=== PATIENT | male | born 1955 | race Caucasian/White ===

== ENCOUNTER 2017-12-26 06:30 | Inpatient (IN) ==
--- NOTE | 2017-12-26 07:01 | Emergency Department Note ---
START Narrative - START START: For this encounter, I have reviewed the AGILE PRO[employer] MANAGER or PA documentation, treatment plan, and medical decision making; and I have had face to face time with this patient. Findings consistent with somnolence and bradypnea. Patient had recent dental procedure. Accu-Chek obtained emergently and patient placed on supplemental oxygen. Patient was given Narcan as there was questionable demonstration of [place]. Patient had no response to Narcan. He does have significant amount of secretions which are dried in the posterior oropharynx. These were suctioned. There is minimal gag reflex. I would proceed with intubation for airway protection and to prevent ongoing episodes of intermittent apnea. Patient will be intubated and signed out to Dr. Denise
[2017-12-26] MEDS ORDERED: Propofol 500 MG/50 ML INFUS..BTL ONE (07:05)
--- NOTE | 2017-12-26 07:09 | Emergency Department Note ---
Disposition Clinical Impression: Respiratory distress, Acute kidney injury Respiratory failure Qualifiers: Chronicity: acute Respiratory failure complication: unspecified whether with hypoxia or hypercapnia Qualified Code(s): J96.00 - Acute respiratory failure, unspecified whether with hypoxia or hypercapnia Disposition: Admitted As Inpatient Condition: Critical Referrals: Yanet Armstrong MD [Primary Care Provider] - Forms: ED Satisfaction Letter Time of Disposition: 08:16 General Adult HPI - General Chief complaint: ED Weakness Stated complaint: just not acting like himself Time Seen by Provider: 12/26/17 06:51 Limitations: physical limitation - History of Present Illness Pain Scale: 0 - Related Data Home Medications Medication Instructions Recorded Confirmed Acetaminophen [Non-Aspirin] 650 mg PO Q4H PRN 12/26/17 12/26/17 Albuterol Neb [Proventil Neb] 2.5 mg IH QID PRN 12/26/17 12/26/17 Alendronate Sodium [Fosamax] 70 mg PO TH 12/26/17 12/26/17 Benztropine Mesylate 2 mg PO HS 12/26/17 12/26/17 Benztropine [Cogentin] 1 mg PO QAM 12/26/17 12/26/17 Buspirone HCl [Buspar] 20 mg PO BID 12/26/17 12/26/17 Calcium Carbonate/Vitamin D3 1 tab PO BID 12/26/17 12/26/17 [Oyster Shell Calcium-Vit D Tab] Cholecalciferol (Vitamin D3) 1,000 unit PO DAILY 12/26/17 12/26/17 [Vitamin D] Docusate Sodium [Dok] 100 mg PO BID 12/26/17 12/26/17 Fluticasone Propionate Nasal 1 spr NS DAILY 12/26/17 12/26/17 [Flonase] Fluvoxamine Maleate 50 mg PO BID 12/26/17 12/26/17 Ibuprofen [Motrin Ib] 400 mg PO Q6H PRN 12/26/17 12/26/17 LORazepam [Ativan] 1 mg PO BID 12/26/17 12/26/17 Levothyroxine [Synthroid] 100 mcg PO DAILY 12/26/17 12/26/17 [place] Carbonate 300 mg PO BID 12/26/17 12/26/17 Loperamide [Imodium] 4 mg PO DAILY PRN 12/26/17 12/26/17 Magnesium Hydroxide [Milk of 2,400 mg PO DAILY PRN 12/26/17 12/26/17 Magnesia] OLANZapine [Zyprexa] 10 mg PO QAM 12/26/17 12/26/17 OLANZapine [Zyprexa] 20 mg PO HS 12/26/17 12/26/17 Polyethylene Glycol 3350 [Gavilax] 17 gm PO DAILY 12/26/17 12/26/17 Sennosides/Docusate Sodium 2 tab PO HS 12/26/17 12/26/17 [Senna-S Tablet] Tamsulosin [Flomax] 0.4 mg PO DAILY 12/26/17 12/26/17 Xyzal 5 mg PO DAILY 12/26/17 12/26/17 carBAMazepine [CarBAMazepine] 100 mg PO QAM 12/26/17 12/26/17 carBAMazepine [CarBAMazepine] 200 mg PO HS 12/26/17 12/26/17 fluvoxaMINE [Luvox] 100 mg PO BID 12/26/17 12/26/17 Allergies Allergy/AdvReac Type Severity Reaction Status Date / Time No Known Allergies Allergy Verified 10/15/17 19:33 Past Medical History - Past Medical History Medical history: Reports: arthritis, COPD, osteoporosis, thyroid disease, other Psychiatric history: Reports: anxiety, depression, other - Social History Smoking Status: Never smoker Smokeless Tobacco Status: No Alcohol use: Reports: none Drug use: Reports: none Physical Exam - General Limitations: physical limitation General appearance: in no apparent distress Course Vital Signs Temperature 97.9 F 12/26/17 06:31 Pulse Rate 105 12/26/17 06:31 Respiratory Rate 16 12/26/17 06:31 Blood Pressure 113/78 12/26/17 06:31 O2 Sat by Pulse Oximetry 94 12/26/17 06:31 Temperature 97.9 F 12/26/17 06:31 Pulse Rate 97 12/26/17 08:45 Respiratory Rate 14 12/26/17 08:45 Blood Pressure 118/81 12/26/17 08:45 O2 Sat by Pulse Oximetry 97 12/26/17 08:45 Oxygen Delivery Oxygen Delivery Ventilator Medical Decision Making - Medical Records Medical records reviewed: Yes I reviewed the patient's medical records. - Lab Data Lab results reviewed: Yes I reviewed the patient's lab results. Result diagrams: 12/26/17 07:58 12/26/17 07:58 Lab Results 12/26/17 12/26/17 12/26/17 Range/Units 06:49 07:39 07:39 WBC (4.3-11.1) K/mcL RBC (4.19-5.50) M/mcL Hgb (12.9-16.9) g/dL Hct (37.5-50.1) % MCV (83.0-100.0) fL MCH (28.0-33.3) pg MCHC (31.6-35.5) g/dL RDW (11.5-14.5) % Plt Count (140-400) K/mcL MPV (9.4-12.4) fL Immature Gran % (0-4) % Seg Neutrophils % % Lymphocytes % % Monocytes % % Eosinophils % % Basophils % % Neutrophils # (1.6-8.9) K/mcL Lymphocytes # (0.6-4.6) K/mcL Monocytes # (0.0-1.3) K/mcL Eosinophils # (0.0-0.6) K/mcL Basophils # (0.0-0.2) K/mcL ABG pH (7.32-7.45) pH Units ABG pCO2 (35-45) mmHg ABG pO2 (85-104) mmHg ABG HCO3 (21-27) mEq/L ABG Total CO2 (20-26) mEq/L ABG O2 Saturation (95-98) % ABG Base Excess (-2 to 3) mEq/L Respiration Rate O2 Delivery Device Blood Gas Modality Inspired O2 (1-15=lpm [id number]=%) Tidal Volume cc PEEP cm H2O Sodium (136-145) mEq/L Potassium (3.5-5.1) mEq/L Chloride (98-107) mEq/L Carbon Dioxide (23-29) mEq/L BUN (8-23) mg/dL Creatinine (0.70-1.30) mg/dL Est GFR ( Amer) (> 60) Est GFR (Non-Af Amer) (> 60) BUN/Creatinine Ratio (6-26) Glucose (70-105) mg/dL POC Glucose 98 (70-99) mg/dL Calculated Osmolality (280-300) Lactic Acid (0.5-2.2) mmol/L Calcium (8.6-10.3) mg/dL Total Bilirubin (0.3-1.0) mg/dL AST (13-39) Units/L ALT (7-52) Units/L Alkaline Phosphatase (34-104) Units/L Troponin I (< 0.04) ng/mL Serum Total Protein (6.4-8.9) g/dL Albumin (3.5-5.7) g/dL Globulin (2.4-3.5) g/dL Albumin/Globulin Ratio (1.1-2.2) Urine Color Yellow (Yellow) Urine Clarity Cloudy A (Clear) Urine pH 7.0 (5.0-8.0) pH Units Ur Specific [place] 1.012 (1.010-1.025) Urine Protein 30 H (Neg-Trace) mg/dL Urine Glucose (UA) Normal (Normal) mg/dL Urine Ketones Negative (Negative) mg/dL Urine Blood Moderate H (Negative) Urine Nitrite Positive A (Negative) Urine Bilirubin Negative (Negative) Urine Urobilinogen Normal (Normal) mg/dL Ur Leukocyte Esterase Large H (Negative) Urine Microscopic RBC 30-50 H (0-3) per hpf Urine Microscopic WBC TNTC H (0-3) per hpf Urine Bacteria Many H (None-Few) per hpf Salicylates (15.0-30.0) mg/dL Urine Opiates Screen Negative (Eqhlls=271) ng/mL Acetaminophen (10-20) mcg/mL Ur Barbiturates Screen Negative (Nzxkgk=611) ng/mL Carbamazepine (4-12) mcg/mL Ur Phencyclidine Scrn Negative (Cutoff=25) ng/mL Ur Amphetamines Screen Negative (Pzjoga=4747) ng/mL U Benzodiazepines Scrn Negative (Qwtdyx=624) ng/mL Urine Cocaine Screen Negative (Cutoff= 300) ng/mL U Marijuana (THC) Screen Negative (Cutoff = 50) ng/mL Ethyl Alcohol (Less than 10) mg/dL 12/26/17 12/26/17 12/26/17 Range/Units 07:44 07:58 07:58 WBC 13.8 H (4.3-11.1) K/mcL RBC 4.12 L (4.19-5.50) M/mcL Hgb 13.2 (12.9-16.9) g/dL Hct 41.4 (37.5-50.1) % MCV 100.5 H (83.0-100.0) fL MCH 32.0 (28.0-33.3) pg MCHC 31.9 (31.6-35.5) g/dL RDW 14.3 (11.5-14.5) % Plt Count 251 (140-400) K/mcL MPV 10.9 (9.4-12.4) fL Immature Gran % 0.5 (0-4) % Seg Neutrophils % 80.8 % Lymphocytes % 11.9 % Monocytes % 5.3 % Eosinophils % 1.3 % Basophils % 0.2 % Neutrophils # 11.2 H (1.6-8.9) K/mcL Lymphocytes # 1.7 (0.6-4.6) K/mcL Monocytes # 0.7 (0.0-1.3) K/mcL Eosinophils # 0.2 (0.0-0.6) K/mcL Basophils # 0.0 (0.0-0.2) K/mcL ABG pH 7.44 (7.32-7.45) pH Units ABG pCO2 39 (35-45) mmHg ABG pO2 427 H (85-104) mmHg ABG HCO3 27 (21-27) mEq/L ABG Total CO2 28 H (20-26) mEq/L ABG O2 Saturation 100 H (95-98) % ABG Base Excess 2 (-2 to 3) mEq/L Respiration Rate 14 O2 Delivery Device Adult Vent Blood Gas Modality ASSIST CONTROL Inspired O2 100.0 (1-15=lpm ke06-917=%) Tidal Volume 500 cc PEEP 5 cm H2O Sodium 145 (136-145) mEq/L Potassium 5.3 H (3.5-5.1) mEq/L Chloride 121 H (98-107) mEq/L Carbon Dioxide 26 (23-29) mEq/L BUN 60 H (8-23) mg/dL Creatinine 2.33 H (0.70-1.30) mg/dL Est GFR ( Amer) 35 L (> 60) Est GFR (Non-Af Amer) 29 L (> 60) BUN/Creatinine Ratio 26 (6-26) Glucose 111 H (70-105) mg/dL POC Glucose (70-99) mg/dL Calculated Osmolality 318 H (280-300) Lactic Acid (0.5-2.2) mmol/L Calcium 10.4 H (8.6-10.3) mg/dL Total Bilirubin 0.6 (0.3-1.0) mg/dL AST 57 H (13-39) Units/L ALT 67 H (7-52) Units/L Alkaline Phosphatase 97 (34-104) Units/L Troponin I < 0.03 (< 0.04) ng/mL Serum Total Protein 7.6 (6.4-8.9) g/dL Albumin 3.7 (3.5-5.7) g/dL Globulin 3.9 H (2.4-3.5) g/dL Albumin/Globulin Ratio 0.9 L (1.1-2.2) Urine Color (Yellow) Urine Clarity (Clear) Urine pH (5.0-8.0) pH Units Ur Specific [place] (1.010-1.025) Urine Protein (Neg-Trace) mg/dL Urine Glucose (UA) (Normal) mg/dL Urine Ketones (Negative) mg/dL Urine Blood (Negative) Urine Nitrite (Negative) Urine Bilirubin (Negative) Urine Urobilinogen (Normal) mg/dL Ur Leukocyte Esterase (Negative) Urine Microscopic RBC (0-3) per hpf Urine Microscopic WBC (0-3) per hpf Urine Bacteria (None-Few) per hpf Salicylates < 2.5 L (15.0-30.0) mg/dL Urine Opiates Screen (Jseynx=947) ng/mL Acetaminophen < 10 L (10-20) mcg/mL Ur Barbiturates Screen (Milgei=165) ng/mL Carbamazepine 9 (4-12) mcg/mL Ur Phencyclidine Scrn (Cutoff=25) ng/mL Ur Amphetamines Screen (Hvxddj=6793) ng/mL U Benzodiazepines Scrn (Fatexa=223) ng/mL Urine Cocaine Screen (Cutoff= 300) ng/mL U Marijuana (THC) Screen (Cutoff = 50) ng/mL Ethyl Alcohol < 10 (Less than 10) mg/dL 12/26/17 Range/Units 07:58 WBC (4.3-11.1) K/mcL RBC (4.19-5.50) M/mcL Hgb (12.9-16.9) g/dL Hct (37.5-50.1) % MCV (83.0-100.0) fL MCH (28.0-33.3) pg MCHC (31.6-35.5) g/dL RDW (11.5-14.5) % Plt Count (140-400) K/mcL MPV (9.4-12.4) fL Immature Gran % (0-4) % Seg Neutrophils % % Lymphocytes % % Monocytes % % Eosinophils % % Basophils % % Neutrophils # (1.6-8.9) K/mcL Lymphocytes # (0.6-4.6) K/mcL Monocytes # (0.0-1.3) K/mcL Eosinophils # (0.0-0.6) K/mcL Basophils # (0.0-0.2) K/mcL ABG pH (7.32-7.45) pH Units ABG pCO2 (35-45) mmHg ABG pO2 (85-104) mmHg ABG HCO3 (21-27) mEq/L ABG Total CO2 (20-26) mEq/L ABG O2 Saturation (95-98) % ABG Base Excess (-2 to 3) mEq/L Respiration Rate O2 Delivery Device Blood Gas Modality Inspired O2 (1-15=lpm em27-659=%) Tidal Volume cc PEEP cm H2O Sodium (136-145) mEq/L Potassium (3.5-5.1) mEq/L Chloride (98-107) mEq/L Carbon Dioxide (23-29) mEq/L BUN (8-23) mg/dL Creatinine (0.70-1.30) mg/dL Est GFR ( Amer) (> 60) Est GFR (Non-Af Amer) (> 60) BUN/Creatinine Ratio (6-26) Glucose (70-105) mg/dL POC Glucose (70-99) mg/dL Calculated Osmolality (280-300) Lactic Acid 1.0 (0.5-2.2) mmol/L Calcium (8.6-10.3) mg/dL Total Bilirubin (0.3-1.0) mg/dL AST (13-39) Units/L ALT (7-52) Units/L Alkaline Phosphatase (34-104) Units/L Troponin I (< 0.04) ng/mL Serum Total Protein (6.4-8.9) g/dL Albumin (3.5-5.7) g/dL Globulin (2.4-3.5) g/dL Albumin/Globulin Ratio (1.1-2.2) Urine Color (Yellow) Urine Clarity (Clear) Urine pH (5.0-8.0) pH Units Ur Specific [place] (1.010-1.025) Urine Protein (Neg-Trace) mg/dL Urine Glucose (UA) (Normal) mg/dL Urine Ketones (Negative) mg/dL Urine Blood (Negative) Urine Nitrite (Negative) Urine Bilirubin (Negative) Urine Urobilinogen (Normal) mg/dL Ur Leukocyte Esterase (Negative) Urine Microscopic RBC (0-3) per hpf Urine Microscopic WBC (0-3) per hpf Urine Bacteria (None-Few) per hpf Salicylates (15.0-30.0) mg/dL Urine Opiates Screen (Bealys=436) ng/mL Acetaminophen (10-20) mcg/mL Ur Barbiturates Screen (Yfvbmd=409) ng/mL Carbamazepine (4-12) mcg/mL Ur Phencyclidine Scrn (Cutoff=25) ng/mL Ur Amphetamines Screen (Qgxjoj=1425) ng/mL U Benzodiazepines Scrn (Jpgmlv=584) ng/mL Urine Cocaine Screen (Cutoff= 300) ng/mL U Marijuana (THC) Screen (Cutoff = 50) ng/mL Ethyl Alcohol (Less than 10) mg/dL - Radiology Data Radiology results reviewed: Yes I reviewed the patient's radiology results. - EKG Data EKG #1 EKG attestation: Yes I reviewed and interpreted this EKG. EKG results narrative: NSR 97 BPM AL 132 QRS 93ms QT/QTc 351/405. No acute SAUD Critical Care Time Critical Care Time: Yes Total Critical Care Time: 30 Attestation: The high probability of a clinically significant, sudden or life threatening deterioration of the [] system(s) required my full and direct attention, intervention and personal management. The aggregate critical care time was [] minutes. This time is in addition to time spent performing reported procedures but includes the following: [] Data Review and interpretation [] Patient assessment and monitoring of vital signs [] Documentation [] Medication orders and management Attestation Statement - Attestation Attestation: I have personally performed a face to face evaluation on this patient. I have reviewed and agree with the care plan. History and Exam by me shows: Upon arrival to the emergency department I was asked by Dr. Landa to evaluate the patient for apnea and inability to protect his airway. The patient was endotracheally intubated without difficulty by the resident physician Dr. Cardona. The patient will require intensive care unit admission. Further workup pending
--- NOTE | 2017-12-26 07:10 | Emergency Department Note ---
Disposition Clinical Impression: Respiratory distress Disposition: Still a Patient Condition: Fair Referrals: Yanet Armstrong MD [Primary Care Provider] - Forms: ED Satisfaction Letter General Adult HPI - General Chief complaint: ED Weakness Stated complaint: just not acting like himself Time Seen by Provider: 12/26/17 06:51 Limitations: physical limitation - History of Present Illness HPI Narrative: This documentation is for the intubation. Please see the other providers for complete documentation. Patient is a 62-year-old male who had a recent dental procedure. Patient presented for concerns of altered mental status. Patient had [place] about every 6 hours per caregiver. This morning the patient appeared to not be acting appropriately. Patient is a full code. Patient appeared with intermittent apnea and a decreased GCS and did not appear to be controlling his airway upon ED arrival. Pain Scale: 0 - Related Data Home Medications Medication Instructions Recorded Confirmed Acetaminophen [Tylenol] 325 mg PO Q6HR 06/13/17 06/13/17 Albuterol Neb [Proventil Neb] 06/13/17 Alendronate Sodium [Fosamax] 70 mg PO QWEEK 06/13/17 06/13/17 Benztropine Mesylate 1 mg PO 06/13/17 Buspirone HCl [Buspar] 10 mg PO 06/13/17 Calcium Carbonate/Vitamin D3 06/13/17 [[place]yster Shell 250 mg + Vit D Tb] CarBAMazepine [Carbamazepine ER] 06/13/17 Cholecalciferol (Vitamin D3) 1,000 unit PO 06/13/17 [Vitamin D] Fluticasone Propionate [Flovent 06/13/17 Diskus] Fluvoxamine Maleate [Fluvoxamine 100 mg PO 06/13/17 Maleate ER] LORazepam [Ativan] 1 mg PO 06/13/17 Levocetirizine Dihydrochloride 5 gm MC 06/13/17 Levothyroxine [Synthroid] 100 mcg PO 06/13/17 [place] Oral Soln [[place]] 300 mg PO 06/13/17 Loperamide [Imodium] 2 mg PO 06/13/17 OLANZapine [Zyprexa] 20 mg PO 06/13/17 Polyethylene Glycol 3350 [Gavilax] 8.5 gm PO 06/13/17 Senexum-S 06/13/17 Tamsulosin HCl [Flomax] 0.4 mg PO 06/13/17 Previous Rx's Medication Instructions Recorded Guaifenesin [Mucinex] 1,200 mg PO BID PRN #30 tab.er.12h 08/14/17 Nitrofurantoin Monohyd/M-Cryst 100 mg PO BID #10 capsule 10/15/17 [Macrobid 100 mg Capsule] Allergies Allergy/AdvReac Type Severity Reaction Status Date / Time No Known Allergies Allergy Verified 10/15/17 19:33 Limitations: ROS unobtainable due to patients medical condition Past Medical History - Past Medical History Source: unable to obtain Medical history: Reports: arthritis, COPD, osteoporosis, thyroid disease, other Psychiatric history: Reports: anxiety, depression, other - Social History Smoking Status: Never smoker Smokeless Tobacco Status: No Alcohol use: Reports: none Drug use: Reports: none Physical Exam - General Limitations: physical limitation General appearance: in no apparent distress - Head Head exam: atraumatic, normocephalic, normal inspection - Eye Eye exam: Present: normal appearance, PERRL, EOMI. Absent: miosis, mydriasis - ENT ENT exam: normal exam, mucous membranes dry - Neck Neck exam: Present: normal inspection - Chest Chest inspection: Present: normal inspection, symmetric chest wall rise - Respiratory Respiratory exam: Present: other (Decreased inspiratory effort). Absent: respiratory distress, prolonged expiratory phase - Cardiovascular Cardiovascular exam: Present: regular rate, normal rhythm. Absent: systolic murmur - Abdominal Exam Abdominal exam: Present: soft - Extremities Exam Extremities exam: Absent: pedal edema - Neurological Exam Neurological exam: Present: other (Patient appears to move all ext. Patient does not follow commands. Patient is not protecting his airway.) - Expanded Neurological Exam Speech: Absent: fluid speech Coma Scale Eye Opening: To Pain Coma Scale Motor Response: Localizes to Pain Coma Scale Verbal Response: None Coma Scale Total: 8 Course Course Narrative: Patient failed the 2 mg of Narcan. Concerns of airway protection. Acute mental status change. Patient was intubated emergently. Vital Signs Temperature 97.9 F 12/26/17 06:31 Pulse Rate 105 12/26/17 06:31 Respiratory Rate 16 12/26/17 06:31 Blood Pressure 113/78 12/26/17 06:31 O2 Sat by Pulse Oximetry 94 12/26/17 06:31 Temperature 97.9 F 04/05/18 06:31 Pulse Rate 105 12/26/17 06:31 Respiratory Rate 16 12/26/17 06:31 Blood Pressure 113/78 12/26/17 06:31 O2 Sat by Pulse Oximetry 94 12/26/17 06:31 Oxygen Delivery Oxygen Delivery Room Air Procedures - Intubation Time out performed: Yes sedative: Etomidate Mg Given: 20 paralytic: Rocuronium Mg Given: 100 Laryngoscope: Ciera ET Tube Size: 7.5 ET Tube Uncuffed: Yes Tube Secured Depth (cm): 23 Tube Secured Location: lips Tube Placement Confirmation: visualized tube passing through cords, equal breath sounds bilaterally, no breath sounds over epigastrium, confirmation by capnometry Patient Tolerated Procedure: well, no complications Intubation Complications: none Medical Decision Making - Lab Data Lab Results 12/26/17 Range/Units 06:49 POC Glucose 98 (70-99) mg/dL S.B.A.R. - S.B.A.R. Situation: Demographics Background: Presenting Complaint Assessment: Vital Signs, Course and respsone to treatment, Patient/Family Expectation Recommendation: Barrier(s) to disposition, Recommendation based on pending studies, treatments, or consults S.B.A.R. Report Given to: Dr. Denise S.B.A.RBassam Repor Time: 07:18
[2017-12-26] MEDS ORDERED: *HR* Etomidate 40 MG/20 ML VIAL IVP ONE (07:35)
[2017-12-26] MEDS ORDERED: *HR* Rocuronium Bromide 50 MG/5 ML VIAL IVP ONE (07:37)
[2017-12-26 07:49] LABS: ABG Base Excess 2 mEq/L (-2 to 3); ABG HCO3 27 mEq/L (21-27); ABG Oxygen Saturation 100 % (95-98); ABG PCO2 39 mmHg (35-45); ABG PH 7.44 pH Units (7.32-7.45); ABG PO2 427 mmHg (85-104); ABG TCO2 28 mEq/L (20-26); Blood Gas Modality ASSIST CONTROL; Blood Gas PEEP 5 cm H2O; Blood Gas Respiration Rate 14; Blood Gas VT 500 cc
[2017-12-26 07:59] LABS: Bilirubin,Urine Negative (Negative); Blood,Urine Moderate (Negative); Color,Urine Yellow (Yellow); Glucose,Urine (UA) Normal (Normal); Ketones,Urine Negative (Negative); Leukocyte Esterase,Urine Large (Negative); Nitrite,Urine Positive (Negative); Protein,Urine 30 mg/dL (Neg-Trace); Specific Gravity,Urine 1.012 (1.010-1.025); Urobilinogen,Urine Normal (Normal)
[2017-12-26 08:06] LABS: Clarity,Urine Cloudy (Clear)
[2017-12-26 08:12] LABS: Basophils % 0.2 %; Eosinophils # 0.2 K/mcL (0.0-0.6); Eosinophils % 1.3 %; Hematocrit 41.4 % (37.5-50.1); Hemoglobin 13.2 g/dL (12.9-16.9); Immature Granulocytes % 0.5 % (0-4); Lymphocytes # 1.7 K/mcL (0.6-4.6); Lymphocytes % 11.9 %; Mean Corpuscular HGB Conc 31.9 g/dL (31.6-35.5); Mean Corpuscular Volume 100.5 fL (83.0-100.0); Mean Platelet Volume 10.9 fL (9.4-12.4); Monocytes # 0.7 K/mcL (0.0-1.3); Monocytes % 5.3 %; Neutrophils # 11.2 K/mcL (1.6-8.9); Platelet Count 251 K/mcL (140-400); Red Blood Count 4.12 M/mcL (4.19-5.50); Red Cell Distribution Width 14.3 % (11.5-14.5); Segmented Neutrophils % 80.8 %
[2017-12-26] MEDS ORDERED: *HR* Rocuronium Bromide 100 MG/10 ML VIAL IVC ONE (08:15)
[2017-12-26] MEDS ORDERED: *HR* Etomidate 20 MG/10 ML AMPUL IVP ONE (08:15)
[2017-12-26 08:18] LABS: WBC,Urine TNTC per hpf (0-3)
[2017-12-26 08:19] LABS: RBC,Urine 30-50 per hpf (0-3)
[2017-12-26 08:20] LABS: Amphetamine Screen,Urine Negative ng/mL (Cutoff=1000); Bacteria,Urine Many per hpf (None-Few); Barbiturate Screen,Urine Negative ng/mL (Cutoff=200); Benzodiazepines Screen,Urine Negative ng/mL (Cutoff=200); Cannabinoid Screen,Urine Negative ng/mL (Cutoff = 50); Cocaine Screen,Urine Negative ng/mL (Cutoff= 300); Opiate Screen,Urine Negative ng/mL (Cutoff=300); Phencyclidine Screen,Urine Negative ng/mL (Cutoff=25)
[2017-12-26] MEDS ORDERED: cefTRIAXone 1,000 MG in Water for inj. (sterile) 20 ML 10 ML IVPB ONE (08:21)
[2017-12-26] MEDS ORDERED: *HR* Midazolam HCl 2 MG/2 ML VIAL IVP ONE (08:24)
[2017-12-26 08:32] LABS: Acetaminophen < 10 mcg/mL (10-20); Alanine Aminotransferase 67 Units/L (7-52); Albumin 3.7 g/dL (3.5-5.7); Albumin/Globulin Ratio 0.9 (1.1-2.2); Alkaline Phosphatase 97 Units/L (34-104); Aspartate Amino Transferase 57 Units/L (13-39); BUN/Creatinine Ratio 26 (6-26); Bilirubin,Total 0.6 mg/dL (0.3-1.0); Blood Urea Nitrogen 60 mg/dL (8-23); Calcium 10.4 mg/dL (8.6-10.3); Carbon Dioxide 26 mEq/L (23-29); Chloride 121 mEq/L (98-107); Ethanol < 10 mg/dL (Less than 10); Globulin 3.9 g/dL (2.4-3.5); Glucose 111 mg/dL (70-105); Osmolality,Calculated 318 (280-300); Potassium 5.3 mEq/L (3.5-5.1); Salicylate < 2.5 mg/dL (15.0-30.0); Sodium 145 mEq/L (136-145); Total Protein 7.6 g/dL (6.4-8.9); Troponin I < 0.03 ng/mL (< 0.04); eGFR For African Americans 35 (> 60); eGFR For Non-African Americans 29 (> 60)
[2017-12-26] MEDS: Propofol 500 MG/50 ML INFUS..BTL IVC SCH ×3 (08:44→17:01)
[2017-12-26 08:49] LABS: Carbamazepine (Tegretol) 9 mcg/mL (4-12)
[2017-12-26] MEDS ORDERED: Lacri-Lube 3.5 GM TUBE BOTH EYES PRN (11:53)
[2017-12-26] MEDS ORDERED: Dextrose Gel 15 GM/37.5 ML TUBE PO PRN ×2 (11:57)
[2017-12-26] MEDS ORDERED: *HR* Dextrose 50 % in Water (Syg) 50 ML SYRINGE IVP PRN (11:57)
[2017-12-26] MEDS ORDERED: D5% in Water 1,000 ML IVC PRN (11:57)
--- NOTE | 2017-12-26 11:58 | Pulmonology History & Physical ---
<Campbell Crockett - Last Filed: 12/26/17 15:41> Date of Encounter: 12/26/17 Time of Encounter: 11:58 Assessment and Plan (1) Encephalopathy acute Current visit: Yes Status: Acute consideration for narcotic overdose, opiate screening was negative - no other drugs noted urine consistent with UTI with OSCAR, suspect may have prolonged narcotic drug effects due to reduce clearance - patient will be treated with Zosyn for broader coverage patient has history of seizures based on home medications Carbamazepine - Carbamazepine level 9 [address] chest with concern for aspiration CT head without acute intracranial abnormality - no focal neuro deficits seen on exam afebrile no nuchal rigidity on exam will continue with vent support and wean sedation to evaluate baseline mental state (2) Urinary tract infection Current visit: Yes Status: Acute treated with Rocephin in ED broaden coverage with Zosyn Qualifiers: Urinary tract infection type: site unspecified Hematuria presence: with hematuria Qualified Code(s): N39.0 - Urinary tract infection, site not specified; R31.9 - Hematuria, unspecified; R31.9 - Hematuria, unspecified (3) Respiratory failure Current visit: Yes Status: Acute emergently intubated secondary to low GCS and inability to protect airway no reported lung diseases will continue with sedation and plan for possible extubation in the near future , 24-48 hours ABG tomorrow no recent hospitalization resident at [facility] continue empiric coverage for UTI with Zosyn IV Protonix Qualifiers: Chronicity: acute Respiratory failure complication: unspecified whether with hypoxia or hypercapnia Qualified Code(s): J96.00 - Acute respiratory failure, unspecified whether with hypoxia or hypercapnia (4) Acute kidney injury Current visit: Yes Status: Acute suspect pre-renal component BUN elevated 60 patient appears dehydrated on exam given report of poor PO intake grove in place, strict I/Os IVF will check FENa hold nephrotoxic medications (5) DVT prophylaxis Current visit: Yes Status: Acute Heparin History of Present Illness Chief complaint: altered mental status HPI: Mr. Varghese is a 62 year old male with reported history of developmental disability who presents to the emergency department for concern of altered mental status. Patient is currently sedated and mechanically ventilated. Channeler is at bedside however was not present initially prior to intubation. Per jailer/training officer, patient had a recent teeth extraction 6 days ago (12/20) and was given Vicodin medication for pain. The past several days he has been reported lethargic not quite acting himself. She states he is normally awake and interactive. He typically is able to voice any pain and discomfort. Patient is a resident at [facility] and reports lethargy and weakness since surgery. She states patient has not had any recent illness, fever, cough, or any nose. She has noticed that he has some urinary incontinence which is unusual. Denies any recent injury or fall. He is not on any blood thinners. There was initial concern for overdose. Per the ED physician documentation 2 milligrams Narcan was given without response. Patient continued to be somnolent and unable to arouse. Concern for airway compromise patient was intubated to help facilitate further investigation. Review of workup. Leukocytosis of 13.8. Afebrile. Acute kidney injury SCr 2.33. Urine appears consistent with infection with positive Nitrites and large Leuk Esterase with many bacteria. The urine is cloudy and purulent appearing. Urine drug screen performed, negative for drugs. Salicylates <2.5 and APAP <10. Ethanol <10. CT head without acute intracranial abnormality. CTA chest limited due to motion but there were bibasilar consolidations, partially attributable to atelectasis however superimposed airway spread of disease such as aspiration can be considered. Patient had blood cultures drawn and empirically was treated with Ceftriaxone. Past Med Surg Social Fam HX - Past Medical History Medical history: arthritis, COPD, osteoporosis, thyroid disease, other Psychiatric history: anxiety, depression, other - Social History Smoking Status: Never smoker Smokeless Tobacco Status: No Alcohol use: none Drug use: none Medications and Allergies Acetaminophen [Non-Aspirin] 650 mg PO Q4H PRN 12/26/17 [History] Albuterol Neb [Proventil Neb] 2.5 mg IH QID PRN 12/26/17 [History] Alendronate Sodium [Fosamax] 70 mg PO TH 12/26/17 [History] Benztropine Mesylate 2 mg PO HS 12/26/17 [History] Benztropine [Cogentin] 1 mg PO QAM 12/26/17 [History] Buspirone HCl [Buspar] 20 mg PO BID 12/26/17 [History] Calcium Carbonate/Vitamin D3 [Oyster Shell Calcium-Vit D Tab] 1 tab PO BID 12/26 [History] Cholecalciferol (Vitamin D3) [Vitamin D] 1,000 unit PO DAILY 12/26/17 [History] Docusate Sodium [Dok] 100 mg PO BID 12/26/17 [History] Fluticasone Propionate Nasal [Flonase] 1 spr NS DAILY 12/26/17 [History] Fluvoxamine Maleate 50 mg PO BID 12/26/17 [History] Ibuprofen [Motrin Ib] 400 mg PO Q6H PRN 12/26/17 [History] LORazepam [Ativan] 1 mg PO BID 12/26/17 [History] Levothyroxine [Synthroid] 100 mcg PO DAILY 12/26/17 [History] [place] Carbonate 300 mg PO BID 12/26/17 [History] Loperamide [Imodium] 4 mg PO DAILY PRN 12/26/17 [History] Magnesium Hydroxide [Milk of Magnesia] 2,400 mg PO DAILY PRN 12/26/17 [History] OLANZapine [Zyprexa] 10 mg PO QAM 12/26/17 [History] OLANZapine [Zyprexa] 20 mg PO HS 12/26/17 [History] Polyethylene Glycol 3350 [Gavilax] 17 gm PO DAILY 12/26/17 [History] Sennosides/Docusate Sodium [Senna-S Tablet] 2 tab PO HS 12/26/17 [History] Tamsulosin [Flomax] 0.4 mg PO DAILY 12/26/17 [History] Xyzal 5 mg PO DAILY 12/26/17 [History] carBAMazepine [CarBAMazepine] 100 mg PO QAM 12/26/17 [History] carBAMazepine [CarBAMazepine] 200 mg PO HS 12/26/17 [History] fluvoxaMINE [Luvox] 100 mg PO BID 12/26/17 [History] 3 Allergy/AdvReac Type Severity Reaction Status Date / Time No Known Allergies Allergy Verified 10/15/17 19:33 ROS unobtainable: due to endotracheal tube, due to mental status All Systems: The remainder of the systems were reviewed and are negative Physical Examination Vital Signs: Vital Signs, Last 4 Hours Pulse Resp BP Pulse Ox 12/26/17 10:56 96 15 123/85 98 12/26/17 09:27 95 14 106/77 98 12/26/17 08:45 97 14 118/81 97 12/26/17 08:24 16 100 General appearance: appears uncomfortable, other (initial evaluation in the ED patient appeared undersedated and uncomfortable, he does move all 4 extremities spontaneously without focal deficit, no nuchal rigidity or meningismus, on ICU arrival he is in no acute distress and adequately sedated) Eyes: nonicteric ENT: oropharynx dry, other (endotracheal intubation, no epistaxis or hemoptysis or hematemesis) Neck: supple Effort: other (mechanically ventilated) Inspection: other Auscultation: bilateral: clear, rales Cardiovascular: regular rate and rhythm Gastrointestinal: normoactive bowel sounds, soft, non-tender, non-distended Integumentary: other (temporal wasting) Extremities: no cyanosis, no edema, no clubbing, no ischemia or petechiae Musculoskeletal: no deformities, ROM normal non-focal exam, unable to assess due to mental status other (unable to assess) Results - Laboratory Findings CBC and BMP: 12/26/17 07:58 12/26/17 07:58 ABG ABG pH 7.44 pH Units (7.32-7.45) 12/26/17 07:44 ABG pCO2 39 mmHg (35-45) 04 07:44 ABG pO2 427 mmHg (85-104) H 12/26/17 07:44 ABG O2 Saturation 100 % (95-98) H 12/26/17 07:44 Abnormal lab findings: Abnormal lab results WBC 13.8 K/mcL (4.3-11.1) H 12/26/17 07:58 RBC 4.12 M/mcL (4.19-5.50) L 12/26/17 07:58 MCV 100.5 fL (83.0-100.0) H 12/26/17 07:58 Neutrophils # 11.2 K/mcL (1.6-8.9) H 12/26/17 07:58 ABG pO2 427 mmHg (85-104) H 12/26/17 07:44 ABG Total CO2 28 mEq/L (20-26) H 12/26/17 07:44 ABG O2 Saturation 100 % (95-98) H 12/26/17 07:44 Potassium 5.3 mEq/L (3.5-5.1) H 12/26/17 07:58 Chloride 121 mEq/L (98-107) H 12/26/17 07:58 BUN 60 mg/dL (8-23) H 12/26/17 07:58 Creatinine 2.33 mg/dL (0.70-1.30) H 12/26/17 07:58 Est GFR ( Amer) 35 (> 60) L 12/26/17 07:58 Est GFR (Non-Af Amer) 29 (> 60) L 12/26/17 07:58 Glucose 111 mg/dL (70-105) H 12/26/17 07:58 Calculated Osmolality 318 (280-300) H 12/26/17 07:58 Calcium 10.4 mg/dL (8.6-10.3) H 12/26/17 07:58 AST 57 Units/L (13-39) H 12/26/17 07:58 ALT 67 Units/L (7-52) H 12/26/17 07:58 Globulin 3.9 g/dL (2.4-3.5) H 12/26/17 07:58 Albumin/Globulin Ratio 0.9 (1.1-2.2) L 12/26/17 07:58 Urine Clarity Cloudy (Clear) A 12/26/17 07:39 Urine Protein 30 mg/dL (Neg-Trace) H 12/26/17 07:39 Urine Blood Moderate (Negative) H 12/26/17 07:39 Urine Nitrite Positive (Negative) A 12/26/17 07:39 Ur Leukocyte Esterase Large (Negative) H 12/26/17 07:39 Urine Microscopic RBC 30-50 per hpf (0-3) H 12/26/17 07:39 Urine Microscopic WBC TNTC per hpf (0-3) H 12/26/17 07:39 Urine Bacteria Many per hpf (None-Few) H 12/26/17 07:39 Salicylates < 2.5 mg/dL (15.0-30.0) L 12/26/17 07:58 Acetaminophen < 10 mcg/mL (10-20) L 12/26/17 07:58 <Surinder Cuadra W - Last Filed: 12/26/17 16:14> Date of Encounter: 12/26/17 History of Present Illness HPI: Mr. Varghese is a 62 year old male All Systems: The remainder of the systems were reviewed and are negative Physical Examination Vital Signs: Vital Signs, Last 4 Hours Pulse Resp BP Pulse Ox 12/26/17 15:38 105 12/26/17 14:55 14 115/82 12/26/17 14:11 108 15 102/69 95 12/26/17 13:34 109 14 103/70 94 12/26/17 12:21 14 108/75 96 Results - Laboratory Findings CBC and BMP: 12/26/17 07:58 12/26/17 07:58 ABG ABG pH 7.44 pH Units (7.32-7.45) 12/26/17 07:44 ABG pCO2 39 mmHg (35-45) 12/26/17 07:44 ABG pO2 427 mmHg (85-104) H 12/26/17 07:44 ABG O2 Saturation 100 % (95-98) H 12/26/17 07:44 Abnormal lab findings: Abnormal lab results WBC 13.8 K/mcL (4.3-11.1) H 12/26/17 07:58 RBC 4.12 M/mcL (4.19-5.50) L 12/26/17 07:58 MCV 100.5 fL (83.0-100.0) H 12/26/17 07:58 Neutrophils # 11.2 K/mcL (1.6-8.9) H 12/26/17 07:58 ABG pO2 427 mmHg (85-104) H 12/26/17 07:44 ABG Total CO2 28 mEq/L (20-26) H 12/26/17 07:44 ABG O2 Saturation 100 % (95-98) H 12/26/17 07:44 Potassium 5.3 mEq/L (3.5-5.1) H 12/26/17 07:58 Chloride 121 mEq/L (98-107) H 12/26/17 07:58 BUN 60 mg/dL (8-23) H 12/26/17 07:58 Creatinine 2.33 mg/dL (0.70-1.30) H 12/26/17 07:58 Est GFR ( Amer) 35 (> 60) L 12/26/17 07:58 Est GFR (Non-Af Amer) 29 (> 60) L 12/26/17 07:58 Glucose 111 mg/dL (70-105) H 12/26/17 07:58 Calculated Osmolality 318 (280-300) H 12/26/17 07:58 Calcium 10.4 mg/dL (8.6-10.3) H 12/26/17 07:58 AST 57 Units/L (13-39) H 12/26/17 07:58 ALT 67 Units/L (7-52) H 12/26/17 07:58 Globulin 3.9 g/dL (2.4-3.5) H 12/26/17 07:58 Albumin/Globulin Ratio 0.9 (1.1-2.2) L 12/26/17 07:58 Urine Clarity Cloudy (Clear) A 12/26/17 07:39 Urine Protein 30 mg/dL (Neg-Trace) H 12/26/17 07:39 Urine Blood Moderate (Negative) H 12/26/17 07:39 Urine Nitrite Positive (Negative) A 12/26/17 07:39 Ur Leukocyte Esterase Large (Negative) H 12/26/17 07:39 Urine Microscopic RBC 30-50 per hpf (0-3) H 12/26/17 07:39 Urine Microscopic WBC TNTC per hpf (0-3) H 12/26/17 07:39 Urine Bacteria Many per hpf (None-Few) H 12/26/17 07:39 Salicylates < 2.5 mg/dL (15.0-30.0) L 12/26/17 07:58 Acetaminophen < 10 mcg/mL (10-20) L 12/26/17 07:58 - Attending Attestation I examined this patient and my medical decision-making was reviewed with the Resident Physician. I agree with the documented findings, disposition and treatment plan as described except to the extent set forth below. We independently had [id number] contact with the patient Patient seen and examined at bedside Labs, radiology, chart personally reviewed. 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 Was noted to move alternatives of sedation goal sedation while vent [place] 2-3. Patient has developmental delay and lives in a care home Pulm: Acute respiratory failure requiring intubation which was related more to airway management/protection as opposed to true hypoxemia or hypercarbia acceptable gas exchange on last ABG plan for spontaneous breathing trial tomorrow morning Cards: Blood pressure monitored and stable troponin within normal limits FEN-GI: Nothing by mouth for now GI prophylaxis given Renal: OSCAR likely secondary to volume depletion fluids have been administered repeat serum creatinine and electrolytes and urine output ID: Suspected UTI with sepsis. Cannot exclude possibility of recent dental extraction complicating picture will broadened to cover for both UTI and possible anaerobic infection de-escalate based upon cultures and clinical course Heme/Onc: DVT prophylaxis given Endo: Glucose Monitored Integ/MSK: Skin Care per routine ICU Nursing Protocol to prevent ulcers. Lines: All lines examined without evidence of infection : Dispo: Remain in ICU CODE: Full
[2017-12-26 13:01] LABS: Thyroid Stimulating Hormone 0.471 mcIU/mL (0.340-5.600)
[2017-12-26] MEDS ORDERED: 0.9 % Sodium Chloride 1,000 ML ONE (13:07)
[2017-12-26] MEDS: FentaNYL (PF) 1,000 MCG in 0.9 % Sodium Chloride 80 ML IVC SCH (13:21)
[2017-12-26] MEDS: Lacri-Lube 3.5 GM TUBE BOTH EYES SCH ×3 (13:24→21:17)
[2017-12-26] MEDS ORDERED: 0.9 % Sodium Chloride 1,000 ML IVC SCH (14:30)
[2017-12-26] MEDS ORDERED: Naloxone 0.4 MG/ML INJ IVP PRN (15:45)
[2017-12-26] MEDS ORDERED: Ringers Solution, Lactated 1,000 ML IVC ONE (16:09)
[2017-12-26] MEDS: Ringers Solution, Lactated 1,000 ML IVC SCH (16:17)
[2017-12-26] MEDS: Piperacillin/Tazobactam 3.375 GM in 0.9 % Sodium Chloride Mini Bag 100 ML IVPB SCH (16:18)
[2017-12-26 16:34] LABS: Potassium 4.3 mEq/L (3.5-5.1)
[2017-12-26 17:07] LABS: ABG Base Excess 1 mEq/L (-2 to 3); ABG HCO3 27 mEq/L (21-27); ABG Oxygen Saturation 97 % (95-98); ABG PCO2 49 mmHg (35-45); ABG PH 7.35 pH Units (7.32-7.45); ABG PO2 98 mmHg (85-104); ABG TCO2 29 mEq/L (20-26); Blood Gas Modality ASSIST CONTROL; Blood Gas PEEP 5 cm H2O; Blood Gas Respiration Rate 12; Blood Gas VT 500 cc
[2017-12-26 17:15] LABS: Adenovirus Not Detected (Not Detect); Bordetella Pertussis Not Detected (Not Detect); Chlamydophila pneumoniae Not Detected (Not Detect); Coronavirus 229E Not Detected (Not Detect); Coronavirus HKU1 Not Detected (Not Detect); Coronavirus NL63 Not Detected (Not Detect); Coronavirus OC43 Not Detected (Not Detect); Human Metapneumovirus Not Detected (Not Detect); Human Rhinovirus/Enterovirus Not Detected (Not Detect); Influenza A Subtype 2009 H1 Not Detected (Not Detect); Influenza A Untypeable Not Detected (Not Detect); Influenza B Not Detected (Not Detect); Mycoplasma pneumoniae Not Detected (Not Detect); Parainfluenza Virus 1 Not Detected (Not Detect); Parainfluenza Virus 2 Not Detected (Not Detect); Parainfluenza Virus 3 Not Detected (Not Detect); Parainfluenza Virus 4 Not Detected (Not Detect); Respiratory Syncytial Virus Not Detected (Not Detect)
[2017-12-26] MEDS: *HR* Heparin 5,000 UNIT/ML VIAL SQ SCH (17:36)
[2017-12-26] MEDS: Dexmedetomidine HCl 400 MCG/100 ML MLS IVC SCH (17:36)
[2017-12-26] MEDS: Chlorhexidine Rinse 15 ML MOUTHWASH MM SCH (21:17)
[2017-12-27] MEDS: Lacri-Lube 3.5 GM TUBE BOTH EYES SCH ×7 (00:11→23:58)
[2017-12-27] MEDS: Piperacillin/Tazobactam 3.375 GM in 0.9 % Sodium Chloride Mini Bag 100 ML IVPB SCH ×4 (00:11→23:57)
[2017-12-27] MEDS: Ringers Solution, Lactated 1,000 ML IVC SCH ×2 (03:04→11:39)
[2017-12-27 04:37] LABS: Basophils % 0.3 %; Eosinophils # 0.3 K/mcL (0.0-0.6); Eosinophils % 3.3 %; Hematocrit 38.3 % (37.5-50.1); Immature Granulocytes % 0.5 % (0-4); Mean Corpuscular HGB Conc 29.8 g/dL (31.6-35.5); Mean Corpuscular Hemoglobin 30.9 pg (28.0-33.3); Mean Corpuscular Volume 103.8 fL (83.0-100.0); Mean Platelet Volume 11.1 fL (9.4-12.4); Monocytes # 0.5 K/mcL (0.0-1.3); Monocytes % 5.3 %; Neutrophils # 7.7 K/mcL (1.6-8.9); Platelet Count 228 K/mcL (140-400); Red Blood Count 3.69 M/mcL (4.19-5.50); Red Cell Distribution Width 14.7 % (11.5-14.5); Segmented Neutrophils % 80.6 %
[2017-12-27] MEDS: FentaNYL (PF) 1,000 MCG in 0.9 % Sodium Chloride 80 ML IVC SCH (04:38)
[2017-12-27 04:40] LABS: Hemoglobin 11.4 g/dL (12.9-16.9)
[2017-12-27 04:45] LABS: ABG Base Excess 2 mEq/L (-2 to 3); ABG HCO3 28 mEq/L (21-27); ABG Oxygen Saturation 93 % (95-98); ABG PCO2 50 mmHg (35-45); ABG PH 7.35 pH Units (7.32-7.45); ABG PO2 70 mmHg (85-104); ABG TCO2 29 mEq/L (20-26); Blood Gas Modality PRVC; Blood Gas PEEP 5 cm H2O; Blood Gas Respiration Rate 12; Blood Gas VT 500 cc
[2017-12-27 04:54] LABS: Sodium, Urine 22.1 mEq/L
[2017-12-27 04:56] LABS: Calcium 9.8 mg/dL (8.6-10.3)
[2017-12-27] MEDS: *HR* Heparin 5,000 UNIT/ML VIAL SQ SCH ×2 (06:21→16:33)
[2017-12-27] MEDS: Dexmedetomidine HCl 400 MCG/100 ML MLS IVC SCH (06:23)
[2017-12-27] MEDS ORDERED: D5% in Water 1,000 ML IVC SCH (07:00)
[2017-12-27] MEDS: Chlorhexidine Rinse 15 ML MOUTHWASH MM SCH ×2 (07:43→19:57)
[2017-12-27] MEDS: Pantoprazole 40 MG VIAL IVP SCH (07:44)
--- NOTE | 2017-12-27 09:16 | Pulmonology Progress Note ---
<VeneciaSurinder W - Last Filed: 12/27/17 10:18> Date of Encounter: 12/27/17 Objective PUL Vital signs: Last Vital Signs Temp 98.3 F 12/27/17 04:00 Pulse 64 12/27/17 09:00 Resp 24 12/27/17 09:00 BP 91/58 12/27/17 09:00 Pulse Ox 92 12/27/17 09:00 Ventilator Settings Ventilator Settings: Ventilator Settings, Last 8 Hours Ventilator Mode VC+ Ventilator Mode VC+ Ventilator Mode VC+ Ventilator Mode A/C Ventilator Mode VC+ Ventilator Mode A/C Ventilator Mode VC+ Ventilator Tidal Volume 500 Setting Ventilator Tidal Volume 500 Setting Ventilator Tidal Volume 500 Setting Ventilator Tidal Volume 500 Setting Ventilator Tidal Volume 500 Setting Ventilator Tidal Volume 500 Setting Ventilator Tidal Volume 500 Setting Ventilator Respiratory Rate 12 Setting Ventilator Respiratory Rate 12 Setting Ventilator Respiratory Rate 12 Setting Ventilator Respiratory Rate 12 Setting Ventilator Respiratory Rate 12 Setting Ventilator Respiratory Rate 12 Setting Ventilator Respiratory Rate 12 Setting Actual Respiratory Rate 24 Actual Respiratory Rate 20 Actual Respiratory Rate 12 Actual Respiratory Rate 12 Actual Respiratory Rate 12 Actual Respiratory Rate 12 Positive End Expiratory 5 Pressure Positive End Expiratory 5 Pressure Positive End Expiratory 5 Pressure Positive End Expiratory 5 Pressure Positive End Expiratory 5 Pressure Positive End Expiratory 5 Pressure Positive End Expiratory 5 Pressure Peak Inspiratory Airway 28 Pressure Peak Inspiratory Airway 28 Pressure Peak Inspiratory Airway 17 Pressure Peak Inspiratory Airway 18 Pressure Peak Inspiratory Airway 18 Pressure Peak Inspiratory Airway 17 Pressure Results - Laboratory Findings CBC and BMP: 12/27/17 03:45 12/27/17 03:45 ABG ABG pH 7.35 pH Units (7.32-7.45) 12/27/17 04:42 ABG pCO2 50 mmHg (35-45) H 12/27/17 04:42 ABG pO2 70 mmHg (85-104) L 12/27/17 04:42 ABG O2 Saturation 93 % (95-98) L 12/27/17 04:42 Abnormal lab findings: Abnormal lab results RBC 3.69 M/mcL (4.19-5.50) L 12/27/17 03:45 Hgb 11.4 g/dL (12.9-16.9) L D 12/27/17 03:45 MCV 103.8 fL (83.0-100.0) H 12/27/17 03:45 MCHC 29.8 g/dL (31.6-35.5) L 12/27/17 03:45 RDW 14.7 % (11.5-14.5) H 12/27/17 03:45 ABG pCO2 50 mmHg (35-45) H 12/27/17 04:42 ABG pO2 70 mmHg (85-104) L 12/27/17 04:42 ABG HCO3 28 mEq/L (21-27) H 12/27/17 04:42 ABG Total CO2 29 mEq/L (20-26) H 12/27/17 04:42 ABG O2 Saturation 93 % (95-98) L 12/27/17 04:42 Sodium 156 mEq/L (136-145) H 12/27/17 03:45 Chloride 125 mEq/L (98-107) H 12/27/17 03:45 BUN 53 mg/dL (8-23) H 12/27/17 03:45 Creatinine 2.15 mg/dL (0.70-1.30) H 12/27/17 03:45 Est GFR ( Amer) 38 (> 60) L 12/27/17 03:45 Est GFR (Non-Af Amer) 31 (> 60) L 12/27/17 03:45 Glucose 119 mg/dL (70-105) H 12/27/17 03:45 POC Glucose 110 mg/dL (70-99) H 12/26/17 23:57 Calculated Osmolality 338 (280-300) H 12/27/17 03:45 AST 57 Units/L (13-39) H 12/26/17 07:58 ALT 67 Units/L (7-52) H 12/26/17 07:58 Globulin 3.9 g/dL (2.4-3.5) H 12/26/17 07:58 Albumin/Globulin Ratio 0.9 (1.1-2.2) L 12/26/17 07:58 Urine Clarity Cloudy (Clear) A 12/26/17 07:39 Urine Protein 30 mg/dL (Neg-Trace) H 12/26/17 07:39 Urine Blood Moderate (Negative) H 12/26/17 07:39 Urine Nitrite Positive (Negative) A 12/26/17 07:39 Ur Leukocyte Esterase Large (Negative) H 12/26/17 07:39 Urine Microscopic RBC 30-50 per hpf (0-3) H 12/26/17 07:39 Urine Microscopic WBC TNTC per hpf (0-3) H 12/26/17 07:39 Urine Bacteria Many per hpf (None-Few) H 12/26/17 07:39 Salicylates < 2.5 mg/dL (15.0-30.0) L 12/26/17 07:58 Acetaminophen < 10 mcg/mL (10-20) L 12/26/17 07:58 - Clinical Findings Intake & Output: Intake & Output 12/26/17 12/27/17 12/27/17 23:59 07:59 15:59 Intake Total 1369 / 1369 1835 / 1835 Output Total 700 / 700 900 / 900 Balance 669 / 669 935 / 935 Weight 63.4 kg Consult Discharge Plan - Plan Referrals: Yanet Armstrong MD [Primary Care Provider] - - Attending Attestation I examined this patient and my medical decision-making was reviewed with the Resident Physician. I agree with the documented findings, disposition and treatment plan as described except to the extent set forth below. We independently had [id number] contact with the patient Patient seen and examined at bedside Labs, radiology, chart personally reviewed. Management was reviewed during multidisciplinary critical care rounds. WARD HELPER: REmains sedated failed SAT related to agitation. Will cont to decrease as tolerated. Restart home mood stabilizers Pulm: ON vent with acceptable gas exchange. NO SBT today because of Agitation. ? Aspiration on Tx Cards: BP monitored and stable FEN-GI: No obstruction but severely constipated. Starting bowel regimen cont GI prophylaxis Renal: OSCAR improving. NO obstruction. Hypernatremia checking lithium level start free H2O ID: UTI cultures pending on Zosyn Heme/Onc: DVT Endo: Glucose Monitored Integ/MSK: Skin Care per routine ICU Nursing Protocol to prevent ulcers. Lines: All lines examined without evidence of infection : Dispo: Remains ICU. CODE: Full. <Angi Contreras - Last Filed: 12/27/17 18:08> Date of Encounter: 12/27/17 Time of Encounter: 08:25 Assessment and Plan (1) Encephalopathy acute Current Visit: Yes Status: Acute Altered mental status most likely 2/2 UTI, lithium toxicity causing hypernatremia, and possibly secondary to narcotics last known taken on Saturday, status post teeth extraction on Saturday. Narcan was given and no change to mental status in the ED. Patient self catheters 4 times a day and for the last couple days has been unable to control his bladder per Floor Person. In the ED patient was unable to maintain airway due to worsening altered mental status and was intubated. Sodium = 156, 160. Med[place] level = 1.3. CT of head showed no acute process and chest CT with concerns for aspiration. Abdominal CT showed large amount of stool in the colon without obstruction. Hypernatremia with a max of 160, concerns for diabetes insipidus secondary to lithium. Unsure if nephrogenic or central diabetes insipidus. 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 Unsure if nephrogenic versus central diabetes insipidus. Patient is hypernatremic, urine osmolality low, urine sodium low. Plan: - Desmopressin 1 dose given, currently on hold - Monitoring sodium Q2H - monitor Chloride Q4H -Currently normal saline is running in the 100 mL per hour secondary to sodium level decreasing . (3) Respiratory failure Current Visit: Yes Status: Acute Patient is currently intubated secondary to encephalopathy and patient was unable to maintain airway safely. Sedation was decreased today in order to try spontaneous breathing trial but before patient was switched to CPAP, respiratory rate increased to 45 and sedation had to be increased. Plan: -Continue ventilatory support, will try to decrease sedation tomorrow --Continue Zosyn (day 2) - DuoNeb's every 4 hours when necessary - Qualifiers: Chronicity: acute Respiratory failure complication: unspecified whether with hypoxia or hypercapnia Qualified Code(s): J96.00 - Acute respiratory failure, unspecified whether with hypoxia or hypercapnia (4) Acute kidney injury Current Visit: Yes Status: Acute Female was calculated FeNa= 0.4% showing prerenal involvement. Patient has been given fluids. (5) Urinary tract infection Current Visit: Yes Status: Acute Concern for possible UTI based off urine analysis. Gross view of urine showed white precipitates. Culture was obtained but was obtained after Zosyn was started for 24 hours. Continue to treat with Zosyn. Qualifiers: Urinary tract infection type: site unspecified Hematuria presence: with hematuria Qualified Code(s): N39.0 - Urinary tract infection, site not specified; R31.9 - Hematuria, unspecified; R31.9 - Hematuria, unspecified (6) Constipation Current Visit: Yes Status: Acute CT scan showed a large amount of stool. No bowel distention. NG output is dark green, 200 mL out this morning. Added senna plus, and lactulose today. We will monitor for bowel movement tomorrow. Qualifiers: Constipation type: chronic idiopathic constipation Qualified Code(s): K59.04 - Chronic idiopathic constipation (7) Hypernatremia Current Visit: Yes Status: Acute Likely secondary to diabetes insipidus continuing to monitor every 2 hours. See plan above under diabetes insipidus. Continue to monitor closely and correct with a goal to not decrease below 150. (8) Urinary retention Current Visit: Yes Status: Acute Chronic condition. Patient self catheterizes at home. Patient currently has a [place]. Monitoring strict I's and O's. (9) DVT prophylaxis Current Visit: Yes Status: Acute Heparin subcutaneous Subjective Principal diagnosis: acute respiratory failure Interval history: Mr. Varghese is a 62 y/o male MRDD from , hypothyroidism and urinary retention requiring self catheterization Presented to the ED with altered mental status. Today patient is intubated and resting calmly. When sedation was weaned patient 's respiratory rate increased to 45. Unable to obtain a full review of systems as patient is intubated. Objective PUL Vital signs: Last Vital Signs Temp 98.3 F 12/27/17 04:00 Pulse 64 12/27/17 09:00 Resp 24 12/27/17 09:00 BP 91/58 12/27/17 09:00 Pulse Ox 92 12/27/17 09:00 Constitutional: diffuse muscle atrophy, intubated resting calmly Head: Normocephalic, atraumatic Heart: Normal, regular rate and rhythm, no murmurs Lungs: Clear to auscultation, no wheezes, rales, or rhonchi on mechanical ventilation Abdomen: Soft, nondistended, nontender, bowel sounds hypoactive, NG tube with dark green output, no guarding or rigidity. Extremities: No edema, No clubbing capillary refill <2sec. : grove output with urine cloudy Skin: Skin warm and dry, no lesions, no rashes, no jaundice Neurologic: not responding to commands, not withdrawling from pain lines: PIV Ventilator Settings Ventilator Settings: Ventilator Settings, Last 8 Hours Ventilator Mode VC+ Ventilator Mode VC+ Ventilator Mode VC+ Ventilator Mode A/C Ventilator Mode VC+ Ventilator Mode A/C Ventilator Mode VC+ Ventilator Tidal Volume 500 Setting Ventilator Tidal Volume 500 Setting Ventilator Tidal Volume 500 Setting Ventilator Tidal Volume 500 Setting Ventilator Tidal Volume 500 Setting Ventilator Tidal Volume 500 Setting Ventilator Tidal Volume 500 Setting Ventilator Respiratory Rate 12 Setting Ventilator Respiratory Rate 12 Setting Ventilator Respiratory Rate 12 Setting Ventilator Respiratory Rate 12 Setting Ventilator Respiratory Rate 12 Setting Ventilator Respiratory Rate 12 Setting Ventilator Respiratory Rate 12 Setting Actual Respiratory Rate 24 Actual Respiratory Rate 20 Actual Respiratory Rate 12 Actual Respiratory Rate 12 Actual Respiratory Rate 12 Actual Respiratory Rate 12 Positive End Expiratory 5 Pressure Positive End Expiratory 5 Pressure Positive End Expiratory 5 Pressure Positive End Expiratory 5 Pressure Positive End Expiratory 5 Pressure Positive End Expiratory 5 Pressure Positive End Expiratory 5 Pressure Peak Inspiratory Airway 28 Pressure Peak Inspiratory Airway 28 Pressure Peak Inspiratory Airway 17 Pressure Peak Inspiratory Airway 18 Pressure Peak Inspiratory Airway 18 Pressure Peak Inspiratory Airway 17 Pressure Results - Laboratory Findings CBC and BMP: 12/27/17 03:45 12/27/17 16:30 ABG ABG pH 7.35 pH Units (7.32-7.45) 12/27/17 04:42 ABG pCO2 50 mmHg (35-45) H 12/27/17 04:42 ABG pO2 70 mmHg (85-104) L 12/27/17 04:42 ABG O2 Saturation 93 % (95-98) L 12/27/17 04:42 Abnormal lab findings: Abnormal lab results RBC 3.69 M/mcL (4.19-5.50) L 12/27/17 03:45 Hgb 11.4 g/dL (12.9-16.9) L D 12/27/17 03:45 MCV 103.8 fL (83.0-100.0) H 12/27/17 03:45 MCHC 29.8 g/dL (31.6-35.5) L 12/27/17 03:45 RDW 14.7 % (11.5-14.5) H 12/27/17 03:45 ABG pCO2 50 mmHg (35-45) H 12/27/17 04:42 ABG pO2 70 mmHg (85-104) L 12/27/17 04:42 ABG HCO3 28 mEq/L (21-27) H 12/27/17 04:42 ABG Total CO2 29 mEq/L (20-26) H 12/27/17 04:42 ABG O2 Saturation 93 % (95-98) L 12/27/17 04:42 Sodium 156 mEq/L (136-145) H 12/27/17 03:45 Chloride 125 mEq/L (98-107) H 12/27/17 03:45 BUN 53 mg/dL (8-23) H 12/27/17 03:45 Creatinine 2.15 mg/dL (0.70-1.30) H 12/27/17 03:45 Est GFR ( Amer) 38 (> 60) L 12/27/17 03:45 Est GFR (Non-Af Amer) 31 (> 60) L 12/27/17 03:45 Glucose 119 mg/dL (70-105) H 12/27/17 03:45 POC Glucose 110 mg/dL (70-99) H 12/26/17 23:57 Calculated Osmolality 338 (280-300) H 12/27/17 03:45 AST 57 Units/L (13-39) H 12/26/17 07:58 ALT 67 Units/L (7-52) H 12/26/17 07:58 Globulin 3.9 g/dL (2.4-3.5) H 12/26/17 07:58 Albumin/Globulin Ratio 0.9 (1.1-2.2) L 12/26/17 07:58 Urine Clarity Cloudy (Clear) A 12/26/17 07:39 Urine Protein 30 mg/dL (Neg-Trace) H 12/26/17 07:39 Urine Blood Moderate (Negative) H 12/26/17 07:39 Urine Nitrite Positive (Negative) A 12/26/17 07:39 Ur Leukocyte Esterase Large (Negative) H 12/26/17 07:39 Urine Microscopic RBC 30-50 per hpf (0-3) H 12/26/17 07:39 Urine Microscopic WBC TNTC per hpf (0-3) H 12/26/17 07:39 Urine Bacteria Many per hpf (None-Few) H 12/26/17 07:39 Salicylates < 2.5 mg/dL (15.0-30.0) L 12/26/17 07:58 Acetaminophen < 10 mcg/mL (10-20) L 12/26/17 07:58 - Clinical Findings Intake & Output: Intake & Output 12/26/17 12/27/17 12/27/17 23:59 07:59 15:59 Intake Total 1369 / 1369 1835 / 1835 Output Total 700 / 700 900 / 900 Balance 669 / 669 935 / 935 Weight 63.4 kg
[2017-12-27] MEDS: Sennosides/Docusate Sodium TABLET PO SCH ×2 (11:37→19:57)
[2017-12-27] MEDS ORDERED: OLANZapine 10 MG TAB.RAPDIS PO SCH (11:45)
[2017-12-27] MEDS: CarBAMazepine 100 MG TABLET PO SCH ×2 (12:48→19:57)
[2017-12-27] MEDS: OLANZapine 10 MG TAB.RAPDIS PO SCH ×2 (12:48→19:56)
[2017-12-27] MEDS: Lactulose Oral Soln 20 GM/30 ML UDC PO SCH (12:48)
[2017-12-27 15:01] LABS: Calcium 9.6 mg/dL (8.6-10.3); Potassium 4.2 mEq/L (3.5-5.1)
--- NOTE | 2017-12-27 16:04 | Event Note ---
Date of Encounter: 12/27/17 Time of Encounter: 16:02 Low urine osmolarity hyponatremia which has worsened. There is concern for diabetes insipidus (athought volume UOP not necessarily c/w) possibly central versus nephrogenic as patient is on lithium with a slightly elevated level.. I discussed the case with the mechanical handyman and plan to trial desmopressin at 1mcg twice a day subcutaneously. Close monitoring sodium on every 2 hourly basis. Continue D5 W infusion with plan to titrate down based upon affective desmopressin along with free water via the OG tube.
[2017-12-27 16:20] LABS: Sodium, Urine 24.3 mEq/L
[2017-12-27] MEDS ORDERED: 0.9 % Sodium Chloride 1,000 ML ONE (17:35)
[2017-12-27] MEDS: D5% in Water 1,000 ML IVC SCH ×3 (17:37→19:22)
[2017-12-27] MEDS: 0.9 % Sodium Chloride 1,000 ML IVC SCH (17:40)
[2017-12-27] MEDS ORDERED: 0.9 % Sodium Chloride 1,000 ML IVC SCH (17:45)
[2017-12-27] MEDS ORDERED: Ipratropium/Albuterol Neb 3 ML IH PRN (17:52)
[2017-12-27 19:14] LABS: Chloride 117 mEq/L (98-107); Sodium 163 mEq/L (136-145)
[2017-12-27 23:04] LABS: Chloride 123 mEq/L (98-107); Sodium 149 mEq/L (136-145)
[2017-12-28 03:03] LABS: Chloride 121 mEq/L (98-107); Sodium 150 mEq/L (136-145)
[2017-12-28] MEDS: Lacri-Lube 3.5 GM TUBE BOTH EYES SCH ×6 (04:17→23:05)
[2017-12-28 04:51] LABS: Basophils % 0.4 %; Eosinophils # 0.4 K/mcL (0.0-0.6); Eosinophils % 5.5 %; Hematocrit 35.3 % (37.5-50.1); Hemoglobin 10.6 g/dL (12.9-16.9); Immature Granulocytes % 0.5 % (0-4); Lymphocytes # 1.5 K/mcL (0.6-4.6); Lymphocytes % 18.9 %; Mean Corpuscular Hemoglobin 31.4 pg (28.0-33.3); Mean Corpuscular Volume 104.4 fL (83.0-100.0); Mean Platelet Volume 10.8 fL (9.4-12.4); Monocytes # 0.6 K/mcL (0.0-1.3); Monocytes % 7.2 %; Neutrophils # 5.2 K/mcL (1.6-8.9); Platelet Count 185 K/mcL (140-400); Red Blood Count 3.38 M/mcL (4.19-5.50); Red Cell Distribution Width 14.8 % (11.5-14.5); Segmented Neutrophils % 67.5 %
[2017-12-28 05:15] LABS: Calcium 8.8 mg/dL (8.6-10.3); Magnesium 2.9 mg/dL (1.6-2.6); Phosphorous 3.1 mg/dL (2.7-4.5); Potassium 4.1 mEq/L (3.5-5.1)
[2017-12-28] MEDS: D5% in Water 1,000 ML IVC SCH ×4 (05:50→19:38)
[2017-12-28] MEDS: 0.9 % Sodium Chloride 1,000 ML IVC SCH ×3 (05:50→19:55)
[2017-12-28] MEDS: FentaNYL (PF) 1,000 MCG in 0.9 % Sodium Chloride 80 ML IVC SCH (05:55)
[2017-12-28] MEDS: Levothyroxine Sodium 100 MCG VIAL IVP PRN (05:57)
[2017-12-28] MEDS: *HR* Heparin 5,000 UNIT/ML VIAL SQ SCH ×2 (05:57→18:19)
[2017-12-28 06:44] LABS: Sodium 150 mEq/L (136-145)
[2017-12-28 07:02] LABS: Chloride 121 mEq/L (98-107)
[2017-12-28] MEDS: OLANZapine 10 MG TAB.RAPDIS PO SCH ×2 (08:20→20:07)
[2017-12-28] MEDS: CarBAMazepine 100 MG TABLET PO SCH ×2 (08:20→20:07)
[2017-12-28] MEDS: Chlorhexidine Rinse 15 ML MOUTHWASH MM SCH ×2 (08:20→20:06)
--- NOTE | 2017-12-28 08:20 | Pulmonology Progress Note ---
<Anig Contreras - Last Filed: 12/28/17 08:47> Date of Encounter: 12/28/17 Time of Encounter: 08:20 Assessment and Plan (1) Encephalopathy acute Current Visit: Yes Status: Acute Altered mental status most likely 2/2 UTI, lithium toxicity causing hypernatremia, and possibly secondary to narcotics last known taken on Saturday, status post teeth extraction on Saturday. Narcan was given and no change to mental status in the ED. Patient self catheters 4 times a day and for the last couple days has been unable to control his bladder per Casing Puller. In the ED patient was unable to maintain airway due to worsening altered mental status and was intubated. Sodium = 156, 160. Stovall level = 1.3. CT of head showed no acute process and chest CT with concerns for aspiration. Abdominal CT showed large amount of stool in the colon without obstruction. Hypernatremia with a max of 160, concerns for diabetes insipidus secondary to lithium. Unsure if nephrogenic or central diabetes insipidus. 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 Unsure if nephrogenic versus central diabetes insipidus. Patient is hypernatremic, urine osmolality low, urine sodium low. Overnight, D5 with free water running at 100ml/hr. Sodium remained around 150. Plan: - Desmopressin 1mcg dose given last night, will increase dose to Desmopressin 2mcg Q12H - Monitoring sodium Q2H - monitor Chloride Q4H - Currently D5 with free water at 100 mL per hour - Dr. Herrera from nephrology consulted, discussed the case with him, his current recommendations being followed (3) Respiratory failure Current Visit: Yes Status: Acute Patient is currently intubated secondary to encephalopathy and patient was unable to maintain airway safely. Sedation was decreased today in order to try spontaneous breathing trial but before patient was switched to CPAP, respiratory rate increased to 45 and sedation had to be increased. Plan: -Continue ventilatory support 0- sedation: propofol, Precedex --Continue Zosyn (day 3) - DuoNeb's every 4 hours when necessary - Qualifiers: Chronicity: acute Respiratory failure complication: unspecified whether with hypoxia or hypercapnia Qualified Code(s): J96.00 - Acute respiratory failure, unspecified whether with hypoxia or hypercapnia (4) Acute kidney injury Current Visit: Yes Status: Acute Yesterday, FeNa= 0.4% showing prerenal involvement. Patient has been given fluids. Creatinine improving mildly. (5) Urinary tract infection Current Visit: Yes Status: Acute Concern for possible UTI based off urine analysis. Gross view of urine showed white precipitates. Culture was obtained but was obtained after Zosyn was started for 24 hours. Continue to treat with Zosyn. Culture pending results. Qualifiers: Urinary tract infection type: site unspecified Hematuria presence: with hematuria Qualified Code(s): N39.0 - Urinary tract infection, site not specified; R31.9 - Hematuria, unspecified; R31.9 - Hematuria, unspecified (6) Constipation Current Visit: Yes Status: Acute CT scan showed a large amount of stool. No bowel distention. NG output is dark green, 200 mL yesterday. Senna plus, and lactulose yesterday. No bowel movement since admission. Will add Plan: - Ducolax sup daily until BM -continue Senna Pluse - continue Lactulose - initiating tube feeds to stimulate bowel function Qualifiers: Constipation type: chronic idiopathic constipation Qualified Code(s): K59.04 - Chronic idiopathic constipation (7) Hypernatremia Current Visit: Yes Status: Acute Likely secondary to diabetes insipidus continuing to monitor every 2 hours. See plan above under diabetes insipidus. Continue to monitor closely and adjust fluids accordingly. Nephrology consulted. (8) Urinary retention Current Visit: Yes Status: Acute Chronic condition. Patient self catheterizes at home. Patient currently has a [place]. Monitoring strict I's and O's. (9) DVT prophylaxis Current Visit: Yes Status: Acute Heparin subcutaneous Subjective Principal diagnosis: acute respiratory failure Interval history: Mr. Varghese is a 62 y/o male MRDD from , hypothyroidism and urinary retention requiring self catheterization Presented to the ED with altered mental status. Today patient is intubated and resting calmly. Patient currently sedated on Precedex. Patient did withdraw to sternal rub but is not following commands.. Objective PUL Vital signs: Last Vital Signs Temp 98.0 F 12/28/17 07:37 Pulse 69 12/28/17 07:46 Resp 16 12/28/17 07:00 BP 113/80 12/28/17 07:00 Pulse Ox 94 12/28/17 07:00 Constitutional: diffuse muscle atrophy, intubated resting calmly Head: Normocephalic, atraumatic Heart: Normal, regular rate and rhythm, no murmurs Lungs: rhonchi on mechanical ventilation Abdomen: Soft, nondistended, nontender, bowel sounds unable to be auscultated no guarding or rigidity. Extremities: No edema, No clubbing capillary refill <2sec. : grove Skin: Skin warm and dry, no lesions, no rashes, no jaundice Neurologic: not responding to commands, withdrawals to sternal rub lines: PIV Ventilator Settings Ventilator Settings: Ventilator Settings, Last 8 Hours Ventilator Mode VC+ Ventilator Mode VC+ Ventilator Mode VC+ Ventilator Mode VC+ Ventilator Mode VC+ Ventilator Mode VC+ Ventilator Mode VC+ Ventilator Mode VC+ Ventilator Tidal Volume 500 Setting Ventilator Tidal Volume 500 Setting Ventilator Tidal Volume 500 Setting Ventilator Tidal Volume 500 Setting Ventilator Tidal Volume 500 Setting Ventilator Tidal Volume 500 Setting Ventilator Tidal Volume 500 Setting Ventilator Tidal Volume 500 Setting Ventilator Respiratory Rate 12 Setting Ventilator Respiratory Rate 12 Setting Ventilator Respiratory Rate 12 Setting Ventilator Respiratory Rate 12 Setting Ventilator Respiratory Rate 12 Setting Ventilator Respiratory Rate 12 Setting Ventilator Respiratory Rate 12 Setting Ventilator Respiratory Rate 12 Setting Actual Respiratory Rate 16 Actual Respiratory Rate 18 Actual Respiratory Rate 19 Actual Respiratory Rate 12 Actual Respiratory Rate 14 Actual Respiratory Rate 12 Actual Respiratory Rate 14 Actual Respiratory Rate 15 Positive End Expiratory 5 Pressure Positive End Expiratory 5 Pressure Positive End Expiratory 5 Pressure Positive End Expiratory 5 Pressure Positive End Expiratory 5 Pressure Positive End Expiratory 5 Pressure Positive End Expiratory 5 Pressure Positive End Expiratory 5 Pressure Peak Inspiratory Airway 15 Pressure Peak Inspiratory Airway 12 Pressure Peak Inspiratory Airway 7.1 Pressure Peak Inspiratory Airway 16 Pressure Peak Inspiratory Airway 16 Pressure Peak Inspiratory Airway 17 Pressure Peak Inspiratory Airway 16 Pressure Peak Inspiratory Airway 16 Pressure Results - Laboratory Findings CBC and BMP: 12/28/17 04:00 12/28/17 06:00 ABG ABG pH 7.35 pH Units (7.32-7.45) 12/27/17 04:42 ABG pCO2 50 mmHg (35-45) H 12/27/17 04:42 ABG pO2 70 mmHg (85-104) L 12/27/17 04:42 ABG O2 Saturation 93 % (95-98) L 12/27/17 04:42 Abnormal lab findings: Abnormal lab results RBC 3.38 M/mcL (4.19-5.50) L 12/28/17 04:00 Hgb 10.6 g/dL (12.9-16.9) L 12/28/17 04:00 Hct 35.3 % (37.5-50.1) L 12/28/17 04:00 MCV 104.4 fL (83.0-100.0) H 12/28/17 04:00 MCHC 30.0 g/dL (31.6-35.5) L 12/28/17 04:00 RDW 14.8 % (11.5-14.5) H 12/28/17 04:00 ABG pCO2 50 mmHg (35-45) H 12/27/17 04:42 ABG pO2 70 mmHg (85-104) L 12/27/17 04:42 ABG HCO3 28 mEq/L (21-27) H 12/27/17 04:42 ABG Total CO2 29 mEq/L (20-26) H 12/27/17 04:42 ABG O2 Saturation 93 % (95-98) L 12/27/17 04:42 Sodium 150 mEq/L (136-145) H 12/28/17 06:00 Chloride 121 mEq/L (98-107) H 12/28/17 06:00 BUN 40 mg/dL (8-23) H 12/28/17 04:00 Creatinine 2.03 mg/dL (0.70-1.30) H 12/28/17 04:00 Est GFR ( Amer) 41 (> 60) L 12/28/17 04:00 Est GFR (Non-Af Amer) 34 (> 60) L 12/28/17 04:00 Glucose 132 mg/dL (70-105) H 12/28/17 04:00 POC Glucose 150 mg/dL (70-99) H 12/28/17 00:54 Calculated Osmolality 322 (280-300) H 12/28/17 04:00 Magnesium 2.9 mg/dL (1.6-2.6) H 12/28/17 04:00 AST 57 Units/L (13-39) H 12/26/17 07:58 ALT 67 Units/L (7-52) H 12/26/17 07:58 Globulin 3.9 g/dL (2.4-3.5) H 12/26/17 07:58 Albumin/Globulin Ratio 0.9 (1.1-2.2) L 12/26/17 07:58 Urine Clarity Cloudy (Clear) A 12/26/17 07:39 Urine Protein 30 mg/dL (Neg-Trace) H 12/26/17 07:39 Urine Blood Moderate (Negative) H 12/26/17 07:39 Urine Nitrite Positive (Negative) A 12/26/17 07:39 Ur Leukocyte Esterase Large (Negative) H 12/26/17 07:39 Urine Microscopic RBC 30-50 per hpf (0-3) H 12/26/17 07:39 Urine Microscopic WBC TNTC per hpf (0-3) H 12/26/17 07:39 Urine Bacteria Many per hpf (None-Few) H 12/26/17 07:39 Urine Osmolality 194 mOsm/kg (300-1090) L 12/28/17 00:33 Salicylates < 2.5 mg/dL (15.0-30.0) L 12/26/17 07:58 Acetaminophen < 10 mcg/mL (10-20) L 12/26/17 07:58 Stovall 1.3 mEq/L (0.6-1.2) H 12/27/17 12:20 - Clinical Findings Intake & Output: Intake & Output 12/27/17 12/28/17 12/28/17 23:59 07:59 15:59 Intake Total 1930 / 1930 1249 / 1249 Output Total 1010 / 1010 1375 / 1375 Balance 920 / 920 -126 / -126 Consult Discharge Plan - Plan Referrals: Yanet Armstrong MD [Primary Care Provider] - <Surinder Cuadra W - Last Filed: 12/28/17 10:22> Date of Encounter: 12/28/17 Objective PUL Vital signs: Last Vital Signs Temp 98.0 F 12/28/17 07:37 Pulse 52 12/28/17 10:00 Resp 13 12/28/17 10:00 BP 85/58 12/28/17 10:00 Pulse Ox 96 12/28/17 10:00 Ventilator Settings Ventilator Settings: Ventilator Settings, Last 8 Hours Ventilator Mode VC+ Ventilator Mode VC+ Ventilator Mode VC+ Ventilator Mode VC+ Ventilator Mode VC+ Ventilator Mode VC+ Ventilator Mode VC+ Ventilator Mode VC+ Ventilator Mode VC+ Ventilator Tidal Volume 450 Setting Ventilator Tidal Volume 450 Setting Ventilator Tidal Volume 450 Setting Ventilator Tidal Volume 500 Setting Ventilator Tidal Volume 500 Setting Ventilator Tidal Volume 500 Setting Ventilator Tidal Volume 500 Setting Ventilator Tidal Volume 500 Setting Ventilator Tidal Volume 500 Setting Ventilator Respiratory Rate 12 Setting Ventilator Respiratory Rate 12 Setting Ventilator Respiratory Rate 12 Setting Ventilator Respiratory Rate 12 Setting Ventilator Respiratory Rate 12 Setting Ventilator Respiratory Rate 12 Setting Ventilator Respiratory Rate 12 Setting Ventilator Respiratory Rate 12 Setting Ventilator Respiratory Rate 12 Setting Actual Respiratory Rate 13 Actual Respiratory Rate 14 Actual Respiratory Rate 16 Actual Respiratory Rate 16 Actual Respiratory Rate 18 Actual Respiratory Rate 19 Actual Respiratory Rate 12 Actual Respiratory Rate 14 Actual Respiratory Rate 12 Positive End Expiratory 5 Pressure Positive End Expiratory 5 Pressure Positive End Expiratory 5 Pressure Positive End Expiratory 5 Pressure Positive End Expiratory 5 Pressure Positive End Expiratory 5 Pressure Positive End Expiratory 5 Pressure Positive End Expiratory 5 Pressure Positive End Expiratory 5 Pressure Peak Inspiratory Airway 15 Pressure Peak Inspiratory Airway 16 Pressure Peak Inspiratory Airway 16 Pressure Peak Inspiratory Airway 15 Pressure Peak Inspiratory Airway 12 Pressure Peak Inspiratory Airway 7.1 Pressure Peak Inspiratory Airway 16 Pressure Peak Inspiratory Airway 16 Pressure Peak Inspiratory Airway 17 Pressure Results - Laboratory Findings CBC and BMP: 12/28/17 04:00 12/28/17 08:32 ABG ABG pH 7.35 pH Units (7.32-7.45) 12/27/17 04:42 ABG pCO2 50 mmHg (35-45) H 12/27/17 04:42 ABG pO2 70 mmHg (85-104) L 12/27/17 04:42 ABG O2 Saturation 93 % (95-98) L 12/27/17 04:42 Abnormal lab findings: Abnormal lab results RBC 3.38 M/mcL (4.19-5.50) L 12/28/17 04:00 Hgb 10.6 g/dL (12.9-16.9) L 12/28/17 04:00 Hct 35.3 % (37.5-50.1) L 12/28/17 04:00 MCV 104.4 fL (83.0-100.0) H 12/28/17 04:00 MCHC 30.0 g/dL (31.6-35.5) L 12/28/17 04:00 RDW 14.8 % (11.5-14.5) H 12/28/17 04:00 ABG pCO2 50 mmHg (35-45) H 12/27/17 04:42 ABG pO2 70 mmHg (85-104) L 12/27/17 04:42 ABG HCO3 28 mEq/L (21-27) H 12/27/17 04:42 ABG Total CO2 29 mEq/L (20-26) H 12/27/17 04:42 ABG O2 Saturation 93 % (95-98) L 12/27/17 04:42 Sodium 151 mEq/L (136-145) H 12/28/17 08:32 Chloride 121 mEq/L (98-107) H 12/28/17 06:00 BUN 40 mg/dL (8-23) H 12/28/17 04:00 Creatinine 2.03 mg/dL (0.70-1.30) H 12/28/17 04:00 Est GFR ( Amer) 41 (> 60) L 12/28/17 04:00 Est GFR (Non-Af Amer) 34 (> 60) L 12/28/17 04:00 Glucose 132 mg/dL (70-105) H 12/28/17 04:00 POC Glucose 150 mg/dL (70-99) H 12/28/17 00:54 Calculated Osmolality 322 (280-300) H 12/28/17 04:00 Magnesium 2.9 mg/dL (1.6-2.6) H 12/28/17 04:00 AST 57 Units/L (13-39) H 12/26/17 07:58 ALT 67 Units/L (7-52) H 12/26/17 07:58 Globulin 3.9 g/dL (2.4-3.5) H 12/26/17 07:58 Albumin/Globulin Ratio 0.9 (1.1-2.2) L 12/26/17 07:58 Urine Clarity Cloudy (Clear) A 12/26/17 07:39 Urine Protein 30 mg/dL (Neg-Trace) H 12/26/17 07:39 Urine Blood Moderate (Negative) H 12/26/17 07:39 Urine Nitrite Positive (Negative) A 12/26/17 07:39 Ur Leukocyte Esterase Large (Negative) H 12/26/17 07:39 Urine Microscopic RBC 30-50 per hpf (0-3) H 12/26/17 07:39 Urine Microscopic WBC TNTC per hpf (0-3) H 12/26/17 07:39 Urine Bacteria Many per hpf (None-Few) H 12/26/17 07:39 Urine Osmolality 194 mOsm/kg (300-1090) L 12/28/17 00:33 Salicylates < 2.5 mg/dL (15.0-30.0) L 12/26/17 07:58 Acetaminophen < 10 mcg/mL (10-20) L 12/26/17 07:58 [place]ovall 1.3 mEq/L (0.6-1.2) H 12/27/17 12:20 - Clinical Findings Intake & Output: Intake & Output 12/27/17 12/28/17 12/28/17 23:59 07:59 15:59 Intake Total 1930 / 1930 1952 / 1952 710.5 / 710.5 Output Total 1010 / 1010 1375 / 1375 Balance 920 / 920 577 / 577 710.5 / 710.5 - Attending Attestation I examined this patient and my medical decision-making was reviewed with the Resident Physician. I agree with the documented findings, disposition and treatment plan as described except to the extent set forth below. We independently had [id number] contact with the patient I spent 35min of Critical Care time with this patient. It involved decision making of high complexity to assess, manipulate, and support vital organ system failure and/or to prevent further life threatening deterioration of the patient' s condition. The time involved in the performance of separately reportable procedures was not counted toward critical care time. Patient seen and examined at bedside Labs, radiology, chart personally reviewed. Management was reviewed during multidisciplinary critical care rounds. SPORTS CLERK: Patient remains encephalopathic and agitated off the sedation this may be combination of underlying behavioral issues and acute metabolic encephalopathy. His noted to move all extremities without focal deficit on exam Pulm: Hypoxic respiratory failure requiring intubation acceptable gas exchange today he is not a candidate for spontaneous breathing trial because of mental status Cards: Blood pressure monitored stable FEN-GI: Start trophic enteral nutrition per dietary recommendations continue GI prophylaxis advance bowel regimen because of severe fecal impaction Renal: AK I generally improving however patient has developed severe hypernatremia with low urine osmolality consistent with diabetes insipidus is unclear if this is a central or nephrogenic etiology as the patient is on lithium. Sodium was as high as 160 yesterday which aggressive free water replacement was started in the form of D5 W and free water through the OG tube. I had desmopressin to see if to be any benefit to seemed to be some improvement with a 1 g dose yesterday we will dose 2 g today formal consultation nephrology has been placed patient at high risk of neurological deterioration if this is not treated aggressively and monitored closely ID: Patient presented with UTI he is on Zosyn for this cultures as far negative there is also concern for aspiration Heme/Onc: DVT prophylaxis given Endo: Glucose Monitored Integ/MSK: Skin Care per routine ICU Nursing Protocol to prevent ulcers. Lines: All lines examined without evidence of infection : Dispo: Remain in ICU for vent management and critical illness CODE: Full code
[2017-12-28] MEDS: Pantoprazole 40 MG VIAL IVP SCH (08:21)
[2017-12-28] MEDS: Piperacillin/Tazobactam 3.375 GM in 0.9 % Sodium Chloride Mini Bag 100 ML IVPB SCH ×3 (08:21→23:05)
[2017-12-28] MEDS: Lactulose Oral Soln 20 GM/30 ML UDC PO SCH (08:21)
[2017-12-28] MEDS: Sennosides/Docusate Sodium TABLET PO SCH ×2 (08:21→20:07)
[2017-12-28] MEDS: Dexmedetomidine HCl 400 MCG/100 ML MLS IVC SCH (08:26)
[2017-12-28] MEDS: Bisacodyl 10 MG RECTAL SUPPOSITORY RC SCH (09:59)
--- NOTE | 2017-12-28 10:18 | Nephrology Consult Note ---
Date of Encounter: 12/28/17 Time of Encounter: 10:12 Assessment and Plan (1) Hypernatremia Current Visit: Yes Status: Acute Patient with hypernatremia responsive to desmopressin. I spoke with Dr. Pino yesterday and discussed treatment plan with the primary team this morning. Continue DDAVP and D5 with close monitoring of his sodium. Patient with central DI. Sodium level improving. (2) Acute kidney injury superimposed on chronic kidney disease Current Visit: Yes Status: Acute Patient with OSCAR on CKD. His renal function is improving. Continue D5. (3) Diabetes insipidus Current Visit: Yes Status: Suspected Consider CT of head when stable as patient has central DI of unclear etiology. History of Present Illness - Reason for Consult Consult date: 12/28/17 hypernatremia - Chief Complaint hypernatremia - History of Present Illness Mr. Varghese is a Past Med Surg Social Fam - Past Medical History Medical history: arthritis, COPD, osteoporosis, thyroid disease, other Psychiatric history: anxiety, depression, other - Past Surgical History Surgical History: herniorrhaphy - Social History Smoking Status: Never smoker Smokeless Tobacco Status: No Alcohol use: none Drug use: none Medications and Allergies Acetaminophen [Non-Aspirin] 650 mg PO Q4H PRN 12/26/17 [History] Albuterol Neb [Proventil Neb] 2.5 mg IH QID PRN 12/26/17 [History] Alendronate Sodium [Fosamax] 70 mg PO TH 12/26/17 [History] Benztropine Mesylate 2 mg PO HS 12/26/17 [History] Benztropine [Cogentin] 1 mg PO QAM 12/26/17 [History] Buspirone HCl [Buspar] 20 mg PO BID 12/26/17 [History] Calcium Carbonate/Vitamin D3 [Oyster Shell Calcium-Vit D Tab] 1 tab PO BID 12/26 [History] Cholecalciferol (Vitamin D3) [Vitamin D] 1,000 unit PO DAILY 12/26/17 [History] Docusate Sodium [Dok] 100 mg PO BID 12/26/17 [History] Fluticasone Propionate Nasal [Flonase] 1 spr NS DAILY 12/26/17 [History] Fluvoxamine Maleate 50 mg PO BID 12/26/17 [History] Ibuprofen [Motrin Ib] 400 mg PO Q6H PRN 12/26/17 [History] LORazepam [Ativan] 1 mg PO BID 12/26/17 [History] Levothyroxine [Synthroid] 100 mcg PO DAILY 12/26/17 [History] [place] Carbonate 300 mg PO BID 12/26/17 [History] Loperamide [Imodium] 4 mg PO DAILY PRN 12/26/17 [History] Magnesium Hydroxide [Milk of Magnesia] 2,400 mg PO DAILY PRN 12/26/17 [History] OLANZapine [Zyprexa] 10 mg PO QAM 12/26/17 [History] OLANZapine [Zyprexa] 20 mg PO HS 12/26/17 [History] Polyethylene Glycol 3350 [Gavilax] 17 gm PO DAILY 12/26/17 [History] Sennosides/Docusate Sodium [Senna-S Tablet] 2 tab PO HS 12/26/17 [History] Tamsulosin [Flomax] 0.4 mg PO DAILY 12/26/17 [History] Xyzal 5 mg PO DAILY 12/26/17 [History] carBAMazepine [CarBAMazepine] 100 mg PO QAM 12/26/17 [History] carBAMazepine [CarBAMazepine] 200 mg PO HS 12/26/17 [History] fluvoxaMINE [Luvox] 100 mg PO BID 12/26/17 [History] 3 Allergy/AdvReac Type Severity Reaction Status Date / Time No Known Allergies Allergy Verified 10/15/17 19:33 Review of Systems ROS unobtainable: due to endotracheal tube, due to mental status Exam - Vital Signs Vital signs: Initial Vital Signs Temp Pulse Resp BP Pulse Ox 97.9 F 105 16 113/78 94 12/26/17 06:31 12/26/17 06:31 12/26/17 06:31 12/26/17 06:31 12/26/17 06:31 Vital Signs - Last 8 Hours Temp Pulse Resp BP Pulse Ox 12/28/17 10:00 52 13 85/58 96 12/28/17 09:00 58 14 83/57 97 12/28/17 08:00 64 15 95/64 97 12/28/17 07:46 69 12/28/17 07:37 98.0 F 12/28/17 07:00 73 16 113/80 94 12/28/17 06:29 18 109/79 96 12/28/17 06:00 79 19 109/79 94 12/28/17 05:00 56 12 104/73 100 12/28/17 04:00 98.5 F 50 14 99/64 99 12/28/17 03:00 55 12 96/61 96 Intake and Output 12/27/17 12/28/17 12/28/17 23:59 07:59 15:59 Intake Total 1930 / 1930 195 / 2 710.5 / 710.5 Output Total 1010 / 1010 1375 / 1375 Balance 920 / 920 577 / 577 710.5 / 710.5 Intake: IV Fluids 1330 / 1330 1152 / 1152 310.5 / 310.5 0.9 % Sodium Chloride 1,000 ML 150 / 150 @ 100 mls/hr IVC .Q10H [facility] Rx#: [id number] Dextrose 5% 1,000 ML @ 200 mls/ 900 / 900 900 / 900 300 / 300 hr IVC .Q5H [facility] Rx#:[id number] PRECEDEX Premix 400 mcg In 100 80 / 80 6 / 6 10.5 / 10.5 ml @ 0.2 MCG/KG/HR 2.948 mls/hr IVC .Q24H [facility] Rx#:[id number] FentaNYL (PF) 1,000 MCG In 0.9 46 / 46 % Sodium Chloride 80 ML @ 50 MCG/HR 5 mls/hr IVC CONT [facility] Rx #:[id number] Diprivan 1,000 mg In 100 ml @ 5 100 / 100 100 / 100 MCG/KG/MIN 1.902 mls/hr IVC . Q24H [facility] Rx#:[id number] Zosyn 3.375 GM In 0.9 % Sodium 100 / 100 100 / 100 Chloride (Mini-Bag +) 100 ML @ 25 mls/hr IVPB Q8HR [facility] Rx#: [id number] Free Water 600 / 600 800 / 800 400 / 400 Output: Catheter 1010 / 1010 1375 / 1375 Other: Blood Glucose* 127 - General Appearance General appearance: well-developed, well-nourished, sedated on ventilator, intubated EENT: ATNC Respiratory: course breath sounds Cardiology: no edema, regular rate Results - Lab Results 12/28/17 04:00 04/07/18 20:18 Most recent lab results ABG pH 7.35 pH Units (7.32-7.45) 12/27/17 04:42 ABG pCO2 50 mmHg (35-45) H 12/27/17 04:42 ABG pO2 70 mmHg (85-104) L 12/27/17 04:42 ABG HCO3 28 mEq/L (21-27) H 12/27/17 04:42 ABG O2 Saturation 93 % (95-98) L 12/27/17 04:42 Calcium 8.8 mg/dL (8.6-10.3) 12/28/17 04:00 Phosphorus 3.1 mg/dL (2.7-4.5) 12/28/17 04:00 Magnesium 2.9 mg/dL (1.6-2.6) H 12/28/17 04:00 Urine Creatinine 70 mg/dL 12/27/17 04:00 Urine Sodium 24.3 mEq/L 12/27/17 15:23 Consult Discharge Plan - Plan Referrals: Yanet Armstrong MD [Primary Care Provider] -
[2017-12-28] MEDS: Insulin LISPRO 300 UNITS/3 ML VIAL SQ SCH ×4 (11:20→23:06)
--- NOTE | 2017-12-28 13:28 | Electrocardiograph Report ---
[address] [place], [place] [address] Test Date: 2017-12-26 Pat Name: Elijah Varghese Department: 103 Room: [facility] Gender: M Inspector Process: : 1955 Requested By: Surinder Cuadra Order Number: [id number] Reading MD: Hetal Zapien Measurements Intervals [place] Rate: 97 P: 76 MN: 132 QRS: 46 QRSD: 93 T: 39 QT: 351 QTc: 405 Interpretive Statements SINUS RHYTHM Electronically Signed On 12-28-2017 13:27:11 EDT by Hetal Zapien
[2017-12-29] MEDS: Dexmedetomidine HCl 400 MCG/100 ML MLS IVC SCH ×2 (00:16→17:57)
[2017-12-29] MEDS: Lacri-Lube 3.5 GM TUBE BOTH EYES SCH ×6 (03:22→23:01)
[2017-12-29] MEDS: D5% in Water 1,000 ML IVC SCH ×3 (03:30→23:00)
[2017-12-29 03:32] LABS: Hematocrit 35.4 % (37.5-50.1); Hemoglobin 10.8 g/dL (12.9-16.9); Mean Corpuscular HGB Conc 30.5 g/dL (31.6-35.5); Mean Corpuscular Hemoglobin 31.9 pg (28.0-33.3); Mean Corpuscular Volume 104.4 fL (83.0-100.0); Mean Platelet Volume 11.1 fL (9.4-12.4); Platelet Count 195 K/mcL (140-400); Red Blood Count 3.39 M/mcL (4.19-5.50); Red Cell Distribution Width 14.7 % (11.5-14.5)
[2017-12-29 03:46] LABS: Calcium 8.6 mg/dL (8.6-10.3); Magnesium 2.6 mg/dL (1.6-2.6); Phosphorous 3.3 mg/dL (2.7-4.5)
[2017-12-29] MEDS: Insulin LISPRO 300 UNITS/3 ML VIAL SQ SCH ×6 (04:05→23:02)
[2017-12-29] MEDS: *HR* Heparin 5,000 UNIT/ML VIAL SQ SCH ×2 (05:08→17:57)
[2017-12-29 06:32] LABS: ABG Base Excess 1 mEq/L (-2 to 3); ABG HCO3 25 mEq/L (21-27); ABG Oxygen Saturation 94 % (95-98); ABG PCO2 38 mmHg (35-45); ABG PH 7.44 pH Units (7.32-7.45); ABG PO2 69 mmHg (85-104); ABG TCO2 26 mEq/L (20-26); Blood Gas Modality ASSIST CONTROL; Blood Gas PEEP 5 cm H2O; Blood Gas Respiration Rate 12; Blood Gas VT 450 cc
[2017-12-29] MEDS: Sennosides/Docusate Sodium TABLET PO SCH ×2 (07:58→20:04)
[2017-12-29] MEDS: Piperacillin/Tazobactam 3.375 GM in 0.9 % Sodium Chloride Mini Bag 100 ML IVPB SCH ×3 (07:58→23:01)
[2017-12-29] MEDS: Pantoprazole 40 MG VIAL IVP SCH (07:59)
[2017-12-29] MEDS: Chlorhexidine Rinse 15 ML MOUTHWASH MM SCH ×2 (07:59→20:05)
[2017-12-29] MEDS: CarBAMazepine 100 MG TABLET PO SCH ×2 (07:59→20:03)
[2017-12-29] MEDS: OLANZapine 10 MG TAB.RAPDIS PO SCH ×2 (07:59→20:04)
[2017-12-29] MEDS: Lactulose Oral Soln 20 GM/30 ML UDC PO SCH (07:59)
[2017-12-29] MEDS: Bisacodyl 10 MG RECTAL SUPPOSITORY RC SCH (08:00)
--- NOTE | 2017-12-29 09:03 | Nephrology Progress Note ---
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 Despite increased Ddavp and ongoing D5 administration he remains hypernatremic with a serum sodium in the low 150s. His increasing urine output could be from DI vs post ATN diuresis as his renal function is recovering. For central DI I would expect the urine output to decrease and the urine osmolality to increase. Will recheck urine osmolality response to the next dose of Ddavp. Etiology of proposed Diabetes Insipidus is either idiopathic, but more likely related to hypoxic encephalopathy given his clinical presentation upon admission and the temporal relationship of his hypoxic episode with the development of hypernatremia. With lithium administration there could be a component of nephrogenic DI as well. If urine output does not decrease with next dose of Ddavp he may require increased D5 administration. (2) Hypernatremia Current Visit: Yes Status: Acute (3) Acute kidney injury superimposed on chronic kidney disease Current Visit: Yes Status: Acute Improving renal function. Subjective Principal diagnosis: acute respiratory failure Interval history: Patient intubated and sedated. Complete review of systems is unobtainable. Objective - Vital Signs Vital signs: Vital Signs Temp Pulse Resp BP Pulse Ox 12/29/17 08:07 98.6 F 12/29/17 08:00 57 21 96/64 94 12/29/17 07:00 55 22 88/59 96 12/29/17 06:01 63 25 113/80 100 12/29/17 05:00 65 18 121/74 96 12/29/17 04:06 19 79/58 96 12/29/17 04:00 51 17 95/62 100 12/29/17 03:00 97.7 F 60 21 119/78 100 12/29/17 02:00 60 22 126/79 100 12/29/17 01:55 19 126/79 100 12/29/17 01:00 60 18 111/70 100 12/29/17 00:11 18 111/70 100 12/29/17 00:00 55 19 87/61 94 12/28/17 23:04 99.4 F 64 18 92/55 94 12/28/17 22:00 64 20 93/59 95 12/28/17 21:31 21 84/52 92 12/28/17 21:01 67 21 104/61 95 12/28/17 20:02 83 25 118/67 95 12/28/17 19:00 94 27 112/63 95 12/28/17 18:27 14 112/63 94 12/28/17 18:00 77 26 112/63 94 12/28/17 17:00 64 16 107/73 96 12/28/17 16:00 59 14 108/75 98 12/28/17 15:36 17 106/72 96 12/28/17 15:35 54 12/28/17 15:00 98.8 F 56 15 84/57 100 12/28/17 14:00 53 17 87/56 96 12/28/17 13:00 64 16 101/64 94 12/28/17 12:00 64 16 98/63 96 12/28/17 11:38 66 12/28/17 11:00 98.1 F 77 25 107/72 95 12/28/17 10:00 52 13 85/58 96 Intake and Output 12/28/17 12/29/17 12/29/17 23:59 07:59 15:59 Intake Total 1842 / 1842 2100 / 2100 Output Total 1700 / 1700 400 / 400 1000 / 1000 Balance 142 / 142 1700 / 1700 -1000 / -1000 Intake: IV Fluids 1300 / 1300 1300 / 1300 Dextrose 5% 1,000 ML @ 100 mls/ 1000 / 1000 1000 / 1000 hr IVC .Q10H [facility] Rx#:[id number] PRECEDEX Premix 400 mcg In 100 100 / 100 ml @ 0.2 MCG/KG/HR 2.948 mls/hr IVC .Q24H [facility] Rx#:[id number] Diprivan 1,000 mg In 100 ml @ 5 200 / 200 100 / 100 MCG/KG/MIN 1.902 mls/hr IVC . Q24H [facility] Rx#:[id number] Zosyn 3.375 GM In 0.9 % Sodium 100 / 100 100 / 100 Chloride (Mini-Bag +) 100 ML @ 25 mls/hr IVPB Q8HR [facility] Rx#: [id number] Tube Feeding 142 / 142 Free Water 400 / 400 400 / 400 Free Water Intake Amount 400 / 400 Output: Catheter 1700 / 1700 400 / 400 1000 / 1000 Other: Weight 66 kg Blood Glucose* 113 106 Patient Weight 12/29/17 23:59 Weight 66 kg - General Appearance General appearance: Present: well-developed, well-nourished, sedated on ventilator, intubated EENT: Present: ATNC Respiratory: Present: course breath sounds Cardiology: Present: edema, regular rate Gastrointestinal: Present: no tenderness Integumentary: Present: warm and dry Musculoskeletal: Present: no cyanosis - Lab 12/29/17 03:00 12/29/17 08:55 Most recent lab results ABG pH 7.44 pH Units (7.32-7.45) 12/29/17 06:29 ABG pCO2 38 mmHg (35-45) 12/29/17 06:29 ABG pO2 69 mmHg (85-104) L 12/29/17 06:29 ABG HCO3 25 mEq/L (21-27) 12/29/17 06:29 ABG O2 Saturation 94 % (95-98) L 12/29/17 06:29 Calcium 8.6 mg/dL (8.6-10.3) 12/29/17 03:00 Phosphorus 3.3 mg/dL (2.7-4.5) 12/29/17 03:00 Magnesium 2.6 mg/dL (1.6-2.6) 12/29/17 03:00 Urine Creatinine 70 mg/dL 12/27/17 04:00 Urine Sodium 24.3 mEq/L 12/27/17 15:23 Consult Discharge Plan - Plan Referrals: Yanet Armstrong MD [Primary Care Provider] -
[2017-12-29] MEDS ORDERED: Desmopressin Acetate SPRAY 5 ML BOTTLE NS ONE ×2 (09:28→21:08)
--- NOTE | 2017-12-29 12:00 | Pulmonology Progress Note ---
Date of Encounter: 12/29/17 Time of Encounter: 11:57 Assessment and Plan (1) Respiratory distress Current Visit: Yes Status: Acute This required intubation because of inability to protect airway. He is stable on present today continue to implement protocol to prevent ventilator initiated pneumonia (2) Urinary tract infection Current Visit: Yes Status: Acute Ultra negative this fiber the sample was drawn after turning antimicrobials. He had dominique purulent urine on admission and so will treat for at least 10 days Qualifiers: Urinary tract infection type: site unspecified Hematuria presence: with hematuria Qualified Code(s): N39.0 - Urinary tract infection, site not specified; R31.9 - Hematuria, unspecified; R31.9 - Hematuria, unspecified (3) Encephalopathy acute Current Visit: Yes Status: Acute This is likely an effect of opioid and possibly infection. Will head CT was without acute process I believe patient should obtain MRI when safe to do so unfortunately is requiring continuous infusion of sedatives right now which would preclude this but as were able to lighten sedation perhaps to a administration of benzodiazepine for the procedure this would be warranted I think this is a nonurgent but will need to be done prior to extubation if possible (4) Diabetes insipidus Current Visit: Yes Status: Suspected Low serum osmolality which is unclear if this is related to a central or nephrogenic cause as patient had elevated lithium on admission. Although he did have some response to desmopressin it appears it is unclear if this is truly related to desmopressin effect or if this was related to increase in free water that was administered simultaneously. Nephrology will perform intranasal administration of DDAVP today and check serial os him to confirm diagnosis appreciate their input into this challenging case (5) Hypernatremia Current Visit: Yes Status: Acute Currently stable continue free water replacement and DDAVP nephrology following (6) Acute kidney injury superimposed on chronic kidney disease Current Visit: Yes Status: Acute This is improving continue monitor urine output serum creatinine and electrolytes daily renal dose all medications avoid nephrotoxins as possible Subjective Principal diagnosis: acute respiratory failure Interval history: No no acute episodes overnight with sedation holiday he becomes severely agitated. Sodium has remained stable Objective PUL Vital signs: Last Vital Signs Temp 100.1 F H 12/29/17 11:00 Pulse 65 12/29/17 11:00 Resp 21 12/29/17 11:28 BP 117/64 12/29/17 11:28 Pulse Ox 95 12/29/17 11:28 General appearance: other (He is sedated on vent) Eyes: nonicteric ENT: other (The tracheal tube noted in satisfactory position) Effort: normal Auscultation: bilateral: clear Cardiovascular: regular rate and rhythm Gastrointestinal: normoactive bowel sounds, soft, non-tender Extremities: no edema pupils equal and round, other (And spontaneously move all extremities he does not follow commands for me however) Ventilator Settings Ventilator Settings: Ventilator Settings, Last 8 Hours Ventilator Mode VC+ Ventilator Mode VC+ Ventilator Mode VC+ Ventilator Mode VC+ Ventilator Mode VC+ Ventilator Mode VC+ Ventilator Mode VC+ Ventilator Mode VC+ Ventilator Tidal Volume 450 Setting Ventilator Tidal Volume 450 Setting Ventilator Tidal Volume 450 Setting Ventilator Tidal Volume 450 Setting Ventilator Tidal Volume 450 Setting Ventilator Tidal Volume 450 Setting Ventilator Tidal Volume 450 Setting Ventilator Tidal Volume 450 Setting Ventilator Respiratory Rate 12 Setting Ventilator Respiratory Rate 12 Setting Ventilator Respiratory Rate 12 Setting Ventilator Respiratory Rate 12 Setting Ventilator Respiratory Rate 12 Setting Ventilator Respiratory Rate 12 Setting Ventilator Respiratory Rate 12 Setting Ventilator Respiratory Rate 12 Setting Actual Respiratory Rate 20 Actual Respiratory Rate 21 Actual Respiratory Rate 25 Actual Respiratory Rate 16 Actual Respiratory Rate 19 Actual Respiratory Rate 22 Actual Respiratory Rate 23 Actual Respiratory Rate 16 Actual Respiratory Rate 16 Actual Respiratory Rate 21 Positive End Expiratory 5 Pressure Positive End Expiratory 5 Pressure Positive End Expiratory 5 Pressure Positive End Expiratory 5 Pressure Positive End Expiratory 5 Pressure Positive End Expiratory 5 Pressure Positive End Expiratory 5 Pressure Positive End Expiratory 5 Pressure Positive End Expiratory 5 Pressure Positive End Expiratory 5 Pressure Positive End Expiratory 5 Pressure Peak Inspiratory Airway 22 Pressure Peak Inspiratory Airway 22 Pressure Peak Inspiratory Airway 21 Pressure Peak Inspiratory Airway 18 Pressure Peak Inspiratory Airway 18 Pressure Peak Inspiratory Airway 17 Pressure Peak Inspiratory Airway 18 Pressure Peak Inspiratory Airway 23 Pressure Peak Inspiratory Airway 23 Pressure Peak Inspiratory Airway 21 Pressure Results - Laboratory Findings CBC and BMP: 12/29/17 03:00 12/29/17 08:55 ABG ABG pH 7.44 pH Units (7.32-7.45) 12/29/17 06:29 ABG pCO2 38 mmHg (35-45) 12/29/17 06:29 ABG pO2 69 mmHg (85-104) L 12/29/17 06:29 ABG O2 Saturation 94 % (95-98) L 12/29/17 06:29 Abnormal lab findings: Abnormal lab results RBC 3.39 M/mcL (4.19-5.50) L 12/29/17 03:00 Hgb 10.8 g/dL (12.9-16.9) L 12/29/17 03:00 Hct 35.4 % (37.5-50.1) L 12/29/17 03:00 MCV 104.4 fL (83.0-100.0) H 12/29/17 03:00 MCHC 30.5 g/dL (31.6-35.5) L 12/29/17 03:00 RDW 14.7 % (11.5-14.5) H 12/29/17 03:00 ABG pO2 69 mmHg (85-104) L 12/29/17 06:29 ABG O2 Saturation 94 % (95-98) L 12/29/17 06:29 Sodium 152 mEq/L (136-145) H 12/29/17 08:55 Chloride 120 mEq/L (98-107) H 12/29/17 03:00 BUN 28 mg/dL (8-23) H 12/29/17 03:00 Creatinine 1.81 mg/dL (0.70-1.30) H 12/29/17 03:00 Est GFR ( Amer) 46 (> 60) L 12/29/17 03:00 Est GFR (Non-Af Amer) 38 (> 60) L 12/29/17 03:00 Glucose 151 mg/dL (70-105) H 12/29/17 03:00 POC Glucose 151 mg/dL (70-99) H 12/28/17 22:45 Serum Osmolality 330 mOsm/kg (280-300) H 12/28/17 10:26 Calculated Osmolality 322 (280-300) H 12/29/17 03:00 AST 57 Units/L (13-39) H 12/26/17 07:58 ALT 67 Units/L (7-52) H 12/26/17 07:58 Globulin 3.9 g/dL (2.4-3.5) H 12/26/17 07:58 Albumin/Globulin Ratio 0.9 (1.1-2.2) L 12/26/17 07:58 Urine Clarity Cloudy (Clear) A 12/26/17 07:39 Urine Protein 30 mg/dL (Neg-Trace) H 12/26/17 07:39 Urine Blood Moderate (Negative) H 12/26/17 07:39 Urine Nitrite Positive (Negative) A 12/26/17 07:39 Ur Leukocyte Esterase Large (Negative) H 12/26/17 07:39 Urine Microscopic RBC 30-50 per hpf (0-3) H 12/26/17 07:39 Urine Microscopic WBC TNTC per hpf (0-3) H 12/26/17 07:39 Urine Bacteria Many per hpf (None-Few) H 12/26/17 07:39 Urine Osmolality 148 mOsm/kg (300-1090) L 12/29/17 08:24 Salicylates < 2.5 mg/dL (15.0-30.0) L 12/26/17 07:58 Acetaminophen < 10 mcg/mL (10-20) L 12/26/17 07:58 [place] 1.3 mEq/L (0.6-1.2) H 12/27/17 12:20 - Microbiology Findings Microbiology Findings: Microbiology, Last 48 Hours 12/27/17 11:56 Urine Culture - Preliminary Urine,[place] No growth. - Clinical Findings Intake & Output: Intake & Output 12/28/17 12/29/17 12/29/17 23:59 07:59 15:59 Intake Total 1842 / 1842 2100 / 2100 603 / 603 Output Total 1700 / 1700 400 / 400 1800 / 1800 Balance 142 / 142 1700 / 1700 -1197 / -1197 Weight 66 kg Consult Discharge Plan - Plan Referrals: Yanet Armstrong MD [Primary Care Provider] -
[2017-12-29] MEDS: FentaNYL (PF) 1,000 MCG in 0.9 % Sodium Chloride 80 ML IVC SCH (16:07)
[2017-12-30] MEDS: Insulin LISPRO 300 UNITS/3 ML VIAL SQ SCH ×5 (03:47→20:32)
[2017-12-30] MEDS: Lacri-Lube 3.5 GM TUBE BOTH EYES SCH ×4 (03:48→15:16)
[2017-12-30 04:19] LABS: Hematocrit 36.5 % (37.5-50.1); Hemoglobin 11.3 g/dL (12.9-16.9); Mean Corpuscular Hemoglobin 31.8 pg (28.0-33.3); Mean Corpuscular Volume 102.8 fL (83.0-100.0); Mean Platelet Volume 11.5 fL (9.4-12.4); Platelet Count 207 K/mcL (140-400); Red Blood Count 3.55 M/mcL (4.19-5.50); Red Cell Distribution Width 14.6 % (11.5-14.5)
[2017-12-30 04:24] LABS: Magnesium 2.6 mg/dL (1.6-2.6); Phosphorous 2.5 mg/dL (2.7-4.5); Potassium 4.3 mEq/L (3.5-5.1)
[2017-12-30 04:53] LABS: ABG Base Excess 0 mEq/L (-2 to 3); ABG HCO3 24 mEq/L (21-27); ABG Oxygen Saturation 95 % (95-98); ABG PCO2 35 mmHg (35-45); ABG PH 7.44 pH Units (7.32-7.45); ABG PO2 73 mmHg (85-104); ABG TCO2 25 mEq/L (20-26); Blood Gas Modality PRVC; Blood Gas PEEP 5 cm H2O; Blood Gas Respiration Rate 12; Blood Gas VT 450 cc
[2017-12-30] MEDS: *HR* Heparin 5,000 UNIT/ML VIAL SQ SCH ×2 (05:04→19:03)
--- NOTE | 2017-12-30 08:32 | Pulmonology Progress Note ---
<Mark Fay - Last Filed: 12/30/17 11:17> Date of Encounter: 12/30/17 Time of Encounter: 08:30 Assessment and Plan (1) Acute encephalopathy Current Visit: Yes Status: Acute AMS most likely 2/2 UTI, lithium toxicity causing hypernatremia, and possibly secondary to infection -Appears to have improved -Patient was given Vicodin status post tooth extraction on 12/20 -Unresponsive to Narcan in the ED -Patient self catheters 4 times a day; per medical center manager, patient has developed incontinence -In the ED, patient unable to maintain airway 2/2 AMS, was subsequently intubated -CT of head: No acute process -CT chest: Concerns for aspiration -CT abdomen: Large amount of stool in colon without obstruction -Possible MRI when safe to obtain PLAN: - Continue sedation with Precedex, propofol, fentanyl - D5 running at 100 mL per hour - Zosyn 3.375 IV every 8 (2) Acute respiratory failure Current Visit: Yes Status: Acute Patient was unable to maintain airway in emergency department on presentation did alternate status -Patient was subsequently intubated due to inability to protect airway -Currently stable; Patient has been extubated Qualifiers: Qualified Code(s): J96.00 - Acute respiratory failure, unspecified whether with hypoxia or hypercapnia (3) UTI (urinary tract infection) Current Visit: Yes Status: Acute -Urinalysis was concerning for the presence of the UTI -He had dominique purulent urine on admission; treat for at least 10 days -Blood cultures negative 2 -Urine culture negative -Continue Zosyn 3.375 IV every 8 -Currently in contact precautions due to history of MRSA in urine in 2016 Qualifiers: Qualified Code(s): N39.0 - Urinary tract infection, site not specified; R31.9 - Hematuria, unspecified; R31.9 - Hematuria, unspecified (4) Diabetes insipidus Current Visit: Yes Status: Acute Patient has diabetes insipidus; low serum osmolality -Elevated lithium level on admission -Per nephrology: Seems to be central; had significant initial response to DDAVP administration -Patients last sodium level was 149 -Will recheck urine osmolality response to next dose of DDAVP -Cause of DI: Possibly idiopathic versus related to hypoxic encephalopathy -Patient was also on lithium Plan: -D5 at 100 mL per hour -Monitor Is and Os (5) Acute kidney injury superimposed on chronic kidney disease Current Visit: Yes Status: Acute -Improving; Nephrology on board -Continue to monitor urine output, serum creatinine, electrolytes -Renally dose medications -Avoid nephrotoxins (6) Hypernatremia Current Visit: Yes Status: Acute Currently stable -Free water replacement -Nephrology following (7) DVT prophylaxis Current Visit: Yes Status: Acute Heparin 5000 subcutaneous every 12 Subjective Principal diagnosis: acute respiratory failure Interval history: Patient seen and examined at bedside this morning. Does not appear to be in any distress this time. Currently on O2 via nasal cannula. He has been extubated. Denies being in any acute distress. Unclear what patient's baseline mental status is. Known history of MR. Alfonso PUL Vital signs: Last Vital Signs Temp 100.3 F H 12/30/17 07:00 Pulse 95 12/30/17 07:00 Resp 20 12/30/17 07:57 BP 124/72 12/30/17 07:54 Pulse Ox 94 12/30/17 07:57 General appearance: no acute distress Eyes: nonicteric ENT: oropharynx moist Neck: supple Effort: normal Auscultation: bilateral: diminished breath sounds Percussion: bilateral: not dull Tactile fremitus: bilateral: normal Cardiovascular: regular rate and rhythm Gastrointestinal: normoactive bowel sounds, non-distended Integumentary: normal Extremities: no cyanosis, no edema, no clubbing unable to assess due to mental status affect normal Ventilator Settings Ventilator Settings: Ventilator Settings, Last 8 Hours Ventilator Mode CPAP Ventilator Mode CPAP Ventilator Mode CPAP Ventilator Mode VC+ Ventilator Mode VC+ Ventilator Mode VC+ Ventilator Mode VC+ Ventilator Mode VC+ Ventilator Mode VC+ Ventilator Mode VC+ Ventilator Mode VC+ Ventilator Mode VC+ Ventilator Tidal Volume 450 Setting Ventilator Tidal Volume 450 Setting Ventilator Tidal Volume 450 Setting Ventilator Tidal Volume 450 Setting Ventilator Tidal Volume 450 Setting Ventilator Tidal Volume 450 Setting Ventilator Tidal Volume 450 Setting Ventilator Tidal Volume 450 Setting Ventilator Tidal Volume 450 Setting Ventilator Respiratory Rate 12 Setting Ventilator Respiratory Rate 12 Setting Ventilator Respiratory Rate 12 Setting Ventilator Respiratory Rate 12 Setting Ventilator Respiratory Rate 12 Setting Ventilator Respiratory Rate 12 Setting Ventilator Respiratory Rate 12 Setting Ventilator Respiratory Rate 12 Setting Ventilator Respiratory Rate 12 Setting Actual Respiratory Rate 19 Actual Respiratory Rate 24 Actual Respiratory Rate 17 Actual Respiratory Rate 18 Actual Respiratory Rate 18 Actual Respiratory Rate 24 Actual Respiratory Rate 24 Actual Respiratory Rate 15 Actual Respiratory Rate 15 Actual Respiratory Rate 23 Actual Respiratory Rate 15 Positive End Expiratory 5 Pressure Positive End Expiratory 5 Pressure Positive End Expiratory 5 Pressure Positive End Expiratory 5 Pressure Positive End Expiratory 5 Pressure Positive End Expiratory 5 Pressure Positive End Expiratory 5 Pressure Positive End Expiratory 5 Pressure Positive End Expiratory 5 Pressure Positive End Expiratory 5 Pressure Positive End Expiratory 5 Pressure Peak Inspiratory Airway 11 Pressure Peak Inspiratory Airway 10 Pressure Peak Inspiratory Airway 15 Pressure Peak Inspiratory Airway 15 Pressure Peak Inspiratory Airway 15 Pressure Peak Inspiratory Airway 15 Pressure Peak Inspiratory Airway 15 Pressure Peak Inspiratory Airway 15 Pressure Peak Inspiratory Airway 15 Pressure Peak Inspiratory Airway 15 Pressure Results - Laboratory Findings CBC and BMP: 12/30/17 04:00 12/30/17 07:34 ABG ABG pH 7.44 pH Units (7.32-7.45) 12/30/17 04:49 ABG pCO2 35 mmHg (35-45) 12/30/17 04:49 ABG pO2 73 mmHg (85-104) L 12/30/17 04:49 ABG O2 Saturation 95 % (95-98) 12/30/17 04:49 Abnormal lab findings: Abnormal lab results RBC 3.55 M/mcL (4.19-5.50) L 12/30/17 04:00 Hgb 11.3 g/dL (12.9-16.9) L 12/30/17 04:00 Hct 36.5 % (37.5-50.1) L 12/30/17 04:00 MCV 102.8 fL (83.0-100.0) H 12/30/17 04:00 MCHC 31.0 g/dL (31.6-35.5) L 12/30/17 04:00 RDW 14.6 % (11.5-14.5) H 12/30/17 04:00 ABG pO2 73 mmHg (85-104) L 12/30/17 04:49 Sodium 149 mEq/L (136-145) H 12/30/17 07:34 Chloride 119 mEq/L (98-107) H 12/30/17 04:00 Creatinine 1.69 mg/dL (0.70-1.30) H 12/30/17 04:00 Est GFR ( Amer) 50 (> 60) L 12/30/17 04:00 Est GFR (Non-Af Amer) 41 (> 60) L 12/30/17 04:00 Glucose 125 mg/dL (70-105) H 12/30/17 04:00 POC Glucose 132 mg/dL (70-99) H 12/29/17 22:31 Serum Osmolality 330 mOsm/kg (280-300) H 12/28/17 10:26 Calculated Osmolality 310 (280-300) H 12/30/17 04:00 Phosphorus 2.5 mg/dL (2.7-4.5) L 12/30/17 04:00 AST 57 Units/L (13-39) H 12/26/17 07:58 ALT 67 Units/L (7-52) H 12/26/17 07:58 Globulin 3.9 g/dL (2.4-3.5) H 12/26/17 07:58 Albumin/Globulin Ratio 0.9 (1.1-2.2) L 12/26/17 07:58 Urine Clarity Cloudy (Clear) A 12/26/17 07:39 Urine Protein 30 mg/dL (Neg-Trace) H 12/26/17 07:39 Urine Blood Moderate (Negative) H 12/26/17 07:39 Urine Nitrite Positive (Negative) A 12/26/17 07:39 Ur Leukocyte Esterase Large (Negative) H 12/26/17 07:39 Urine Microscopic RBC 30-50 per hpf (0-3) H 12/26/17 07:39 Urine Microscopic WBC TNTC per hpf (0-3) H 12/26/17 07:39 Urine Bacteria Many per hpf (None-Few) H 12/26/17 07:39 Urine Osmolality 156 mOsm/kg (300-1090) L 12/29/17 11:56 Salicylates < 2.5 mg/dL (15.0-30.0) L 12/26/17 07:58 Acetaminophen < 10 mcg/mL (10-20) L 12/26/17 07:58 - Microbiology Findings Microbiology Findings: Microbiology, Last 48 Hours 12/27/17 11:56 Urine Culture - Final Urine,[place] No growth. - Clinical Findings Intake & Output: Intake & Output 12/29/17 12/30/17 12/30/17 23:59 07:59 15:59 Intake Total 2315 / 2315 500 / 500 Output Total 2300 / 2300 1800 / 1800 Balance -1300 / -1300 Consult Discharge Plan - Plan Referrals: Yanet Armstrong MD [Primary Care Provider] - <MariamAgnes ortiz M - Last Filed: 12/30/17 13:20> Date of Encounter: 12/30/17 Objective PUL Vital signs: Last Vital Signs Temp 100.3 F H 12/30/17 07:00 Pulse 86 12/30/17 08:00 Resp 25 12/30/17 08:00 BP 124/80 12/30/17 08:00 Pulse Ox 93 12/30/17 08:00 Ventilator Settings Ventilator Settings: Ventilator Settings, Last 8 Hours Ventilator Mode CPAP Ventilator Mode CPAP Ventilator Mode CPAP Ventilator Mode VC+ Ventilator Mode VC+ Ventilator Mode VC+ Ventilator Mode VC+ Ventilator Mode VC+ Ventilator Mode VC+ Ventilator Tidal Volume 450 Setting Ventilator Tidal Volume 450 Setting Ventilator Tidal Volume 450 Setting Ventilator Tidal Volume 450 Setting Ventilator Tidal Volume 450 Setting Ventilator Tidal Volume 450 Setting Ventilator Respiratory Rate 12 Setting Ventilator Respiratory Rate 12 Setting Ventilator Respiratory Rate 12 Setting Ventilator Respiratory Rate 12 Setting Ventilator Respiratory Rate 12 Setting Ventilator Respiratory Rate 12 Setting Actual Respiratory Rate 19 Actual Respiratory Rate 24 Actual Respiratory Rate 17 Actual Respiratory Rate 18 Actual Respiratory Rate 18 Actual Respiratory Rate 24 Actual Respiratory Rate 24 Actual Respiratory Rate 15 Positive End Expiratory 5 Pressure Positive End Expiratory 5 Pressure Positive End Expiratory 5 Pressure Positive End Expiratory 5 Pressure Positive End Expiratory 5 Pressure Positive End Expiratory 5 Pressure Positive End Expiratory 5 Pressure Positive End Expiratory 5 Pressure Peak Inspiratory Airway 11 Pressure Peak Inspiratory Airway 10 Pressure Peak Inspiratory Airway 15 Pressure Peak Inspiratory Airway 15 Pressure Peak Inspiratory Airway 15 Pressure Peak Inspiratory Airway 15 Pressure Peak Inspiratory Airway 15 Pressure Results - Laboratory Findings CBC and BMP: 12/30/17 04:00 12/30/17 07:34 ABG ABG pH 7.44 pH Units (7.32-7.45) 12/30/17 04:49 ABG pCO2 35 mmHg (35-45) 12/30/17 04:49 ABG pO2 73 mmHg (85-104) L 12/30/17 04:49 ABG O2 Saturation 95 % (95-98) 12/30/17 04:49 Abnormal lab findings: Abnormal lab results RBC 3.55 M/mcL (4.19-5.50) L 12/30/17 04:00 Hgb 11.3 g/dL (12.9-16.9) L 12/30/17 04:00 Hct 36.5 % (37.5-50.1) L 12/30/17 04:00 MCV 102.8 fL (83.0-100.0) H 12/30/17 04:00 MCHC 31.0 g/dL (31.6-35.5) L 12/30/17 04:00 RDW 14.6 % (11.5-14.5) H 12/30/17 04:00 ABG pO2 73 mmHg (85-104) L 12/30/17 04:49 Sodium 149 mEq/L (136-145) H 12/30/17 07:34 Chloride 119 mEq/L (98-107) H 12/30/17 04:00 Creatinine 1.69 mg/dL (0.70-1.30) H 12/30/17 04:00 Est GFR ( Amer) 50 (> 60) L 12/30/17 04:00 Est GFR (Non-Af Amer) 41 (> 60) L 12/30/17 04:00 Glucose 125 mg/dL (70-105) H 12/30/17 04:00 POC Glucose 132 mg/dL (70-99) H 12/29/17 22:31 Serum Osmolality 330 mOsm/kg (280-300) H 12/28/17 10:26 Calculated Osmolality 310 (280-300) H 12/30/17 04:00 Phosphorus 2.5 mg/dL (2.7-4.5) L 12/30/17 04:00 AST 57 Units/L (13-39) H 12/26/17 07:58 ALT 67 Units/L (7-52) H 12/26/17 07:58 Globulin 3.9 g/dL (2.4-3.5) H 12/26/17 07:58 Albumin/Globulin Ratio 0.9 (1.1-2.2) L 12/26/17 07:58 Urine Clarity Cloudy (Clear) A 12/26/17 07:39 Urine Protein 30 mg/dL (Neg-Trace) H 12/26/17 07:39 Urine Blood Moderate (Negative) H 12/26/17 07:39 Urine Nitrite Positive (Negative) A 12/26/17 07:39 Ur Leukocyte Esterase Large (Negative) H 12/26/17 07:39 Urine Microscopic RBC 30-50 per hpf (0-3) H 12/26/17 07:39 Urine Microscopic WBC TNTC per hpf (0-3) H 12/26/17 07:39 Urine Bacteria Many per hpf (None-Few) H 12/26/17 07:39 Urine Osmolality 156 mOsm/kg (300-1090) L 12/29/17 11:56 Salicylates < 2.5 mg/dL (15.0-30.0) L 12/26/17 07:58 Acetaminophen < 10 mcg/mL (10-20) L 12/26/17 07:58 - Microbiology Findings Microbiology Findings: Microbiology, Last 48 Hours 12/27/17 11:56 Urine Culture - Final Urine,[place] No growth. - Clinical Findings Intake & Output: Intake & Output 12/29/17 12/30/17 12/30/17 23:59 07:59 15:59 Intake Total 2315 / 2315 500 / 500 1000 / 1000 Output Total 2300 / 2300 1800 / 1800 Balance -1300 / -1300 1000 / 1000 - Attending Attestation I examined this patient and my medical decision-making was reviewed with the Resident Physician. I agree with the documented findings, disposition and treatment plan as described except to the extent set forth below. Patient seen and examined. Labs, radiology, chart personally reviewed. Agree with resident's history and physical, assessment, plan with following comments: RESPONDER: Patient does not follows commands, patient is agitated and after extubation requiring a sitter Pulmonary: Acceptable oxygenation and ventilation and was successfully extubated Cardiovascular: stable GI: Nutrition per dietary and GI prophylaxis per routine Heme: DVT prophylaxis per routine ID: Continue antibiotics and plan to de-escalation Renal; urine out put and renal funtion reviewed. Nephrology's follow-up and will coordinate management for the hypernatremia Endorcine: blood glucose is monitored Lines: all lines checked and no evidence of infections Skin: skin care to prevent pressure ulcers per nursing routine care
[2017-12-30] MEDS: Pantoprazole 40 MG VIAL IVP SCH (09:03)
[2017-12-30] MEDS: D5% in Water 1,000 ML IVC SCH ×3 (09:04→20:35)
[2017-12-30] MEDS: Chlorhexidine Rinse 15 ML MOUTHWASH MM SCH (09:04)
[2017-12-30] MEDS: Piperacillin/Tazobactam 3.375 GM in 0.9 % Sodium Chloride Mini Bag 100 ML IVPB SCH ×2 (09:04→15:17)
[2017-12-30] MEDS: Bisacodyl 10 MG RECTAL SUPPOSITORY RC SCH (09:04)
[2017-12-30] MEDS: Lactulose Oral Soln 20 GM/30 ML UDC PO SCH (09:17)
[2017-12-30] MEDS: CarBAMazepine 100 MG TABLET PO SCH ×2 (09:17→19:43)
[2017-12-30] MEDS: Sennosides/Docusate Sodium TABLET PO SCH ×2 (09:17→19:43)
[2017-12-30] MEDS: OLANZapine 10 MG TAB.RAPDIS PO SCH ×2 (09:18→19:43)
[2017-12-30] MEDS: Dexmedetomidine HCl 400 MCG/100 ML MLS IVC SCH (10:55)
[2017-12-30] MEDS ORDERED: *HR* LORazepam 1 MG TABLET PO SCH (11:00)
[2017-12-30] MEDS: FentaNYL (PF) 1,000 MCG in 0.9 % Sodium Chloride 80 ML IVC SCH (12:20)
[2017-12-30] MEDS: Desmopressin Acetate SPRAY 5 ML BOTTLE NS SCH ×2 (12:36→20:36)
[2017-12-30] MEDS: *HR* LORazepam 2 MG/ML VIAL IVP PRN (17:45)
[2017-12-30] MEDS ORDERED: Desmopressin Acetate SPRAY 5 ML BOTTLE NS ONE (23:36)
--- NOTE | 2017-12-30 23:44 | Nephrology Progress Note ---
Date of Encounter: 12/30/17 Time of Encounter: 10:00 - Assessment and Plan (1) Diabetes insipidus Current Visit: Yes Status: Suspected Patient with diabetes insipidus that seems to be central as he had a significant initial response to Ddavp administration. Despite increased Ddavp and ongoing D5 administration he remains hypernatremic with a serum sodium in the low 150s. His increasing urine output could be from DI vs post ATN diuresis as his renal function is recovering. For central DI I would expect the urine output to decrease and the urine osmolality to increase. Recheck urine osmolality in response to dose of Ddavp was more consistent of nephrogenic DI.. Etiology of proposed Diabetes Insipidus is either idiopathic, but more likely related to hypoxic encephalopathy given his clinical presentation upon admission and the temporal relationship of his hypoxic episode with the development of hypernatremia. With lithium administration there could be a component of nephrogenic DI as well. Will titrate D5 and Ddavp for normal sodium level. (2) Hypernatremia Current Visit: Yes Status: Acute (3) Acute kidney injury superimposed on chronic kidney disease Current Visit: Yes Status: Acute Improving renal function. Subjective Principal diagnosis: acute respiratory failure Interval history: Patient awake and sitting on edge of the bed. He is not verbal, but nods his head to commands. Objective - Vital Signs Vital signs: Vital Signs Temp Pulse Resp BP Pulse Ox 12/30/17 22:00 84 20 120/67 93 12/30/17 21:00 81 15 136/90 92 12/30/17 20:00 98.4 F 71 14 127/86 94 12/30/17 19:00 67 24 138/87 95 12/30/17 18:00 70 22 121/82 12/30/17 17:00 56 20 134/84 100 12/30/17 16:00 50 20 127/81 100 12/30/17 15:00 97.7 F 51 22 109/77 100 12/30/17 14:00 55 24 95/64 100 12/30/17 13:00 55 19 100 12/30/17 12:00 98.4 F 66 22 99 12/30/17 11:00 66 23 131/98 100 12/30/17 10:00 79 20 126/81 94 12/30/17 09:00 89 17 142/71 95 12/30/17 08:00 86 25 124/80 93 12/30/17 07:57 20 94 12/30/17 07:54 18 124/72 94 12/30/17 07:00 100.3 F H 96 18 129/70 95 12/30/17 06:18 17 103/68 99 12/30/17 06:05 57 19 104/69 97 12/30/17 05:02 60 19 107/69 97 12/30/17 04:00 63 24 108/76 97 12/30/17 03:25 24 115/69 97 12/30/17 03:00 98.6 F 62 21 117/67 97 12/30/17 02:00 60 22 112/74 100 12/30/17 01:17 23 106/85 96 12/30/17 01:01 58 21 101/70 100 12/30/17 00:00 46 15 91/60 96 Intake and Output 12/30/17 12/30/17 12/30/17 07:59 15:59 23:59 Intake Total 500 / 500 1200 / 1200 1000 / 1000 Output Total 1800 / 1800 3450 / 3450 800 / 800 Balance -1300 / -1300 -2250 / -2250 200 / 200 Intake: IV Fluids 100 / 100 1200 / 1200 1000 / 1000 Dextrose 5% 1,000 ML @ 200 mls/ 1000 / 1000 1000 / 1000 hr IVC .Q5H [facility] Rx#:[id number] PRECEDEX Premix 400 mcg In 100 100 / 100 ml @ 0.2 MCG/KG/HR 2.948 mls/hr IVC .Q24H [facility] Rx#:[id number] Zosyn 3.375 GM In 0.9 % Sodium 100 / 100 100 / 100 Chloride (Mini-Bag +) 100 ML @ 25 mls/hr IVPB Q8HR [facility] Rx#: [id number] Tube Feeding 0 / 0 Free Water 0 / 0 Free Water Intake Amount 400 / 400 Output: Catheter 1800 / 1800 3450 / 3450 800 / 800 Other: Blood Glucose* 133 136 98 - General Appearance General appearance: Present: well-developed, well-nourished EENT: Present: ATNC Neck: Present: supple - Lab 12/30/17 04:00 12/30/17 07:34 Most recent lab results ABG pH 7.44 pH Units (7.32-7.45) 12/30/17 04:49 ABG pCO2 35 mmHg (35-45) 12/30/17 04:49 ABG pO2 73 mmHg (85-104) L 12/30/17 04:49 ABG HCO3 24 mEq/L (21-27) 12/30/17 04:49 ABG O2 Saturation 95 % (95-98) 12/30/17 04:49 Calcium 9.0 mg/dL (8.6-10.3) 12/30/17 04:00 Phosphorus 2.5 mg/dL (2.7-4.5) L 12/30/17 04:00 Magnesium 2.6 mg/dL (1.6-2.6) 12/30/17 04:00 Urine Creatinine 70 mg/dL 12/27/17 04:00 Urine Sodium 24.3 mEq/L 12/27/17 15:23 Consult Discharge Plan - Plan Referrals: Yanet Armstrong MD [Primary Care Provider] -
[2017-12-31] MEDS: Insulin LISPRO 300 UNITS/3 ML VIAL SQ SCH ×6 (00:52→19:50)
[2017-12-31] MEDS: D5% in Water 1,000 ML IVC SCH ×6 (00:52→22:55)
[2017-12-31] MEDS: Piperacillin/Tazobactam 3.375 GM in 0.9 % Sodium Chloride Mini Bag 100 ML IVPB SCH ×4 (01:05→23:28)
[2017-12-31] MEDS: *HR* LORazepam 2 MG/ML VIAL IVP PRN (01:59)
[2017-12-31 04:50] LABS: Basophils % 0.3 %; Eosinophils # 0.5 K/mcL (0.0-0.6); Eosinophils % 5.4 %; Hematocrit 36.9 % (37.5-50.1); Hemoglobin 11.6 g/dL (12.9-16.9); Immature Granulocytes % 0.6 % (0-4); Lymphocytes # 1.5 K/mcL (0.6-4.6); Lymphocytes % 15.3 %; Mean Corpuscular HGB Conc 31.4 g/dL (31.6-35.5); Mean Corpuscular Volume 101.7 fL (83.0-100.0); Mean Platelet Volume 11.1 fL (9.4-12.4); Monocytes # 0.5 K/mcL (0.0-1.3); Monocytes % 4.9 %; Neutrophils # 7.1 K/mcL (1.6-8.9); Platelet Count 219 K/mcL (140-400); Red Blood Count 3.63 M/mcL (4.19-5.50); Red Cell Distribution Width 14.6 % (11.5-14.5); Segmented Neutrophils % 73.5 %
[2017-12-31 05:10] LABS: BUN/Creatinine Ratio 10 (6-26); Blood Urea Nitrogen 14 mg/dL (8-23); Calcium 8.7 mg/dL (8.6-10.3); Carbon Dioxide 23 mEq/L (23-29); Chloride 127 mEq/L (98-107); Glucose 126 mg/dL (70-105); Magnesium 2.3 mg/dL (1.6-2.6); Osmolality,Calculated 320 (280-300); Phosphorous 2.4 mg/dL (2.7-4.5); Potassium 3.2 mEq/L (3.5-5.1); Sodium 154 mEq/L (136-145); eGFR For African Americans > 60 (> 60); eGFR For Non-African Americans 54 (> 60)
[2017-12-31] MEDS: *HR* Heparin 5,000 UNIT/ML VIAL SQ SCH ×2 (06:03→18:41)
[2017-12-31] MEDS: Levothyroxine Sodium 100 MCG VIAL IVP PRN (06:12)
--- NOTE | 2017-12-31 08:34 | Pulmonology Progress Note ---
<MariamAgnes ortiz M - Last Filed: 12/31/17 08:40> Date of Encounter: 12/31/17 Objective PUL Vital signs: Last Vital Signs Temp 98.0 F 12/31/17 08:00 Pulse 85 12/31/17 07:00 Resp 24 12/31/17 08:00 BP 132/81 12/31/17 08:00 Pulse Ox 92 12/31/17 06:00 Results - Laboratory Findings CBC and BMP: 12/31/17 04:00 12/31/17 04:00 ABG ABG pH 7.44 pH Units (7.32-7.45) 12/30/17 04:49 ABG pCO2 35 mmHg (35-45) 12/30/17 04:49 ABG pO2 73 mmHg (85-104) L 12/30/17 04:49 ABG O2 Saturation 95 % (95-98) 12/30/17 04:49 Abnormal lab findings: Abnormal lab results RBC 3.63 M/mcL (4.19-5.50) L 12/31/17 04:00 Hgb 11.6 g/dL (12.9-16.9) L 12/31/17 04:00 Hct 36.9 % (37.5-50.1) L 12/31/17 04:00 MCV 101.7 fL (83.0-100.0) H 12/31/17 04:00 MCHC 31.4 g/dL (31.6-35.5) L 12/31/17 04:00 RDW 14.6 % (11.5-14.5) H 12/31/17 04:00 ABG pO2 73 mmHg (85-104) L 12/30/17 04:49 Sodium 154 mEq/L (136-145) H 12/31/17 04:00 Potassium 3.2 mEq/L (3.5-5.1) L D 12/31/17 04:00 Chloride 127 mEq/L (98-107) H 12/31/17 04:00 Creatinine 1.34 mg/dL (0.70-1.30) H 12/31/17 04:00 Est GFR (Non-Af Amer) 54 (> 60) L 12/31/17 04:00 Glucose 126 mg/dL (70-105) H 12/31/17 04:00 POC Glucose 118 mg/dL (70-99) H 12/30/17 23:21 Serum Osmolality 330 mOsm/kg (280-300) H 12/28/17 10:26 Calculated Osmolality 320 (280-300) H 12/31/17 04:00 Phosphorus 2.4 mg/dL (2.7-4.5) L 12/31/17 04:00 AST 57 Units/L (13-39) H 12/26/17 07:58 ALT 67 Units/L (7-52) H 12/26/17 07:58 Globulin 3.9 g/dL (2.4-3.5) H 12/26/17 07:58 Albumin/Globulin Ratio 0.9 (1.1-2.2) L 12/26/17 07:58 Urine Clarity Cloudy (Clear) A 12/26/17 07:39 Urine Protein 30 mg/dL (Neg-Trace) H 12/26/17 07:39 Urine Blood Moderate (Negative) H 12/26/17 07:39 Urine Nitrite Positive (Negative) A 12/26/17 07:39 Ur Leukocyte Esterase Large (Negative) H 12/26/17 07:39 Urine Microscopic RBC 30-50 per hpf (0-3) H 12/26/17 07:39 Urine Microscopic WBC TNTC per hpf (0-3) H 12/26/17 07:39 Urine Bacteria Many per hpf (None-Few) H 12/26/17 07:39 Urine Osmolality 159 mOsm/kg (300-1090) L 12/31/17 01:25 Nasal Screen MRSA (PCR) Positive (Negative) A 12/30/17 19:41 Salicylates < 2.5 mg/dL (15.0-30.0) L 12/26/17 07:58 Acetaminophen < 10 mcg/mL (10-20) L 12/26/17 07:58 - Microbiology Findings Microbiology Findings: Microbiology, Last 48 Hours 12/27/17 11:56 Urine Culture - Final Urine,[place] No growth. - Clinical Findings Intake & Output: Intake & Output 12/30/17 12/31/17 12/31/17 23:59 07:59 15:59 Intake Total 1100 / 1100 1000 / 1000 Output Total 800 / 800 1300 / 1300 500 / 500 Balance 300 / 300 -300 / -300 -500 / -500 Weight 62.5 kg Consult Discharge Plan - Plan Referrals: Yanet Armstrong MD [Primary Care Provider] - - Attending Attestation I examined this patient and my medical decision-making was reviewed with the Resident Physician. I agree with the documented findings, disposition and treatment plan as described except to the extent set forth below. Patient seen and examined. Labs, radiology, chart personally reviewed. 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 Pulmonary: Acceptable oxygenation and ventilation Cardiovascular: stable GI: Nutrition per dietary and GI prophylaxis per routine Heme: DVT prophylaxis per routine ID: Continue antibiotics and plan to de-escalation Renal; urine out put and renal funtion reviewed. Hypernatremia is worsen and increase IVF rate. Nephrology follow up. Repeat BMP to monitor level. Endorcine: blood glucose is monitored Lines: all lines checked and no evidence of infections Skin: skin care to prevent pressure ulcers per nursing routine care Remain in ICU because of the agitation. 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 -In the ED, patient unable to maintain airway 2/2 AMS, was subsequently intubated -CT of head: No acute process -CT chest: Concerns for aspiration -CT abdomen: Large amount of stool in colon without obstruction -Possible MRI when safe to obtain PLAN: - D5 running at 250 mL per hour - Zosyn 3.375 IV every 8 (2) Acute respiratory failure Current Visit: Yes Status: Acute Patient was unable to maintain airway in emergency department on presentation did alternate status -Patient was subsequently intubated due to inability to protect airway -Currently stable; Patient has been extubated Qualifiers: Qualified Code(s): J96.00 - Acute respiratory failure, unspecified whether with hypoxia or hypercapnia (3) UTI (urinary tract infection) Current Visit: Yes Status: Acute -Urinalysis was concerning for the presence of the UTI -He had dominique purulent urine on admission; treat for at least 10 days -Blood cultures negative 2 -Urine culture negative -Continue Zosyn 3.375 IV every 8 -Currently in contact precautions due to history of MRSA in urine in 2016 Qualifiers: Qualified Code(s): N39.0 - Urinary tract infection, site not specified; R31.9 - Hematuria, unspecified; R31.9 - Hematuria, unspecified (4) Diabetes insipidus Current Visit: Yes Status: Acute Patient has diabetes insipidus; low serum osmolality -Elevated lithium level on admission -Per nephrology: Seems to be central; had significant initial response to DDAVP administration -Patients last sodium level was 149 -Will recheck urine osmolality response to next dose of DDAVP -Cause of DI: Possibly idiopathic versus related to hypoxic encephalopathy -Patient was also on lithium Plan: -D5 at 250 mL per hour -Monitor Is and Os -Will titrate D5 and Ddavp for normal sodium level -Electrolyte protocol (5) Acute kidney injury superimposed on chronic kidney disease Current Visit: Yes Status: Acute -Improving; Nephrology on board -Continue to monitor urine output, serum creatinine, electrolytes -Renally dose medications -Avoid nephrotoxins (6) Hypernatremia Current Visit: Yes Status: Acute Currently stable -Free water replacement -Nephrology following -Electrolyte protocol (7) DVT prophylaxis Current Visit: Yes Status: Acute Heparin 5000 subcutaneous every 12 Subjective Principal diagnosis: acute respiratory failure Interval history: Patient seen and examined at bedside this morning. Does not appear to be in any distress this time. Patient awake and sitting on edge of the bed. Patient nonverbal; nods his head to commands. Currently on O2 via nasal cannula. He has been extubated. Denies being in any acute distress. Unclear what patient' s baseline mental status is. Known history of MR. Alofnso PUL Vital signs: Last Vital Signs Temp 98.3 F 12/31/17 04:00 Pulse 85 12/31/17 07:00 Resp 22 12/31/17 07:00 BP 142/66 12/31/17 07:00 Pulse Ox 92 12/31/17 06:00 General appearance: no acute distress Eyes: nonicteric ENT: oropharynx moist Neck: supple Effort: normal Auscultation: bilateral: clear Percussion: bilateral: not dull Tactile fremitus: bilateral: normal Cardiovascular: regular rate and rhythm Gastrointestinal: normoactive bowel sounds, non-distended Integumentary: normal Extremities: no cyanosis, no edema, no clubbing Musculoskeletal: no deformities, ROM normal normal mental status, non-focal exam mood appropriate, affect normal Results - Laboratory Findings CBC and BMP: 12/31/17 04:00 12/31/17 13:11 ABG ABG pH 7.44 pH Units (7.32-7.45) 12/30/17 04:49 ABG pCO2 35 mmHg (35-45) 12/30/17 04:49 ABG pO2 73 mmHg (85-104) L 12/30/17 04:49 ABG O2 Saturation 95 % (95-98) 12/30/17 04:49 Abnormal lab findings: Abnormal lab results RBC 3.63 M/mcL (4.19-5.50) L 12/31/17 04:00 Hgb 11.6 g/dL (12.9-16.9) L 12/31/17 04:00 Hct 36.9 % (37.5-50.1) L 12/31/17 04:00 MCV 101.7 fL (83.0-100.0) H 12/31/17 04:00 MCHC 31.4 g/dL (31.6-35.5) L 12/31/17 04:00 RDW 14.6 % (11.5-14.5) H 12/31/17 04:00 ABG pO2 73 mmHg (85-104) L 12/30/17 04:49 Sodium 154 mEq/L (136-145) H 12/31/17 04:00 Potassium 3.2 mEq/L (3.5-5.1) L D 12/31/17 04:00 Chloride 127 mEq/L (98-107) H 12/31/17 04:00 Creatinine 1.34 mg/dL (0.70-1.30) H 12/31/17 04:00 Est GFR (Non-Af Amer) 54 (> 60) L 12/31/17 04:00 Glucose 126 mg/dL (70-105) H 12/31/17 04:00 POC Glucose 118 mg/dL (70-99) H 12/30/17 23:21 Serum Osmolality 330 mOsm/kg (280-300) H 12/28/17 10:26 Calculated Osmolality 320 (280-300) H 12/31/17 04:00 Phosphorus 2.4 mg/dL (2.7-4.5) L 12/31/17 04:00 AST 57 Units/L (13-39) H 12/26/17 07:58 ALT 67 Units/L (7-52) H 12/26/17 07:58 Globulin 3.9 g/dL (2.4-3.5) H 12/26/17 07:58 Albumin/Globulin Ratio 0.9 (1.1-2.2) L 12/26/17 07:58 Urine Clarity Cloudy (Clear) A 12/26/17 07:39 Urine Protein 30 mg/dL (Neg-Trace) H 12/26/17 07:39 Urine Blood Moderate (Negative) H 12/26/17 07:39 Urine Nitrite Positive (Negative) A 12/26/17 07:39 Ur Leukocyte Esterase Large (Negative) H 12/26/17 07:39 Urine Microscopic RBC 30-50 per hpf (0-3) H 12/26/17 07:39 Urine Microscopic WBC TNTC per hpf (0-3) H 12/26/17 07:39 Urine Bacteria Many per hpf (None-Few) H 12/26/17 07:39 Urine Osmolality 159 mOsm/kg (300-1090) L 12/31/17 01:25 Nasal Screen MRSA (PCR) Positive (Negative) A 12/30/17 19:41 Salicylates < 2.5 mg/dL (15.0-30.0) L 12/26/17 07:58 Acetaminophen < 10 mcg/mL (10-20) L 12/26/17 07:58 - Microbiology Findings Microbiology Findings: Microbiology, Last 48 Hours 12/27/17 11:56 Urine Culture - Final Urine,[place] No growth. - Clinical Findings Intake & Output: Intake & Output 12/30/17 12/31/17 12/31/17 23:59 07:59 15:59 Intake Total 1100 / 1100 1000 / 1000 Output Total 800 / 800 1300 / 1300 Balance 300 / 300 -300 / -300 Weight 62.5 kg
[2017-12-31] MEDS ORDERED: Lithium Carbonate 300 MG CAPSULE PO SCH (09:00)
[2017-12-31] MEDS: Sennosides/Docusate Sodium TABLET PO SCH ×2 (09:16→19:34)
[2017-12-31] MEDS: OLANZapine 10 MG TAB.RAPDIS PO SCH ×2 (09:16→19:36)
[2017-12-31] MEDS: *HR* LORazepam 1 MG TABLET PO SCH ×2 (09:16→19:35)
[2017-12-31] MEDS: CarBAMazepine 100 MG TABLET PO SCH ×2 (09:17→19:35)
[2017-12-31] MEDS: Lactulose Oral Soln 20 GM/30 ML UDC PO SCH (09:18)
[2017-12-31] MEDS: Pantoprazole 40 MG VIAL IVP SCH (09:19)
[2017-12-31] MEDS: Bisacodyl 10 MG RECTAL SUPPOSITORY RC SCH (09:19)
[2017-12-31] MEDS: Desmopressin Acetate SPRAY 5 ML BOTTLE NS SCH ×2 (09:20→19:51)
[2017-12-31] MEDS ORDERED: aMILoride 5 MG TABLET PO SCH (11:00)
[2017-12-31] MEDS: FentaNYL (PF) 1,000 MCG in 0.9 % Sodium Chloride 80 ML IVC SCH (13:51)
[2017-12-31 16:16] LABS: Hematocrit 36.8 % (37.5-50.1); Hemoglobin 11.3 g/dL (12.9-16.9)
[2017-12-31 22:32] LABS: Hematocrit 39.7 % (37.5-50.1); Hemoglobin 12.3 g/dL (12.9-16.9)
--- NOTE | 2018-01-01 00:09 | Nephrology Progress Note ---
Date of Encounter: 12/31/17 Time of Encounter: 11:30 - Assessment and Plan (1) Diabetes insipidus Current Visit: Yes Status: Suspected Patient with diabetes insipidus that initially was diagnosed as central as he had a significant initial response to Ddavp administration. Despite increased Ddavp and ongoing D5 administration he remained hypernatremic with a serum sodium in the low 150s. 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 Despite uptitration of Ddavp and D5 his serum sodium is not normalizing. 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 I'll recheck urine osmolality in AM. Continue to titrate D5 as needed. His rising urine output is concerning. Will trial giving NSAID prior to his next dose of Ddavp. (2) Hypernatremia Current Visit: Yes Status: Acute (3) Acute kidney injury superimposed on chronic kidney disease Current Visit: Yes Status: Acute Improving renal function. Subjective Principal diagnosis: acute respiratory failure Interval history: Patient awake and lying in bed. He is not verbal, but nods his head to commands. Objective - Vital Signs Vital signs: Vital Signs Temp Pulse Resp BP Pulse Ox 12/31/17 23:00 76 22 113/78 97 12/31/17 22:00 74 20 129/83 97 12/31/17 21:00 83 22 122/79 97 12/31/17 20:00 99 F 80 18 130/87 96 12/31/17 19:00 79 20 142/101 95 12/31/17 18:00 72 20 128/96 94 12/31/17 17:00 76 22 97 12/31/17 16:00 75 22 120/99 94 12/31/17 15:00 97.3 F L 77 22 125/88 93 12/31/17 14:00 72 20 135/90 93 12/31/17 13:00 80 20 92 12/31/17 12:00 73 22 133/88 93 12/31/17 11:00 98.0 F 76 20 93 12/31/17 10:00 82 22 120/98 93 12/31/17 09:00 86 22 136/103 92 12/31/17 08:00 98.0 F 24 132/81 12/31/17 07:00 85 22 142/66 12/31/17 06:00 84 22 127/98 92 12/31/17 05:00 83 22 130/92 92 12/31/17 04:00 98.3 F 86 16 122/86 92 12/31/17 03:00 88 22 109/87 92 12/31/17 02:00 85 18 152/99 92 12/31/17 01:00 86 20 91/46 92 Intake and Output 12/31/17 12/31/17 01/01/18 15:59 23:59 07:59 Intake Total 2099 Output Total 1200 / 1200 2300 / 2300 Balance 900 / 900 -200 / -200 Intake: IV Fluids 2099 Dextrose 5% 1,000 ML @ 250 mls/ 1999 / 1999 1999 / 1999 hr IVC .Q4H [facility] Rx#:[id number] Zosyn 3.375 GM In 0.9 % Sodium 100 / 100 100 / 100 Chloride (Mini-Bag +) 100 ML @ 25 mls/hr IVPB Q8HR [facility] Rx#: [id number] Output: Catheter 1200 / 1200 2300 / 2300 Other: Meal Lunch Percent of Meal Consumed 5% Stool Size Large Stool Consistency soft formed Stool Color Brown Yellow # Bowel Movements 1 Blood Glucose* 112 - General Appearance General appearance: Present: well-nourished EENT: Present: ATNC Neck: Present: supple Cardiology: Present: no edema, regular rate Integumentary: Present: warm and dry Psychiatric: Present: mood/affect appropriate - Lab 12/31/17 22:18 12/31/17 13:11 Most recent lab results ABG pH 7.44 pH Units (7.32-7.45) 12/30/17 04:49 ABG pCO2 35 mmHg (35-45) 12/30/17 04:49 ABG pO2 73 mmHg (85-104) L 12/30/17 04:49 ABG HCO3 24 mEq/L (21-27) 12/30/17 04:49 ABG O2 Saturation 95 % (95-98) 12/30/17 04:49 Calcium 8.7 mg/dL (8.6-10.3) 12/31/17 04:00 Phosphorus 2.4 mg/dL (2.7-4.5) L 12/31/17 04:00 Magnesium 2.3 mg/dL (1.6-2.6) 12/31/17 04:00 Urine Creatinine 70 mg/dL 12/27/17 04:00 Urine Sodium 36.4 mEq/L 12/31/17 01:25 Consult Discharge Plan - Plan Referrals: Yanet Armstrong MD [Primary Care Provider] -
[2018-01-01] MEDS: Insulin LISPRO 300 UNITS/3 ML VIAL SQ SCH ×7 (00:26→23:55)
[2018-01-01] MEDS ORDERED: Desmopressin Acetate SPRAY 5 ML BOTTLE NS SCH (00:28)
[2018-01-01] MEDS: D5% in Water 1,000 ML IVC SCH ×6 (02:40→21:47)
[2018-01-01 03:07] LABS: Basophils % 0.1 %; Eosinophils # 0.4 K/mcL (0.0-0.6); Eosinophils % 4.9 %; Hematocrit 35.1 % (37.5-50.1); Hemoglobin 11.1 g/dL (12.9-16.9); Immature Granulocytes % 0.6 % (0-4); Lymphocytes # 1.4 K/mcL (0.6-4.6); Lymphocytes % 15.6 %; Mean Corpuscular HGB Conc 31.6 g/dL (31.6-35.5); Mean Corpuscular Hemoglobin 31.7 pg (28.0-33.3); Mean Corpuscular Volume 100.3 fL (83.0-100.0); Mean Platelet Volume 10.6 fL (9.4-12.4); Monocytes # 0.5 K/mcL (0.0-1.3); Monocytes % 5.2 %; Neutrophils # 6.6 K/mcL (1.6-8.9); Platelet Count 221 K/mcL (140-400); Red Cell Distribution Width 14.5 % (11.5-14.5); Segmented Neutrophils % 73.6 %
[2018-01-01 03:29] LABS: BUN/Creatinine Ratio 8 (6-26); Blood Urea Nitrogen 11 mg/dL (8-23); Calcium 8.9 mg/dL (8.6-10.3); Carbon Dioxide 20 mEq/L (23-29); Chloride 124 mEq/L (98-107); Glucose 148 mg/dL (70-105); Magnesium 2.2 mg/dL (1.6-2.6); Osmolality,Calculated 310 (280-300); Phosphorous 2.2 mg/dL (2.7-4.5); Potassium 3.6 mEq/L (3.5-5.1); Sodium 149 mEq/L (136-145); eGFR For African Americans > 60 (> 60); eGFR For Non-African Americans 50 (> 60)
[2018-01-01] MEDS: *HR* Heparin 5,000 UNIT/ML VIAL SQ SCH ×2 (05:48→17:13)
[2018-01-01] MEDS: Potassium Phosphate 44 MEQ in 0.9 % Sodium Chloride 250 ML IVPB PRN (05:49)
[2018-01-01] MEDS ORDERED: Ketorolac 15 MG/ML VIAL IVP ONE (08:24)
--- NOTE | 2018-01-01 08:30 | Pulmonology Progress Note ---
<MariamAgnes ortiz M - Last Filed: 01/01/18 13:05> Date of Encounter: 01/01/18 Objective PUL Vital signs: Last Vital Signs Temp 97.6 F 01/01/18 12:00 Pulse 62 01/01/18 12:00 Resp 18 01/01/18 12:00 BP 110/88 01/01/18 12:00 Pulse Ox 96 01/01/18 12:00 Results - Laboratory Findings CBC and BMP: 01/01/18 02:59 01/01/18 08:30 ABG ABG pH 7.44 pH Units (7.32-7.45) 12/30/17 04:49 ABG pCO2 35 mmHg (35-45) 12/30/17 04:49 ABG pO2 73 mmHg (85-104) L 12/30/17 04:49 ABG O2 Saturation 95 % (95-98) 12/30/17 04:49 Abnormal lab findings: Abnormal lab results RBC 3.50 M/mcL (4.19-5.50) L 01/01/18 02:59 Hgb 11.1 g/dL (12.9-16.9) L 01/01/18 02:59 Hct 35.1 % (37.5-50.1) L 01/01/18 02:59 MCV 100.3 fL (83.0-100.0) H 01/01/18 02:59 ABG pO2 73 mmHg (85-104) L 12/30/17 04:49 Sodium 149 mEq/L (136-145) H 01/01/18 02:59 Chloride 124 mEq/L (98-107) H 01/01/18 02:59 Carbon Dioxide 20 mEq/L (23-29) L 01/01/18 02:59 Creatinine 1.44 mg/dL (0.70-1.30) H 01/01/18 02:59 Est GFR (Non-Af Amer) 50 (> 60) L 01/01/18 02:59 Glucose 148 mg/dL (70-105) H 01/01/18 02:59 POC Glucose 126 mg/dL (70-99) H 01/01/18 00:05 Serum Osmolality 330 mOsm/kg (280-300) H 12/28/17 10:26 Calculated Osmolality 310 (280-300) H 01/01/18 02:59 Phosphorus 2.2 mg/dL (2.7-4.5) L 01/01/18 02:59 AST 57 Units/L (13-39) H 12/26/17 07:58 ALT 67 Units/L (7-52) H 12/26/17 07:58 Globulin 3.9 g/dL (2.4-3.5) H 12/26/17 07:58 Albumin/Globulin Ratio 0.9 (1.1-2.2) L 12/26/17 07:58 Urine Clarity Cloudy (Clear) A 12/26/17 07:39 Urine Protein 30 mg/dL (Neg-Trace) H 12/26/17 07:39 Urine Blood Moderate (Negative) H 12/26/17 07:39 Urine Nitrite Positive (Negative) A 12/26/17 07:39 Ur Leukocyte Esterase Large (Negative) H 12/26/17 07:39 Urine Microscopic RBC 30-50 per hpf (0-3) H 12/26/17 07:39 Urine Microscopic WBC TNTC per hpf (0-3) H 12/26/17 07:39 Urine Bacteria Many per hpf (None-Few) H 12/26/17 07:39 Urine Osmolality 164 mOsm/kg (300-1090) L 01/01/18 09:55 Nasal Screen MRSA (PCR) Positive (Negative) A 12/30/17 19:41 Salicylates < 2.5 mg/dL (15.0-30.0) L 12/26/17 07:58 Acetaminophen < 10 mcg/mL (10-20) L 12/26/17 07:58 - Clinical Findings Intake & Output: Intake & Output 12/31/17 01/01/18 01/01/18 23:59 07:59 15:59 Intake Total 2100 / 2100 2100 / 2100 1000 / 1000 Output Total 2300 / 2300 2250 / 2250 1400 / 1400 Balance -200 / -200 -150 / -150 -400 / -400 Consult Discharge Plan - Plan Referrals: Yanet Armstrong MD [Primary Care Provider] - - Attending Attestation I examined this patient and my medical decision-making was reviewed with the Resident Physician. I agree with the documented findings, disposition and treatment plan as described except to the extent set forth below. Patient seen and examined. Labs, radiology, chart personally reviewed. 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 Need to discuss with power of banking attorney regarding nutrition Heme: DVT prophylaxis per routine ID: Continue antibiotics and plan to de-escalation Renal; urine out put and renal funtion reviewed. Hypernatremia some improvement , however remained in issue and nephrology follow-up Endorcine: blood glucose is monitored Lines: all lines checked and no evidence of infections Skin: skin care to prevent pressure ulcers per nursing routine care Once sodium level improves and plan regarding nutrition and then we will transfer out of the ICU. <Mark Fay - Last Filed: 01/01/18 14:21> Date of Encounter: 01/01/18 Time of Encounter: 08:29 Assessment and Plan (1) Acute encephalopathy Current Visit: Yes Status: Acute AMS most likely 2/2 UTI, lithium toxicity causing hypernatremia, and possibly secondary to infection -Appears to have improved -Patient was given Vicodin status post tooth extraction on 12/20 -Unresponsive to Narcan in the ED -Patient self catheters 4 times a day; per public relations assistant, patient has developed incontinence -In the ED, patient unable to maintain airway 2/2 AMS, was subsequently intubated -CT of head: No acute process -CT chest: Concerns for aspiration -CT abdomen: Large amount of stool in colon without obstruction -Possible MRI when safe to obtain PLAN: - D5 running at 250 mL per hour - Zosyn 3.375 IV every 8 (2) Acute respiratory failure Current Visit: Yes Status: Acute Patient was unable to maintain airway in emergency department on presentation did alternate status -Patient was subsequently intubated due to inability to protect airway -Currently stable; Patient has been extubated Qualifiers: Qualified Code(s): J96.00 - Acute respiratory failure, unspecified whether with hypoxia or hypercapnia (3) UTI (urinary tract infection) Current Visit: Yes Status: Acute -Urinalysis was concerning for the presence of the UTI -He had dominique purulent urine on admission; treat for at least 10 days -Blood cultures negative 2 -Urine culture negative -Currently in contact precautions due to history of MRSA in urine in 2016 Qualifiers: Qualified Code(s): N39.0 - Urinary tract infection, site not specified; R31.9 - Hematuria, unspecified; R31.9 - Hematuria, unspecified (4) Diabetes insipidus Current Visit: Yes Status: Acute Patient has diabetes insipidus; low serum osmolality -Elevated lithium level on admission -Per nephrology: Seems to be central; had significant initial response to DDAVP administration -Patients last sodium level was 149 -Will recheck urine osmolality response to next dose of DDAVP -Cause of DI: Possibly idiopathic versus related to hypoxic encephalopathy -Patient was also on lithium Plan: -D5 at 300 mL per hour -Monitor Is and Os -Will titrate D5 and Ddavp for normal sodium level -Electrolyte protocol -Amiloride 10 mg po daily -chlorthalidone 25 mg po daily (5) Acute kidney injury superimposed on chronic kidney disease Current Visit: Yes Status: Acute -Improving; Nephrology on board -Continue to monitor urine output, serum creatinine, electrolytes -Renally dose medications -Avoid nephrotoxins (6) Hypernatremia Current Visit: Yes Status: Acute Currently stable -Free water replacement -Nephrology following -Electrolyte protocol (7) DVT prophylaxis Current Visit: Yes Status: Acute Heparin 5000 subcutaneous every 12 Subjective Principal diagnosis: acute respiratory failure Interval history: Patient seen and examined at bedside this morning. Does not appear to be in any distress this time. Patient awake and sitting on edge of the bed. Patient nonverbal; nods his head to commands. Currently on O2 via nasal cannula. He has been extubated. Denies being in any acute distress. Unclear what patient' s baseline mental status is. Known history of MR. Alfonso PUL Vital signs: Last Vital Signs Temp 98.2 F 01/01/18 04:00 Pulse 77 01/01/18 06:00 Resp 18 01/01/18 06:00 BP 132/84 01/01/18 06:00 Pulse Ox 96 01/01/18 06:00 General appearance: no acute distress Eyes: nonicteric ENT: oropharynx moist Neck: supple Effort: normal Auscultation: bilateral: clear Percussion: bilateral: not dull Tactile fremitus: bilateral: normal Cardiovascular: regular rate and rhythm Gastrointestinal: normoactive bowel sounds, non-distended Integumentary: normal Extremities: no cyanosis, no edema, no clubbing Musculoskeletal: no deformities, ROM normal normal mental status, non-focal exam mood appropriate, affect normal Results - Laboratory Findings CBC and BMP: 01/01/18 02:59 01/01/18 08:30 ABG ABG pH 7.44 pH Units (7.32-7.45) 12/30/17 04:49 ABG pCO2 35 mmHg (35-45) 12/30/17 04:49 ABG pO2 73 mmHg (85-104) L 12/30/17 04:49 ABG O2 Saturation 95 % (95-98) 12/30/17 04:49 Abnormal lab findings: Abnormal lab results RBC 3.50 M/mcL (4.19-5.50) L 01/01/18 02:59 Hgb 11.1 g/dL (12.9-16.9) L 01/01/18 02:59 Hct 35.1 % (37.5-50.1) L 01/01/18 02:59 MCV 100.3 fL (83.0-100.0) H 01/01/18 02:59 ABG pO2 73 mmHg (85-104) L 12/30/17 04:49 Sodium 149 mEq/L (136-145) H 01/01/18 02:59 Chloride 124 mEq/L (98-107) H 01/01/18 02:59 Carbon Dioxide 20 mEq/L (23-29) L 01/01/18 02:59 Creatinine 1.44 mg/dL (0.70-1.30) H 01/01/18 02:59 Est GFR (Non-Af Amer) 50 (> 60) L 01/01/18 02:59 Glucose 148 mg/dL (70-105) H 01/01/18 02:59 POC Glucose 126 mg/dL (70-99) H 01/01/18 00:05 Serum Osmolality 330 mOsm/kg (280-300) H 12/28/17 10:26 Calculated Osmolality 310 (280-300) H 01/01/18 02:59 Phosphorus 2.2 mg/dL (2.7-4.5) L 01/01/18 02:59 AST 57 Units/L (13-39) H 12/26/17 07:58 ALT 67 Units/L (7-52) H 12/26/17 07:58 Globulin 3.9 g/dL (2.4-3.5) H 12/26/17 07:58 Albumin/Globulin Ratio 0.9 (1.1-2.2) L 12/26/17 07:58 Urine Clarity Cloudy (Clear) A 12/26/17 07:39 Urine Protein 30 mg/dL (Neg-Trace) H 12/26/17 07:39 Urine Blood Moderate (Negative) H 12/26/17 07:39 Urine Nitrite Positive (Negative) A 12/26/17 07:39 Ur Leukocyte Esterase Large (Negative) H 12/26/17 07:39 Urine Microscopic RBC 30-50 per hpf (0-3) H 12/26/17 07:39 Urine Microscopic WBC TNTC per hpf (0-3) H 12/26/17 07:39 Urine Bacteria Many per hpf (None-Few) H 12/26/17 07:39 Urine Osmolality 116 mOsm/kg (300-1090) L 01/01/18 06:07 Nasal Screen MRSA (PCR) Positive (Negative) A 12/30/17 19:41 Salicylates < 2.5 mg/dL (15.0-30.0) L 12/26/17 07:58 Acetaminophen < 10 mcg/mL (10-20) L 12/26/17 07:58 - Clinical Findings Intake & Output: Intake & Output 12/31/17 01/01/18 01/01/18 23:59 07:59 15:59 Intake Total 2099 / 2099 1999 / 1999 Output Total 2300 / 2300 2250 / 2250 Balance -200 / -200 -250 / -250
[2018-01-01] MEDS ORDERED: Indomethacin 25 MG CAPSULE PO ONE (09:00)
[2018-01-01] MEDS: *HR* LORazepam 1 MG TABLET PO SCH ×2 (09:31→19:22)
[2018-01-01] MEDS: CarBAMazepine 100 MG TABLET PO SCH ×2 (09:31→19:22)
[2018-01-01] MEDS: aMILoride 5 MG TABLET PO SCH (09:32)
[2018-01-01] MEDS: Bisacodyl 10 MG RECTAL SUPPOSITORY RC SCH (09:32)
[2018-01-01] MEDS: Lactulose Oral Soln 20 GM/30 ML UDC PO SCH (09:32)
[2018-01-01] MEDS: Sennosides/Docusate Sodium TABLET PO SCH ×2 (09:33→19:22)
[2018-01-01] MEDS: OLANZapine 10 MG TAB.RAPDIS PO SCH ×2 (09:33→19:22)
[2018-01-01] MEDS: Piperacillin/Tazobactam 3.375 GM in 0.9 % Sodium Chloride Mini Bag 100 ML IVPB SCH (09:37)
[2018-01-01] MEDS: Pantoprazole 40 MG VIAL IVP SCH (09:38)
--- NOTE | 2018-01-01 11:00 | Nephrology Progress Note ---
Date of Encounter: 01/01/18 Time of Encounter: 11:00 - Assessment and Plan (1) Diabetes insipidus Current Visit: Yes Status: Suspected Patient with diabetes insipidus that initially was diagnosed as central as he had a significant initial response to Ddavp administration. Despite increased Ddavp and ongoing D5 administration he remained hypernatremic with a serum sodium in the low 150s. 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 Despite up-titration of Ddavp and D5 his serum sodium is not normalizing. 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 I'll recheck urine osmolality in AM. Continue to titrate D5 as needed. His rising urine output is concerning. Will trial giving NSAID prior to his next dose of Ddavp. (2) Hypernatremia Current Visit: Yes Status: Acute (3) Acute kidney injury superimposed on chronic kidney disease Current Visit: Yes Status: Acute Improving renal function. Subjective Principal diagnosis: acute respiratory failure Interval history: Patient awake and lying in bed. He is not verbal, but nods his head to commands. Objective - Vital Signs Vital signs: Vital Signs Temp Pulse Resp BP Pulse Ox 01/01/18 10:00 64 18 128/88 96 01/01/18 09:00 65 18 124/84 96 01/01/18 08:00 97.9 F 66 20 121/88 93 01/01/18 07:00 67 18 117/81 93 01/01/18 06:00 77 18 132/84 96 01/01/18 05:00 107 18 124/80 97 01/01/18 04:00 98.2 F 77 24 124/87 96 01/01/18 03:00 74 20 133/89 98 01/01/18 02:00 87 26 141/93 95 01/01/18 01:00 80 26 129/79 94 01/01/18 00:00 98.1 F 84 24 116/84 95 12/31/17 23:00 76 22 113/78 97 12/31/17 22:00 74 20 129/83 97 12/31/17 21:00 83 22 122/79 97 12/31/17 20:00 99 F 80 18 130/87 96 12/31/17 19:00 79 20 142/101 95 12/31/17 18:00 72 20 128/96 94 12/31/17 17:00 76 22 97 12/31/17 16:00 75 22 120/99 94 12/31/17 15:00 97.3 F L 77 22 125/88 93 12/31/17 14:00 72 20 135/90 93 12/31/17 13:00 80 20 92 12/31/17 12:00 73 22 133/88 93 Intake and Output 12/31/17 01/01/18 01/01/18 23:59 07:59 15:59 Intake Total 2099 / 2099 2100 / 2100 1000 / 1000 Output Total 2300 / 2300 2250 / 2250 600 / 600 Balance -200 / -200 -150 / -150 400 / 400 Intake: IV Fluids 2099 / 2099 1000 / 1000 Dextrose 5% 1,000 ML @ 300 mls/ 2000 / 2000 1000 / 1000 1000 / 1000 hr IVC .Q3H20M [facility] Rx#: [id number] Zosyn 3.375 GM In 0.9 % Sodium 100 / 100 100 / 100 Chloride (Mini-Bag +) 100 ML @ 25 mls/hr IVPB Q8HR [facility] Rx#: [id number] Output: Catheter 2300 / 2300 2250 / 2250 600 / 600 Other: Stool Size Large Stool Consistency soft Stool Color Brown Blood Glucose* 112 123 120 - General Appearance General appearance: Present: well-nourished, frail EENT: Present: ATNC Neck: Present: supple Cardiology: Present: no edema, regular rate Integumentary: Present: warm and dry Psychiatric: Present: mood/affect appropriate - Lab 01/01/18 02:59 01/01/18 08:30 Most recent lab results ABG pH 7.44 pH Units (7.32-7.45) 12/30/17 04:49 ABG pCO2 35 mmHg (35-45) 12/30/17 04:49 ABG pO2 73 mmHg (85-104) L 12/30/17 04:49 ABG HCO3 24 mEq/L (21-27) 12/30/17 04:49 ABG O2 Saturation 95 % (95-98) 12/30/17 04:49 Calcium 8.9 mg/dL (8.6-10.3) 01/01/18 02:59 Phosphorus 2.2 mg/dL (2.7-4.5) L 01/01/18 02:59 Magnesium 2.2 mg/dL (1.6-2.6) 01/01/18 02:59 Urine Creatinine 70 mg/dL 12/27/17 04:00 Urine Sodium 36.4 mEq/L 12/31/17 01:25 Consult Discharge Plan - Plan Referrals: Yanet Armstrong MD [Primary Care Provider] -
[2018-01-01] MEDS: *HR* LORazepam 2 MG/ML VIAL IVP PRN ×2 (13:56→21:41)
[2018-01-01 14:41] LABS: BUN/Creatinine Ratio 7 (6-26); Blood Urea Nitrogen 9 mg/dL (8-23); Calcium 8.5 mg/dL (8.6-10.3); Carbon Dioxide 20 mEq/L (23-29); Chloride 121 mEq/L (98-107); Glucose 75 mg/dL (70-105); Osmolality,Calculated 301 (280-300); Potassium 3.8 mEq/L (3.5-5.1); Sodium 147 mEq/L (136-145); eGFR For African Americans > 60 (> 60); eGFR For Non-African Americans 54 (> 60)
[2018-01-01] MEDS: Desmopressin Acetate SPRAY 5 ML BOTTLE NS SCH (20:48)
[2018-01-02] MEDS: D5% in Water 1,000 ML IVC SCH ×7 (02:04→23:51)
[2018-01-02 03:52] LABS: Basophils % 0.3 %; Eosinophils # 0.5 K/mcL (0.0-0.6); Eosinophils % 7.8 %; Hematocrit 34.5 % (37.5-50.1); Hemoglobin 10.8 g/dL (12.9-16.9); Immature Granulocytes % 0.3 % (0-4); Lymphocytes # 1.7 K/mcL (0.6-4.6); Lymphocytes % 27.4 %; Mean Corpuscular HGB Conc 31.3 g/dL (31.6-35.5); Mean Corpuscular Hemoglobin 31.3 pg (28.0-33.3); Mean Platelet Volume 10.5 fL (9.4-12.4); Monocytes # 0.4 K/mcL (0.0-1.3); Neutrophils # 3.7 K/mcL (1.6-8.9); Platelet Count 227 K/mcL (140-400); Red Blood Count 3.45 M/mcL (4.19-5.50); Red Cell Distribution Width 14.6 % (11.5-14.5); Segmented Neutrophils % 58.2 %
[2018-01-02 04:14] LABS: BUN/Creatinine Ratio 7 (6-26); Blood Urea Nitrogen 9 mg/dL (8-23); Calcium 8.9 mg/dL (8.6-10.3); Carbon Dioxide 20 mEq/L (23-29); Chloride 119 mEq/L (98-107); Glucose 116 mg/dL (70-105); Magnesium 2.1 mg/dL (1.6-2.6); Osmolality,Calculated 294 (280-300); Phosphorous 2.6 mg/dL (2.7-4.5); Potassium 4.3 mEq/L (3.5-5.1); Sodium 142 mEq/L (136-145); eGFR For African Americans > 60 (> 60); eGFR For Non-African Americans 58 (> 60)
[2018-01-02] MEDS: Insulin LISPRO 300 UNITS/3 ML VIAL SQ SCH ×6 (04:27→23:50)
[2018-01-02] MEDS ORDERED: *HR* LORazepam 2 MG/ML VIAL IVP ONE (04:45)
[2018-01-02] MEDS: Potassium Phosphate 44 MEQ in 0.9 % Sodium Chloride 250 ML IVPB PRN (05:46)
[2018-01-02] MEDS: Levothyroxine Sodium 100 MCG VIAL IVP PRN (05:47)
[2018-01-02] MEDS: *HR* Heparin 5,000 UNIT/ML VIAL SQ SCH ×2 (05:47→17:56)
--- NOTE | 2018-01-02 07:32 | Pulmonology Progress Note ---
<Mark Fay - Last Filed: 01/02/18 07:30> Date of Encounter: 01/02/18 Time of Encounter: 07:30 Assessment and Plan (1) Acute encephalopathy Current Visit: Yes Status: Acute AMS most likely 2/2 UTI, lithium toxicity causing hypernatremia, and possibly secondary to infection -Appears to have improved -Patient was given Vicodin status post tooth extraction on 12/20 -Unresponsive to Narcan in the ED -Patient self catheters 4 times a day; per paper steamer, patient has developed incontinence -In the ED, patient unable to maintain airway 2/2 AMS, was subsequently intubated -CT of head: No acute process -CT chest: Concerns for aspiration -CT abdomen: Large amount of stool in colon without obstruction -Possible MRI when safe to obtain 01/02: Patient became agressive in the morning on 2 separate occassions; was kicking/hitting staff. Responded well to nurse. Currently receiving Ativan 1mg IV Q8; will be changed to Q6. (2) Acute respiratory failure Current Visit: Yes Status: Acute Patient was unable to maintain airway in emergency department on presentation did alternate status -Patient was subsequently intubated due to inability to protect airway -Currently stable; Patient has been extubated Qualifiers: Qualified Code(s): J96.00 - Acute respiratory failure, unspecified whether with hypoxia or hypercapnia (3) UTI (urinary tract infection) Current Visit: Yes Status: Acute -Urinalysis was concerning for the presence of the UTI -He had dominique purulent urine on admission; treat for at least 10 days -Blood cultures negative 2 -Urine culture negative -Currently in contact precautions due to history of MRSA in urine in 2016 Qualifiers: Qualified Code(s): N39.0 - Urinary tract infection, site not specified; N39.0 - Urinary tract infection, site not specified; N39.0 - Urinary tract infection, site not specified (4) Diabetes insipidus Current Visit: Yes Status: Acute Patient has diabetes insipidus; low serum osmolality -Elevated lithium level on admission -Per nephrology: Seems to be central; had significant initial response to DDAVP administration -Patients last sodium level was 142 -Will recheck urine osmolality response to next dose of DDAVP -Cause of DI: Possibly lithium toxicity Plan: -D5 at 300 mL per hour -Monitor Is and Os -Will titrate D5 and Ddavp for normal sodium level -Electrolyte protocol -Amiloride 10 mg po daily -chlorthalidone 25 mg po daily (5) Acute kidney injury superimposed on chronic kidney disease Current Visit: Yes Status: Acute -Improving; Nephrology on board -Continue to monitor urine output, serum creatinine, electrolytes -Renally dose medications -Avoid nephrotoxins (6) Hypernatremia Current Visit: Yes Status: Acute Currently stable -Free water replacement -Nephrology following -Electrolyte protocol (7) DVT prophylaxis Current Visit: Yes Status: Acute Heparin 5000 subcutaneous every 12 Subjective Principal diagnosis: acute respiratory failure Interval history: Patient seen and examined at bedside this morning. Became aggressive last night and earlier this morning; was kicking/hitting staff. Responded well to nurse. Was given Ativan; responded well to it. Ativan 1mg IV q8 will be changed to q6. Sodium improved from yesterday; went from 147 to 142. Kauffman bleeding; was complaining of pain this morning. Need to discuss with power of regulatory attorney regarding nutrition. Appears in mild distress this morning. Objective PUL Vital signs: Last Vital Signs Temp 98.4 F 01/02/18 04:00 Pulse 71 01/02/18 06:00 Resp 22 01/02/18 06:00 BP 132/92 01/02/18 06:00 Pulse Ox 93 01/02/18 06:00 General appearance: no acute distress Eyes: nonicteric ENT: oropharynx moist Neck: supple Effort: normal Auscultation: bilateral: clear Percussion: bilateral: not dull Tactile fremitus: bilateral: normal Cardiovascular: regular rate and rhythm Gastrointestinal: normoactive bowel sounds, non-distended Integumentary: normal Extremities: no cyanosis, no edema, no clubbing Musculoskeletal: no deformities, ROM normal normal mental status, non-focal exam mood appropriate, affect normal Results - Laboratory Findings CBC and BMP: 01/02/18 03:32 01/02/18 03:32 ABG ABG pH 7.44 pH Units (7.32-7.45) 12/30/17 04:49 ABG pCO2 35 mmHg (35-45) 12/30/17 04:49 ABG pO2 73 mmHg (85-104) L 12/30/17 04:49 ABG O2 Saturation 95 % (95-98) 12/30/17 04:49 Abnormal lab findings: Abnormal lab results RBC 3.45 M/mcL (4.19-5.50) L 01/02/18 03:32 Hgb 10.8 g/dL (12.9-16.9) L 01/02/18 03:32 Hct 34.5 % (37.5-50.1) L 01/02/18 03:32 MCHC 31.3 g/dL (31.6-35.5) L 01/02/18 03:32 RDW 14.6 % (11.5-14.5) H 01/02/18 03:32 ABG pO2 73 mmHg (85-104) L 12/30/17 04:49 Chloride 119 mEq/L (98-107) H 01/02/18 03:32 Carbon Dioxide 20 mEq/L (23-29) L 01/02/18 03:32 Est GFR (Non-Af Amer) 58 (> 60) L 01/02/18 03:32 Glucose 116 mg/dL (70-105) H 01/02/18 03:32 Serum Osmolality 330 mOsm/kg (280-300) H 12/28/17 10:26 Phosphorus 2.6 mg/dL (2.7-4.5) L 01/02/18 03:32 AST 57 Units/L (13-39) H 12/26/17 07:58 ALT 67 Units/L (7-52) H 12/26/17 07:58 Globulin 3.9 g/dL (2.4-3.5) H 12/26/17 07:58 Albumin/Globulin Ratio 0.9 (1.1-2.2) L 12/26/17 07:58 Urine Clarity Cloudy (Clear) A 12/26/17 07:39 Urine Protein 30 mg/dL (Neg-Trace) H 12/26/17 07:39 Urine Blood Moderate (Negative) H 12/26/17 07:39 Urine Nitrite Positive (Negative) A 12/26/17 07:39 Ur Leukocyte Esterase Large (Negative) H 12/26/17 07:39 Urine Microscopic RBC 30-50 per hpf (0-3) H 12/26/17 07:39 Urine Microscopic WBC TNTC per hpf (0-3) H 12/26/17 07:39 Urine Bacteria Many per hpf (None-Few) H 12/26/17 07:39 Urine Osmolality 164 mOsm/kg (300-1090) L 01/01/18 09:55 Nasal Screen MRSA (PCR) Positive (Negative) A 12/30/17 19:41 Salicylates < 2.5 mg/dL (15.0-30.0) L 12/26/17 07:58 Acetaminophen < 10 mcg/mL (10-20) L 12/26/17 07:58 - Clinical Findings Intake & Output: Intake & Output 01/01/18 01/01/18 01/02/18 15:59 23:59 07:59 Intake Total 2260 / 2260 2000 / 2000 1000 / 1000 Output Total 1400 / 1400 1400 / 1400 2300 / 2300 Balance 860 / 860 600 / 600 -1300 / -1300 Weight 68.6 kg Consult Discharge Plan - Plan Referrals: Yanet Armstrong MD [Primary Care Provider] - <Agnes Serna - Last Filed: 01/04/18 09:42> Date of Encounter: 01/04/18 Objective PUL Vital signs: Last Vital Signs Temp 97.7 F 01/04/18 07:05 Pulse 62 01/04/18 08:00 Resp 18 01/04/18 07:59 BP 120/77 01/04/18 07:59 Pulse Ox 97 01/04/18 07:59 Results - Laboratory Findings CBC and BMP: 01/04/18 03:13 01/04/18 03:13 ABG ABG pH 7.44 pH Units (7.32-7.45) 12/30/17 04:49 ABG pCO2 35 mmHg (35-45) 12/30/17 04:49 ABG pO2 73 mmHg (85-104) L 12/30/17 04:49 ABG O2 Saturation 95 % (95-98) 12/30/17 04:49 Abnormal lab findings: Abnormal lab results MCHC 31.2 g/dL (31.6-35.5) L 01/04/18 03:13 Nucleated RBCs/100 WBC 0.4 /100 WBC (0) H 01/04/18 03:13 ABG pO2 73 mmHg (85-104) L 12/30/17 04:49 Chloride 117 mEq/L (98-107) H 01/04/18 03:13 Carbon Dioxide 17 mEq/L (23-29) L 01/04/18 03:13 Creatinine 1.43 mg/dL (0.70-1.30) H 01/04/18 03:13 Est GFR (Non-Af Amer) 50 (> 60) L 01/04/18 03:13 Glucose 108 mg/dL (70-105) H 01/04/18 03:13 Serum Osmolality 330 mOsm/kg (280-300) H 12/28/17 10:26 AST 57 Units/L (13-39) H 12/26/17 07:58 ALT 67 Units/L (7-52) H 12/26/17 07:58 Globulin 3.9 g/dL (2.4-3.5) H 12/26/17 07:58 Albumin/Globulin Ratio 0.9 (1.1-2.2) L 12/26/17 07:58 Urine Clarity Cloudy (Clear) A 12/26/17 07:39 Urine Protein 30 mg/dL (Neg-Trace) H 12/26/17 07:39 Urine Blood Moderate (Negative) H 12/26/17 07:39 Urine Nitrite Positive (Negative) A 12/26/17 07:39 Ur Leukocyte Esterase Large (Negative) H 12/26/17 07:39 Urine Microscopic RBC 30-50 per hpf (0-3) H 12/26/17 07:39 Urine Microscopic WBC TNTC per hpf (0-3) H 12/26/17 07:39 Urine Bacteria Many per hpf (None-Few) H 12/26/17 07:39 Urine Osmolality 164 mOsm/kg (300-1090) L 01/01/18 09:55 Nasal Screen MRSA (PCR) Positive (Negative) A 12/30/17 19:41 Salicylates < 2.5 mg/dL (15.0-30.0) L 12/26/17 07:58 Acetaminophen < 10 mcg/mL (10-20) L 12/26/17 07:58 - Clinical Findings Intake & Output: Intake & Output 01/03/18 01/04/18 01/04/18 23:59 07:59 15:59 Intake Total 1198 / 1198 1078 / 1078 Output Total 2125 / 2125 1350 / 1350 Balance -927 / -927 -272 / -272 Weight 61.8 kg - Attending Attestation This was signed on 01/04/2018, however patient was seen, examined and plan of care was discussed in multidisciplinary around as well as with the resident. I examined this patient and my medical decision-making was reviewed with the Resident Physician. I agree with the documented findings, disposition and treatment plan as described except to the extent set forth below. Patient seen and examined. Labs, radiology, chart personally reviewed. Agree with resident's history and physical, assessment, plan with following comments: SEC[employer] EN[employer]ER: Patient follows commands, patient is less agitated and pharmacist to check if his medication can be given intravenously Pulmonary: Acceptable oxygenation and ventilation Cardiovascular: stable GI: Nutrition per dietary and GI prophylaxis per routine. Follow up with the power of regulatory attorney regarding feeding tube placement. Heme: DVT prophylaxis per routine Renal; urine out put and renal funtion reviewed. Patient still having hypernatremia and discussing with nephrology with fluid management. Endorcine: blood glucose is monitored Lines: all lines checked and no evidence of infections Skin: skin care to prevent pressure ulcers per nursing routine care Due to his agitation and risk of taking catheter out and fall as well as hypernatremia, continue monitoring ICU.
[2018-01-02] MEDS: Pantoprazole 40 MG VIAL IVP SCH (07:47)
[2018-01-02] MEDS: *HR* LORazepam 1 MG TABLET PO SCH ×2 (07:54→20:09)
[2018-01-02] MEDS: CarBAMazepine 100 MG TABLET PO SCH ×2 (07:54→20:09)
[2018-01-02] MEDS: Lactulose Oral Soln 20 GM/30 ML UDC PO SCH (07:55)
[2018-01-02] MEDS: Bisacodyl 10 MG RECTAL SUPPOSITORY RC SCH (07:55)
[2018-01-02] MEDS: aMILoride 5 MG TABLET PO SCH (07:55)
[2018-01-02] MEDS: OLANZapine 10 MG TAB.RAPDIS PO SCH ×2 (07:56→20:10)
[2018-01-02] MEDS: Sennosides/Docusate Sodium TABLET PO SCH (07:56)
[2018-01-02] MEDS: Desmopressin Acetate SPRAY 5 ML BOTTLE NS SCH ×2 (07:57→20:26)
[2018-01-02] MEDS: Dexmedetomidine HCl 400 MCG/100 ML MLS IVC SCH ×2 (09:15→23:51)
--- NOTE | 2018-01-02 11:26 | Nephrology Progress Note ---
Date of Encounter: 01/02/18 Time of Encounter: 11:29 - Assessment and Plan (1) Diabetes insipidus Current Visit: Yes Status: Suspected Patient with diabetes insipidus that initially was diagnosed as central as he had a significant initial response to Ddavp administration. Despite increased Ddavp and ongoing D5 administration he remained hypernatremic with a serum sodium in the low 150s. 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 With up-titration of Ddavp and addition of diuretics his serum sodium is finally normalizing. Start to decrease D5. Will continue NSAID prior to Ddavp. (2) Hypernatremia Current Visit: Yes Status: Acute (3) Acute kidney injury superimposed on chronic kidney disease Current Visit: Yes Status: Acute Improving renal function. Subjective Principal diagnosis: acute respiratory failure Interval history: Patient is asleep. 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 Objective - Vital Signs Vital signs: Vital Signs Temp Pulse Resp BP Pulse Ox 01/02/18 08:00 97.8 F 75 22 124/102 95 01/02/18 06:00 71 22 132/92 93 01/02/18 05:00 84 26 129/101 95 01/02/18 04:00 98.4 F 71 24 109/82 95 01/02/18 03:00 69 18 111/90 94 01/02/18 02:00 64 18 98/63 93 01/02/18 01:00 56 20 115/65 92 01/02/18 00:00 97.5 F L 60 20 104/63 92 01/01/18 23:00 67 16 100/72 93 01/01/18 22:00 65 14 125/85 96 01/01/18 21:24 98.1 F 01/01/18 21:00 63 23 120/74 95 01/01/18 20:00 62 18 128/90 95 01/01/18 19:00 69 22 129/76 94 01/01/18 18:00 66 18 126/85 96 01/01/18 17:00 75 18 136/86 96 01/01/18 16:00 97.8 F 85 18 122/93 96 01/01/18 15:00 85 18 99/68 96 01/01/18 14:00 72 18 109/99 96 01/01/18 13:00 67 18 104/71 96 01/01/18 12:00 97.6 F 62 18 110/88 96 Intake and Output 01/01/18 01/02/18 01/02/18 23:59 07:59 15:59 Intake Total 1999 / 1999 1000 / 1000 1000 / 1000 Output Total 1400 / 1400 2300 / 2300 600 / 600 Balance 600 / 600 -1300 / -1300 400 / 400 Intake: IV Fluids 1999 1000 / 1000 1000 / 1000 Dextrose 5% 1,000 ML @ 250 mls/ 1999 / 1999 1000 / 1000 1000 / 1000 hr IVC .Q4H [facility] Rx#:[id number] Output: Catheter 1400 / 1400 2300 / 2300 600 / 600 Other: Weight 68.6 kg Blood Glucose* 102 100 101 Patient Weight 01/02/18 23:59 Weight 68.6 kg - General Appearance General appearance: Present: well-nourished EENT: Present: ATNC Respiratory: Present: course breath sounds Cardiology: Present: no edema Integumentary: Present: warm and dry - Lab 01/02/18 03:32 01/02/18 03:32 Most recent lab results ABG pH 7.44 pH Units (7.32-7.45) 12/30/17 04:49 ABG pCO2 35 mmHg (35-45) 12/30/17 04:49 ABG pO2 73 mmHg (85-104) L 12/30/17 04:49 ABG HCO3 24 mEq/L (21-27) 12/30/17 04:49 ABG O2 Saturation 95 % (95-98) 12/30/17 04:49 Calcium 8.9 mg/dL (8.6-10.3) 01/02/18 03:32 Phosphorus 2.6 mg/dL (2.7-4.5) L 01/02/18 03:32 Magnesium 2.1 mg/dL (1.6-2.6) 01/02/18 03:32 Urine Creatinine 70 mg/dL 12/27/17 04:00 Urine Sodium 36.4 mEq/L 12/31/17 01:25 Consult Discharge Plan - Plan Referrals: Yanet Armstrong MD [Primary Care Provider] -
[2018-01-02] MEDS ORDERED: *HR* Heparin 5,000 UNIT/ML VIAL ONE (11:52)
[2018-01-02] MEDS: Saliva Stimulant 100ml BOTTLE PO PRN ×2 (15:24→20:27)
[2018-01-02] MEDS: *HR* LORazepam 2 MG/ML VIAL IVP PRN (23:51)
[2018-01-03] MEDS: Insulin LISPRO 300 UNITS/3 ML VIAL SQ SCH ×2 (04:20→08:01)
[2018-01-03] MEDS: *HR* Heparin 5,000 UNIT/ML VIAL SQ SCH ×2 (05:35→17:10)
[2018-01-03] MEDS: D5% in Water 1,000 ML IVC SCH ×3 (05:37→20:12)
[2018-01-03 06:14] LABS: Basophils % 0.4 %; Eosinophils # 0.3 K/mcL (0.0-0.6); Eosinophils % 4.5 %; Hematocrit 41.5 % (37.5-50.1); Immature Granulocytes % 0.5 % (0-4); Lymphocytes # 1.8 K/mcL (0.6-4.6); Lymphocytes % 31.5 %; Mean Corpuscular HGB Conc 31.3 g/dL (31.6-35.5); Mean Corpuscular Hemoglobin 31.8 pg (28.0-33.3); Mean Corpuscular Volume 101.5 fL (83.0-100.0); Mean Platelet Volume 10.4 fL (9.4-12.4); Monocytes # 0.4 K/mcL (0.0-1.3); Monocytes % 6.7 %; Neutrophils # 3.1 K/mcL (1.6-8.9); Platelet Count 242 K/mcL (140-400); Red Blood Count 4.09 M/mcL (4.19-5.50); Red Cell Distribution Width 14.3 % (11.5-14.5); Segmented Neutrophils % 56.4 %
[2018-01-03 06:40] LABS: BUN/Creatinine Ratio 10 (6-26); Blood Urea Nitrogen 13 mg/dL (8-23); Calcium 9.7 mg/dL (8.6-10.3); Carbon Dioxide 18 mEq/L (23-29); Chloride 119 mEq/L (98-107); Glucose 100 mg/dL (70-105); Magnesium 2.4 mg/dL (1.6-2.6); Osmolality,Calculated 294 (280-300); Phosphorous 4.1 mg/dL (2.7-4.5); Sodium 142 mEq/L (136-145); eGFR For African Americans > 60 (> 60); eGFR For Non-African Americans 58 (> 60)
--- NOTE | 2018-01-03 07:41 | Pulmonology Progress Note ---
<Miguel Davis - Last Filed: 01/03/18 09:47> Date of Encounter: 01/03/18 Time of Encounter: 08:20 Assessment and Plan (1) Diabetes insipidus Current Visit: Yes Status: Acute Patient with initial hypernatremia and close her mouth loudly consistent with diabetes insipidus. Nephrology consulted. [place] to be more nephrogenic in nature patient is on lithium and had a supratherapeutic dose at presentation. There was a partial response to desmopressin initially. Continued D5 with recommendations from nephrology as well as thiazide diuretics and amiloride. Currently sodium is within normal limits. (2) Hypernatremia Current Visit: Yes Status: Resolved Sodiums as high as 163 during this admission. 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 As of now resolved with a sodium of 142. (3) Encephalopathy Current Visit: Yes Status: Acute Likely multifactorial in the setting of UTI as well as metabolic derangement. Initial CT head without acute abnormality. Urinalysis was purulent upon admission and empiric antibiotics initiated. He was also hyponatremic of 163 which has been corrected. He is also on numerous antipsychotics and behavioral medications that he has been unable to tolerate by oral route We will continue to make him comfortable Precedex and wean as tolerated with as needed IV Ativan for breakthrough agitation. Psychiatry consulted for medication adjustments. (4) Acute kidney injury superimposed on chronic kidney disease Current Visit: Yes Status: Resolved Initial creatinine of 2.33. Injury resolved with creatinine today of 1.26. Continue daily BMP (5) Acute respiratory failure Current Visit: Yes Status: Resolved Respiratory failure multifactorial to initial UTI, metabolic derangement. Required intubation for mental status change. Resolved. Currently extubated. Qualifiers: Respiratory failure complication: unspecified whether with hypoxia or hypercapnia Qualified Code(s): J96.00 - Acute respiratory failure, unspecified whether with hypoxia or hypercapnia (6) UTI (urinary tract infection) Current Visit: Yes Status: Acute Arnaud purulent urine upon presentation. Treated with course of Zosyn. Urine cultures negative. Qualifiers: Urinary tract infection type: catheter-associated UTI Indwelling urinary catheter type: unspecified Encounter type: initial encounter Qualified Code( s): T83.511A - Infection and inflammatory reaction due to indwelling urethral catheter, initial encounter; N39.0 - Urinary tract infection, site not specified ; N39.0 - Urinary tract infection, site not specified (7) DVT prophylaxis Current Visit: Yes Status: Acute Heparin 5000 units every 12 hours Subjective Principal diagnosis: acute respiratory failure Interval history: Labs and hemodynamics reviewed. No acute events overnight. Patient was placed on Precedex for agitation. Appears more calm today. Sodium is within normal limits. Patient is alert and appears to be at his reported baseline at the time of examination. Objective PUL Vital signs: Last Vital Signs Temp 97.3 F L 01/03/18 04:00 Pulse 57 01/03/18 06:00 Resp 20 01/03/18 06:00 BP 110/74 01/03/18 06:00 Pulse Ox 94 01/03/18 06:00 General appearance: no acute distress Eyes: nonicteric Effort: normal Auscultation: bilateral: clear Cardiovascular: regular rate and rhythm Gastrointestinal: soft, non-tender, non-distended Integumentary: normal Extremities: no cyanosis, no edema Musculoskeletal: no deformities other (Alert, opens eyes spontaneously. Moves all extremities spontaneously.) Results - Laboratory Findings CBC and BMP: 01/03/18 05:34 01/03/18 05:34 ABG ABG pH 7.44 pH Units (7.32-7.45) 12/30/17 04:49 ABG pCO2 35 mmHg (35-45) 12/30/17 04:49 ABG pO2 73 mmHg (85-104) L 12/30/17 04:49 ABG O2 Saturation 95 % (95-98) 12/30/17 04:49 Abnormal lab findings: Abnormal lab results RBC 4.09 M/mcL (4.19-5.50) L 01/03/18 05:34 MCV 101.5 fL (83.0-100.0) H 01/03/18 05:34 MCHC 31.3 g/dL (31.6-35.5) L 01/03/18 05:34 ABG pO2 73 mmHg (85-104) L 12/30/17 04:49 Chloride 119 mEq/L (98-107) H 01/03/18 05:34 Carbon Dioxide 18 mEq/L (23-29) L 01/03/18 05:34 Est GFR (Non-Af Amer) 58 (> 60) L 01/03/18 05:34 POC Glucose 103 mg/dL (70-99) H 01/02/18 23:24 Serum Osmolality 330 mOsm/kg (280-300) H 12/28/17 10:26 AST 57 Units/L (13-39) H 12/26/17 07:58 ALT 67 Units/L (7-52) H 12/26/17 07:58 Globulin 3.9 g/dL (2.4-3.5) H 12/26/17 07:58 Albumin/Globulin Ratio 0.9 (1.1-2.2) L 12/26/17 07:58 Urine Clarity Cloudy (Clear) A 12/26/17 07:39 Urine Protein 30 mg/dL (Neg-Trace) H 12/26/17 07:39 Urine Blood Moderate (Negative) H 12/26/17 07:39 Urine Nitrite Positive (Negative) A 12/26/17 07:39 Ur Leukocyte Esterase Large (Negative) H 12/26/17 07:39 Urine Microscopic RBC 30-50 per hpf (0-3) H 12/26/17 07:39 Urine Microscopic WBC TNTC per hpf (0-3) H 12/26/17 07:39 Urine Bacteria Many per hpf (None-Few) H 12/26/17 07:39 Urine Osmolality 164 mOsm/kg (300-1090) L 01/01/18 09:55 Nasal Screen MRSA (PCR) Positive (Negative) A 12/30/17 19:41 Salicylates < 2.5 mg/dL (15.0-30.0) L 12/26/17 07:58 Acetaminophen < 10 mcg/mL (10-20) L 12/26/17 07:58 - Clinical Findings Intake & Output: Intake & Output 01/02/18 01/02/18 01/03/18 15:59 23:59 07:59 Intake Total 1400 / 1400 1700 / 1700 1018 / 1018 Output Total 675 / 675 4800 / 4800 600 / 600 Balance 725 / 725 -3100 / -3100 418 / 418 Weight 61.3 kg Consult Discharge Plan - Plan Referrals: Yanet Armstrong MD [Primary Care Provider] - <Agnes Serna - Last Filed: 01/03/18 10:45> Date of Encounter: 01/03/18 Objective PUL Vital signs: Last Vital Signs Temp 97.2 F L 01/03/18 08:00 Pulse 58 01/03/18 10:00 Resp 16 01/03/18 10:00 BP 113/81 01/03/18 10:00 Pulse Ox 98 01/03/18 10:00 Results - Laboratory Findings CBC and BMP: 01/03/18 05:34 01/03/18 05:34 ABG ABG pH 7.44 pH Units (7.32-7.45) 12/30/17 04:49 ABG pCO2 35 mmHg (35-45) 12/30/17 04:49 ABG pO2 73 mmHg (85-104) L 12/30/17 04:49 ABG O2 Saturation 95 % (95-98) 12/30/17 04:49 Abnormal lab findings: Abnormal lab results RBC 4.09 M/mcL (4.19-5.50) L 01/03/18 05:34 MCV 101.5 fL (83.0-100.0) H 01/03/18 05:34 MCHC 31.3 g/dL (31.6-35.5) L 01/03/18 05:34 ABG pO2 73 mmHg (85-104) L 12/30/17 04:49 Chloride 119 mEq/L (98-107) H 01/03/18 05:34 Carbon Dioxide 18 mEq/L (23-29) L 01/03/18 05:34 Est GFR (Non-Af Amer) 58 (> 60) L 01/03/18 05:34 POC Glucose 103 mg/dL (70-99) H 01/02/18 23:24 Serum Osmolality 330 mOsm/kg (280-300) H 12/28/17 10:26 AST 57 Units/L (13-39) H 12/26/17 07:58 ALT 67 Units/L (7-52) H 12/26/17 07:58 Globulin 3.9 g/dL (2.4-3.5) H 12/26/17 07:58 Albumin/Globulin Ratio 0.9 (1.1-2.2) L 12/26/17 07:58 Urine Clarity Cloudy (Clear) A 12/26/17 07:39 Urine Protein 30 mg/dL (Neg-Trace) H 12/26/17 07:39 Urine Blood Moderate (Negative) H 12/26/17 07:39 Urine Nitrite Positive (Negative) A 12/26/17 07:39 Ur Leukocyte Esterase Large (Negative) H 12/26/17 07:39 Urine Microscopic RBC 30-50 per hpf (0-3) H 12/26/17 07:39 Urine Microscopic WBC TNTC per hpf (0-3) H 12/26/17 07:39 Urine Bacteria Many per hpf (None-Few) H 12/26/17 07:39 Urine Osmolality 164 mOsm/kg (300-1090) L 01/01/18 09:55 Nasal Screen MRSA (PCR) Positive (Negative) A 12/30/17 19:41 Salicylates < 2.5 mg/dL (15.0-30.0) L 12/26/17 07:58 Acetaminophen < 10 mcg/mL (10-20) L 12/26/17 07:58 - Clinical Findings Intake & Output: Intake & Output 01/02/18 01/03/18 01/03/18 23:59 07:59 15:59 Intake Total 1700 / 1700 1018 / 1018 8.6 / 8.6 Output Total 4800 / 4800 600 / 600 1000 / 1000 Balance -3100 / -3100 418 / 418 -991.4 / -991.4 Weight 61.3 kg - Attending Attestation I examined this patient and my medical decision-making was reviewed with the Resident Physician. I agree with the documented findings, disposition and treatment plan as described except to the extent set forth below. Patient seen and examined. Labs, radiology, chart personally reviewed. 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 Patient will need supplemental nutrition even if she is able to swallow and power of real estate attorney is aware and GI consulted for possible PEG tube placement Heme: DVT prophylaxis per routine Renal; urine out put and renal funtion reviewed. Nephrology follow-up Endorcine: blood glucose is monitored Lines: all lines checked and no evidence of infections Skin: skin care to prevent pressure ulcers per nursing routine care Psychiatry to evaluate patient regarding his medications.
[2018-01-03] MEDS: Ketorolac 15 MG/ML VIAL IVP SCH (08:00)
[2018-01-03] MEDS: Pantoprazole 40 MG VIAL IVP SCH (08:01)
[2018-01-03] MEDS: *HR* LORazepam 1 MG TABLET PO SCH ×2 (08:02→20:14)
[2018-01-03] MEDS: CarBAMazepine 100 MG TABLET PO SCH ×2 (08:02→20:13)
[2018-01-03] MEDS: Desmopressin Acetate SPRAY 5 ML BOTTLE NS SCH ×2 (08:02→20:14)
[2018-01-03] MEDS: OLANZapine 10 MG TAB.RAPDIS PO SCH ×2 (08:03→20:13)
[2018-01-03] MEDS: aMILoride 5 MG TABLET PO SCH (08:03)
[2018-01-03] MEDS ORDERED: *HR* Succinylcholine 200 MG/10 ML VIAL IVP ONE (12:53)
[2018-01-03] MEDS ORDERED: Propofol 500 MG/50 ML INFUS..BTL ONE (12:53)
--- NOTE | 2018-01-03 13:02 | Anesthesia Evaluation PreOp ---
Date of Encounter: 01/03/18 Time of Encounter: 13:00 - Past History Planned Operation: PEG tube Cardiac History: Other (no known cardiac dz) Pulmonary History: Other (recent respiratory failure requiring intubation) CARE TRANSPORT NURSE History: Other (encephalopathy, MRDD) Other Medical History: Renal (Acute on chronic kidney disease) Anesthesia History: Past Anesthesia (no complications per guardian) Alcohol Use: none Drug use: none Medications and Allergies Acetaminophen [Non-Aspirin] 650 mg PO Q4H PRN 12/26/17 [History] Albuterol Neb [Proventil Neb] 2.5 mg IH QID PRN 12/26/17 [History] Alendronate Sodium [Fosamax] 70 mg PO TH 12/26/17 [History] Benztropine Mesylate 2 mg PO HS 12/26/17 [History] Benztropine [Cogentin] 1 mg PO QAM 12/26/17 [History] Buspirone HCl [Buspar] 20 mg PO BID 12/26/17 [History] Calcium Carbonate/Vitamin D3 [Oyster Shell Calcium-Vit D Tab] 1 tab PO BID 12/26 [History] Cholecalciferol (Vitamin D3) [Vitamin D] 1,000 unit PO DAILY 12/26/17 [History] Docusate Sodium [Dok] 100 mg PO BID 12/26/17 [History] Fluticasone Propionate Nasal [Flonase] 1 spr NS DAILY 12/26/17 [History] Fluvoxamine Maleate 50 mg PO BID 12/26/17 [History] Ibuprofen [Motrin Ib] 400 mg PO Q6H PRN 12/26/17 [History] LORazepam [Ativan] 1 mg PO BID 12/26/17 [History] Levothyroxine [Synthroid] 100 mcg PO DAILY 12/26/17 [History] Prompton Carbonate 300 mg PO BID 12/26/17 [History] Loperamide [Imodium] 4 mg PO DAILY PRN 12/26/17 [History] Magnesium Hydroxide [Milk of Magnesia] 2,400 mg PO DAILY PRN 12/26/17 [History] OLANZapine [Zyprexa] 10 mg PO QAM 12/26/17 [History] OLANZapine [Zyprexa] 20 mg PO HS 12/26/17 [History] Polyethylene Glycol 3350 [Gavilax] 17 gm PO DAILY 12/26/17 [History] Sennosides/Docusate Sodium [Senna-S Tablet] 2 tab PO HS 12/26/17 [History] Tamsulosin [Flomax] 0.4 mg PO DAILY 12/26/17 [History] Xyzal 5 mg PO DAILY 12/26/17 [History] carBAMazepine [CarBAMazepine] 100 mg PO QAM 12/26/17 [History] carBAMazepine [CarBAMazepine] 200 mg PO HS 12/26/17 [History] fluvoxaMINE [Luvox] 100 mg PO BID 12/26/17 [History] 3 Allergy/AdvReac Type Severity Reaction Status Date / Time No Known Allergies Allergy Verified 10/15/17 19:33 - Meds/Allergy Pre-op Review Medications Reviewed: Yes Allergies Reviewed: Yes Beta Blockers on Current Med List: No Anesthesia Results - Labs 01/03/18 05:34 01/03/18 05:34 - Imaging EKG: report reviewed (SR) Anesthesia Exam Vital Signs/O2 Sat, Most Current Temp Pulse Resp BP Pulse Ox 97.2 F L 58 16 128/81 98 01/03/18 12:00 01/03/18 12:00 01/03/18 12:00 01/03/18 12:00 01/03/18 12:00 Weight: 61kg NPO (# of Hours): >8 per nurse - HEENT Pupil (Motor): Pupils equal - CARE TRANSPORT NURSE LOC: Confused CARE TRANSPORT NURSE Motor: Normal RUE, Normal LUE, Normal RLE, Normal LLE, Normal Face CARE TRANSPORT NURSE Sensory: Normal: RUE, LUE, RLE, LLE, Face - Cardiac Rhythm: Regular - Pulmonary Breath Sounds: bilateral Clear Respiratory Effort: Symmetrical Anesthesia Assess/Plan ASA Score: 4 Anesthetic Plan: MAC (r/b/a discussed with Guardian Symone Yeager and verbal consent obtained, including risk of reintubation and prolonged intubation) Monitoring Plan: Standard Monitors Recovery Plan: PACU
[2018-01-03] MEDS ORDERED: ceFAZolin 1,000 MG in Water for inj. (sterile) 20 ML 10 ML IVP ONE (13:39)
--- NOTE | 2018-01-03 15:17 | Psychiatry Progress Note ---
Date of Encounter: 01/03/18 Time of Encounter: 14:30 Subjective Interval history: 62 years old male admitted for evaluation of mental status change found to have acute respiratory failure toxic encephalopathy and and renal failure. Patient was nothing by mouth for unexplained reasons, initially he was intubated and extubated. The medical supply technician indicated that patient was vomiting any medication or food or liquid given to him. Psychiatric consultation requested to recommend medication adjustments since patient is on multiple psychotropic medication including BuSpar, carbamazepine, Luvox, olanzapine. Patient was taken off lithium on admission. I went to see the patient in ICU he presented as a thin elderly white female laying in bed with his mouth open he was slightly lethargic he could not carry a conversation answer questions and he was calm and not agitated. Nursing staff informed me that PEG tube was placed and after 6 hours they would be able to administer medications through PEG tube. Patient has been without medication for for several days. This can explain some of his agitation and delirious state. Results - Vital Signs Vital Signs: Temp Pulse Resp BP Pulse Ox 97.2 F L 64 16 117/76 98 01/03/18 12:00 01/03/18 14:00 01/03/18 14:00 01/03/18 14:00 01/03/18 14:00 - Labs Labs: Laboratory Results - last 24 hr 01/02/18 01/02/18 01/02/18 04:16 07:45 12:04 WBC RBC Hgb Hct MCV MCH MCHC RDW Plt Count MPV Immature Gran % Seg Neutrophils % Lymphocytes % Monocytes % Eosinophils % Basophils % Neutrophils # Lymphocytes # Monocytes # Eosinophils # Basophils # Sodium Potassium Chloride Carbon Dioxide BUN Creatinine Est GFR ( Amer) Est GFR (Non-Af Amer) BUN/Creatinine Ratio Glucose POC Glucose 100 H 101 H 114 H Calculated Osmolality Calcium Phosphorus Magnesium 01/02/18 01/02/18 01/02/18 16:07 18:28 19:35 WBC RBC Hgb Hct MCV MCH MCHC RDW Plt Count MPV Immature Gran % Seg Neutrophils % Lymphocytes % Monocytes % Eosinophils % Basophils % Neutrophils # Lymphocytes # Monocytes # Eosinophils # Basophils # Sodium 143 Potassium Chloride Carbon Dioxide BUN Creatinine Est GFR ( Amer) Est GFR (Non-Af Amer) BUN/Creatinine Ratio Glucose POC Glucose 84 107 H Calculated Osmolality Calcium Phosphorus Magnesium 01/02/18 01/02/18 01/03/18 23:24 23:38 05:34 WBC 5.6 RBC 4.09 L Hgb 13.0 D Hct 41.5 MCV 101.5 H MCH 31.8 MCHC 31.3 L RDW 14.3 Plt Count 242 MPV 10.4 Immature Gran % 0.5 Seg Neutrophils % 56.4 Lymphocytes % 31.5 Monocytes % 6.7 Eosinophils % 4.5 Basophils % 0.4 Neutrophils # 3.1 Lymphocytes # 1.8 Monocytes # 0.4 Eosinophils # 0.3 Basophils # 0.0 Sodium 144 Potassium Chloride Carbon Dioxide BUN Creatinine Est GFR ( Amer) Est GFR (Non-Af Amer) BUN/Creatinine Ratio Glucose POC Glucose 103 H Calculated Osmolality Calcium Phosphorus Magnesium 01/03/18 05:34 WBC RBC Hgb Hct MCV MCH MCHC RDW Plt Count MPV Immature Gran % Seg Neutrophils % Lymphocytes % Monocytes % Eosinophils % Basophils % Neutrophils # Lymphocytes # Monocytes # Eosinophils # Basophils # Sodium 142 Potassium 5.0 Chloride 119 H Carbon Dioxide 18 L BUN 13 Creatinine 1.26 Est GFR ( Amer) > 60 Est GFR (Non-Af Amer) 58 L BUN/Creatinine Ratio 10 Glucose 100 POC Glucose Calculated Osmolality 294 Calcium 9.7 Phosphorus 4.1 Magnesium 2.4 - Impressions ITS Impressions Retroperitoneum Ultrasound 12/26/17 18:30 IMPRESSION: Right renal pelviectasis. Correlation for obstructive uropathy is recommended. 3.3 cm hypoechoic left renal cortical lesion, possibly representing a cyst. A dedicated renal protocol CT or MRI would be helpful further evaluate. D/ / Opal Edwards Cha, MD / Opal Edwards Cha, MD Interpreting Provider: Opal Edwards Cha, MD Abdomen/Pelvis CT 12/27/17 08:00 IMPRESSION: No hydronephrosis noted. There is however diffuse abnormal bladder wall thickening seen. Bladder wall thickening is most commonly due to underlying infectious - inflammatory change or incomplete distension. Neoplastic cause is considered less likely. Bladder wall thickening was seen previously. Tiny calcifications in the right and left kidney, likely nonobstructing renal calculi. Bilateral lower lobe consolidation, similar to recent chest CT Large stool load throughout the colon. No bowel obstruction. D/ / Cristobal Morales MD / Cristobal Morales MD Interpreting Provider: Cristobal Morales MD Assessment and Plan (1) Delirium due to multiple etiologies Current visit: Yes Status: Acute Plan: Continue hospitalization, Close observation, Suicide Precautions per unit protocol, Encourage participation in unit milieu, Group Therapy, Monitor sleep, Monitor appetite Additional Plan: Restart patient medication per PEG tube as per orders. Please refer any questions Thank you for consultation. Consult Discharge Plan - Plan Referrals: Yanet Armstrong MD [Primary Care Provider] - Psychiatry Exam - Constitutional Vitals: Temp Pulse Resp BP Pulse Ox 97.2 F L 64 16 117/76 98 01/03/18 12:00 01/03/18 14:00 01/03/18 14:00 01/03/18 14:00 01/03/18 14:00 Additional observations: Patient was seen in ICU, presented as a thin elderly white female lying in bed awake but lethargic could not participate in interview for evaluation due to his condition of delirium.
[2018-01-03] MEDS: Saliva Stimulant 100ml BOTTLE PO PRN (20:14)
--- NOTE | 2018-01-03 23:47 | Nephrology Progress Note ---
Date of Encounter: 01/03/18 Time of Encounter: 11:00 - Assessment and Plan (1) Hypernatremia Status: Resolved Sodium now down at 142 on D5W, ok to use LR transiently for EGD per anesthesia Continue diuretics at current doses Continue DDAVP for now (2) Acute encephalopathy Status: Acute (3) Acute kidney injury Status: Acute SCr stabilized at 1.26, GFR 58, will monitor Continue fluids whether D5W or LR today UOP good Subjective Principal diagnosis: acute respiratory failure Interval history: Interim events noted, pt seen and examined right before EGD this am. On D5W gtt Objective - Vital Signs Vital signs: Vital Signs Temp Pulse Resp BP Pulse Ox 01/03/18 23:42 72 01/03/18 23:00 61 19 98/61 97 01/03/18 22:57 97.2 F L 01/03/18 22:00 64 21 113/68 92 01/03/18 20:57 64 21 132/86 92 01/03/18 20:00 59 19 126/82 94 01/03/18 19:24 61 01/03/18 19:00 64 15 119/83 93 01/03/18 18:45 97.6 F 01/03/18 18:00 57 16 118/85 98 01/03/18 17:00 57 16 122/87 98 01/03/18 16:00 97.9 F 57 16 125/79 98 01/03/18 15:00 57 16 127/81 98 01/03/18 14:00 64 16 117/76 98 01/03/18 13:00 63 16 136/83 98 01/03/18 12:00 97.2 F L 58 16 128/81 98 01/03/18 11:00 60 16 117/88 98 01/03/18 10:00 58 16 113/81 98 01/03/18 09:00 55 16 116/80 98 01/03/18 08:00 97.2 F L 56 20 122/82 97 01/03/18 07:00 57 20 111/75 94 01/03/18 06:00 57 20 110/74 94 01/03/18 05:00 56 23 90/73 95 01/03/18 04:00 97.3 F L 53 23 96/53 96 01/03/18 03:50 53 04/13/18 03:00 53 20 84/54 94 01/03/18 02:00 59 14 75/50 94 01/03/18 01:00 54 17 98/64 96 01/03/18 00:00 97.3 F L 54 21 101/65 97 01/02/18 23:58 52 Intake and Output 01/03/18 01/03/18 01/03/18 07:59 15:59 23:59 Intake Total 1018 / 1018 1278.6 / 1278.6 1183 / 1183 Output Total 600 / 600 1100 / 1100 2124 / 2124 Balance 418 / 418 178.6 / 178.6 -942 / -942 Intake: IV Fluids 1018 / 1018 1278.6 / 1278.6 1000 / 1000 Dextrose 5% 1,000 ML @ 150 mls/ 1000 / 1000 1000 / 1000 1000 / 1000 hr IVC .Q6H40M [facility] Rx#: [id number] PRECEDEX Premix 400 mcg In 100 8.6 / 8.6 ml @ 0.2 MCG/KG/HR 3.43 mls/hr IVC .Q24H [facility] Rx#:[id number] Ancef 1,000 MG In Water for inj 10 / 10 . (sterile) 10 ML @ 200 mls/hr IVP ONCE ONE Rx#:[id number] Potassium Phosphate 44 MEQ In 0 260 / 260 .9 % Sodium Chloride 250 ML @ 40 mls/hr IVPB Q10H PRN Rx#: [id number] Tube Feeding 63 / 63 Free Water Intake Amount 120 / 120 Output: Catheter 600 / 600 1100 / 1100 2124 / 2124 Other: Weight 61.3 kg Blood Glucose* 103 84 Patient Weight 01/03/18 23:59 Weight 61.3 kg - General Appearance General appearance: Present: chronically ill, frail EENT: Present: ATNC, mucous membranes dry Neck: Present: no JVD, supple Respiratory: Present: course breath sounds Cardiology: Present: no edema, normal S1, normal S2 Gastrointestinal: Present: no tenderness, no guarding Integumentary: Present: warm and dry Neurologic: Present: disoriented Musculoskeletal: Present: no deformities Psychiatric: Present: cooperative - Lab 01/16/18 04:00 01/16/18 04:00 Most recent lab results ABG pH 7.44 pH Units (7.32-7.45) 12/30/17 04:49 ABG pCO2 35 mmHg (35-45) 12/30/17 04:49 ABG pO2 73 mmHg (85-104) L 12/30/17 04:49 ABG HCO3 24 mEq/L (21-27) 12/30/17 04:49 ABG O2 Saturation 95 % (95-98) 12/30/17 04:49 Calcium 9.7 mg/dL (8.6-10.3) 01/03/18 05:34 Phosphorus 4.1 mg/dL (2.7-4.5) 01/03/18 05:34 Magnesium 2.4 mg/dL (1.6-2.6) 01/03/18 05:34 Urine Creatinine 70 mg/dL 12/27/17 04:00 Urine Sodium 36.4 mEq/L 12/31/17 01:25 Consult Discharge Plan - Plan Referrals: Yanet Armstrong MD [Primary Care Provider] - Prescriptions: LORazepam Oral Conc [Ativan Oral Conc] 1 mg PO Q6HR PRN 7 Days #30 mls PRN Reason: anxiety/restlessness Haloperidol Oral Conc [Haldol] 2 mg PO Q6H #30 mls MORPHINE SUL Oral CONC [Roxanol Oral Conc] 5 mg SL Q4H 7 Days #30 oral.syg
[2018-01-04] MEDS: D5% in Water 1,000 ML IVC SCH (02:30)
[2018-01-04 04:20] LABS: Basophils % 0.4 %; Eosinophils # 0.2 K/mcL (0.0-0.6); Eosinophils % 3.6 %; Hemoglobin 13.1 g/dL (12.9-16.9); Immature Granulocytes % 0.4 % (0-4); Lymphocytes # 1.3 K/mcL (0.6-4.6); Lymphocytes % 23.4 %; Mean Corpuscular HGB Conc 31.2 g/dL (31.6-35.5); Mean Corpuscular Hemoglobin 31.2 pg (28.0-33.3); Mean Platelet Volume 10.8 fL (9.4-12.4); Monocytes # 0.4 K/mcL (0.0-1.3); Monocytes % 6.8 %; Neutrophils # 3.7 K/mcL (1.6-8.9); Nucleated Red Blood Cells 0.4 /100 WBC (0); Platelet Count 255 K/mcL (140-400); Red Cell Distribution Width 14.3 % (11.5-14.5); Segmented Neutrophils % 65.4 %
[2018-01-04 04:37] LABS: BUN/Creatinine Ratio 11 (6-26); Blood Urea Nitrogen 16 mg/dL (8-23); Calcium 9.3 mg/dL (8.6-10.3); Carbon Dioxide 17 mEq/L (23-29); Chloride 117 mEq/L (98-107); Glucose 108 mg/dL (70-105); Magnesium 2.4 mg/dL (1.6-2.6); Osmolality,Calculated 292 (280-300); Potassium 4.7 mEq/L (3.5-5.1); Sodium 140 mEq/L (136-145); eGFR For African Americans > 60 (> 60); eGFR For Non-African Americans 50 (> 60)
[2018-01-04] MEDS: *HR* Heparin 5,000 UNIT/ML VIAL SQ SCH ×2 (06:10→17:50)
--- NOTE | 2018-01-04 07:13 | Pulmonology Progress Note ---
<Miguel Davis - Last Filed: 01/04/18 08:32> Date of Encounter: 01/04/18 Time of Encounter: 08:27 Assessment and Plan (1) Diabetes insipidus Current Visit: Yes Status: Acute Patient with initial hypernatremia and serum osmolality consistent with diabetes insipidus. Nephrology consulted. [place] to be more nephrogenic in nature patient was on lithium and had a supratherapeutic dose at presentation. There was a partial response to desmopressin initially. Nephrology managing with thiazide diuretic and amiloride. Discontinued D5 infusion today and will supplement with free water through his PEG tube. Currently sodium is within normal limits. (2) Hypernatremia Current Visit: Yes Status: Resolved Sodiums as high as 163 during this admission. 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 Sodium within normal limits. (3) Encephalopathy Current Visit: Yes Status: Acute Likely multifactorial in the setting of UTI as well as metabolic derangement. Initial CT head without acute abnormality. Urinalysis was purulent upon admission and empiric antibiotics initiated. He was also hypernatremic 163 which has been corrected. He is also on numerous antipsychotics and behavioral medications that he has been unable to tolerate by oral route Patient restarted on home antipsychotics on 01/03/18 via PEG tube Psychiatry consulted for medication adjustments. (4) Cachexia Current Visit: Yes Status: Acute Patient was unable to tolerate oral intake for several days. BMI of 21 POD #1 for PEG tube placement for medication administration, hydration and tube feed management. (5) Acute kidney injury superimposed on chronic kidney disease Current Visit: Yes Status: Resolved Initial creatinine of 2.33. Injury improving with creatinine today of 1.43 Continue daily BMP (6) Acute respiratory failure Current Visit: Yes Status: Resolved Respiratory failure multifactorial to initial UTI, metabolic derangement. Required intubation for mental status change. Resolved. Currently extubated. Qualifiers: Respiratory failure complication: unspecified whether with hypoxia or hypercapnia Qualified Code(s): J96.00 - Acute respiratory failure, unspecified whether with hypoxia or hypercapnia (7) UTI (urinary tract infection) Current Visit: Yes Status: Acute Arnaud purulent urine upon presentation. Treated with course of Zosyn. Urine cultures negative. Qualifiers: Urinary tract infection type: catheter-associated UTI Indwelling urinary catheter type: unspecified Encounter type: initial encounter Qualified Code( s): T83.511A - Infection and inflammatory reaction due to indwelling urethral catheter, initial encounter; N39.0 - Urinary tract infection, site not specified ; N39.0 - Urinary tract infection, site not specified (8) DVT prophylaxis Current Visit: Yes Status: Acute Heparin 5000 units every 12 hours Subjective Principal diagnosis: acute respiratory failure Interval history: Labs and hemodynamics reviewed. No acute events overnight. Postoperative day 1 from PEG tube placement. Patient tolerating tube feeds. Able to be on his home medication regimen as of yesterday evening. Precedex off since yesterday. Reported that he is more calm and interactive today. Objective PUL Vital signs: Last Vital Signs Temp 97.7 F 01/04/18 07:05 Pulse 63 01/04/18 06:00 Resp 18 01/04/18 06:00 BP 122/81 01/04/18 06:00 Pulse Ox 95 01/04/18 06:00 General appearance: no acute distress Eyes: nonicteric ENT: oropharynx dry Effort: normal Auscultation: bilateral: rhonchi Cardiovascular: regular rate and rhythm Gastrointestinal: soft, non-distended, other (Abdominal binder in place) Integumentary: normal Extremities: no cyanosis, no edema Musculoskeletal: no deformities other (Opens eyes spontaneously. Moves all extremities.) Results - Laboratory Findings CBC and BMP: 01/04/18 03:13 01/04/18 03:13 ABG ABG pH 7.44 pH Units (7.32-7.45) 12/30/17 04:49 ABG pCO2 35 mmHg (35-45) 12/30/17 04:49 ABG pO2 73 mmHg (85-104) L 12/30/17 04:49 ABG O2 Saturation 95 % (95-98) 12/30/17 04:49 Abnormal lab findings: Abnormal lab results MCHC 31.2 g/dL (31.6-35.5) L 01/04/18 03:13 Nucleated RBCs/100 WBC 0.4 /100 WBC (0) H 01/04/18 03:13 ABG pO2 73 mmHg (85-104) L 12/30/17 04:49 Chloride 117 mEq/L (98-107) H 01/04/18 03:13 Carbon Dioxide 17 mEq/L (23-29) L 01/04/18 03:13 Creatinine 1.43 mg/dL (0.70-1.30) H 01/04/18 03:13 Est GFR (Non-Af Amer) 50 (> 60) L 01/04/18 03:13 Glucose 108 mg/dL (70-105) H 01/04/18 03:13 Serum Osmolality 330 mOsm/kg (280-300) H 12/28/17 10:26 AST 57 Units/L (13-39) H 12/26/17 07:58 ALT 67 Units/L (7-52) H 12/26/17 07:58 Globulin 3.9 g/dL (2.4-3.5) H 12/26/17 07:58 Albumin/Globulin Ratio 0.9 (1.1-2.2) L 12/26/17 07:58 Urine Clarity Cloudy (Clear) A 12/26/17 07:39 Urine Protein 30 mg/dL (Neg-Trace) H 12/26/17 07:39 Urine Blood Moderate (Negative) H 12/26/17 07:39 Urine Nitrite Positive (Negative) A 12/26/17 07:39 Ur Leukocyte Esterase Large (Negative) H 12/26/17 07:39 Urine Microscopic RBC 30-50 per hpf (0-3) H 12/26/17 07:39 Urine Microscopic WBC TNTC per hpf (0-3) H 12/26/17 07:39 Urine Bacteria Many per hpf (None-Few) H 12/26/17 07:39 Urine Osmolality 164 mOsm/kg (300-1090) L 01/01/18 09:55 Nasal Screen MRSA (PCR) Positive (Negative) A 12/30/17 19:41 Salicylates < 2.5 mg/dL (15.0-30.0) L 12/26/17 07:58 Acetaminophen < 10 mcg/mL (10-20) L 12/26/17 07:58 - Clinical Findings Intake & Output: Intake & Output 01/03/18 01/03/18 01/04/18 15:59 23:59 07:59 Intake Total 1278.6 / 1278.6 1198 / 1198 1078 / 1078 Output Total 1100 / 1100 2125 / 2125 1350 / 1350 Balance 178.6 / 178.6 -927 / -927 -272 / -272 Weight 61.8 kg Consult Discharge Plan - Plan Referrals: Yanet Armstrong MD [Primary Care Provider] - <Agnes Serna - Last Filed: 01/04/18 09:43> Date of Encounter: 01/04/18 Objective PUL Vital signs: Last Vital Signs Temp 97.7 F 01/04/18 07:05 Pulse 62 01/04/18 08:00 Resp 18 01/04/18 07:59 BP 120/77 01/04/18 07:59 Pulse Ox 97 01/04/18 07:59 Results - Laboratory Findings CBC and BMP: 01/04/18 03:13 01/04/18 03:13 ABG ABG pH 7.44 pH Units (7.32-7.45) 12/30/17 04:49 ABG pCO2 35 mmHg (35-45) 12/30/17 04:49 ABG pO2 73 mmHg (85-104) L 12/30/17 04:49 ABG O2 Saturation 95 % (95-98) 12/30/17 04:49 Abnormal lab findings: Abnormal lab results MCHC 31.2 g/dL (31.6-35.5) L 01/04/18 03:13 Nucleated RBCs/100 WBC 0.4 /100 WBC (0) H 01/04/18 03:13 ABG pO2 73 mmHg (85-104) L 12/30/17 04:49 Chloride 117 mEq/L (98-107) H 01/04/18 03:13 Carbon Dioxide 17 mEq/L (23-29) L 01/04/18 03:13 Creatinine 1.43 mg/dL (0.70-1.30) H 01/04/18 03:13 Est GFR (Non-Af Amer) 50 (> 60) L 01/04/18 03:13 Glucose 108 mg/dL (70-105) H 01/04/18 03:13 Serum Osmolality 330 mOsm/kg (280-300) H 12/28/17 10:26 AST 57 Units/L (13-39) H 12/26/17 07:58 ALT 67 Units/L (7-52) H 12/26/17 07:58 Globulin 3.9 g/dL (2.4-3.5) H 12/26/17 07:58 Albumin/Globulin Ratio 0.9 (1.1-2.2) L 12/26/17 07:58 Urine Clarity Cloudy (Clear) A 12/26/17 07:39 Urine Protein 30 mg/dL (Neg-Trace) H 12/26/17 07:39 Urine Blood Moderate (Negative) H 12/26/17 07:39 Urine Nitrite Positive (Negative) A 12/26/17 07:39 Ur Leukocyte Esterase Large (Negative) H 12/26/17 07:39 Urine Microscopic RBC 30-50 per hpf (0-3) H 12/26/17 07:39 Urine Microscopic WBC TNTC per hpf (0-3) H 12/26/17 07:39 Urine Bacteria Many per hpf (None-Few) H 12/26/17 07:39 Urine Osmolality 164 mOsm/kg (300-1090) L 01/01/18 09:55 Nasal Screen MRSA (PCR) Positive (Negative) A 12/30/17 19:41 Salicylates < 2.5 mg/dL (15.0-30.0) L 12/26/17 07:58 Acetaminophen < 10 mcg/mL (10-20) L 12/26/17 07:58 - Clinical Findings Intake & Output: Intake & Output 01/03/18 01/04/18 01/04/18 23:59 07:59 15:59 Intake Total 1198 / 1198 1078 / 1078 Output Total 2125 / 2125 1350 / 1350 Balance -927 / -927 -272 / -272 Weight 61.8 kg - Attending Attestation I examined this patient and my medical decision-making was reviewed with the Resident Physician. I agree with the documented findings, disposition and treatment plan as described except to the extent set forth below. Patient seen and examined. Labs, radiology, chart personally reviewed. 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 Pulmonary: Acceptable oxygenation and ventilation Cardiovascular: stable GI: Nutrition per dietary and GI prophylaxis per routine. Patient has a PEG tube and to change IV fluid to freewater with his 2 feet. Heme: DVT prophylaxis per routine Renal; urine out put and renal funtion reviewed. Hypernatremia has resolved. Nephrology follow-up. Endorcine: blood glucose is monitored Lines: all lines checked and no evidence of infections Skin: skin care to prevent pressure ulcers per nursing routine care
[2018-01-04] MEDS: Pantoprazole 40 MG VIAL IVP SCH (07:36)
[2018-01-04] MEDS: Ketorolac 15 MG/ML VIAL IVP SCH (07:36)
[2018-01-04] MEDS: OLANZapine 10 MG TAB.RAPDIS PO SCH ×2 (07:37→22:10)
[2018-01-04] MEDS: aMILoride 5 MG TABLET PO SCH (07:38)
[2018-01-04] MEDS: *HR* LORazepam 1 MG TABLET PO SCH ×2 (07:38→22:10)
[2018-01-04] MEDS: CarBAMazepine 100 MG TABLET PO SCH ×2 (07:38→22:10)
[2018-01-04] MEDS: Desmopressin Acetate SPRAY 5 ML BOTTLE NS SCH ×2 (07:39→22:32)
[2018-01-04] MEDS ORDERED: *HR* Dextrose 50 % in Water (Syg) 50 ML SYRINGE IVP PRN (10:45)
[2018-01-04] MEDS ORDERED: Ipratropium/Albuterol Neb 3 ML IH PRN (10:45)
[2018-01-04] MEDS ORDERED: Dextrose Gel 15 GM/37.5 ML TUBE PO PRN ×2 (10:45)
[2018-01-04] MEDS ORDERED: D5% in Water 1,000 ML IVC PRN (10:45)
[2018-01-04] MEDS ORDERED: Levothyroxine Sodium 100 MCG VIAL IVP PRN (10:45)
[2018-01-04] MEDS ORDERED: Naloxone 0.4 MG/ML INJ IVP PRN (10:45)
--- NOTE | 2018-01-04 11:04 | Nephrology Progress Note ---
Date of Encounter: 02/03/18 Time of Encounter: 12:00 - Assessment and Plan (1) Hypernatremia Status: Resolved Sodium great at 140 on D5W, agree with switching to free water via PEG at thi point Continue diuretics at current doses Continue DDAVP for now (2) Acute encephalopathy Status: Acute still disoriented, per primary team (3) Acute kidney injury Status: Acute SCr slightly worse at 1.43, GFR 50, will monitor UOP good Avoid nephrotoxins where possible Subjective Principal diagnosis: acute respiratory failure Interval history: Interim events noted, pt seen and examined with no new issues overnight. s/p PEG and tolerating feeds, D5W to be changed to free water ia PEG per primary team today which is reasonable. Objective - Vital Signs Vital signs: Vital Signs Temp Pulse Resp BP Pulse Ox 01/04/18 08:00 62 01/04/18 07:59 61 18 120/77 97 01/04/18 07:05 97.7 F 01/04/18 06:00 63 18 122/81 95 01/04/18 05:00 71 16 118/73 100 01/04/18 03:46 63 18 114/76 99 01/04/18 03:41 63 01/04/18 03:20 98.1 F 01/04/18 03:00 56 19 112/67 99 01/04/18 02:00 60 19 113/69 94 01/04/18 01:00 58 21 111/71 96 01/04/18 00:00 61 22 104/68 97 01/03/18 23:42 72 01/03/18 23:00 61 19 98/61 97 01/03/18 22:57 97.2 F L 01/03/18 22:00 64 21 113/68 92 01/03/18 20:57 64 21 132/86 92 01/03/18 20:00 59 19 126/82 94 01/03/18 19:24 61 01/03/18 19:00 64 15 119/83 93 01/03/18 18:45 97.6 F 01/03/18 18:00 57 16 118/85 98 01/03/18 17:00 57 16 122/87 98 01/03/18 16:00 97.9 F 57 16 125/79 98 01/03/18 15:00 57 16 127/81 98 01/03/18 14:00 64 16 117/76 98 01/03/18 13:00 63 16 136/83 98 01/03/18 12:00 97.2 F L 58 16 128/81 98 Intake and Output 01/03/18 01/04/18 01/04/18 23:59 07:59 15:59 Intake Total 1198 / 1198 1078 / 1078 Output Total 2125 / 2125 1350 / 1350 500 / 500 Balance -927 / -927 -272 / -272 -500 / -500 Intake: IV Fluids 1015 / 1015 1000 / 1000 Dextrose 5% 1,000 ML @ 150 mls/ 1000 / 1000 1000 / 1000 hr IVC .Q6H40M [facility] Rx#: [id number] PRECEDEX Premix 400 mcg In 100 15 / 15 ml @ 0.2 MCG/KG/HR 3.43 mls/hr IVC .Q24H [facility] Rx#:[id number] Tube Feeding 63 / 63 78 / 78 Free Water Intake Amount 120 / 120 Output: Catheter 2124 1350 / 1350 500 / 500 Other: Weight 61.8 kg Blood Glucose* 100 Patient Weight 01/04/18 23:59 Weight 61.8 kg - General Appearance General appearance: Present: chronically ill, frail EENT: Present: ATNC, mucous membranes dry Neck: Present: no JVD, supple Respiratory: Present: clear Cardiology: Present: no edema, normal S1, normal S2 Gastrointestinal: Present: no tenderness, no guarding (+PEG) Integumentary: Present: warm and dry Neurologic: Present: disoriented Musculoskeletal: Present: no deformities Psychiatric: Present: cooperative - Lab 01/16/18 04:00 01/16/18 04:00 Most recent lab results ABG pH 7.44 pH Units (7.32-7.45) 12/30/17 04:49 ABG pCO2 35 mmHg (35-45) 12/30/17 04:49 ABG pO2 73 mmHg (85-104) L 12/30/17 04:49 ABG HCO3 24 mEq/L (21-27) 12/30/17 04:49 ABG O2 Saturation 95 % (95-98) 12/30/17 04:49 Calcium 9.3 mg/dL (8.6-10.3) 01/04/18 03:13 Phosphorus 4.0 mg/dL (2.7-4.5) 01/04/18 03:13 Magnesium 2.4 mg/dL (1.6-2.6) 01/04/18 03:13 Urine Creatinine 70 mg/dL 12/27/17 04:00 Urine Sodium 36.4 mEq/L 12/31/17 01:25 Consult Discharge Plan - Plan Referrals: Yanet Armstrong MD [Primary Care Provider] - Prescriptions: LORazepam Oral Conc [Ativan Oral Conc] 1 mg PO Q6HR PRN 7 Days #30 mls PRN Reason: anxiety/restlessness Haloperidol Oral Conc [Haldol] 2 mg PO Q6H #30 mls MORPHINE SUL Oral CONC [Roxanol Oral Conc] 5 mg SL Q4H 7 Days #30 oral.syg
--- NOTE | 2018-01-04 20:35 | Anesthesia Evaluation Post Op ---
Date of Encounter: 01/03/18 Time of Encounter: 15:00 - Vital Signs Vital Signs: Vital Signs/O2 Sat, Most Current Temp Pulse Resp BP Pulse Ox 97.9 F 100 18 124/86 96 01/04/18 19:35 01/04/18 19:35 01/04/18 19:35 01/04/18 19:35 01/04/18 19:35 - Lungs Lungs: Clear Ascult./Percussion - Airway Airway: Non-obstructed - Cardiovascular Regular Rate - Mental Status Mental Status: Confused, Baseline Status - Nausea Vomiting Nausea Vomiting: Not Present - Hydration Hydration: NPO - Discharge PostOp Status: Transfer Patient to floor
[2018-01-05] MEDS: *HR* Heparin 5,000 UNIT/ML VIAL SQ SCH ×2 (05:17→18:45)
[2018-01-05 05:29] LABS: Basophils % 0.2 %; Eosinophils # 0.2 K/mcL (0.0-0.6); Eosinophils % 1.9 %; Hematocrit 42.8 % (37.5-50.1); Hemoglobin 13.7 g/dL (12.9-16.9); Immature Granulocytes % 0.5 % (0-4); Lymphocytes # 1.1 K/mcL (0.6-4.6); Lymphocytes % 13.1 %; Mean Corpuscular Hemoglobin 31.7 pg (28.0-33.3); Mean Corpuscular Volume 99.1 fL (83.0-100.0); Mean Platelet Volume 10.1 fL (9.4-12.4); Monocytes # 0.5 K/mcL (0.0-1.3); Neutrophils # 6.7 K/mcL (1.6-8.9); Platelet Count 361 K/mcL (140-400); Red Blood Count 4.32 M/mcL (4.19-5.50); Red Cell Distribution Width 14.2 % (11.5-14.5); Segmented Neutrophils % 78.3 %
[2018-01-05 05:45] LABS: Calcium 9.7 mg/dL (8.6-10.3); Potassium 4.9 mEq/L (3.5-5.1)
[2018-01-05] MEDS: *HR* LORazepam 1 MG TABLET PO SCH ×2 (09:19→22:26)
[2018-01-05] MEDS: OLANZapine 10 MG TAB.RAPDIS PO SCH ×2 (09:20→22:26)
[2018-01-05] MEDS: CarBAMazepine 100 MG TABLET PO SCH ×2 (09:20→22:26)
[2018-01-05] MEDS: Pantoprazole 40 MG VIAL IVP SCH (09:21)
[2018-01-05] MEDS: aMILoride 5 MG TABLET PO SCH (09:21)
[2018-01-05] MEDS: Ketorolac 15 MG/ML VIAL IVP SCH (09:21)
[2018-01-05] MEDS: Desmopressin Acetate SPRAY 5 ML BOTTLE NS SCH ×2 (09:24→22:25)
--- NOTE | 2018-01-05 12:45 | Internal Med History&Physical ---
Date of Encounter: 01/05/18 Time of Encounter: 12:30 Internal Medicine - H&P: HPI Chief complaint: Respiratory failure Admitted From: Intrahospital Transfer History of present illness: Mr. Varghese is a 62 year old male with prior medical history of arthritis, COPD, osteoporosis, thyroid disease, anxiety, depression, never smoker with developmental delay who presented to the emergency room on 12/26/2017 with concern for demented status. Patient apparently had teeth extraction 6 days prior that is 12/20/2017 and was given Vicodin for pain. He had been acting lethargic since. He is normally awake and interactive and able to voice any pain or discomfort. He is a resident of [facility]. There was initial concern for overdose in the emergency room and Narcan 2 mg was given without any response. He he continued to be somnolent and unable to arouse and with due to concern of area, point compromise was intubated. He was subsequently admitted to the medical ICU with suspicion for urinary tract infection and history of present illness and prolonged narcotic drug effects due to reduce clearance in the context of history of present illness. ADMISSION, HE WAS STARTED ON ZOSYN. He did a prolonged ICU course requiring PEG tube in addition to ongoing medications. 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 He was subsequently extubated 12/30/2017. Ongoing issues per ICU physician notes diabetes insipidus, hypernatremia, encephalopathy and acute kidney injury on chronic kidney disease. During my interview, patient is nonverbal which limits my interview Past Med Surg Social Fam HX - Past Medical History Medical history: arthritis, COPD, osteoporosis, thyroid disease, other Psychiatric history: anxiety, depression, other - Past Surgical History Surgical History: herniorrhaphy - Social History Smoking Status: Never smoker Smokeless Tobacco Status: No Alcohol use: none Drug use: none Internal Medicine - H&P: Meds Acetaminophen [Non-Aspirin] 650 mg PO Q4H PRN 12/26/17 [History] Albuterol Neb [Proventil Neb] 2.5 mg IH QID PRN 12/26/17 [History] Alendronate Sodium [Fosamax] 70 mg PO TH 12/26/17 [History] Benztropine Mesylate 2 mg PO HS 12/26/17 [History] Benztropine [Cogentin] 1 mg PO QAM 12/26/17 [History] Buspirone HCl [Buspar] 20 mg PO BID 12/26/17 [History] Calcium Carbonate/Vitamin D3 [Oyster Shell Calcium-Vit D Tab] 1 tab PO BID 12/26 [History] Cholecalciferol (Vitamin D3) [Vitamin D] 1,000 unit PO DAILY 12/26/17 [History] Docusate Sodium [Dok] 100 mg PO BID 12/26/17 [History] Fluticasone Propionate Nasal [Flonase] 1 spr NS DAILY 12/26/17 [History] Fluvoxamine Maleate 50 mg PO BID 12/26/17 [History] Ibuprofen [Motrin Ib] 400 mg PO Q6H PRN 12/26/17 [History] LORazepam [Ativan] 1 mg PO BID 12/26/17 [History] Levothyroxine [Synthroid] 100 mcg PO DAILY 12/26/17 [History] Narciso Pena Carbonate 300 mg PO BID 12/26/17 [History] Loperamide [Imodium] 4 mg PO DAILY PRN 12/26/17 [History] Magnesium Hydroxide [Milk of Magnesia] 2,400 mg PO DAILY PRN 12/26/17 [History] OLANZapine [Zyprexa] 10 mg PO QAM 12/26/17 [History] OLANZapine [Zyprexa] 20 mg PO HS 12/26/17 [History] Polyethylene Glycol 3350 [Gavilax] 17 gm PO DAILY 12/26/17 [History] Sennosides/Docusate Sodium [Senna-S Tablet] 2 tab PO HS 12/26/17 [History] Tamsulosin [Flomax] 0.4 mg PO DAILY 12/26/17 [History] Xyzal 5 mg PO DAILY 12/26/17 [History] carBAMazepine [CarBAMazepine] 100 mg PO QAM 12/26/17 [History] carBAMazepine [CarBAMazepine] 200 mg PO HS 12/26/17 [History] fluvoxaMINE [Luvox] 100 mg PO BID 12/26/17 [History] 3 Allergy/AdvReac Type Severity Reaction Status Date / Time No Known Allergies Allergy Verified 10/15/17 19:33 All Systems PM: A 10-system review of systems was performed and is negative for pertinent findings except as documented above in the HPI. - Constitutional Vitals: Temp Pulse Resp BP Pulse Ox 97.7 F 100 16 114/79 93 01/05/18 12:00 01/05/18 12:00 01/05/18 12:00 01/05/18 12:00 01/05/18 12:00 Exam: Physical exam Gen: Comfortable, laying in bed, in no visible distress, noncommunicative, cachectic HEENT: Normocephalic, atraumatic. No conjunctival icterus. Moist oral mucosa. Neck: Supple Lungs: Clear to auscultation, no foreign sounds Heart: Normal S1-S2, no murmurs rubs or gallops Abdomen: Normoactive bowel sounds, no guarding rigidity or tenderness, but noted : Kauffman catheter in place Extremities: No edema clubbing or cyanosis Neuro: Awake, responsive Skin: No skin lesions Internal Med - H&P Results - Labs CBC & Chem 7: 01/05/18 05:15 01/05/18 05:15 Labs: Short CBC 01/05/18 Range/Units 05:15 WBC 8.5 D (4.3-11.1) K/mcL Hgb 13.7 (12.9-16.9) g/dL Hct 42.8 (37.5-50.1) % Plt Count 361 (140-400) K/mcL Neutrophils # 6.7 (1.6-8.9) K/mcL BMP 01/05/18 05:15 Sodium 145 Potassium 4.9 Chloride 120 H Carbon Dioxide 19 L BUN 23 Creatinine 1.57 H Glucose 127 H Calcium 9.7 - ABG Interpretation ABG results: 12/26/17 12/27/17 12/29/17 17:02 04:42 06:29 ABG pH 7.35 7.35 7.44 ABG pCO2 49 H 50 H 38 ABG pO2 98 70 L 69 L ABG HCO3 27 28 H 25 ABG Total CO2 29 H 29 H 26 ABG O2 Saturation 97 93 L 94 L ABG Base Excess 1 2 1 12/30/17 04:49 ABG pH 7.44 ABG pCO2 35 ABG pO2 73 L ABG HCO3 24 ABG Total CO2 25 ABG O2 Saturation 95 ABG Base Excess 0 - Impressions ITS Impressions Retroperitoneum Ultrasound 12/26/17 18:30 IMPRESSION: Right renal pelviectasis. Correlation for obstructive uropathy is recommended. 3.3 cm hypoechoic left renal cortical lesion, possibly representing a cyst. A dedicated renal protocol CT or MRI would be helpful further evaluate. D/ / Oapl Edwards Cha, MD / Opal Edwards Cha, MD Interpreting Provider: Opal Edwards Cha, MD Abdomen/Pelvis CT 12/27/17 08:00 IMPRESSION: No hydronephrosis noted. There is however diffuse abnormal bladder wall thickening seen. Bladder wall thickening is most commonly due to underlying infectious - inflammatory change or incomplete distension. Neoplastic cause is considered less likely. Bladder wall thickening was seen previously. Tiny calcifications in the right and left kidney, likely nonobstructing renal calculi. Bilateral lower lobe consolidation, similar to recent chest CT Large stool load throughout the colon. No bowel obstruction. D/ / Cristobal Morales MD / Cristobal Morales MD Interpreting Provider: Cristobal Morales MD - Assessment and plan (1) Acute kidney injury Current Visit: Yes Status: Acute Assessment and plan: Trend intake and output daily Maintain urinary catheter due to note of obstruction in the chart at least until acute kidney injury resolves (2) Respiratory failure Current Visit: Yes Status: Resolved Assessment and plan: Finish antibiotics for aspiration pneumonia. (3) Urinary tract infection Current Visit: Yes Status: Resolved Assessment and plan: Finished a course of Zosyn Qualifiers: Urinary tract infection type: site unspecified Hematuria presence: with hematuria Qualified Code(s): N39.0 - Urinary tract infection, site not specified; R31.9 - Hematuria, unspecified; R31.9 - Hematuria, unspecified (4) Encephalopathy acute Current Visit: Yes Status: Acute (5) Diabetes insipidus Current Visit: Yes Status: Resolved Assessment and plan: Secondary to lithium (6) Developmental delay, moderate Current Visit: Yes Status: Acute Assessment and plan: Resume prior psychiatric medications (7) Malnutrition of moderate degree Current Visit: Yes Status: Acute Assessment and plan: Will continue continuous tube feeds but consider switching to bolus feeds tomorrow. - Time Spent With Patient Total time spent is greater than 50% in coordination of care (as documented) at patient's floor/unit and/or counseling patient: 25 - 35 minutes
--- NOTE | 2018-01-05 15:29 | Nephrology Progress Note ---
Date of Encounter: 01/05/18 Time of Encounter: 12:00 - Assessment and Plan (1) Hypernatremia Current Visit: Yes Status: Resolved Sodium worse at 145 from 140 off D5W with no adequate water via pEG except for 60cc q6, will change to 250cc q6 Continue diuretics at current doses for DI UOp still >3liters a day Continue desmopressin for now, may taper to dailly from bid once sodium issue fully stabilized (2) Acute encephalopathy Current Visit: Yes Status: Acute Per primary team (3) Acute kidney injury Current Visit: Yes Status: Acute Scr sorening likely due to decreased fluids vs daily NSAIDs use Should improve with fuids as volume depletion very likely with >3liters uop in DI Suggest discontinuation of NSAIDs, will defer to primatry team Subjective Principal diagnosis: acute respiratory failure Interval history: Pt seen and examined with sitter at bedside who reports minimal water flushes via PEG, pt complaining of thirst wanting water Objective - Vital Signs Vital signs: Vital Signs Temp Pulse Resp BP Pulse Ox 01/05/18 12:00 97.7 F 100 16 114/79 93 01/05/18 08:10 98.1 F 104 18 120/81 93 01/05/18 07:57 112 101/70 01/05/18 03:33 97.7 F 93 18 118/78 91 01/04/18 23:06 97.9 F 83 18 116/79 95 01/04/18 19:35 97.9 F 100 18 124/86 96 01/04/18 16:35 97.6 F 16 127/86 93 01/04/18 16:00 73 18 132/85 96 Intake and Output 01/04/18 01/05/18 01/05/18 23:59 07:59 15:59 Intake Total 320 / 320 60 / 60 Output Total 1900 / 1900 475 / 475 600 / 600 Balance -1580 / -1580 -475 / -475 -540 / -540 Intake: Tube Feeding 200 / 200 Free Water 60 / 60 Free Water Intake Amount 60 / 60 60 / 60 Output: Catheter 1900 / 1900 475 / 475 600 / 600 Other: Weight 57.9 kg Blood Glucose* 93 - General Appearance General appearance: Present: chronically ill EENT: Present: ATNC, mucous membranes dry Neck: Present: no JVD, supple Respiratory: Present: clear Cardiology: Present: no edema, normal S1, normal S2 Gastrointestinal: Present: no tenderness, no guarding (+PEG) Integumentary: Present: warm and dry Additional Comments: mostly nonverbal Musculoskeletal: Present: deformities Psychiatric: Present: cooperative - Lab 01/06/18 04:00 01/06/18 04:00 Most recent lab results ABG pH 7.44 pH Units (7.32-7.45) 12/30/17 04:49 ABG pCO2 35 mmHg (35-45) 12/30/17 04:49 ABG pO2 73 mmHg (85-104) L 12/30/17 04:49 ABG HCO3 24 mEq/L (21-27) 12/30/17 04:49 ABG O2 Saturation 95 % (95-98) 12/30/17 04:49 Calcium 9.7 mg/dL (8.6-10.3) 01/05/18 05:15 Phosphorus 4.0 mg/dL (2.7-4.5) 01/04/18 03:13 Magnesium 2.4 mg/dL (1.6-2.6) 01/04/18 03:13 Urine Creatinine 70 mg/dL 12/27/17 04:00 Urine Sodium 36.4 mEq/L 12/31/17 01:25 Consult Discharge Plan - Plan Referrals: Yanet Armstrong MD [Primary Care Provider] -
[2018-01-05] MEDS ORDERED: D5% in 0.9% NACL 1,000 ML IVC SCH (22:00)
[2018-01-05] MEDS ORDERED: Ondansetron 4 MG/2 ML VIAL IVP PRN (22:06)
[2018-01-05] MEDS: Saliva Stimulant 100ml BOTTLE PO PRN (22:26)
--- NOTE | 2018-01-05 23:02 | Event Note ---
Date of Encounter: 01/05/18 Time of Encounter: 21:47 Alerted by patient's nurse the patient was not tolerating his tube feeding and is constantly vomiting and spitting up. Nurse reports suctioning with head of bed all the way up this time. Went to assess patient who has stopped vomiting for the time being. IVP Zofran 4 mg every 6 when necessary ordered. Upright KUB ordered. 1 view portable CXR to rule out aspiration. Begin D5 and 0.9 and hold tube feedings for now. A.m. team to assess patient and changes for further recommendations of care. Pt. to be monitored closely.
[2018-01-06] MEDS ORDERED: 0.9 % Sodium Chloride 1,000 ML IVC ONE (01:17)
--- NOTE | 2018-01-06 01:21 | Event Note ---
Date of Encounter: 01/06/18 Time of Encounter: 01:00 CXR shows possble LLB pneumonia, pt has vomiting and fever. Pt has sinus tachycardia with HR 120. Suspect aspiration pneumonia. Cont hold tube feeding, give NS bolus 1000ml and start unasyn 3 g q6h iv.
[2018-01-06] MEDS ORDERED: 0.9 % Sodium Chloride 1,000 ML ONE (01:25)
[2018-01-06 04:44] LABS: Basophils % 0.2 %; Eosinophils % 0.1 %; Hematocrit 41.7 % (37.5-50.1); Hemoglobin 13.1 g/dL (12.9-16.9); Immature Granulocytes % 0.5 % (0-4); Lymphocytes % 6.8 %; Mean Corpuscular HGB Conc 31.4 g/dL (31.6-35.5); Mean Corpuscular Hemoglobin 31.6 pg (28.0-33.3); Mean Corpuscular Volume 100.5 fL (83.0-100.0); Mean Platelet Volume 10.4 fL (9.4-12.4); Monocytes # 0.7 K/mcL (0.0-1.3); Monocytes % 4.6 %; Neutrophils # 13.1 K/mcL (1.6-8.9); Platelet Count 391 K/mcL (140-400); Red Blood Count 4.15 M/mcL (4.19-5.50); Red Cell Distribution Width 14.8 % (11.5-14.5); Segmented Neutrophils % 87.8 %
[2018-01-06 05:05] LABS: Calcium 9.5 mg/dL (8.6-10.3); Potassium 5.2 mEq/L (3.5-5.1)
[2018-01-06] MEDS: Ketorolac 15 MG/ML VIAL IVP SCH (05:50)
[2018-01-06] MEDS: *HR* Heparin 5,000 UNIT/ML VIAL SQ SCH ×2 (05:50→18:04)
[2018-01-06] MEDS: Ampicillin/Sulbactam 3,000 MG in 0.9 % Sodium Chloride Mini Bag 100 ML IVPB SCH ×3 (05:50→18:05)
--- NOTE | 2018-01-06 09:46 | Internal Med Progress Note ---
Date of Encounter: 01/06/18 Time of Encounter: 09:00 - Assessment and plan (1) Aspiration pneumonia Current Visit: Yes Status: Acute Assessment and plan: Patient developed aspiration pneumonia overnight. He will feeds have been held. Patient appears to be having constipation we will. We will provide edema. Hold off tube feeds for now and resume at a lower rate later. Keep head end elevated. Aspiration precautions. Keep nothing by mouth. High risk for complications. Continue Unasyn. Qualifiers: Aspiration pneumonia type: due to gastric secretions Laterality: left Lung location: lower lobe of lung Qualified Code(s): J69.0 - Pneumonitis due to inhalation of food and vomit (2) Respiratory failure Current Visit: Yes Status: Resolved Assessment and plan: O2 supplementation as needed. Qualifiers: Chronicity: acute Respiratory failure complication: unspecified whether with hypoxia or hypercapnia Qualified Code(s): J96.00 - Acute respiratory failure, unspecified whether with hypoxia or hypercapnia (3) Acute kidney injury Current Visit: Yes Status: Acute Assessment and plan: Renal function worsening. Likely due to insufficient freewater replacement given the acute feeds have been held. Start patient back on IV fluids with D5 water. Monitor renal function closely. Monitor input and output. (4) Urinary tract infection Current Visit: Yes Status: Resolved Assessment and plan: Completed treatment Qualifiers: Urinary tract infection type: site unspecified Hematuria presence: with hematuria Qualified Code(s): N39.0 - Urinary tract infection, site not specified; R31.9 - Hematuria, unspecified; R31.9 - Hematuria, unspecified (5) Encephalopathy acute Current Visit: Yes Status: Acute Assessment and plan: Unclear baseline. Patient not responding to questions but does wake up. Continue to treat underlying issues. (6) Diabetes insipidus Current Visit: Yes Status: Acute Assessment and plan: Continue DDAVP. Sodium 149 today. Likely due to inadequate free water replacement. Will place patient on D5 water. (7) Developmental delay, moderate Current Visit: Yes Status: Chronic Assessment and plan: broom worker consult to help with discharge planning. (8) Malnutrition of moderate degree Current Visit: Yes Status: Chronic Assessment and plan: Did not tolerate tube feeds. Will hold for now and resume later. Nutrition following. - Time Spent With Patient Total time spent is greater than 50% in coordination of care (as documented) at patient's floor/unit and/or counseling patient: - Subjective Interval history: Patient is currently lying in bed. Comfortable. Awakes to verbal response but not following commands at this time. Patient appears to have aspirated yesterday and also tube feeds have been held. Chest x-ray done yesterday showed left basal airspace disease concerning for atelectasis or pneumonia. Patient has had fever overnight with temperature of 100.4. This has now improved. - Constitutional Vitals: Temp Pulse Resp BP Pulse Ox 99.2 F 116 22 112/72 94 01/06/18 03:30 01/06/18 03:30 01/06/18 03:30 01/06/18 03:30 01/06/18 03:30 General appearance: Present: cooperative, A&O X 1, underweight. Absent: answers questions appropriately - Neck Neck exam general surgery: Present: supple, trachea midline. Absent: lymphadenopathy - Respiratory Respiratory exam: Present: decreased breath sounds (At both bases). Absent: accessory muscle use, rales, rhonchi, wheezes - Cardiovascular Cardiovascular exam: Present: RRR, +S1, +S2. Absent: diastolic murmur, gallop, rubs, systolic murmur - GI/Abdominal GI/Abdominal exam: Present: normal bowel sounds, soft, no peritoneal signs. Absent: distended, tenderness - Extremities Exam Extremities exam: Present: warm, radial pulses palpable and symmetrical. Absent : calf tenderness, cyanotic, pedal edema - Neurological Exam Neurological exam: Present: no focal deficits. Absent: facial droop Additional comments: Somnolent but easily awakes. Does not follow commands - Skin Skin exam: Present: dry, intact Internal Medicine: Result - Labs CBC & Chem 7: 01/06/18 04:00 01/06/18 04:00 Labs: Short CBC 01/06/18 Range/Units 04:00 WBC 14.9 H D (4.3-11.1) K/mcL Hgb 13.1 (12.9-16.9) g/dL Hct 41.7 (37.5-50.1) % Plt Count 391 (140-400) K/mcL Neutrophils # 13.1 H (1.6-8.9) K/mcL BMP 01/06/18 04:00 Sodium 149 H Potassium 5.2 H Chloride 124 H Carbon Dioxide 19 L BUN 34 H Creatinine 1.75 H Glucose 137 H Calcium 9.5 - ABG Interpretation ABG results: ABG ABG pH 7.44 pH Units (7.32-7.45) 12/30/17 04:49 ABG pCO2 35 mmHg (35-45) 12/30/17 04:49 ABG pO2 73 mmHg (85-104) L 12/30/17 04:49 ABG O2 Saturation 95 % (95-98) 12/30/17 04:49 - Impressions Impressions KUB X-Ray 01/05/18 21:52 IMPRESSION: Redemonstration of large stool burden throughout air-filled dilated colon. Feeding tube projects over the mid abdomen. D/ / 01/06/2018 07:14:13 Jimenez Tim MD / jerry Interpreting Provider: Jimenez Tim MD Chest X-Ray 01/05/18 22:08 IMPRESSION: Left basilar airspace disease, atelectasis or pneumonia. D/ / Opal Edwards Cha, MD / Opal Edwards Cha, MD Interpreting Provider: Opal Edwards Cha, MD Consult Discharge Plan - Plan Referrals: Yanet Armstrong MD [Primary Care Provider] -
[2018-01-06] MEDS: *HR* LORazepam 1 MG TABLET PO SCH ×2 (09:50→20:16)
[2018-01-06] MEDS: CarBAMazepine 100 MG TABLET PO SCH ×2 (09:50→20:16)
[2018-01-06] MEDS: OLANZapine 10 MG TAB.RAPDIS PO SCH ×2 (09:52→20:16)
[2018-01-06] MEDS: aMILoride 5 MG TABLET PO SCH (09:52)
[2018-01-06] MEDS: Pantoprazole 40 MG VIAL IVP SCH (10:02)
[2018-01-06] MEDS: Desmopressin Acetate SPRAY 5 ML BOTTLE NS SCH ×2 (10:03→20:18)
[2018-01-06] MEDS: D5% in Water 1,000 ML IVC SCH (10:04)
[2018-01-06] MEDS: Fluticasone Propionate Nasal 50 MCG/SPRAY BOTTLE NS SCH (10:04)
[2018-01-06 11:09] LABS: INR 1.6; Prothrombin Time 17.4 Seconds (9.4-12.1)
--- NOTE | 2018-01-06 13:42 | Gastroenterology Consult Note ---
Addendum entered and electronically signed by Maty Hughes 01/07/18 10:04: Pt had PEG tube placed by Dr Dowd on 01/03/18. Reports were not available for review yesterday when this note was placed. Original Note: <Maty Hughes - Last Filed: 01/06/18 16:38> Date of Encounter: 01/06/18 Time of Encounter: 11:00 - Assessment and plan (1) Vomiting Current Visit: Yes Status: Acute Assessment and plan: Pt not tolerating tube feedings. He has had vomiting and had developed aspiration pneumonia. Continue PPI. Will discuss with Dr Muller, will likely need J-tube when labs are improved. Qualifiers: Vomiting type: unspecified Vomiting Intractability: intractable Nausea presence: without nausea Qualified Code(s): R11.11 - Vomiting without nausea (2) Malnutrition of moderate degree Current Visit: Yes Status: Chronic (3) Aspiration pneumonia Current Visit: Yes Status: Acute Assessment and plan: Followed by pulmonology, may need peg converted to PEJ Qualifiers: Aspiration pneumonia type: due to gastric secretions Laterality: left Lung location: lower lobe of lung Qualified Code(s): J69.0 - Pneumonitis due to inhalation of food and vomit - Time Spent With Patient Total time spent is greater than 50% in coordination of care (as documented) at patient's floor/unit and/or counseling patient: GI History of Present Illness - Data of Consult Patient: new to practice Consult date: 01/06/18 Requesting Physician: Shani Sevilla MD - Consult Narrative Reason for consult: vomiting History of present illness: Mr. Varghese is a 62 year old male with prior medical history of arthritis, COPD, osteoporosis, thyroid disease, anxiety, depression, never smoker with developmental delay who presented to the emergency room on 12/26/2017 with concern for altered mental status following teeth extraction on 12/20/2017 and was given Vicodin for pain. He is a resident of [address] There was initial concern for overdose in the emergency room and Narcan 2 mg was given without any response. He he continued to be somnolent and unable to arouse and with due to concern of area, point compromise was intubated. He was subsequently admitted to the medical ICU with suspicion for urinary tract infection and history of present illness and prolonged narcotic drug effects due to reduce clearance in the context of history of present illness. He had a prolonged ICU course requiring PEG tube. 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 He was subsequently extubated 12/30/2017. Ongoing issues per ICU physician notes diabetes insipidus, hypernatremia, encephalopathy and acute kidney injury on chronic kidney disease.He has had nausea and vomiting with aspiration pneumonia therefore GI was consulted for J- tube placement. WBC 14.9, Hgb 13.1, K 5.2, Na 149, Colonoscopy: EGD: NSAIDS/ASA: Anticoagulants: Heparin 0550 Past Med Surg Social Fam HX - Past Medical History Medical history: arthritis, COPD, osteoporosis, thyroid disease, other Psychiatric history: anxiety, depression, other - Past Surgical History Surgical History: herniorrhaphy - Social History Smoking Status: Never smoker Smokeless Tobacco Status: No Alcohol use: none Drug use: none ROS unobtainable: due to mental status - Constitutional Vitals: Temp Pulse Resp BP Pulse Ox 97.8 F 118 18 134/64 96 01/06/18 13:15 01/06/18 13:15 01/06/18 13:15 01/06/18 13:15 01/06/18 13:15 Exam: CONSTITUTIONAL:~alert, no acute distress.~HEAD:~normocephalic.~EYES:~no jaundice.~NECK:~no obvious swelling.~HEART:~regular rate and rhythm, no murmurs. ~LUNGS:~coarse rhonchi bilaterally.~ABDOMEN:~flat, soft, nontender, peg tube and abdominal binder in place, soft, no masses palpable, no organomegaly.~ RECTAL EXAM:~Deferred.~EXTREMITIES:~no clubbing, cyanosis or edema.~SKIN:~no stigmata of chronic liver disease.~NEUROLOGIC:~no obvious focal defect.~~~~ Results - Labs CBC & Chem 7: 01/06/18 04:00 01/06/18 04:00 Labs: Last Result Calcium 9.5 mg/dL (8.6-10.3) 01/06/18 04:00 Troponin I < 0.03 ng/mL (< 0.04) 12/26/17 07:58 Salicylates < 2.5 mg/dL (15.0-30.0) L 12/26/17 07:58 Urine Opiates Screen Negative ng/mL (Mjuyux=945) 12/26/17 07:39 Entire Visit Hgb 13.1 g/dL (12.9-16.9) 01/06/18 04:00 Hct 41.7 % (37.5-50.1) 01/06/18 04:00 PT 17.4 Seconds (9.4-12.1) H 01/06/18 10:46 Total Bilirubin 0.6 mg/dL (0.3-1.0) 12/26/17 07:58 AST 57 Units/L (13-39) H 12/26/17 07:58 ALT 67 Units/L (7-52) H 12/26/17 07:58 Acetaminophen < 10 mcg/mL (10-20) L 12/26/17 07:58 - ABG ABG results: ABG ABG pH 7.44 pH Units (7.32-7.45) 12/30/17 04:49 ABG pCO2 35 mmHg (35-45) 12/30/17 04:49 ABG pO2 73 mmHg (85-104) L 12/30/17 04:49 ABG O2 Saturation 95 % (95-98) 12/30/17 04:49 PT/INR, D-dimer PT 17.4 Seconds (9.4-12.1) H 01/06/18 10:46 - Impressions Impressions KUB X-Ray 01/05/18 21:52 IMPRESSION: Redemonstration of large stool burden throughout air-filled dilated colon. Feeding tube projects over the mid abdomen. D/ / 01/06/2018 07:14:13 Jimenez Tim MD / bcaer Interpreting Provider: Jimenez Tim MD Chest X-Ray 01/05/18 22:08 IMPRESSION: Left basilar airspace disease, atelectasis or pneumonia. D/ / Opal Edwards Cha, MD / Opal Edwards Cha, MD Interpreting Provider: Opal Edwards Cha, MD Consult Discharge Plan - Plan Referrals: Yanet Armstrong MD [Primary Care Provider] - <Amish Muller - Last Filed: 01/15/18 05:30> Date of Encounter: 01/06/18 - Time Spent With Patient Total time spent is greater than 50% in coordination of care (as documented) at patient's floor/unit and/or counseling patient: GI History of Present Illness - Data of Consult Requesting Physician: Shani Sevilla MD - Consult Narrative History of present illness: Mr. Varghese is a 62 year old male - Constitutional Vitals: Temp Pulse Resp BP Pulse Ox 97.9 F 108 22 103/66 97 01/15/18 03:36 01/15/18 03:36 01/15/18 03:36 01/15/18 03:36 01/15/18 03:36 Results - Labs CBC & Chem 7: 01/14/18 09:21 01/14/18 05:32 Labs: Last Result Calcium 9.9 mg/dL (8.6-10.3) 01/14/18 05:32 Troponin I < 0.03 ng/mL (< 0.04) 12/26/17 07:58 Salicylates < 2.5 mg/dL (15.0-30.0) L 12/26/17 07:58 Urine Opiates Screen Negative ng/mL (Yrabdl=497) 12/26/17 07:39 Entire Visit Hgb 13.4 g/dL (12.9-16.9) 01/14/18 09:21 Hct 42.2 % (37.5-50.1) 01/14/18 09:21 PT 17.4 Seconds (9.4-12.1) H 01/06/18 10:46 Total Bilirubin 0.6 mg/dL (0.3-1.0) 12/26/17 07:58 AST 57 Units/L (13-39) H 12/26/17 07:58 ALT 67 Units/L (7-52) H 12/26/17 07:58 Acetaminophen < 10 mcg/mL (10-20) L 12/26/17 07:58 - ABG ABG results: ABG ABG pH 7.44 pH Units (7.32-7.45) 12/30/17 04:49 ABG pCO2 35 mmHg (35-45) 12/30/17 04:49 ABG pO2 73 mmHg (85-104) L 12/30/17 04:49 ABG O2 Saturation 95 % (95-98) 12/30/17 04:49 PT/INR, D-dimer PT 17.4 Seconds (9.4-12.1) H 01/06/18 10:46 - Impressions Impressions Chest X-Ray 01/14/18 08:55 IMPRESSION: New, patchy right lower lung airspace opacity may reflect pneumonia in the correct clinical setting. D/ / 01/14/2018 10:53:37 Pramod Cronin MD / earnold Interpreting Provider: Pramod Cronin MD - Attending Attestation Awaiting report. I have personally performed a face to face evaluation on this patient. I have reviewed and agree with the care plan. History and Exam by me shows:
[2018-01-06] MEDS: *HR* LORazepam 2 MG/ML VIAL IVP PRN (21:32)
--- NOTE | 2018-01-07 00:14 | Nephrology Progress Note ---
Date of Encounter: 01/07/18 Time of Encounter: 12:00 - Assessment and Plan (1) Hypernatremia Current Visit: Yes Status: Resolved Sodium worse at 149 from 145 yesterday despite increasing free water flushes to 250cc q6 and now on D5W, will monitor. Water deficit approx. 3 liters Continue diuretics at current doses for DI UOP noted less at 1575cc in the past 24hrs Continue desmopressin for now, may taper to dailly from bid once sodium issue fully stabilized (2) Acute encephalopathy Current Visit: Yes Status: Acute per primary team (3) Acute kidney injury Current Visit: Yes Status: Acute Scr worsening likely due to decreased fluids vs daily NSAIDs use Should improve with fuids as volume depletion very likely with >3liters uop in DI Suggest discontinuation of NSAIDs, will defer to primatry team Subjective Principal diagnosis: acute respiratory failure Interval history: Pt seen and examined with sitter at bedside resting comfortbaly. per sitter, feed stopped due to high residuals with D5W started along with continued free water flushes Objective - Vital Signs Vital signs: Vital Signs Temp Pulse Resp BP Pulse Ox 01/06/18 18:47 98.2 F 97 16 106/70 89 01/06/18 16:06 97.9 F 109 16 133/87 90 01/06/18 13:15 97.8 F 118 18 134/64 96 01/06/18 07:40 98.0 F 93 16 121/79 91 01/06/18 03:30 99.2 F 116 22 112/72 94 01/06/18 00:59 99.7 F H 127 24 120/83 94 Intake and Output 01/06/18 01/06/18 01/07/18 15:59 23:59 07:59 Intake Total 100 / 100 Output Total 400 / 400 800 / 800 Balance -300 / -300 -800 / -800 Intake: IV Fluids 100 / 100 Unasyn 3,000 MG In 0.9 % Sodium 100 / 100 Chloride (Mini-Bag +) 100 ML @ 200 mls/hr IVPB Q6HR [facility] Rx#: [id number] Output: Catheter 400 / 400 800 / 800 Other: Stool Size Small Stool Consistency liquid # Bowel Movements 1 Blood Glucose* 119 124 - General Appearance General appearance: Present: chronically ill, frail EENT: Present: ATNC, mucous membranes dry Neck: Present: no JVD, supple Respiratory: Present: course breath sounds Cardiology: Present: no edema, normal S1, normal S2 Gastrointestinal: Present: no tenderness, no guarding (+PEG) Integumentary: Present: warm and dry Additional Comments: mostly nonverbal but answers yes/no to simple questions Musculoskeletal: Present: deformities Psychiatric: Present: cooperative - Lab 01/06/18 04:00 01/06/18 04:00 Most recent lab results ABG pH 7.44 pH Units (7.32-7.45) 12/30/17 04:49 ABG pCO2 35 mmHg (35-45) 12/30/17 04:49 ABG pO2 73 mmHg (85-104) L 12/30/17 04:49 ABG HCO3 24 mEq/L (21-27) 12/30/17 04:49 ABG O2 Saturation 95 % (95-98) 12/30/17 04:49 Calcium 9.5 mg/dL (8.6-10.3) 01/06/18 04:00 Phosphorus 4.0 mg/dL (2.7-4.5) 01/04/18 03:13 Magnesium 2.4 mg/dL (1.6-2.6) 01/04/18 03:13 Urine Creatinine 70 mg/dL 12/27/17 04:00 Urine Sodium 36.4 mEq/L 12/31/17 01:25 Consult Discharge Plan - Plan Referrals: Yanet Armstrong MD [Primary Care Provider] -
[2018-01-07] MEDS: Ampicillin/Sulbactam 3,000 MG in 0.9 % Sodium Chloride Mini Bag 100 ML IVPB SCH ×5 (01:01→23:28)
[2018-01-07] MEDS: D5% in Water 1,000 ML IVC SCH ×2 (01:04→18:00)
[2018-01-07] MEDS: *HR* Heparin 5,000 UNIT/ML VIAL SQ SCH ×2 (05:59→18:40)
[2018-01-07] MEDS: *HR* LORazepam 1 MG TABLET PO SCH ×2 (09:07→21:45)
[2018-01-07] MEDS: CarBAMazepine 100 MG TABLET PO SCH ×2 (09:08→21:46)
[2018-01-07] MEDS: Desmopressin Acetate SPRAY 5 ML BOTTLE NS SCH ×2 (09:08→21:49)
[2018-01-07] MEDS: aMILoride 5 MG TABLET PO SCH (09:09)
[2018-01-07] MEDS: OLANZapine 10 MG TAB.RAPDIS PO SCH ×2 (09:10→21:45)
[2018-01-07] MEDS: Fluticasone Propionate Nasal 50 MCG/SPRAY BOTTLE NS SCH (09:15)
[2018-01-07 10:52] LABS: Basophils # 0.1 K/mcL (0.0-0.2); Basophils % 0.3 %; Eosinophils # 0.1 K/mcL (0.0-0.6); Eosinophils % 0.4 %; Hematocrit 44.9 % (37.5-50.1); Hemoglobin 13.8 g/dL (12.9-16.9); Immature Granulocytes % 0.3 % (0-4); Lymphocytes # 0.8 K/mcL (0.6-4.6); Lymphocytes % 5.4 %; Mean Corpuscular HGB Conc 30.7 g/dL (31.6-35.5); Mean Corpuscular Hemoglobin 31.3 pg (28.0-33.3); Mean Corpuscular Volume 101.8 fL (83.0-100.0); Mean Platelet Volume 10.8 fL (9.4-12.4); Monocytes # 0.6 K/mcL (0.0-1.3); Monocytes % 4.1 %; Neutrophils # 13.4 K/mcL (1.6-8.9); Platelet Count 455 K/mcL (140-400); Red Blood Count 4.41 M/mcL (4.19-5.50); Red Cell Distribution Width 14.9 % (11.5-14.5); Segmented Neutrophils % 89.5 %
[2018-01-07 11:41] LABS: Calcium 10.2 mg/dL (8.6-10.3); Potassium 4.5 mEq/L (3.5-5.1)
--- NOTE | 2018-01-07 14:16 | Palliative - Consult Note ---
Date of Encounter: 01/07/18 Time of Encounter: 14:15 - Assessment and Plan (1) Cachexia Current Visit: Yes Status: Acute Assessment and plan: TF continue at this time. Only at 20ml/hr. MOnitor and discussed with dieticians. Patient with stool burden on KUB, enema ordered for today. Sodium continues to rise despite water flushes. (2) Constipation Current Visit: Yes Status: Acute Assessment and plan: Enema ordered for today per hospitalist. MOnitor results. Small BM documented 01/06. Qualifiers: Constipation type: chronic idiopathic constipation Qualified Code(s): K59.04 - Chronic idiopathic constipation (3) Counseling regarding advanced care planning and goals of care Current Visit: Yes Status: Acute Assessment and plan: Attempted to contact pt guardian, Symoneaaron Yeager, left voice mail with my information to return my call. I have worked with Symone before on a number of patient's here at [place]. Her office is in [facility]. Will continue to try and reach to update on clinical status and further goals of care discussion. (4) Acute kidney injury Current Visit: Yes Status: Acute (5) Aspiration pneumonia Current Visit: Yes Status: Acute Assessment and plan: Remains on IV antibiotics Qualifiers: Aspiration pneumonia type: due to gastric secretions Laterality: left Lung location: lower lobe of lung Qualified Code(s): J69.0 - Pneumonitis due to inhalation of food and vomit (6) Diabetes insipidus Current Visit: Yes Status: Acute Assessment and plan: Followed by nephrology Palliative-CN HPI - Data of Consult Consult date: 01/07/18 Requesting Physician: Shani Sevilla MD Primary Care Provider: Yanet Armstrong - Consult Narrative History of present illness: Mr. Varghese is a 62 year old male who is resident of [facility], who was admitted with altered mental status. He has history of developmental delay, COPD, arthritis, thyroid disorder, anxiety, depression. He had tooth extraction the week prior to admission, and according to record, had Vicodin for pain. He had been lethargic since that thim. He was given Naltraxone in the ED with no improvement. UTI was also suspected, and he was found to have diabetes insipidus most likely r/t lithium, and has been closely followed by nephrology. He did require intubation for a time in the ICU. Aspiration was also suspected. Conversations were held with pt APS[employer] guardian, Symone Yeager, and consent was obtained for PEG tube. Since that time, pt was transferred out of ICU and has been on medical floor. He remained restless, and requires sitter at bedside. Abd binder in place protecting PEG tube. Over the last 48 hours, it is likely pt has aspirated with increasing WBC, fever, and rhonchi noted to lungs. He is becoming hypernatremic again despite water flushes in PEG. KUB also demonstrated possible ileus and significant stool burden. Enema has been ordered for today. Upon my visit, sitter is at bedside. He is restless, in position with knees to chest. Squirming in bed. Eyes open, but no verbal response and does not follow any commands. PEG intact. Kauffman patent with light yellow urine. No visitors at bedside. CC: Shani Sevilla MD Past Med Surg Social Fam HX - Past Medical History Medical history: arthritis, COPD, osteoporosis, thyroid disease, other Psychiatric history: anxiety, depression, other - Past Surgical History Surgical History: herniorrhaphy - Social History Smoking Status: Never smoker Smokeless Tobacco Status: No Alcohol use: none Drug use: none Medications and Allergies Acetaminophen [Non-Aspirin] 650 mg PO Q4H PRN 12/26/17 [History] Albuterol Neb [Proventil Neb] 2.5 mg IH QID PRN 12/26/17 [History] Alendronate Sodium [Fosamax] 70 mg PO TH 12/26/17 [History] Benztropine Mesylate 2 mg PO HS 12/26/17 [History] Benztropine [Cogentin] 1 mg PO QAM 12/26/17 [History] Buspirone HCl [Buspar] 20 mg PO BID 12/26/17 [History] Calcium Carbonate/Vitamin D3 [Oyster Shell Calcium-Vit D Tab] 1 tab PO BID 12/26 [History] Cholecalciferol (Vitamin D3) [Vitamin D] 1,000 unit PO DAILY 12/26/17 [History] Docusate Sodium [Dok] 100 mg PO BID 12/26/17 [History] Fluticasone Propionate Nasal [Flonase] 1 spr NS DAILY 12/26/17 [History] Fluvoxamine Maleate 50 mg PO BID 12/26/17 [History] Ibuprofen [Motrin Ib] 400 mg PO Q6H PRN 12/26/17 [History] LORazepam [Ativan] 1 mg PO BID 12/26/17 [History] Levothyroxine [Synthroid] 100 mcg PO DAILY 12/26/17 [History] Brunson Carbonate 300 mg PO BID 12/26/17 [History] Loperamide [Imodium] 4 mg PO DAILY PRN 12/26/17 [History] Magnesium Hydroxide [Milk of Magnesia] 2,400 mg PO DAILY PRN 12/26/17 [History] OLANZapine [Zyprexa] 10 mg PO QAM 12/26/17 [History] OLANZapine [Zyprexa] 20 mg PO HS 12/26/17 [History] Polyethylene Glycol 3350 [Gavilax] 17 gm PO DAILY 12/26/17 [History] Sennosides/Docusate Sodium [Senna-S Tablet] 2 tab PO HS 12/26/17 [History] Tamsulosin [Flomax] 0.4 mg PO DAILY 12/26/17 [History] Xyzal 5 mg PO DAILY 12/26/17 [History] carBAMazepine [CarBAMazepine] 100 mg PO QAM 12/26/17 [History] carBAMazepine [CarBAMazepine] 200 mg PO HS 12/26/17 [History] fluvoxaMINE [Luvox] 100 mg PO BID 12/26/17 [History] 3 Allergy/AdvReac Type Severity Reaction Status Date / Time No Known Allergies Allergy Verified 10/15/17 19:33 ROS unobtainable: due to mental status Palliative Care-Exam - Constitutional Vitals: Temp Pulse Resp BP Pulse Ox 100.1 F H 137 18 102/71 89 01/07/18 10:53 01/07/18 10:53 01/07/18 10:53 01/07/18 10:53 01/07/18 10:53 General appearance: Present: disheveled, mild distress, thin - Head Head Exam: Present: normal inspection, normocephalic - Respiratory Respiratory exam: Present: decreased breath sounds Additional comments: Scattered rhonchi anteriorally. Shallow inspiratory effort - Cardiovascular Cardiovascular exam: Present: +S1, +S2 - GI/Abdominal Exam GI/Abdominal exam: Present: diminished bowel sounds, soft additional comments: Abd binder in place, PEG intact with feeding - Catheter Type: Urethral (Kauffman) Additional comments: Urine clear yellow - Extremities Exam Extremities exam: Present: normal capillary refill, normal inspection - Neurological Exam Additional comments: Awake and alert - [facility], does not follow commands. Restless - Skin Skin exam: Present: dry, warm Internal Medicine - CN: Reslt - Labs CBC & Chem 7: 01/07/18 10:02 01/07/18 10:02 Labs: Short CBC 01/07/18 Range/Units 10:02 WBC 15.0 H (4.3-11.1) K/mcL Hgb 13.8 (12.9-16.9) g/dL Hct 44.9 (37.5-50.1) % Plt Count 455 H (140-400) K/mcL Neutrophils # 13.4 H (1.6-8.9) K/mcL BMP 01/07/18 10:02 Sodium 152 H Potassium 4.5 Chloride 125 H Carbon Dioxide 19 L BUN 40 H Creatinine 1.98 H Glucose 252 H Calcium 10.2 - ABG Interpretation ABG results: ABG ABG pH 7.44 pH Units (7.32-7.45) 12/30/17 04:49 ABG pCO2 35 mmHg (35-45) 12/30/17 04:49 ABG pO2 73 mmHg (85-104) L 12/30/17 04:49 ABG O2 Saturation 95 % (95-98) 12/30/17 04:49 PT/INR, D-dimer PT 17.4 Seconds (9.4-12.1) H 01/06/18 10:46 - Impressions Impressions KUB X-Ray 01/05/18 21:52 IMPRESSION: Redemonstration of large stool burden throughout air-filled dilated colon. Feeding tube projects over the mid abdomen. D/ / 01/06/2018 07:14:13 Jimenez Tim MD / [email or web address] Interpreting Provider: Jimenez Tim MD X-Ray 01/06/18 15:45 IMPRESSION: Mild to moderate gaseous dilation of both large and small bowel, suggesting ileus. Overall, the degree of bowel dilation is stable mildly decreased when compared to the previous exam. Moderate to large stool burden, which appears decreased when compared to the previous exam. D/ / Naeem Puente MD / Naeem Puente MD Interpreting Provider: Naeem Puente MD Consult Discharge Plan - Plan Referrals: Yanet Armstrong MD [Primary Care Provider] - Palliative Quality Palliative Quality: Screen for Code Status: NA (Awaiting return call or guardian visit), Screen for Goals of Care: NA, Screen for Pain: NA, If Pain Regimen Started, Initiate Bowel Regimen: NA, Screen for Nausea/Vomitting: NA Code Status: 12/26/17 15:45 Resuscitation Status: Active [RES] Routine Comment: Resuscitation Status: Full Code
--- NOTE | 2018-01-07 15:26 | Internal Med Progress Note ---
Date of Encounter: 01/07/18 Time of Encounter: 09:35 - Assessment and plan (1) Aspiration pneumonia Current Visit: Yes Status: Acute Assessment and plan: Continue Unasyn. Leukocytosis persists. Patient remains at risk for aspiration. We will resume tube feeds at a lower rate we will keeping the patient on aspiration precautions. Qualifiers: Aspiration pneumonia type: due to gastric secretions Laterality: left Lung location: lower lobe of lung Qualified Code(s): J69.0 - Pneumonitis due to inhalation of food and vomit (2) Respiratory failure Current Visit: Yes Status: Resolved Assessment and plan: Patient maintaining oxygen sats at 90% on room air (3) Acute kidney injury Current Visit: Yes Status: Acute Assessment and plan: Patient's renal function continues to worsen. We will continue IV hydration with D5 water. Nephrology following. (4) Urinary tract infection Current Visit: Yes Status: Resolved Assessment and plan: Completed antibiotic treatment for UTI Qualifiers: Urinary tract infection type: site unspecified Hematuria presence: with hematuria Qualified Code(s): N39.0 - Urinary tract infection, site not specified; R31.9 - Hematuria, unspecified; R31.9 - Hematuria, unspecified (5) Encephalopathy acute Current Visit: Yes Status: Acute Assessment and plan: Patient appears to be at his baseline. Has not shown much improvement in his mental status here. (6) Diabetes insipidus Current Visit: Yes Status: Acute Assessment and plan: Hyponatremia worsening. Due to inadequate fluid intake. We will continue IV hydration. Resume tube feeds today. We will resume free water flushes. (7) Developmental delay, moderate Current Visit: Yes Status: Chronic Assessment and plan: Unable to give usual medications due to nothing by mouth status and aspiration precautions. We will consult palliative care to discuss goals of care with caregiver (8) Dysphagia Current Visit: Yes Status: Chronic Assessment and plan: Keep nothing by mouth. We will resume tube feeds at a slower rate. Patient's has xerostomia. Consulted ENT to evaluate oropharynx. We will follow recommendations based on their evaluation. Qualifiers: Dysphagia type: oropharyngeal phase Qualified Code(s): R13.12 - Dysphagia, oropharyngeal phase (9) Protein-calorie malnutrition, severe Current Visit: Yes Status: Acute Assessment and plan: Patient continues to have malnutrition as he has not tolerated tube feeds well so far. Will resume tube feeds at a slower rate. Also consulted palliative care to discuss goals of care (10) Constipation Current Visit: Yes Status: Acute Assessment and plan: Ordered another enema today. KUB x-ray showed continued constipation. Qualifiers: Constipation type: chronic idiopathic constipation Qualified Code(s): K59.04 - Chronic idiopathic constipation - Time Spent With Patient Total time spent is greater than 50% in coordination of care (as documented) at patient's floor/unit and/or counseling patient: - Subjective Interval history: Patient has been tachycardic. He appears restless but unable to communicate what is bothering him. Seems to be holding his Kauffman catheter intermittently but has not tried to pull it out. He has also not been crying or complaining of pain. Remains off tube feeds due to aspiration. Temperature normal this morning - Constitutional Vitals: Temp Pulse Resp BP Pulse Ox 100.1 F H 137 18 102/71 89 01/07/18 10:53 01/07/18 10:53 01/07/18 10:53 01/07/18 10:53 01/07/18 10:53 General appearance: Present: cooperative, underweight. Absent: answers questions appropriately Exam: Patient is alert but does not follow commands - ENT ENT exam: Present: mucous membranes dry - Respiratory Respiratory exam: Absent: accessory muscle use, rales, rhonchi, wheezes Additional comments: Coarse crackles bilaterally - Cardiovascular Cardiovascular exam: Present: RRR, +S1, +S2, tachycardia. Absent: diastolic murmur, gallop, rubs, systolic murmur - GI/Abdominal GI/Abdominal exam: Present: normal bowel sounds, soft, no peritoneal signs. Absent: distended, tenderness - Neurological Exam Neurological exam: Present: alert, strengths equal and symetr throughout. Absent: facial droop - Skin Skin exam: Present: dry, intact Internal Medicine: Result - Labs CBC & Chem 7: 01/07/18 10:02 01/07/18 10:02 Labs: Short CBC 01/07/18 Range/Units 10:02 WBC 15.0 H (4.3-11.1) K/mcL Hgb 13.8 (12.9-16.9) g/dL Hct 44.9 (37.5-50.1) % Plt Count 455 H (140-400) K/mcL Neutrophils # 13.4 H (1.6-8.9) K/mcL BMP 01/07/18 10:02 Sodium 152 H Potassium 4.5 Chloride 125 H Carbon Dioxide 19 L BUN 40 H Creatinine 1.98 H Glucose 252 H Calcium 10.2 - ABG Interpretation ABG results: ABG ABG pH 7.44 pH Units (7.32-7.45) 12/30/17 04:49 ABG pCO2 35 mmHg (35-45) 12/30/17 04:49 ABG pO2 73 mmHg (85-104) L 12/30/17 04:49 ABG O2 Saturation 95 % (95-98) 12/30/17 04:49 PT/INR, D-dimer PT 17.4 Seconds (9.4-12.1) H 01/06/18 10:46 - Impressions Impressions KUB X-Ray 01/05/18 21:52 IMPRESSION: Redemonstration of large stool burden throughout air-filled dilated colon. Feeding tube projects over the mid abdomen. D/ / 01/06/2018 07:14:13 Jimenez Tim MD / jerry Interpreting Provider: Jimenez Tim MD X-Ray 01/06/18 15:45 IMPRESSION: Mild to moderate gaseous dilation of both large and small bowel, suggesting ileus. Overall, the degree of bowel dilation is stable mildly decreased when compared to the previous exam. Moderate to large stool burden, which appears decreased when compared to the previous exam. D/ / Naeem Puente MD / Naeem Puente MD Interpreting Provider: Naeem Puente MD Consult Discharge Plan - Plan Referrals: Yanet Armstrong MD [Primary Care Provider] -
--- NOTE | 2018-01-07 16:28 | ENT - Consult Note ---
Date of Encounter: 01/07/18 Time of Encounter: 12:05 Assessment and Plan (1) Aspiration pneumonia Current Visit: Yes Status: Acute Qualifiers: Aspiration pneumonia type: due to gastric secretions Laterality: left Lung location: lower lobe of lung Qualified Code(s): J69.0 - Pneumonitis due to inhalation of food and vomit (2) Dysphagia Current Visit: Yes Status: Chronic Patient had endoscopic evaluation of nasal cavity and nasopharynx oropharynx hypopharynx larynx and also examination of oral cavity which reveals severe dry mucosa/xerostomia, he has dry thick taking mucus throughout but not obstructing his airway. He has moderate erythema also but no airway obstruction and no evidence of deep tissue infection. He is on Zosyn which should cover the superficial infection. Reccommend increased hydration if able to tolerate through the IV. Would also recommend oral hygiene using glycerin mouth swabs frequently as well as recommend blow-by humidified air either by Ventimask's or other mean. Qualifiers: Dysphagia type: oropharyngeal phase Qualified Code(s): R13.12 - Dysphagia, oropharyngeal phase History of Present Illness History of present illness: Mr. Varghese is a 62-year-old male with severe developmental delay admitted on December 26 for respiratory distress which required intubation. He was subsequently extubated, and and the history has been obtained from review of records and conversation with nursing staff, which revealed that in his recovery he was not handling his secretions well which required PEG placement on January 03 but despite this had been having aspiration with pneumonia and abnormal x-ray on the / with a left lower lobe infiltrates he has been placed on nothing by mouth status since then and is in consideration of J-tube placement. He continues to have difficulties tolerating by mouth intake is on IV proton pump inhibitors and also IV Zosyn for MRSA. When the PEG was placed there was noted to be swelling in his throat and erythema and I was asked to evaluate the patient's pharynx and larynx and oral upper airway. He does not have any stridor he is not able to communicate because of his severe developmental delay, Past Med Surg Social Fam HX - Past Medical History Medical history: arthritis, COPD, osteoporosis, thyroid disease, other Psychiatric history: anxiety, depression, other - Past Surgical History Surgical History: herniorrhaphy - Social History Smoking Status: Never smoker Smokeless Tobacco Status: No Alcohol use: none Drug use: none Medications and Allergies Acetaminophen [Non-Aspirin] 650 mg PO Q4H PRN 12/26/17 [History] Albuterol Neb [Proventil Neb] 2.5 mg IH QID PRN 12/26/17 [History] Alendronate Sodium [Fosamax] 70 mg PO TH 12/26/17 [History] Benztropine Mesylate 2 mg PO HS 12/26/17 [History] Benztropine [Cogentin] 1 mg PO QAM 12/26/17 [History] Buspirone HCl [Buspar] 20 mg PO BID 12/26/17 [History] Calcium Carbonate/Vitamin D3 [Oyster Shell Calcium-Vit D Tab] 1 tab PO BID 12/26 [History] Cholecalciferol (Vitamin D3) [Vitamin D] 1,000 unit PO DAILY 12/26/17 [History] Docusate Sodium [Dok] 100 mg PO BID 12/26/17 [History] Fluticasone Propionate Nasal [Flonase] 1 spr NS DAILY 12/26/17 [History] Fluvoxamine Maleate 50 mg PO BID 12/26/17 [History] Ibuprofen [Motrin Ib] 400 mg PO Q6H PRN 12/26/17 [History] LORazepam [Ativan] 1 mg PO BID 12/26/17 [History] Levothyroxine [Synthroid] 100 mcg PO DAILY 12/26/17 [History] [place] Carbonate 300 mg PO BID 12/26/17 [History] Loperamide [Imodium] 4 mg PO DAILY PRN 12/26/17 [History] Magnesium Hydroxide [Milk of Magnesia] 2,400 mg PO DAILY PRN 12/26/17 [History] OLANZapine [Zyprexa] 10 mg PO QAM 12/26/17 [History] OLANZapine [Zyprexa] 20 mg PO HS 12/26/17 [History] Polyethylene Glycol 3350 [Gavilax] 17 gm PO DAILY 12/26/17 [History] Sennosides/Docusate Sodium [Senna-S Tablet] 2 tab PO HS 12/26/17 [History] Tamsulosin [Flomax] 0.4 mg PO DAILY 12/26/17 [History] Xyzal 5 mg PO DAILY 12/26/17 [History] carBAMazepine [CarBAMazepine] 100 mg PO QAM 12/26/17 [History] carBAMazepine [CarBAMazepine] 200 mg PO HS 12/26/17 [History] fluvoxaMINE [Luvox] 100 mg PO BID 12/26/17 [History] 3 Allergy/AdvReac Type Severity Reaction Status Date / Time No Known Allergies Allergy Verified 10/15/17 19:33 ENT Exam Initial Vital Signs Temp Pulse Resp BP Pulse Ox 97.9 F 105 16 113/78 94 12/26/17 06:31 12/26/17 06:31 12/26/17 06:31 12/26/17 06:31 12/26/17 06:31 - General physical appearance cachectic, chronically ill, other (Patient is awake and laying in position and not able to communicate because of his mental developmental disorder) - Eyes PERRL, normal ocular movement - ENT normal pinna, normal nares, Other (Patient has dry thick crusting debris within the nasal cavity and oral cavity with severe xerostomia. He is edentulous. He has no mass or lesions or ulcerations. Further examination of nasal cavity pharynx and larynx will be dictated on procedure note) - Neck no masses, trachea midline, no lymphadectomy - Respiratory normal expansion, normal respiratory effort, other (No stridor,) - Abdomen Abdomen: soft, non tender (PEG tube with dressing dry) - Neurologic CN 2-12 grossly intact - Psychiatric other (Patient unable to communicate verbally but is cooperative with exam) Exam Initial Vital Signs Temp Pulse Resp BP Pulse Ox 97.9 F 105 16 113/78 94 12/26/17 06:31 12/26/17 06:31 12/26/17 06:31 12/26/17 06:31 12/26/17 06:31 Results - Labs 01/07/18 10:02 01/07/18 10:02 Abnormal lab results WBC 15.0 K/mcL (4.3-11.1) H 01/07/18 10:02 MCV 101.8 fL (83.0-100.0) H 01/07/18 10:02 MCHC 30.7 g/dL (31.6-35.5) L 01/07/18 10:02 RDW 14.9 % (11.5-14.5) H 01/07/18 10:02 Plt Count 455 K/mcL (140-400) H 01/07/18 10:02 Neutrophils # 13.4 K/mcL (1.6-8.9) H 01/07/18 10:02 Nucleated RBCs/100 WBC 0.4 /100 WBC (0) H 01/04/18 03:13 PT 17.4 Seconds (9.4-12.1) H 01/06/18 10:46 ABG pO2 73 mmHg (85-104) L 12/30/17 04:49 Sodium 152 mEq/L (136-145) H 01/07/18 10:02 Chloride 125 mEq/L (98-107) H 01/07/18 10:02 Carbon Dioxide 19 mEq/L (23-29) L 01/07/18 10:02 BUN 40 mg/dL (8-23) H 01/07/18 10:02 Creatinine 1.98 mg/dL (0.70-1.30) H 01/07/18 10:02 Est GFR ( Amer) 42 (> 60) L 01/07/18 10:02 Est GFR (Non-Af Amer) 35 (> 60) L 01/07/18 10:02 Glucose 252 mg/dL (70-105) H 01/07/18 10:02 POC Glucose 109 mg/dL (70-99) H 01/07/18 04:32 Serum Osmolality 330 mOsm/kg (280-300) H 12/28/17 10:26 Calculated Osmolality 332 (280-300) H 01/07/18 10:02 AST 57 Units/L (13-39) H 12/26/17 07:58 ALT 67 Units/L (7-52) H 12/26/17 07:58 Globulin 3.9 g/dL (2.4-3.5) H 12/26/17 07:58 Albumin/Globulin Ratio 0.9 (1.1-2.2) L 12/26/17 07:58 Urine Clarity Cloudy (Clear) A 12/26/17 07:39 Urine Protein 30 mg/dL (Neg-Trace) H 12/26/17 07:39 Urine Blood Moderate (Negative) H 12/26/17 07:39 Urine Nitrite Positive (Negative) A 12/26/17 07:39 Ur Leukocyte Esterase Large (Negative) H 12/26/17 07:39 Urine Microscopic RBC 30-50 per hpf (0-3) H 12/26/17 07:39 Urine Microscopic WBC TNTC per hpf (0-3) H 12/26/17 07:39 Urine Bacteria Many per hpf (None-Few) H 12/26/17 07:39 Urine Osmolality 164 mOsm/kg (300-1090) L 01/01/18 09:55 Nasal Screen MRSA (PCR) Positive (Negative) A 12/30/17 19:41 Salicylates < 2.5 mg/dL (15.0-30.0) L 12/26/17 07:58 Acetaminophen < 10 mcg/mL (10-20) L 12/26/17 07:58 Diabetes panel 01/07/18 Range/Units 10:02 Sodium 152 H (136-145) mEq/L Potassium 4.5 (3.5-5.1) mEq/L Chloride 125 H (98-107) mEq/L Carbon Dioxide 19 L (23-29) mEq/L BUN 40 H (8-23) mg/dL Creatinine 1.98 H (0.70-1.30) mg/dL Glucose 252 H (70-105) mg/dL Calcium 10.2 (8.6-10.3) mg/dL Calcium panel 01/07/18 Range/Units 10:02 Calcium 10.2 (8.6-10.3) mg/dL Pituitary panel 01/07/18 Range/Units 10:02 Sodium 152 H (136-145) mEq/L Potassium 4.5 (3.5-5.1) mEq/L Chloride 125 H (98-107) mEq/L Carbon Dioxide 19 L (23-29) mEq/L BUN 40 H (8-23) mg/dL Creatinine 1.98 H (0.70-1.30) mg/dL Glucose 252 H (70-105) mg/dL Calcium 10.2 (8.6-10.3) mg/dL Adrenal panel 01/07/18 Range/Units 10:02 Sodium 152 H (136-145) mEq/L Potassium 4.5 (3.5-5.1) mEq/L Chloride 125 H (98-107) mEq/L Carbon Dioxide 19 L (23-29) mEq/L BUN 40 H (8-23) mg/dL Creatinine 1.98 H (0.70-1.30) mg/dL Glucose 252 H (70-105) mg/dL Calcium 10.2 (8.6-10.3) mg/dL All other labs normal. Consult Discharge Plan - Plan Referrals: Yanet Armstrong MD [Primary Care Provider] -
--- NOTE | 2018-01-07 16:47 | ENT - Procedure Note ---
Date of procedure: 01/07/18 Pre-op diagnosis: Dysphagia and aspiration Post-op diagnosis: same Procedure: Flexible bedside nasal pharyngeal laryngoscopy was performed. Hvac Service Tech included nurse practitioner Henri and other nursing staff immobilize the patient. He was verbally consulted and then the topical nasal decongestant and lidocaine spray was sprayed in each nostril. Semination of each side of the nasal cavity and nasopharynx oropharynx hypopharynx and larynx was performed. He was noted to have no mass or lesions, no epiglottitis no airway obstruction. He was noted to have diffuse dry thick yellowish green mucus scattered throughout all areas but not obstructing the larynx; vocal cords had normal mobility and there was no pooling of secretions in the vallecula nor piriform sinuses nor laryngeal vestibule. he tolerated the procedure well , the endoscope was removed without incident Anesthesia: topical (Topical nasal decongestant and lidocaine spray) Surgeon: Jalil Herring Was there an assistant plant control operator present: Yes Hvac Service Tech: Yareli Álvarez Estimated blood loss (cc): 0 Specimens collected: none Condition: stable
[2018-01-07] MEDS: Pantoprazole 40 MG VIAL IVP SCH (17:00)
[2018-01-07] MEDS ORDERED: Milk and Molasses Enema 200 ML RC ONE (18:31)
--- NOTE | 2018-01-08 00:02 | Nephrology Progress Note ---
Date of Encounter: 01/08/18 Time of Encounter: 12:00 - Assessment and Plan (1) Hypernatremia Status: Resolved Sodium worsening at 152 despite D5W and free water flushes, will increase Continue diuretics at current doses for DI UOp noted decrease 1200cc due to decrease volume overall Continue desmopressin for now, may taper to dailly from bid once sodium issue fully stabilized (2) Acute encephalopathy Status: Acute Per primary team Palliative acre to help with goals of care (3) Acute kidney injury Status: Acute Scr worsening likely due to decreased fluids vs daily NSAIDs use now discontinued Should improve with fluids as volume depletion very likely with >3liters uop in DI Subjective Principal diagnosis: acute respiratory failure Interval history: Pt seen and examined with sitter at bedside. Feeds resumed at a lower rate. palliative care consulted Objective - Vital Signs Vital signs: Vital Signs Temp Pulse Resp BP Pulse Ox 01/07/18 22:30 98.0 F 121 14 118/84 90 01/07/18 19:00 98.1 F 120 14 147/92 90 01/07/18 15:19 99.7 F H 133 18 128/89 89 01/07/18 10:53 100.1 F H 137 18 102/71 89 01/07/18 06:43 98.9 F 87 16 121/69 90 01/07/18 04:35 98.9 F 122 24 133/90 91 01/07/18 00:08 98.2 F 91 22 143/89 92 Intake and Output 01/07/18 01/07/18 01/08/18 15:59 23:59 07:59 Intake Total 100 / 100 1400 / 1400 Output Total 900 / 900 900 / 900 Balance -800 / -800 500 / 500 Intake: IV Fluids 100 / 100 1100 / 1100 Dextrose 5% 1,000 ML @ 75 mls/ 1000 / 1000 hr IVC .[id number] [facility] Rx#: [id number] Unasyn 3,000 MG In 0.9 % Sodium 100 / 100 100 / 100 Chloride (Mini-Bag +) 100 ML @ 200 mls/hr IVPB Q6HR [facility] Rx#: [id number] Other 50 / 50 Free Water 250 / 250 Output: Urine 900 / 900 Catheter 900 / 900 Other: Blood Glucose* 171 127 - General Appearance General appearance: Present: frail EENT: Present: ATNC, mucous membranes dry Neck: Present: no JVD, supple Respiratory: Present: course breath sounds Cardiology: Present: no edema, normal S1, normal S2 Gastrointestinal: Present: no tenderness, no guarding (+PEG) Integumentary: Present: warm and dry Neurologic: Present: disoriented Musculoskeletal: Present: no deformities Psychiatric: Present: agitated - Lab 01/16/18 04:00 01/16/18 04:00 Most recent lab results ABG pH 7.44 pH Units (7.32-7.45) 12/30/17 04:49 ABG pCO2 35 mmHg (35-45) 12/30/17 04:49 ABG pO2 73 mmHg (85-104) L 12/30/17 04:49 ABG HCO3 24 mEq/L (21-27) 12/30/17 04:49 ABG O2 Saturation 95 % (95-98) 12/30/17 04:49 Calcium 10.2 mg/dL (8.6-10.3) 01/07/18 10:02 Phosphorus 4.0 mg/dL (2.7-4.5) 01/04/18 03:13 Magnesium 2.4 mg/dL (1.6-2.6) 01/04/18 03:13 Urine Creatinine 70 mg/dL 12/27/17 04:00 Urine Sodium 36.4 mEq/L 12/31/17 01:25 Consult Discharge Plan - Plan Referrals: Yanet Armstrong MD [Primary Care Provider] - Prescriptions: LORazepam Oral Conc [Ativan Oral Conc] 1 mg PO Q6HR PRN 7 Days #30 mls PRN Reason: anxiety/restlessness Haloperidol Oral Conc [Haldol] 2 mg PO Q6H #30 mls MORPHINE SUL Oral CONC [Roxanol Oral Conc] 5 mg SL Q4H 7 Days #30 oral.syg
[2018-01-08] MEDS: *HR* LORazepam 2 MG/ML VIAL IVP PRN (02:35)
[2018-01-08] MEDS ORDERED: 0.45 % Sodium Chloride 500 ML IV.SOLN IVC ONE (02:40)
[2018-01-08 03:35] LABS: Basophils # 0.1 K/mcL (0.0-0.2); Basophils % 0.3 %; Eosinophils # 0.1 K/mcL (0.0-0.6); Eosinophils % 0.3 %; Hematocrit 42.8 % (37.5-50.1); Hemoglobin 13.2 g/dL (12.9-16.9); Immature Granulocytes % 0.4 % (0-4); Lymphocytes # 1.5 K/mcL (0.6-4.6); Lymphocytes % 9.5 %; Mean Corpuscular HGB Conc 30.8 g/dL (31.6-35.5); Mean Corpuscular Hemoglobin 31.8 pg (28.0-33.3); Mean Corpuscular Volume 103.1 fL (83.0-100.0); Mean Platelet Volume 10.8 fL (9.4-12.4); Monocytes # 0.6 K/mcL (0.0-1.3); Neutrophils # 13.7 K/mcL (1.6-8.9); Platelet Count 413 K/mcL (140-400); Red Blood Count 4.15 M/mcL (4.19-5.50); Segmented Neutrophils % 85.5 %
[2018-01-08 03:54] LABS: Calcium 10.2 mg/dL (8.6-10.3); Potassium 3.9 mEq/L (3.5-5.1)
[2018-01-08] MEDS ORDERED: *HR* Metoprolol 5 MG/5 ML VIAL IVP ONE (03:59)
[2018-01-08] MEDS: Ampicillin/Sulbactam 3,000 MG in 0.9 % Sodium Chloride Mini Bag 100 ML IVPB SCH ×2 (05:21→12:21)
[2018-01-08] MEDS: *HR* Heparin 5,000 UNIT/ML VIAL SQ SCH ×2 (05:22→16:54)
[2018-01-08] MEDS: D5% in Water 1,000 ML IVC SCH ×2 (06:13→16:53)
--- NOTE | 2018-01-08 09:36 | Palliative Progress Note ---
Date of Encounter: 01/08/18 Time of Encounter: 09:40 - Assessment and plan (1) Cachexia Current Visit: Yes Status: Acute Assessment and plan: Remains on tube feeding. (2) Constipation Current Visit: Yes Status: Acute Assessment and plan: No BM documented from enema, hospitalist to most likely order Lactulose today Qualifiers: Constipation type: chronic idiopathic constipation Qualified Code(s): K59.04 - Chronic idiopathic constipation (3) Counseling regarding advanced care planning and goals of care Current Visit: Yes Status: Acute Assessment and plan: Patient guardian to come to hospital at [phone] to discuss goals of care. Will f/u this afternoon. (4) Acute kidney injury Current Visit: Yes Status: Acute (5) Aspiration pneumonia Current Visit: Yes Status: Acute Qualifiers: Aspiration pneumonia type: due to gastric secretions Laterality: left Lung location: lower lobe of lung Qualified Code(s): J69.0 - Pneumonitis due to inhalation of food and vomit (6) Diabetes insipidus Current Visit: Yes Status: Acute Assessment and plan: Nephrology continues to follow - Time Spent With Patient Total time spent is greater than 50% in coordination of care (as documented) at patient's floor/unit and/or counseling patient: - Subjective Interval history: Patient less interactive today - eyes open, no verbal response. Less restless than yesterday. WBC continues to elevate 16,000, Sodium has increased to 158 despite free water flushes. No BM from Milk of molasses enema. D/W Dr. Sevilla - may give Lactulose today. - Constitutional Vitals: Abnormal lab results WBC 16.0 K/mcL (4.3-11.1) H 01/08/18 03:19 RBC 4.15 M/mcL (4.19-5.50) L 01/08/18 03:19 MCV 103.1 fL (83.0-100.0) H 01/08/18 03:19 MCHC 30.8 g/dL (31.6-35.5) L 01/08/18 03:19 RDW 15.0 % (11.5-14.5) H 01/08/18 03:19 Plt Count 413 K/mcL (140-400) H 01/08/18 03:19 Neutrophils # 13.7 K/mcL (1.6-8.9) H 01/08/18 03:19 Nucleated RBCs/100 WBC 0.4 /100 WBC (0) H 01/04/18 03:13 PT 17.4 Seconds (9.4-12.1) H 01/06/18 10:46 ABG pO2 73 mmHg (85-104) L 12/30/17 04:49 Sodium 158 mEq/L (136-145) H 01/08/18 03:19 Chloride 129 mEq/L (98-107) H 01/08/18 03:19 Carbon Dioxide 22 mEq/L (23-29) L 01/08/18 03:19 BUN 49 mg/dL (8-23) H 01/08/18 03:19 Creatinine 2.32 mg/dL (0.70-1.30) H 01/08/18 03:19 Est GFR ( Amer) 35 (> 60) L 01/08/18 03:19 Est GFR (Non-Af Amer) 29 (> 60) L 01/08/18 03:19 Glucose 141 mg/dL (70-105) H 01/08/18 03:19 POC Glucose 130 mg/dL (70-99) H 01/08/18 02:42 Serum Osmolality 330 mOsm/kg (280-300) H 12/28/17 10:26 Calculated Osmolality 341 (280-300) H 01/08/18 03:19 AST 57 Units/L (13-39) H 12/26/17 07:58 ALT 67 Units/L (7-52) H 12/26/17 07:58 Globulin 3.9 g/dL (2.4-3.5) H 12/26/17 07:58 Albumin/Globulin Ratio 0.9 (1.1-2.2) L 12/26/17 07:58 Urine Clarity Cloudy (Clear) A 12/26/17 07:39 Urine Protein 30 mg/dL (Neg-Trace) H 12/26/17 07:39 Urine Blood Moderate (Negative) H 12/26/17 07:39 Urine Nitrite Positive (Negative) A 12/26/17 07:39 Ur Leukocyte Esterase Large (Negative) H 12/26/17 07:39 Urine Microscopic RBC 30-50 per hpf (0-3) H 12/26/17 07:39 Urine Microscopic WBC TNTC per hpf (0-3) H 12/26/17 07:39 Urine Bacteria Many per hpf (None-Few) H 12/26/17 07:39 Urine Osmolality 164 mOsm/kg (300-1090) L 01/01/18 09:55 Nasal Screen MRSA (PCR) Positive (Negative) A 12/30/17 19:41 Salicylates < 2.5 mg/dL (15.0-30.0) L 12/26/17 07:58 Acetaminophen < 10 mcg/mL (10-20) L 12/26/17 07:58 General appearance: Present: no acute distress - Respiratory Respiratory exam: Present: decreased breath sounds, CTAB - Cardiovascular Cardiovascular exam: Present: +S1, +S2 - GI/Abdominal GI/Abdominal exam: Present: diminished bowel sounds, soft Additional comments: PEG intact with abd binder in place - Additional comments: Kauffman patent with light yellow urine - Extremities Exam Extremities exam: Present: normal capillary refill, normal inspection - Neurological Exam Additional comments: Eyes open but not following commands, no verbal response for me today. Does move extremities with assessment. - Skin Skin exam: Present: dry, warm Palliative Quality Palliative Quality: Screen for Code Status: NA (Awaiting return call or guardian visit), Screen for Goals of Care: NA, Screen for Pain: NA, If Pain Regimen Started, Initiate Bowel Regimen: NA, Screen for Nausea/Vomitting: NA Code Status: 12/26/17 15:45 Resuscitation Status: Active [RES] Routine Comment: Resuscitation Status: Full Code - Labs CBC & Chem 7: 01/08/18 03:19 01/08/18 03:19 Labs: Laboratory Results - last 24 hr 01/07/18 01/07/18 01/07/18 08:14 10:02 10:02 WBC 15.0 H RBC 4.41 Hgb 13.8 Hct 44.9 MCV 101.8 H MCH 31.3 MCHC 30.7 L RDW 14.9 H Plt Count 455 H MPV 10.8 Immature Gran % 0.3 Seg Neutrophils % 89.5 Lymphocytes % 5.4 Monocytes % 4.1 Eosinophils % 0.4 Basophils % 0.3 Neutrophils # 13.4 H Lymphocytes # 0.8 Monocytes # 0.6 Eosinophils # 0.1 Basophils # 0.1 Sodium 152 H Potassium 4.5 Chloride 125 H Carbon Dioxide 19 L BUN 40 H Creatinine 1.98 H Est GFR ( Amer) 42 L Est GFR (Non-Af Amer) 35 L BUN/Creatinine Ratio 20 Glucose 252 H POC Glucose 101 H Calculated Osmolality 332 H Lactic Acid Calcium 10.2 01/07/18 01/07/18 01/07/18 10:02 12:15 22:36 WBC RBC Hgb Hct MCV MCH MCHC RDW Plt Count MPV Immature Gran % Seg Neutrophils % Lymphocytes % Monocytes % Eosinophils % Basophils % Neutrophils # Lymphocytes # Monocytes # Eosinophils # Basophils # Sodium Potassium Chloride Carbon Dioxide BUN Creatinine Est GFR ( Amer) Est GFR (Non-Af Amer) BUN/Creatinine Ratio Glucose POC Glucose 171 H 127 H Calculated Osmolality Lactic Acid 1.1 Calcium 01/08/18 01/08/18 01/08/18 02:42 03:19 03:19 WBC 16.0 H RBC 4.15 L Hgb 13.2 Hct 42.8 MCV 103.1 H MCH 31.8 MCHC 30.8 L RDW 15.0 H Plt Count 413 H MPV 10.8 Immature Gran % 0.4 Seg Neutrophils % 85.5 Lymphocytes % 9.5 Monocytes % 4.0 Eosinophils % 0.3 Basophils % 0.3 Neutrophils # 13.7 H Lymphocytes # 1.5 Monocytes # 0.6 Eosinophils # 0.1 Basophils # 0.1 Sodium 158 H Potassium 3.9 Chloride 129 H Carbon Dioxide 22 L BUN 49 H Creatinine 2.32 H Est GFR ( Amer) 35 L Est GFR (Non-Af Amer) 29 L BUN/Creatinine Ratio 21 Glucose 141 H POC Glucose 130 H Calculated Osmolality 341 H Lactic Acid Calcium 10.2 - ABG Interpretation ABG results: ABG ABG pH 7.44 pH Units (7.32-7.45) 12/30/17 04:49 ABG pCO2 35 mmHg (35-45) 12/30/17 04:49 ABG pO2 73 mmHg (85-104) L 12/30/17 04:49 ABG O2 Saturation 95 % (95-98) 12/30/17 04:49 PT/INR, D-dimer PT 17.4 Seconds (9.4-12.1) H 01/06/18 10:46 Consult Discharge Plan - Plan Referrals: Yanet Armstrong MD [Primary Care Provider] -
[2018-01-08] MEDS: Pantoprazole 40 MG VIAL IVP SCH (10:04)
[2018-01-08] MEDS: aMILoride 5 MG TABLET PO SCH (10:05)
[2018-01-08] MEDS: CarBAMazepine 100 MG TABLET PO SCH ×3 (10:06→21:59)
[2018-01-08] MEDS: *HR* LORazepam 1 MG TABLET PO SCH ×2 (10:07→22:00)
[2018-01-08] MEDS: OLANZapine 10 MG TAB.RAPDIS PO SCH ×2 (10:07→21:57)
[2018-01-08] MEDS: Desmopressin Acetate SPRAY 5 ML BOTTLE NS SCH ×2 (10:25→22:00)
[2018-01-08] MEDS: Fluticasone Propionate Nasal 50 MCG/SPRAY BOTTLE NS SCH (10:26)
[2018-01-08] MEDS: Lactulose Oral Soln 20 GM/30 ML UDC GTUBE SCH ×2 (14:24→21:56)
--- NOTE | 2018-01-08 16:05 | Internal Med Progress Note ---
Date of Encounter: 01/08/18 Time of Encounter: 16:00 - Assessment and plan (1) Aspiration pneumonia Current Visit: Yes Status: Acute Assessment and plan: Continue Unasyn. We will repeat chest x-ray. WBC count remains elevated. Patient continues to be at risk for aspiration Qualifiers: Aspiration pneumonia type: due to gastric secretions Laterality: left Lung location: lower lobe of lung Qualified Code(s): J69.0 - Pneumonitis due to inhalation of food and vomit (2) Acute kidney injury Current Visit: Yes Status: Acute Assessment and plan: Renal function continues to worsen. Nephrology following. Continue IV hydration and free water flushes. Prerenal due to decreased fluid intake. (3) Respiratory failure Current Visit: Yes Status: Resolved Assessment and plan: Remains on room air. (4) Urinary tract infection Current Visit: Yes Status: Resolved Qualifiers: Urinary tract infection type: site unspecified Hematuria presence: with hematuria Qualified Code(s): N39.0 - Urinary tract infection, site not specified; R31.9 - Hematuria, unspecified; R31.9 - Hematuria, unspecified (5) Encephalopathy acute Current Visit: Yes Status: Acute Assessment and plan: At baseline. Not following commands (6) Diabetes insipidus Current Visit: Yes Status: Acute Assessment and plan: Remains hyponatremic with worsening hypernatremia. Sodium 158 today. We will increase free water flushes as he is tolerating by mouth feeds. Also increase dextrose water infusion to 100 mL. Nephrology following. Continue DDAVP. High risk for complications. (7) Developmental delay, moderate Current Visit: Yes Status: Chronic (8) Dysphagia Current Visit: Yes Status: Chronic Assessment and plan: On tube feeds. So far tolerating tube feeds at a lower rate. We will slowly advance and continue to monitor for residuals. Remains at high risk for aspiration. Qualifiers: Dysphagia type: oropharyngeal phase Qualified Code(s): R13.12 - Dysphagia, oropharyngeal phase (9) Protein-calorie malnutrition, severe Current Visit: Yes Status: Acute Assessment and plan: Advance tube feeds as tolerated. (10) Constipation Current Visit: Yes Status: Acute Assessment and plan: Did not have a bowel movement yesterday evening after enema. Will place patient on lactulose orally. If no improvement, consider lactulose enema Qualifiers: Constipation type: chronic idiopathic constipation Qualified Code(s): K59.04 - Chronic idiopathic constipation - Time Spent With Patient Total time spent is greater than 50% in coordination of care (as documented) at patient's floor/unit and/or counseling patient: - Subjective Interval history: Patient is awake and alert. Does not follow commands. Does not appear to be in any distress at this time but remains restless. Tolerating tube feeds at 20 mL/hr. No fever reported overnight. - Constitutional Vitals: Temp Pulse Resp BP Pulse Ox 97.5 F L 119 16 127/85 90 01/08/18 11:31 01/08/18 11:31 01/08/18 11:31 01/08/18 11:31 01/08/18 11:31 General appearance: Present: cooperative, underweight. Absent: answers questions appropriately - ENT ENT exam: Present: mucous membranes dry - Respiratory Respiratory exam: Present: CTAB. Absent: accessory muscle use, rales, rhonchi, wheezes - Cardiovascular Cardiovascular exam: Present: RRR, +S1, +S2, tachycardia. Absent: diastolic murmur, gallop, rubs, systolic murmur - GI/Abdominal GI/Abdominal exam: Present: normal bowel sounds, soft, no peritoneal signs. Absent: distended, tenderness - Extremities Exam Extremities exam: Present: warm, radial pulses palpable and symmetrical. Absent : calf tenderness, cyanotic, pedal edema - Neurological Exam Neurological exam: Present: alert. Absent: facial droop - Skin Skin exam: Present: dry, intact Internal Medicine: Result - Labs CBC & Chem 7: 01/08/18 03:19 01/08/18 03:19 Labs: Short CBC 01/08/18 Range/Units 03:19 WBC 16.0 H (4.3-11.1) K/mcL Hgb 13.2 (12.9-16.9) g/dL Hct 42.8 (37.5-50.1) % Plt Count 413 H (140-400) K/mcL Neutrophils # 13.7 H (1.6-8.9) K/mcL BMP 01/08/18 03:19 Sodium 158 H Potassium 3.9 Chloride 129 H Carbon Dioxide 22 L BUN 49 H Creatinine 2.32 H Glucose 141 H Calcium 10.2 - ABG Interpretation ABG results: ABG ABG pH 7.44 pH Units (7.32-7.45) 12/30/17 04:49 ABG pCO2 35 mmHg (35-45) 12/30/17 04:49 ABG pO2 73 mmHg (85-104) L 12/30/17 04:49 ABG O2 Saturation 95 % (95-98) 12/30/17 04:49 PT/INR, D-dimer PT 17.4 Seconds (9.4-12.1) H 01/06/18 10:46 Consult Discharge Plan - Plan Referrals: Yanet Armstrong MD [Primary Care Provider] -
[2018-01-08] MEDS ORDERED: Bisacodyl 10 MG RECTAL SUPPOSITORY RC ONE (16:30)
--- NOTE | 2018-01-08 22:51 | Nephrology Progress Note ---
Date of Encounter: 01/08/18 Time of Encounter: 12:00 - Assessment and Plan (1) Hypernatremia Current Visit: Yes Status: Resolved Sodium worsening at 158 despite D5W and free water flushes(may not have been running simutaneously the whole time), will need to establish goal of care and level of aggressive measures, palliative care to discussed with state appointed guardian Continue diuretics at current doses for DI UOP increased back up to 3800cc in the past 24hrs Continue desmopressin for now, may taper to dailly from bid once sodium issue fully stabilized (2) Acute encephalopathy Current Visit: Yes Status: Acute Per primary team Palliative care to help with goals of care (3) Acute kidney injury Current Visit: Yes Status: Acute Scr worsening likely due to decreased fluids vs daily NSAIDs use now discontinued has not improved with fluids likely due to GI issues. volume depletion very likely with >3liters uop in DI No acute indication for [employer] at this time but needs to be discussed with guardian Subjective Principal diagnosis: acute respiratory failure Interval history: Pt seen and examined with sitter at bedside still nonverbal and overall not interactive Objective - Vital Signs Vital signs: Vital Signs Temp Pulse Resp BP Pulse Ox 01/08/18 19:04 98.6 F 114 16 121/82 94 01/08/18 16:32 98.6 F 112 14 114/81 96 01/08/18 11:31 97.5 F L 119 16 127/85 90 01/08/18 06:56 98.9 F 107 18 133/88 92 01/08/18 05:12 106 117/77 92 01/08/18 03:42 98.2 F 124 14 130/80 92 Intake and Output 01/08/18 01/08/18 01/08/18 07:59 15:59 23:59 Intake Total 850 / 850 240 / 240 1250 / 1250 Output Total 1050 / 1050 1500 / 1500 250 / 250 Balance -200 / -200 -1260 / -1260 1000 / 1000 Intake: IV Fluids 600 / 600 1000 / 1000 0.45% Sodium Chloride 1000 Ml 500 / 500 1000 Ml 500 ML @ 1000 mls/hr IVC ONCE ONE Rx#:[id number] Dextrose 5% 1,000 ML @ 100 mls/ 1000 / 1000 hr IVC .Q10H [place] Rx#:[id number] Unasyn 3,000 MG In 0.9 % Sodium 100 / 100 Chloride (Mini-Bag +) 100 ML @ 200 mls/hr IVPB Q6HR [facility] Rx#: [id number] Oral 0 / 0 Free Water 250 / 250 Free Water Intake Amount 240 / 240 250 / 250 Output: Urine 750 / 750 250 / 250 Catheter 1050 / 1050 750 / 750 Other: Meal feeding tube Stool Size Small Stool Consistency liquid Stool Color Brown # Bowel Movement Diapers 1 Blood Glucose* 131 110 117 - General Appearance General appearance: Present: chronically ill, fatigue, frail EENT: Present: ATNC, mucous membranes dry Neck: Present: no JVD, supple Respiratory: Present: course breath sounds Cardiology: Present: no edema, normal S1, normal S2 Gastrointestinal: Present: no tenderness, no guarding (+PEG) Integumentary: Present: warm and dry Neurologic: Present: disoriented Musculoskeletal: Present: no deformities Psychiatric: Present: cooperative - Lab 01/10/18 04:50 01/10/18 04:50 Most recent lab results ABG pH 7.44 pH Units (7.32-7.45) 12/30/17 04:49 ABG pCO2 35 mmHg (35-45) 12/30/17 04:49 ABG pO2 73 mmHg (85-104) L 12/30/17 04:49 ABG HCO3 24 mEq/L (21-27) 12/30/17 04:49 ABG O2 Saturation 95 % (95-98) 12/30/17 04:49 Calcium 10.2 mg/dL (8.6-10.3) 01/08/18 03:19 Phosphorus 4.0 mg/dL (2.7-4.5) 01/04/18 03:13 Magnesium 2.4 mg/dL (1.6-2.6) 01/04/18 03:13 Urine Creatinine 70 mg/dL 12/27/17 04:00 Urine Sodium 36.4 mEq/L 12/31/17 01:25 Consult Discharge Plan - Plan Referrals: Yanet Armstrong MD [Primary Care Provider] -
[2018-01-09] MEDS: Ampicillin/Sulbactam 3,000 MG in 0.9 % Sodium Chloride Mini Bag 100 ML IVPB SCH ×2 (01:08→12:54)
[2018-01-09] MEDS: D5% in Water 1,000 ML IVC SCH ×3 (02:53→23:10)
[2018-01-09 04:05] LABS: Magnesium 2.8 mg/dL (1.6-2.6); Phosphorous 3.6 mg/dL (2.7-4.5)
[2018-01-09] MEDS: *HR* Heparin 5,000 UNIT/ML VIAL SQ SCH ×2 (06:05→19:35)
--- NOTE | 2018-01-09 09:45 | Palliative Progress Note ---
Date of Encounter: 01/09/18 Time of Encounter: 09:30 - Assessment and plan (1) Cachexia Current Visit: Yes Status: Acute Assessment and plan: Tube feeding remains at 20ml/hr. (2) Constipation Current Visit: Yes Status: Acute Assessment and plan: Has had 2 liquids stools, although documented as small. Just began lactulose yesterday. Monitor Qualifiers: Constipation type: chronic idiopathic constipation Qualified Code(s): K59.04 - Chronic idiopathic constipation (3) Counseling regarding advanced care planning and goals of care Current Visit: Yes Status: Acute Assessment and plan: Met with pt guardian as well as group worker for follow up on goals of care discussion. Dr. Oakes and Dr. Sevilla also attended. Update on pt clinical status, lack of renal recovery, and poor prognosis. [facility] documents completed and signed by Dr. Oakes and myself. Faxed earlier this am. Will await manager strategic marketing decision regarding Dnr. If decision is made for DNRCC , guardian as well as skilled nursing staff would like to transition pt back to his home with [facility]. Will f/u this afternoon (4) Acute kidney injury Current Visit: Yes Status: Acute (5) Aspiration pneumonia Current Visit: Yes Status: Acute Qualifiers: Aspiration pneumonia type: due to gastric secretions Laterality: left Lung location: lower lobe of lung Qualified Code(s): J69.0 - Pneumonitis due to inhalation of food and vomit (6) Diabetes insipidus Current Visit: Yes Status: Acute - Time Spent With Patient Total time spent is greater than 50% in coordination of care (as documented) at patient's floor/unit and/or counseling patient: - Subjective Interval history: Patient more alert today, agitated and restless. Has been striking out at staff some. Does not follow commands. + BM x2 (small) documented from yesterday. - Constitutional Vitals: Abnormal lab results WBC 16.0 K/mcL (4.3-11.1) H 01/08/18 03:19 RBC 4.15 M/mcL (4.19-5.50) L 01/08/18 03:19 MCV 103.1 fL (83.0-100.0) H 01/08/18 03:19 MCHC 30.8 g/dL (31.6-35.5) L 01/08/18 03:19 RDW 15.0 % (11.5-14.5) H 01/08/18 03:19 Plt Count 413 K/mcL (140-400) H 01/08/18 03:19 Neutrophils # 13.7 K/mcL (1.6-8.9) H 01/08/18 03:19 Nucleated RBCs/100 WBC 0.4 /100 WBC (0) H 01/04/18 03:13 PT 17.4 Seconds (9.4-12.1) H 01/06/18 10:46 ABG pO2 73 mmHg (85-104) L 12/30/17 04:49 Sodium 158 mEq/L (136-145) H 01/08/18 03:19 Chloride 129 mEq/L (98-107) H 01/08/18 03:19 Carbon Dioxide 22 mEq/L (23-29) L 01/08/18 03:19 BUN 49 mg/dL (8-23) H 01/08/18 03:19 Creatinine 2.32 mg/dL (0.70-1.30) H 01/08/18 03:19 Est GFR ( Amer) 35 (> 60) L 01/08/18 03:19 Est GFR (Non-Af Amer) 29 (> 60) L 01/08/18 03:19 Glucose 141 mg/dL (70-105) H 01/08/18 03:19 POC Glucose 117 mg/dL (70-99) H 01/08/18 16:51 Serum Osmolality 330 mOsm/kg (280-300) H 12/28/17 10:26 Calculated Osmolality 341 (280-300) H 01/08/18 03:19 Magnesium 2.8 mg/dL (1.6-2.6) H 01/09/18 03:00 AST 57 Units/L (13-39) H 12/26/17 07:58 ALT 67 Units/L (7-52) H 12/26/17 07:58 Globulin 3.9 g/dL (2.4-3.5) H 12/26/17 07:58 Albumin/Globulin Ratio 0.9 (1.1-2.2) L 12/26/17 07:58 Urine Clarity Cloudy (Clear) A 12/26/17 07:39 Urine Protein 30 mg/dL (Neg-Trace) H 12/26/17 07:39 Urine Blood Moderate (Negative) H 12/26/17 07:39 Urine Nitrite Positive (Negative) A 12/26/17 07:39 Ur Leukocyte Esterase Large (Negative) H 12/26/17 07:39 Urine Microscopic RBC 30-50 per hpf (0-3) H 12/26/17 07:39 Urine Microscopic WBC TNTC per hpf (0-3) H 12/26/17 07:39 Urine Bacteria Many per hpf (None-Few) H 12/26/17 07:39 Urine Osmolality 164 mOsm/kg (300-1090) L 01/01/18 09:55 Nasal Screen MRSA (PCR) Positive (Negative) A 12/30/17 19:41 Salicylates < 2.5 mg/dL (15.0-30.0) L 12/26/17 07:58 Acetaminophen < 10 mcg/mL (10-20) L 12/26/17 07:58 General appearance: Present: disheveled, mild distress, thin - Respiratory Respiratory exam: Present: decreased breath sounds, CTAB - Cardiovascular Cardiovascular exam: Present: +S1, +S2 - GI/Abdominal GI/Abdominal exam: Present: diminished bowel sounds, soft Additional comments: PEG intact with abd binder in place - Additional comments: Kauffman catheter in place with light yellow urine - Extremities Exam Extremities exam: Present: normal capillary refill, normal inspection - Neurological Exam Neurological exam: Present: alert Additional comments: disoriented, restless, and agitated. Does not follow commands. No verbal response during my visit - Skin Skin exam: Present: dry, warm Palliative Quality Palliative Quality: Screen for Code Status: NA (Awaiting return call or guardian visit), Screen for Goals of Care: NA, Screen for Pain: NA, If Pain Regimen Started, Initiate Bowel Regimen: NA, Screen for Nausea/Vomitting: NA Code Status: 12/26/17 15:45 Resuscitation Status: Active [RES] Routine Comment: Resuscitation Status: Full Code - Labs CBC & Chem 7: 01/09/18 11:05 01/09/18 11:05 Labs: Laboratory Results - last 24 hr 01/08/18 01/08/18 01/08/18 07:42 11:30 16:51 POC Glucose 131 H 110 H 117 H Phosphorus Magnesium 01/09/18 03:00 POC Glucose Phosphorus 3.6 Magnesium 2.8 H - ABG Interpretation ABG results: ABG ABG pH 7.44 pH Units (7.32-7.45) 12/30/17 04:49 ABG pCO2 35 mmHg (35-45) 12/30/17 04:49 ABG pO2 73 mmHg (85-104) L 12/30/17 04:49 ABG O2 Saturation 95 % (95-98) 12/30/17 04:49 PT/INR, D-dimer PT 17.4 Seconds (9.4-12.1) H 01/06/18 10:46 Consult Discharge Plan - Plan Referrals: Yanet Armstrong MD [Primary Care Provider] -
[2018-01-09] MEDS: Lactulose Oral Soln 20 GM/30 ML UDC GTUBE SCH ×2 (09:47→20:13)
[2018-01-09] MEDS: aMILoride 5 MG TABLET PO SCH (09:48)
[2018-01-09] MEDS: OLANZapine 10 MG TAB.RAPDIS PO SCH ×2 (09:49→20:13)
[2018-01-09] MEDS: *HR* LORazepam 1 MG TABLET PO SCH ×2 (09:49→20:13)
[2018-01-09] MEDS: Pantoprazole 40 MG VIAL IVP SCH (09:50)
[2018-01-09] MEDS: Desmopressin Acetate SPRAY 5 ML BOTTLE NS SCH ×2 (09:51→20:56)
[2018-01-09] MEDS: Fluticasone Propionate Nasal 50 MCG/SPRAY BOTTLE NS SCH (09:51)
[2018-01-09 11:34] LABS: Basophils % 0.3 %; Eosinophils # 0.3 K/mcL (0.0-0.6); Eosinophils % 3.8 %; Hematocrit 39.3 % (37.5-50.1); Hemoglobin 12.2 g/dL (12.9-16.9); Immature Granulocytes % 0.3 % (0-4); Lymphocytes # 1.3 K/mcL (0.6-4.6); Lymphocytes % 14.9 %; Mean Corpuscular Hemoglobin 31.6 pg (28.0-33.3); Mean Corpuscular Volume 101.8 fL (83.0-100.0); Mean Platelet Volume 10.7 fL (9.4-12.4); Monocytes # 0.4 K/mcL (0.0-1.3); Monocytes % 3.9 %; Neutrophils # 6.8 K/mcL (1.6-8.9); Platelet Count 328 K/mcL (140-400); Red Blood Count 3.86 M/mcL (4.19-5.50); Red Cell Distribution Width 14.6 % (11.5-14.5); Segmented Neutrophils % 76.8 %
[2018-01-09 11:48] LABS: Calcium 9.9 mg/dL (8.6-10.3); Potassium 4.2 mEq/L (3.5-5.1)
--- NOTE | 2018-01-09 15:04 | Internal Med Progress Note ---
Date of Encounter: 01/09/18 Time of Encounter: 14:57 - Assessment and plan (1) Aspiration pneumonia Current Visit: Yes Status: Acute Assessment and plan: On Unasyn. WBC count is improving. If patient continues to tolerate PEG tube feedings, will transition to oral antibiotics tomorrow. Qualifiers: Aspiration pneumonia type: due to gastric secretions Laterality: left Lung location: lower lobe of lung Qualified Code(s): J69.0 - Pneumonitis due to inhalation of food and vomit (2) Counseling regarding advanced care planning and goals of care Current Visit: Yes Status: Acute Assessment and plan: Discussed with nephrology and palliative care alone with guardian/caregiver. Patient's requiring multiple life-sustaining measures to help with his care including tube feeds, IV fluids but remains at risk for worsening medical condition and comorbidities including worsening renal function, malnutrition and recurrent aspiration. If he does not receive life-sustaining measures, his renal function will decline and he will develop kidney injury requiring hemodialysis along with other complications including severe hypernatremia and . Given these findings, I do recommend that his CODE STATUS be changed to DNR status. Nephrology is in agreement with this finding. (3) Acute kidney injury Current Visit: Yes Status: Acute Assessment and plan: Renal function slowly improving with IV hydration and free water replacement. Creatinine 2.06 today. Nephrology following. (4) Respiratory failure Current Visit: Yes Status: Resolved (5) Urinary tract infection Current Visit: Yes Status: Resolved Qualifiers: Urinary tract infection type: site unspecified Hematuria presence: with hematuria Qualified Code(s): N39.0 - Urinary tract infection, site not specified; R31.9 - Hematuria, unspecified; R31.9 - Hematuria, unspecified (6) Encephalopathy acute Current Visit: Yes Status: Acute Assessment and plan: Improved. Agitation earlier this morning but seems to be better controlled now Continue antipsychotic agents through PEG tube. (7) Diabetes insipidus Current Visit: Yes Status: Acute Assessment and plan: Patient continues to have significant urine output. On DDAVP, amiloride. Sodium levels are improving. Patient is receiving free water replacement through G-tube. (8) Developmental delay, moderate Current Visit: Yes Status: Chronic (9) Dysphagia Current Visit: Yes Status: Chronic Assessment and plan: Continue tube feeds through PEG tube Qualifiers: Dysphagia type: oropharyngeal phase Qualified Code(s): R13.12 - Dysphagia, oropharyngeal phase (10) Protein-calorie malnutrition, severe Current Visit: Yes Status: Acute Assessment and plan: Nutrition following and making adjustments to acute feeds. Continue to advance as tolerated. (11) Constipation Current Visit: Yes Status: Acute Assessment and plan: Had a bowel movement yesterday. Continue lactulose. Qualifiers: Constipation type: chronic idiopathic constipation Qualified Code(s): K59.04 - Chronic idiopathic constipation - Time Spent With Patient Total time spent is greater than 50% in coordination of care (as documented) at patient's floor/unit and/or counseling patient: - Subjective Interval history: Patient was agitated intermittently this morning. Seems to have calmed by the time I examined him. Not following commands. No fever reported overnight. - Constitutional Vitals: Temp Pulse Resp BP Pulse Ox 98.5 F 75 19 138/85 94 01/09/18 10:52 01/09/18 10:52 01/09/18 10:52 01/09/18 10:52 01/09/18 10:52 General appearance: Present: cooperative, underweight. Absent: answers questions appropriately - Eye Eye exam: Present: PERRL - ENT ENT exam: Present: mucous membranes dry - Neck Neck exam general surgery: Present: supple, trachea midline. Absent: lymphadenopathy - Respiratory Respiratory exam: Present: CTAB. Absent: accessory muscle use, rales, rhonchi, wheezes - Cardiovascular Cardiovascular exam: Present: RRR, +S1, +S2. Absent: diastolic murmur, gallop, rubs, systolic murmur - GI/Abdominal GI/Abdominal exam: Present: normal bowel sounds, soft, no peritoneal signs. Absent: distended, tenderness - Extremities Exam Extremities exam: Present: warm, radial pulses palpable and symmetrical. Absent : calf tenderness, cyanotic, pedal edema - Neurological Exam Neurological exam: Present: alert, no focal deficits. Absent: facial droop - Skin Skin exam: Present: dry, intact Internal Medicine: Result - Labs CBC & Chem 7: 01/09/18 11:05 01/09/18 11:05 Labs: Short CBC 01/09/18 Range/Units 11:05 WBC 8.9 (4.3-11.1) K/mcL Hgb 12.2 L (12.9-16.9) g/dL Hct 39.3 (37.5-50.1) % Plt Count 328 (140-400) K/mcL Neutrophils # 6.8 (1.6-8.9) K/mcL BMP 01/09/18 11:05 Sodium 150 H Potassium 4.2 Chloride 122 H Carbon Dioxide 20 L BUN 43 H Creatinine 2.06 H Glucose 120 H Calcium 9.9 - ABG Interpretation ABG results: ABG ABG pH 7.44 pH Units (7.32-7.45) 12/30/17 04:49 ABG pCO2 35 mmHg (35-45) 12/30/17 04:49 ABG pO2 73 mmHg (85-104) L 12/30/17 04:49 ABG O2 Saturation 95 % (95-98) 12/30/17 04:49 PT/INR, D-dimer PT 17.4 Seconds (9.4-12.1) H 01/06/18 10:46 Consult Discharge Plan - Plan Referrals: Yanet Armstrong MD [Primary Care Provider] -
[2018-01-09] MEDS: *HR* LORazepam 2 MG/ML VIAL IVP PRN (15:05)
[2018-01-09] MEDS ORDERED: *HR* LORazepam 2 MG/ML VIAL IVP ONE (16:10)
[2018-01-09] MEDS: CarBAMazepine 100 MG TABLET PO SCH (20:14)
--- NOTE | 2018-01-09 23:25 | Nephrology Progress Note ---
Date of Encounter: 01/09/18 Time of Encounter: 12:00 - Assessment and Plan (1) Hypernatremia Current Visit: Yes Status: Resolved Sodium worsening at 158 as of yesterday, awaiting new labs today on D5W at 100cc /hr and free water flushes 250cc q4. Noted improved at 150, will continue measures Continue diuretics at current doses for DI UOP noted to 2800cc in the past 24hrs Continue desmopressin for now (2) Acute encephalopathy Current Visit: Yes Status: Acute Per primary team Palliative care to help with goals of care (3) Acute kidney injury Current Visit: Yes Status: Acute Scr slightly improved at 2.06, GFR 36 with fluids, will continue and off NSAIDs No acute indication for PHARMACIST IN CHARGE OWNER at this time but discussed with guardian and awaiting decision of change of code status by state Subjective Principal diagnosis: acute respiratory failure Interval history: Pt seen and examined still nonverbal and overall not interactive and lethargic. Had 2 small Ms yesterday per nurse. Discussed at length goals of care at a meeting with palliative care and state appointed willie as well as the staff members of his residential. Now awaiting paperwork (signed by Dr Sevilla and myself ) for change of code status to DNR. Objective - Vital Signs Vital signs: Vital Signs Temp Pulse Resp BP Pulse Ox 01/09/18 18:19 97.6 F 103 20 102/61 97 01/09/18 10:52 98.5 F 75 19 138/85 94 01/09/18 04:23 98.9 F 109 16 130/73 96 01/08/18 23:44 98.6 F 110 16 125/74 94 Intake and Output 01/09/18 01/09/18 01/09/18 07:59 15:59 23:59 Intake Total 1350 / 1350 2253 / 2253 1600 / 1600 Output Total 2900 / 2900 2100 / 2100 Balance 1350 / 1350 -647 / -647 -500 / -500 Intake: IV Fluids 1100 / 1100 1000 / 1000 1100 / 1100 Dextrose 5% 1,000 ML @ 100 mls/ 1000 / 1000 1000 / 1000 1000 / 1000 hr IVC .Q10H [facility] Rx#:[id number] Unasyn 3,000 MG In 0.9 % Sodium 100 / 100 100 / 100 Chloride (Mini-Bag +) 100 ML @ 200 mls/hr IVPB Q12H [facility] Rx#: [id number] Tube Feeding 753 / 753 Free Water Intake Amount 250 / 250 500 / 500 500 / 500 Output: Catheter 2900 / 2900 2099 / 2099 - General Appearance General appearance: Present: chronically ill, fatigue, frail EENT: Present: ATNC, mucous membranes dry Neck: Present: no JVD, supple Respiratory: Present: course breath sounds Cardiology: Present: no edema, normal S1, normal S2 Gastrointestinal: Present: no tenderness, no guarding (+PEG) Integumentary: Present: warm and dry Additional Comments: lethargic, nonverbal Musculoskeletal: Present: no deformities Psychiatric: Present: cooperative - Lab 01/10/18 04:50 01/10/18 04:50 Most recent lab results ABG pH 7.44 pH Units (7.32-7.45) 12/30/17 04:49 ABG pCO2 35 mmHg (35-45) 12/30/17 04:49 ABG pO2 73 mmHg (85-104) L 12/30/17 04:49 ABG HCO3 24 mEq/L (21-27) 12/30/17 04:49 ABG O2 Saturation 95 % (95-98) 12/30/17 04:49 Calcium 9.9 mg/dL (8.6-10.3) 01/09/18 11:05 Phosphorus 3.6 mg/dL (2.7-4.5) 01/09/18 03:00 Magnesium 2.8 mg/dL (1.6-2.6) H 01/09/18 03:00 Urine Creatinine 70 mg/dL 12/27/17 04:00 Urine Sodium 36.4 mEq/L 12/31/17 01:25 Consult Discharge Plan - Plan Referrals: Yanet Armstrong MD [Primary Care Provider] -
[2018-01-10] MEDS: Ampicillin/Sulbactam 3,000 MG in 0.9 % Sodium Chloride Mini Bag 100 ML IVPB SCH (00:33)
[2018-01-10 05:16] LABS: Basophils % 0.5 %; Eosinophils # 0.4 K/mcL (0.0-0.6); Eosinophils % 5.8 %; Hemoglobin 12.4 g/dL (12.9-16.9); Immature Granulocytes % 0.1 % (0-4); Lymphocytes # 1.7 K/mcL (0.6-4.6); Lymphocytes % 22.6 %; Mean Corpuscular Hemoglobin 31.9 pg (28.0-33.3); Mean Corpuscular Volume 102.8 fL (83.0-100.0); Mean Platelet Volume 10.5 fL (9.4-12.4); Monocytes # 0.4 K/mcL (0.0-1.3); Monocytes % 5.2 %; Platelet Count 336 K/mcL (140-400); Red Blood Count 3.89 M/mcL (4.19-5.50); Red Cell Distribution Width 14.5 % (11.5-14.5); Segmented Neutrophils % 65.8 %
[2018-01-10] MEDS: *HR* LORazepam 2 MG/ML VIAL IVP PRN ×2 (05:32→13:30)
[2018-01-10 05:40] LABS: Calcium 10.1 mg/dL (8.6-10.3); Potassium 4.7 mEq/L (3.5-5.1)
--- NOTE | 2018-01-10 07:48 | Event Note ---
Date of Encounter: 01/10/18 Time of Encounter: 07:46 Nephrology Chart Review SCr has been stable and slowly near baseline CKD stage III. Hypernatremia has nearly resolved. No new renal recommendations; will sign-off. Recommend outpatient Nephrology follow up. I see that this pt originally was seen by Dr. Herrera from our [facility] and would recommend follow up with him in about 2-4 weeks after discharge. Thank you for having consulted the [facility]. Please feel free to call and/or page me with any questions.
[2018-01-10] MEDS: Lactulose Oral Soln 20 GM/30 ML UDC GTUBE SCH (08:05)
[2018-01-10] MEDS: CarBAMazepine 100 MG TABLET PO SCH ×2 (08:05→23:44)
[2018-01-10] MEDS: *HR* LORazepam 1 MG TABLET PO SCH ×2 (08:05→23:45)
[2018-01-10] MEDS: Pantoprazole 40 MG VIAL IVP SCH (08:05)
[2018-01-10] MEDS: OLANZapine 10 MG TAB.RAPDIS PO SCH ×2 (08:05→23:44)
[2018-01-10] MEDS: aMILoride 5 MG TABLET PO SCH (08:06)
[2018-01-10] MEDS: Saliva Stimulant 100ml BOTTLE PO PRN (08:07)
[2018-01-10] MEDS: Fluticasone Propionate Nasal 50 MCG/SPRAY BOTTLE NS SCH (08:07)
[2018-01-10] MEDS: Desmopressin Acetate SPRAY 5 ML BOTTLE NS SCH ×2 (08:08→23:45)
[2018-01-10] MEDS: D5% in Water 1,000 ML IVC SCH (08:33)
[2018-01-10] MEDS ORDERED: Amoxicillin/Clavulanate 400 MG/5 ML UDC GTUBE SCH (10:00)
[2018-01-10] MEDS: Amoxicillin/Clavulanate 400 MG/5 ML UDC GTUBE SCH ×2 (13:30→18:04)
--- NOTE | 2018-01-10 14:12 | Palliative Progress Note ---
Date of Encounter: 01/10/18 Time of Encounter: 10:35 - Assessment and plan (1) Cachexia Current Visit: Yes Status: Acute Assessment and plan: Tube feedings continue. Dye Stand Loader following closely (2) Constipation Current Visit: Yes Status: Acute Assessment and plan: Continues with lactulose. Some BM noted Qualifiers: Constipation type: chronic idiopathic constipation Qualified Code(s): K59.04 - Chronic idiopathic constipation (3) Counseling regarding advanced care planning and goals of care Current Visit: Yes Status: Acute Assessment and plan: [employer] [employer] Prote[employer] faxed letter with approval to transition pt to DNRCC, however artificial nutrition and hydration are to continue. This form is present in pt record. I completed DNR state form and faxed to [facility]. D/W pt guardian - he most likely will not be able to return to [facility] and will need ECF placement. JAMES Womack aware. Their first choice is [facility]. Placement will likely not happen until next week. D/W Dr. Sevilla. Guardian is still interested in getting hospice involved with his care, if the hospice would be agreeable to continue tube feedings until he can no longer tolerate. (4) Acute kidney injury Current Visit: Yes Status: Acute (5) Aspiration pneumonia Current Visit: Yes Status: Acute Qualifiers: Aspiration pneumonia type: due to gastric secretions Laterality: left Lung location: lower lobe of lung Qualified Code(s): J69.0 - Pneumonitis due to inhalation of food and vomit (6) Diabetes insipidus Current Visit: Yes Status: Acute - Time Spent With Patient Total time spent is greater than 50% in coordination of care (as documented) at patient's floor/unit and/or counseling patient: - Subjective Interval history: Patient remains agitated and restless. Does not follow commands. No visitors present. - Constitutional Vitals: Abnormal lab results RBC 3.89 M/mcL (4.19-5.50) L 01/10/18 04:50 Hgb 12.4 g/dL (12.9-16.9) L 01/10/18 04:50 MCV 102.8 fL (83.0-100.0) H 01/10/18 04:50 MCHC 31.0 g/dL (31.6-35.5) L 01/10/18 04:50 Nucleated RBCs/100 WBC 0.4 /100 WBC (0) H 01/04/18 03:13 PT 17.4 Seconds (9.4-12.1) H 01/06/18 10:46 ABG pO2 73 mmHg (85-104) L 12/30/17 04:49 Sodium 147 mEq/L (136-145) H 01/10/18 04:50 Chloride 117 mEq/L (98-107) H 01/10/18 04:50 BUN 39 mg/dL (8-23) H 01/10/18 04:50 Creatinine 2.04 mg/dL (0.70-1.30) H 01/10/18 04:50 Est GFR ( Amer) 40 (> 60) L 01/10/18 04:50 Est GFR (Non-Af Amer) 33 (> 60) L 01/10/18 04:50 Glucose 118 mg/dL (70-105) H 01/10/18 04:50 POC Glucose 117 mg/dL (70-99) H 01/08/18 16:51 Serum Osmolality 330 mOsm/kg (280-300) H 12/28/17 10:26 Calculated Osmolality 314 (280-300) H 01/10/18 04:50 Magnesium 2.8 mg/dL (1.6-2.6) H 01/09/18 03:00 AST 57 Units/L (13-39) H 12/26/17 07:58 ALT 67 Units/L (7-52) H 12/26/17 07:58 Globulin 3.9 g/dL (2.4-3.5) H 12/26/17 07:58 Albumin/Globulin Ratio 0.9 (1.1-2.2) L 12/26/17 07:58 Urine Clarity Cloudy (Clear) A 12/26/17 07:39 Urine Protein 30 mg/dL (Neg-Trace) H 12/26/17 07:39 Urine Blood Moderate (Negative) H 12/26/17 07:39 Urine Nitrite Positive (Negative) A 12/26/17 07:39 Ur Leukocyte Esterase Large (Negative) H 12/26/17 07:39 Urine Microscopic RBC 30-50 per hpf (0-3) H 12/26/17 07:39 Urine Microscopic WBC TNTC per hpf (0-3) H 12/26/17 07:39 Urine Bacteria Many per hpf (None-Few) H 12/26/17 07:39 Urine Osmolality 164 mOsm/kg (300-1090) L 01/01/18 09:55 Nasal Screen MRSA (PCR) Positive (Negative) A 12/30/17 19:41 Salicylates < 2.5 mg/dL (15.0-30.0) L 12/26/17 07:58 Acetaminophen < 10 mcg/mL (10-20) L 12/26/17 07:58 General appearance: Present: disheveled, thin - Respiratory Respiratory exam: Present: decreased breath sounds, CTAB Additional comments: Shallow inspiratory effort - Cardiovascular Cardiovascular exam: Present: +S1, +S2 - GI/Abdominal GI/Abdominal exam: Present: diminished bowel sounds, soft Additional comments: PEG intact with feedings - Additional comments: Kauffman with light yellow urine - Extremities Exam Extremities exam: Present: normal capillary refill, normal inspection - Neurological Exam Neurological exam: Present: alert Additional comments: restless, agitated, nonverbal. [facility]. Does not follow commands - Skin Skin exam: Present: dry, warm Palliative Quality Palliative Quality: Screen for Code Status: NA (Awaiting return call or guardian visit), Screen for Goals of Care: NA, Screen for Pain: NA, If Pain Regimen Started, Initiate Bowel Regimen: NA, Screen for Nausea/Vomitting: NA Code Status: 12/26/17 15:45 Resuscitation Status: Active [RES] Routine Comment: Resuscitation Status: Full Code Resuscitation Status: Active [RES] Routine Comment: Resuscitation Status: DNR-Comfort Care - Labs CBC & Chem 7: 01/10/18 04:50 01/10/18 04:50 Labs: Laboratory Results - last 24 hr 01/10/18 01/10/18 04:50 04:50 WBC 7.6 RBC 3.89 L Hgb 12.4 L Hct 40.0 MCV 102.8 H MCH 31.9 MCHC 31.0 L RDW 14.5 Plt Count 336 MPV 10.5 Immature Gran % 0.1 Seg Neutrophils % 65.8 Lymphocytes % 22.6 Monocytes % 5.2 Eosinophils % 5.8 Basophils % 0.5 Neutrophils # 5.0 Lymphocytes # 1.7 Monocytes # 0.4 Eosinophils # 0.4 Basophils # 0.0 Sodium 147 H Potassium 4.7 Chloride 117 H Carbon Dioxide 24 BUN 39 H Creatinine 2.04 H Est GFR ( Amer) 40 L Est GFR (Non-Af Amer) 33 L BUN/Creatinine Ratio 19 Glucose 118 H Calculated Osmolality 314 H Calcium 10.1 - ABG Interpretation ABG results: ABG ABG pH 7.44 pH Units (7.32-7.45) 12/30/17 04:49 ABG pCO2 35 mmHg (35-45) 12/30/17 04:49 ABG pO2 73 mmHg (85-104) L 12/30/17 04:49 ABG O2 Saturation 95 % (95-98) 12/30/17 04:49 PT/INR, D-dimer PT 17.4 Seconds (9.4-12.1) H 01/06/18 10:46 Consult Discharge Plan - Plan Referrals: Yanet Armstrong MD [Primary Care Provider] -
--- NOTE | 2018-01-10 14:46 | Internal Med Progress Note ---
Date of Encounter: 01/10/18 Time of Encounter: 08:25 - Assessment and plan (1) Counseling regarding advanced care planning and goals of care Current Visit: Yes Status: Acute Assessment and plan: Palliative care following. Patient's CODE STATUS has been changed to DNR comfort care per Advocacy and Protective services. IV hydration and no artificial nutrition not to continue. Will continue tube feeds. Per guardian plan is to transition to hospice. licensing worker aware and we will start making arrangements for this. (2) Protein-calorie malnutrition, severe Current Visit: Yes Status: Acute Assessment and plan: Remains cachectic. Tolerating tube feeds. We will advance his rate and transition to bolus dosing as tolerated. (3) Aspiration pneumonia Current Visit: Yes Status: Acute Assessment and plan: Improving. We will transition to oral antibiotics through his G-tube. Qualifiers: Aspiration pneumonia type: due to gastric secretions Laterality: left Lung location: lower lobe of lung Qualified Code(s): J69.0 - Pneumonitis due to inhalation of food and vomit (4) Acute kidney injury Current Visit: Yes Status: Acute Assessment and plan: Renal function improving. Continue free water replacement through G-tube. (5) Respiratory failure Current Visit: Yes Status: Resolved (6) Urinary tract infection Current Visit: Yes Status: Resolved Qualifiers: Urinary tract infection type: site unspecified Hematuria presence: with hematuria Qualified Code(s): N39.0 - Urinary tract infection, site not specified; R31.9 - Hematuria, unspecified; R31.9 - Hematuria, unspecified (7) Encephalopathy acute Current Visit: Yes Status: Acute Assessment and plan: At baseline. (8) Diabetes insipidus Current Visit: Yes Status: Acute Assessment and plan: On DDAVP, amiloride and thiazide. Patient has continued to have significant urine output. He had about 5L out yesterday. (9) Developmental delay, moderate Current Visit: Yes Status: Chronic (10) Dysphagia Current Visit: Yes Status: Chronic Assessment and plan: Currently has G-tube in place. Aspiration precautions. Nutrition following Qualifiers: Dysphagia type: oropharyngeal phase Qualified Code(s): R13.12 - Dysphagia, oropharyngeal phase (11) Constipation Current Visit: Yes Status: Acute Assessment and plan: Continue laxatives. Qualifiers: Constipation type: chronic idiopathic constipation Qualified Code(s): K59.04 - Chronic idiopathic constipation - Time Spent With Patient Total time spent is greater than 50% in coordination of care (as documented) at patient's floor/unit and/or counseling patient: - Subjective Interval history: Patient awake and alert at this time. Appears to be calm. According to nursing staff he was agitated earlier but has come down after he received his morning medications. Tolerating tube feeds. No new episodes of aspiration. - Constitutional Vitals: Temp Pulse Resp BP Pulse Ox 97.6 F 86 20 102/61 97 01/09/18 18:19 01/09/18 23:56 01/09/18 18:19 01/09/18 18:19 01/09/18 18:19 General appearance: Present: cooperative, underweight. Absent: answers questions appropriately - ENT ENT exam: Present: mucous membranes dry - Neck Neck exam general surgery: Present: supple, trachea midline. Absent: lymphadenopathy - Respiratory Respiratory exam: Present: CTAB. Absent: accessory muscle use, rales, rhonchi, wheezes - Cardiovascular Cardiovascular exam: Present: RRR, +S1, +S2. Absent: diastolic murmur, gallop, rubs, systolic murmur - GI/Abdominal GI/Abdominal exam: Present: normal bowel sounds, soft, no peritoneal signs. Absent: distended, tenderness - Extremities Exam Extremities exam: Present: warm, radial pulses palpable and symmetrical. Absent : calf tenderness, cyanotic, pedal edema - Neurological Exam Neurological exam: Present: alert, no focal deficits. Absent: facial droop Internal Medicine: Result - Labs CBC & Chem 7: 01/10/18 04:50 01/10/18 04:50 Labs: Short CBC 01/10/18 Range/Units 04:50 WBC 7.6 (4.3-11.1) K/mcL Hgb 12.4 L (12.9-16.9) g/dL Hct 40.0 (37.5-50.1) % Plt Count 336 (140-400) K/mcL Neutrophils # 5.0 (1.6-8.9) K/mcL BMP 01/10/18 04:50 Sodium 147 H Potassium 4.7 Chloride 117 H Carbon Dioxide 24 BUN 39 H Creatinine 2.04 H Glucose 118 H Calcium 10.1 - ABG Interpretation ABG results: ABG ABG pH 7.44 pH Units (7.32-7.45) 12/30/17 04:49 ABG pCO2 35 mmHg (35-45) 12/30/17 04:49 ABG pO2 73 mmHg (85-104) L 12/30/17 04:49 ABG O2 Saturation 95 % (95-98) 12/30/17 04:49 PT/INR, D-dimer PT 17.4 Seconds (9.4-12.1) H 01/06/18 10:46 Consult Discharge Plan - Plan Referrals: Yanet Armstrong MD [Primary Care Provider] -
[2018-01-10] MEDS: Docusate Oral Soln 100 MG/10 ML UDC GTUBE SCH (23:43)
[2018-01-11] MEDS: *HR* LORazepam 2 MG/ML VIAL IVP PRN (05:59)
[2018-01-11 06:00] LABS: Calcium 10.5 mg/dL (8.6-10.3); Potassium 5.2 mEq/L (3.5-5.1)
[2018-01-11] MEDS: Amoxicillin/Clavulanate 400 MG/5 ML UDC GTUBE SCH ×2 (06:13→17:31)
[2018-01-11] MEDS: *HR* LORazepam 1 MG TABLET PO SCH ×2 (08:33→22:14)
[2018-01-11] MEDS: CarBAMazepine 100 MG TABLET PO SCH ×2 (08:34→21:46)
[2018-01-11] MEDS: Docusate Oral Soln 100 MG/10 ML UDC GTUBE SCH ×2 (08:35→21:45)
[2018-01-11] MEDS: Desmopressin Acetate SPRAY 5 ML BOTTLE NS SCH ×2 (08:35→21:46)
[2018-01-11] MEDS: Fluticasone Propionate Nasal 50 MCG/SPRAY BOTTLE NS SCH (08:36)
[2018-01-11] MEDS: aMILoride 5 MG TABLET PO SCH (08:37)
[2018-01-11] MEDS: OLANZapine 10 MG TAB.RAPDIS PO SCH ×2 (08:37→21:46)
[2018-01-11] MEDS: Pantoprazole 40 MG VIAL IVP SCH (08:37)
--- NOTE | 2018-01-11 15:41 | Internal Med Progress Note ---
Date of Encounter: 01/11/18 Time of Encounter: 15:39 - Assessment and plan (1) Counseling regarding advanced care planning and goals of care Current Visit: Yes Status: Acute Assessment and plan: Stable. Patient is DNR comfort care. Awaiting placement. (2) Protein-calorie malnutrition, severe Current Visit: Yes Status: Acute Assessment and plan: Continue tube feeds. Currently running at 40 mL per hour. (3) Aspiration pneumonia Current Visit: Yes Status: Acute Assessment and plan: Continue Augmentin. Complete 7 day treatment course. Qualifiers: Aspiration pneumonia type: due to gastric secretions Laterality: left Lung location: lower lobe of lung Qualified Code(s): J69.0 - Pneumonitis due to inhalation of food and vomit (4) Acute kidney injury Current Visit: Yes Status: Acute Assessment and plan: renal function worse today. Will increase free water replacement. (5) Respiratory failure Current Visit: Yes Status: Resolved (6) Urinary tract infection Current Visit: Yes Status: Resolved Qualifiers: Urinary tract infection type: site unspecified Hematuria presence: with hematuria Qualified Code(s): N39.0 - Urinary tract infection, site not specified; R31.9 - Hematuria, unspecified; R31.9 - Hematuria, unspecified (7) Encephalopathy acute Current Visit: Yes Status: Acute (8) Diabetes insipidus Current Visit: Yes Status: Acute Assessment and plan: Has not been responding much to treatment so far. Will increase free water replacement. Hypernatremia worsened today. (9) Developmental delay, moderate Current Visit: Yes Status: Chronic (10) Dysphagia Current Visit: Yes Status: Chronic Assessment and plan: Continue tube feeds. Nothing by mouth status. Qualifiers: Dysphagia type: oropharyngeal phase Qualified Code(s): R13.12 - Dysphagia, oropharyngeal phase (11) Constipation Current Visit: Yes Status: Acute Assessment and plan: Continue laxatives. Qualifiers: Constipation type: chronic idiopathic constipation Qualified Code(s): K59.04 - Chronic idiopathic constipation - Time Spent With Patient Total time spent is greater than 50% in coordination of care (as documented) at patient's floor/unit and/or counseling patient: - Subjective Interval history: Patient is somnolent. Not responding to commands at this time. One-to-one sitter at bedside. No acute issues overnight. - Constitutional Vitals: Temp Pulse Resp BP Pulse Ox 98.2 F 63 20 111/80 98 01/11/18 12:45 01/11/18 12:45 01/11/18 12:45 01/11/18 12:45 01/11/18 12:45 General appearance: Present: cooperative, underweight. Absent: answers questions appropriately - ENT ENT exam: Present: mucous membranes dry - Neck Neck exam general surgery: Present: supple, trachea midline. Absent: lymphadenopathy - Respiratory Respiratory exam: Present: CTAB. Absent: accessory muscle use, rales, rhonchi, wheezes - Cardiovascular Cardiovascular exam: Present: RRR, +S1, +S2. Absent: diastolic murmur, gallop, rubs, systolic murmur - GI/Abdominal GI/Abdominal exam: Present: normal bowel sounds, soft, no peritoneal signs. Absent: distended, tenderness Internal Medicine: Result - Labs CBC & Chem 7: 01/10/18 04:50 01/11/18 05:01 Labs: BMP 01/11/18 05:01 Sodium 150 H Potassium 5.2 H Chloride 120 H Carbon Dioxide 22 L BUN 44 H Creatinine 2.12 H Glucose 127 H Calcium 10.5 H - ABG Interpretation ABG results: ABG ABG pH 7.44 pH Units (7.32-7.45) 12/30/17 04:49 ABG pCO2 35 mmHg (35-45) 12/30/17 04:49 ABG pO2 73 mmHg (85-104) L 12/30/17 04:49 ABG O2 Saturation 95 % (95-98) 12/30/17 04:49 PT/INR, D-dimer PT 17.4 Seconds (9.4-12.1) H 01/06/18 10:46 Consult Discharge Plan - Plan Referrals: Yanet Armstrong MD [Primary Care Provider] -
[2018-01-12] MEDS: *HR* LORazepam 2 MG/ML VIAL IVP PRN (01:53)
[2018-01-12] MEDS: *HR* LORazepam 1 MG TABLET PO SCH ×2 (04:31→19:43)
[2018-01-12 05:26] LABS: Calcium 10.5 mg/dL (8.6-10.3); Potassium 4.4 mEq/L (3.5-5.1)
[2018-01-12] MEDS: Amoxicillin/Clavulanate 400 MG/5 ML UDC GTUBE SCH ×2 (06:19→17:39)
[2018-01-12] MEDS: CarBAMazepine 100 MG TABLET PO SCH ×2 (09:55→21:25)
[2018-01-12] MEDS: Docusate Oral Soln 100 MG/10 ML UDC GTUBE SCH ×2 (09:56→21:24)
[2018-01-12] MEDS: Fluticasone Propionate Nasal 50 MCG/SPRAY BOTTLE NS SCH (09:56)
[2018-01-12] MEDS: Desmopressin Acetate SPRAY 5 ML BOTTLE NS SCH ×2 (09:57→21:26)
[2018-01-12] MEDS: OLANZapine 10 MG TAB.RAPDIS PO SCH ×2 (09:58→21:25)
[2018-01-12] MEDS: Pantoprazole 40 MG VIAL IVP SCH (09:58)
--- NOTE | 2018-01-12 15:10 | Internal Med Progress Note ---
Date of Encounter: 01/12/18 Time of Encounter: 15:10 - Assessment and plan (1) Counseling regarding advanced care planning and goals of care Current Visit: Yes Status: Acute Assessment and plan: DNR comfort care. Overall prognosis is poor as patient will not be able to care for himself and he has had continued worsening of renal function and would most likely end up needing hemodialysis. Awaiting placement. (2) Protein-calorie malnutrition, severe Current Visit: Yes Status: Acute Assessment and plan: Continue tube feeds. Tolerating them better at this time. No new episodes of aspiration. Continue free water boluses. (3) Aspiration pneumonia Current Visit: Yes Status: Acute Assessment and plan: Treated with Unasyn initially and now transitioned to Augmentin. Will complete 7 day course today. We will stop antibiotics after that. Qualifiers: Aspiration pneumonia type: due to gastric secretions Laterality: left Lung location: lower lobe of lung Qualified Code(s): J69.0 - Pneumonitis due to inhalation of food and vomit (4) Acute kidney injury Current Visit: Yes Status: Acute Assessment and plan: Renal function worse today. Creatinine 2.36. BUN 62. We will stop chlorthalidone and amiloride (5) Respiratory failure Current Visit: Yes Status: Resolved (6) Urinary tract infection Current Visit: Yes Status: Resolved Qualifiers: Urinary tract infection type: site unspecified Hematuria presence: with hematuria Qualified Code(s): N39.0 - Urinary tract infection, site not specified; R31.9 - Hematuria, unspecified; R31.9 - Hematuria, unspecified (7) Encephalopathy acute Current Visit: Yes Status: Acute (8) Diabetes insipidus Current Visit: Yes Status: Acute Assessment and plan: Continue DDAVP. Sodium trending down today. Continue free water replacement through G-tube. (9) Developmental delay, moderate Current Visit: Yes Status: Chronic (10) Dysphagia Current Visit: Yes Status: Chronic Assessment and plan: Receiving tube feeds. Keep nothing by mouth. Qualifiers: Dysphagia type: oropharyngeal phase Qualified Code(s): R13.12 - Dysphagia, oropharyngeal phase (11) Constipation Current Visit: Yes Status: Acute Assessment and plan: Will add docusate daily. Dulcolax rectally when necessary. Qualifiers: Constipation type: chronic idiopathic constipation Qualified Code(s): K59.04 - Chronic idiopathic constipation - Time Spent With Patient Total time spent is greater than 50% in coordination of care (as documented) at patient's floor/unit and/or counseling patient: - Subjective Interval history: Patient lying in bed. Was apparently agitated earlier this morning. Appears calmer now. Tolerating tube feeds. Has been started on bolus feeds now. Receiving free water as prescribed. - Constitutional Vitals: Temp Pulse Resp BP Pulse Ox 97.2 F L 114 21 129/80 91 01/12/18 12:43 01/12/18 12:43 01/12/18 12:43 01/12/18 12:43 01/12/18 12:43 General appearance: Present: cooperative, underweight. Absent: answers questions appropriately - Respiratory Respiratory exam: Absent: accessory muscle use, rales, rhonchi, wheezes Additional comments: coarse crackles bilaterally - Cardiovascular Cardiovascular exam: Present: RRR, +S1, +S2. Absent: diastolic murmur, gallop, rubs, systolic murmur - GI/Abdominal GI/Abdominal exam: Present: normal bowel sounds, soft, no peritoneal signs. Absent: distended, tenderness - Extremities Exam Extremities exam: Present: warm, radial pulses palpable and symmetrical. Absent : calf tenderness, cyanotic, pedal edema - Neurological Exam Neurological exam: Present: CN II-XII intact, oriented X3, no focal deficits. Absent: facial droop, speech deficit - Skin Skin exam: Present: dry, intact Internal Medicine: Result - Labs CBC & Chem 7: 01/10/18 04:50 01/12/18 04:21 Labs: BMP 01/12/18 04:21 Sodium 149 H Potassium 4.4 Chloride 116 H Carbon Dioxide 23 BUN 62 H Creatinine 2.36 H Glucose 97 Calcium 10.5 H - ABG Interpretation ABG results: ABG ABG pH 7.44 pH Units (7.32-7.45) 12/30/17 04:49 ABG pCO2 35 mmHg (35-45) 12/30/17 04:49 ABG pO2 73 mmHg (85-104) L 12/30/17 04:49 ABG O2 Saturation 95 % (95-98) 12/30/17 04:49 PT/INR, D-dimer PT 17.4 Seconds (9.4-12.1) H 01/06/18 10:46 Consult Discharge Plan - Plan Referrals: Yanet Armstrong MD [Primary Care Provider] -
[2018-01-13] MEDS: *HR* LORazepam 2 MG/ML VIAL IVP PRN (00:37)
[2018-01-13] MEDS ORDERED: Haloperidol Lactate 5 MG/ML VIAL IVP ONE (03:13)
[2018-01-13] MEDS: Amoxicillin/Clavulanate 400 MG/5 ML UDC GTUBE SCH ×2 (05:41→18:49)
[2018-01-13 05:59] LABS: Basophils % 0.4 %; Eosinophils # 0.3 K/mcL (0.0-0.6); Eosinophils % 3.6 %; Hematocrit 44.3 % (37.5-50.1); Immature Granulocytes % 0.5 % (0-4); Lymphocytes # 1.4 K/mcL (0.6-4.6); Lymphocytes % 17.6 %; Mean Corpuscular HGB Conc 31.6 g/dL (31.6-35.5); Mean Corpuscular Hemoglobin 31.5 pg (28.0-33.3); Mean Corpuscular Volume 99.8 fL (83.0-100.0); Mean Platelet Volume 11.1 fL (9.4-12.4); Monocytes # 0.5 K/mcL (0.0-1.3); Monocytes % 6.2 %; Neutrophils # 5.6 K/mcL (1.6-8.9); Platelet Count 306 K/mcL (140-400); Red Blood Count 4.44 M/mcL (4.19-5.50); Segmented Neutrophils % 71.7 %
[2018-01-13 06:19] LABS: Calcium 10.2 mg/dL (8.6-10.3); Potassium 4.9 mEq/L (3.5-5.1)
[2018-01-13] MEDS: CarBAMazepine 100 MG TABLET PO SCH ×2 (08:35→21:10)
[2018-01-13] MEDS: OLANZapine 10 MG TAB.RAPDIS PO SCH ×2 (08:40→21:10)
[2018-01-13] MEDS: *HR* LORazepam 1 MG TABLET PO SCH ×2 (08:40→21:11)
[2018-01-13] MEDS: Docusate Oral Soln 100 MG/10 ML UDC GTUBE SCH ×2 (08:40→21:10)
[2018-01-13] MEDS: Pantoprazole 40 MG VIAL IVP SCH (08:40)
[2018-01-13] MEDS: Desmopressin Acetate SPRAY 5 ML BOTTLE NS SCH ×2 (08:41→21:07)
[2018-01-13] MEDS: Fluticasone Propionate Nasal 50 MCG/SPRAY BOTTLE NS SCH (08:51)
--- NOTE | 2018-01-13 09:28 | Palliative Progress Note ---
Date of Encounter: 01/13/18 Time of Encounter: 09:25 - Assessment and plan (1) Cachexia Current Visit: Yes Status: Acute Assessment and plan: Patient appears to be tolerating bolus feeds well. Monitor. (2) Constipation Current Visit: Yes Status: Acute Qualifiers: Constipation type: chronic idiopathic constipation Qualified Code(s): K59.04 - Chronic idiopathic constipation (3) Counseling regarding advanced care planning and goals of care Current Visit: Yes Status: Acute Assessment and plan: Spoke with snf caregiver, Mike Fenton this am. They are still trying to see if they could manage his care at the snf. Young Womack will be asking [facility] to come visit pt here at hospital. He will be very difficult placement with his behaviors and history. His guardian is off today, will return to office tomorrow. (4) Acute kidney injury Current Visit: Yes Status: Acute (5) Aspiration pneumonia Current Visit: Yes Status: Acute Qualifiers: Aspiration pneumonia type: due to gastric secretions Laterality: left Lung location: lower lobe of lung Qualified Code(s): J69.0 - Pneumonitis due to inhalation of food and vomit (6) Diabetes insipidus Current Visit: Yes Status: Acute - Time Spent With Patient Total time spent is greater than 50% in coordination of care (as documented) at patient's floor/unit and/or counseling patient: 25 - 35 minutes - Subjective Interval history: Patient remains restless. Does not follow commands. No visitors present. Urine output less over the weekend, still with negative fluid balance. Na+ 147. BUN/Cr 70/2.22. - Constitutional Vitals: Abnormal lab results Nucleated RBCs/100 WBC 0.4 /100 WBC (0) H 01/04/18 03:13 PT 17.4 Seconds (9.4-12.1) H 01/06/18 10:46 ABG pO2 73 mmHg (85-104) L 12/30/17 04:49 Sodium 147 mEq/L (136-145) H 01/13/18 05:35 Chloride 113 mEq/L (98-107) H 01/13/18 05:35 BUN 70 mg/dL (8-23) H 01/13/18 05:35 Creatinine 2.22 mg/dL (0.70-1.30) H 01/13/18 05:35 Est GFR ( Amer) 37 (> 60) L 01/13/18 05:35 Est GFR (Non-Af Amer) 30 (> 60) L 01/13/18 05:35 BUN/Creatinine Ratio 32 (6-26) H 01/13/18 05:35 Glucose 108 mg/dL (70-105) H 01/13/18 05:35 POC Glucose 117 mg/dL (70-99) H 01/08/18 16:51 Serum Osmolality 330 mOsm/kg (280-300) H 12/28/17 10:26 Calculated Osmolality 325 (280-300) H 01/13/18 05:35 Magnesium 3.0 mg/dL (1.6-2.6) H 01/11/18 05:01 AST 57 Units/L (13-39) H 12/26/17 07:58 ALT 67 Units/L (7-52) H 12/26/17 07:58 Globulin 3.9 g/dL (2.4-3.5) H 12/26/17 07:58 Albumin/Globulin Ratio 0.9 (1.1-2.2) L 12/26/17 07:58 Urine Clarity Cloudy (Clear) A 12/26/17 07:39 Urine Protein 30 mg/dL (Neg-Trace) H 12/26/17 07:39 Urine Blood Moderate (Negative) H 12/26/17 07:39 Urine Nitrite Positive (Negative) A 12/26/17 07:39 Ur Leukocyte Esterase Large (Negative) H 12/26/17 07:39 Urine Microscopic RBC 30-50 per hpf (0-3) H 12/26/17 07:39 Urine Microscopic WBC TNTC per hpf (0-3) H 12/26/17 07:39 Urine Bacteria Many per hpf (None-Few) H 12/26/17 07:39 Urine Osmolality 164 mOsm/kg (300-1090) L 01/01/18 09:55 Nasal Screen MRSA (PCR) Positive (Negative) A 12/30/17 19:41 Salicylates < 2.5 mg/dL (15.0-30.0) L 12/26/17 07:58 Acetaminophen < 10 mcg/mL (10-20) L 12/26/17 07:58 General appearance: Present: no acute distress - Respiratory Respiratory exam: Present: decreased breath sounds, CTAB Additional comments: Shallow inspiratory effort - Cardiovascular Cardiovascular exam: Present: +S1, +S2 - GI/Abdominal GI/Abdominal exam: Present: normal bowel sounds, soft Additional comments: PEG intact and in place - Additional comments: Clear yellow urine present in grove - Extremities Exam Extremities exam: Present: normal capillary refill, normal inspection - Neurological Exam Additional comments: Alert, does not follow commands. - Skin Skin exam: Present: dry, warm Palliative Quality Palliative Quality: Screen for Code Status: Yes (Awaiting return call or guardian visit), Screen for Goals of Care: Yes, Screen for Pain: Yes, If Pain Regimen Started, Initiate Bowel Regimen: NA, Screen for Nausea/Vomitting: NA Code Status: 12/26/17 15:45 Resuscitation Status: Active [RES] Routine Comment: Resuscitation Status: Full Code Resuscitation Status: Active [RES] Routine Comment: Resuscitation Status: DNR-Comfort Care - Labs CBC & Chem 7: 01/13/18 05:35 01/13/18 05:35 Labs: Laboratory Results - last 24 hr 01/13/18 01/13/18 05:35 05:35 WBC 7.9 RBC 4.44 Hgb 14.0 D Hct 44.3 MCV 99.8 MCH 31.5 MCHC 31.6 RDW 14.0 Plt Count 306 MPV 11.1 Immature Gran % 0.5 Seg Neutrophils % 71.7 Lymphocytes % 17.6 Monocytes % 6.2 Eosinophils % 3.6 Basophils % 0.4 Neutrophils # 5.6 Lymphocytes # 1.4 Monocytes # 0.5 Eosinophils # 0.3 Basophils # 0.0 Sodium 147 H Potassium 4.9 Chloride 113 H Carbon Dioxide 23 BUN 70 H Creatinine 2.22 H Est GFR ( Amer) 37 L Est GFR (Non-Af Amer) 30 L BUN/Creatinine Ratio 32 H Glucose 108 H Calculated Osmolality 325 H Calcium 10.2 - ABG Interpretation ABG results: ABG ABG pH 7.44 pH Units (7.32-7.45) 12/30/17 04:49 ABG pCO2 35 mmHg (35-45) 12/30/17 04:49 ABG pO2 73 mmHg (85-104) L 12/30/17 04:49 ABG O2 Saturation 95 % (95-98) 12/30/17 04:49 PT/INR, D-dimer PT 17.4 Seconds (9.4-12.1) H 01/06/18 10:46 Consult Discharge Plan - Plan Referrals: Yanet Armstrong MD [Primary Care Provider] -
[2018-01-13] MEDS ORDERED: Milk and Molasses Enema 200 ML RC ONE (10:07)
--- NOTE | 2018-01-13 14:37 | Internal Med Progress Note ---
Date of Encounter: 01/13/18 Time of Encounter: 08:45 - Assessment and plan (1) Protein-calorie malnutrition, severe Current Visit: Yes Status: Acute Assessment and plan: Continue tube feeds. Tolerating well so far. Continue free water replacement through G-tube. Nutrition following. Patient not on medical DVT prophylaxis due to DNR comfort care status. (2) Diabetes insipidus Current Visit: Yes Status: Acute Assessment and plan: Continue DDAVP. Hypernatremia improving. Continue free water replacement. (3) Counseling regarding advanced care planning and goals of care Current Visit: Yes Status: Acute Assessment and plan: Palliative care following. Patient is DNR comfort care. Continue tube feeds. Will most likely need placement due to his needs. site worker aware of this. (4) Aspiration pneumonia Current Visit: Yes Status: Acute Assessment and plan: Will complete antibiotic course today. Remains at risk for aspiration. Qualifiers: Aspiration pneumonia type: due to gastric secretions Laterality: left Lung location: lower lobe of lung Qualified Code(s): J69.0 - Pneumonitis due to inhalation of food and vomit (5) Acute kidney injury Current Visit: Yes Status: Acute Assessment and plan: Renal function slowly improving. Chlorthalidone and amiloride stopped. Continue free water replacement through the G-tube. (6) Respiratory failure Current Visit: Yes Status: Resolved (7) Urinary tract infection Current Visit: Yes Status: Resolved Qualifiers: Urinary tract infection type: site unspecified Hematuria presence: with hematuria Qualified Code(s): N39.0 - Urinary tract infection, site not specified; R31.9 - Hematuria, unspecified; R31.9 - Hematuria, unspecified (8) Encephalopathy acute Current Visit: Yes Status: Acute (9) Developmental delay, moderate Current Visit: Yes Status: Chronic (10) Dysphagia Current Visit: Yes Status: Chronic Qualifiers: Dysphagia type: oropharyngeal phase Qualified Code(s): R13.12 - Dysphagia, oropharyngeal phase (11) Constipation Current Visit: Yes Status: Acute Assessment and plan: Patient appears to be constipated again. We will add MiraLAX. Enema if no bowel movement with this. Qualifiers: Constipation type: chronic idiopathic constipation Qualified Code(s): K59.04 - Chronic idiopathic constipation - Time Spent With Patient Total time spent is greater than 50% in coordination of care (as documented) at patient's floor/unit and/or counseling patient: - Subjective Interval history: Patient is awake. Seems more oriented today and actually shook my hand today and seemed to recognize that I was the doctor. But does not follow commands. Agitation seems to be controlled. Has tolerated tube feeds well. - Constitutional Vitals: Temp Pulse Resp BP Pulse Ox 97.6 F 57 18 114/68 97 01/13/18 11:00 01/13/18 11:00 01/13/18 11:00 01/13/18 11:00 01/13/18 11:00 General appearance: Present: cooperative, underweight. Absent: answers questions appropriately - Eye Eye exam: Present: EOMI, conjuntiva pink, sclera anicteric - Neck Neck exam general surgery: Present: supple, trachea midline. Absent: lymphadenopathy - Respiratory Respiratory exam: Absent: accessory muscle use, rales, rhonchi, wheezes Additional comments: Coarse crackles bilaterally - Cardiovascular Cardiovascular exam: Present: RRR, +S1, +S2. Absent: diastolic murmur, gallop, rubs, systolic murmur - GI/Abdominal GI/Abdominal exam: Present: normal bowel sounds, soft, no peritoneal signs. Absent: distended, tenderness - Extremities Exam Extremities exam: Present: warm, radial pulses palpable and symmetrical. Absent : calf tenderness, cyanotic, pedal edema - Neurological Exam Neurological exam: Present: no focal deficits. Absent: facial droop - Skin Skin exam: Present: dry, intact Internal Medicine: Result - Labs CBC & Chem 7: 01/13/18 05:35 01/13/18 05:35 Labs: Short CBC 01/13/18 Range/Units 05:35 WBC 7.9 (4.3-11.1) K/mcL Hgb 14.0 D (12.9-16.9) g/dL Hct 44.3 (37.5-50.1) % Plt Count 306 (140-400) K/mcL Neutrophils # 5.6 (1.6-8.9) K/mcL BMP 01/13/18 05:35 Sodium 147 H Potassium 4.9 Chloride 113 H Carbon Dioxide 23 BUN 70 H Creatinine 2.22 H Glucose 108 H Calcium 10.2 - ABG Interpretation ABG results: ABG ABG pH 7.44 pH Units (7.32-7.45) 12/30/17 04:49 ABG pCO2 35 mmHg (35-45) 12/30/17 04:49 ABG pO2 73 mmHg (85-104) L 12/30/17 04:49 ABG O2 Saturation 95 % (95-98) 12/30/17 04:49 PT/INR, D-dimer PT 17.4 Seconds (9.4-12.1) H 01/06/18 10:46 Consult Discharge Plan - Plan Referrals: Yanet Armstrong MD [Primary Care Provider] -
[2018-01-14] MEDS ORDERED: *HR* Morphine 2 MG/ML SYRINGE IVP ONE (01:23)
[2018-01-14] MEDS: Amoxicillin/Clavulanate 400 MG/5 ML UDC GTUBE SCH (05:33)
[2018-01-14 06:25] LABS: Calcium 9.9 mg/dL (8.6-10.3); Potassium 5.4 mEq/L (3.5-5.1)
[2018-01-14] MEDS: Docusate Oral Soln 100 MG/10 ML UDC GTUBE SCH ×2 (08:41→21:01)
[2018-01-14] MEDS: Desmopressin Acetate SPRAY 5 ML BOTTLE NS SCH ×2 (08:41→21:01)
[2018-01-14] MEDS: CarBAMazepine 100 MG TABLET PO SCH ×2 (08:41→21:00)
[2018-01-14] MEDS: *HR* LORazepam 1 MG TABLET PO SCH ×2 (08:41→21:01)
[2018-01-14] MEDS: Fluticasone Propionate Nasal 50 MCG/SPRAY BOTTLE NS SCH (08:41)
[2018-01-14] MEDS: Pantoprazole 40 MG VIAL IVP SCH ×2 (08:42→21:02)
[2018-01-14] MEDS: OLANZapine 10 MG TAB.RAPDIS PO SCH ×2 (08:42→21:01)
--- NOTE | 2018-01-14 09:05 | Palliative Progress Note ---
Date of Encounter: 01/14/18 Time of Encounter: 09:00 - Assessment and plan (1) Cachexia Current Visit: Yes Status: Acute Assessment and plan: Continues with tube feeds, concerned he may have aspirated. D/W hospitalist - CXR/CBC pending. (2) Constipation Current Visit: Yes Status: Acute Assessment and plan: Continue Miralax per tube. Small BM x2 documented yesterday Qualifiers: Constipation type: chronic idiopathic constipation Qualified Code(s): K59.04 - Chronic idiopathic constipation (3) Counseling regarding advanced care planning and goals of care Current Visit: Yes Status: Acute Assessment and plan: Patient with increasing fever, tachycardic, and hypoxic. Concern for aspiration. ASPI at this point desired DNRCC however, artificial nutrition/ hydration/antibiotic/resp treatments are to continue as long as he can tolerate. Unable to reach guardian this am - left message with my contact information. Awaiting CXR. May need to readdress artificial nutrition with state if he has aspirated again. Will follow up later today. (4) Acute kidney injury Current Visit: Yes Status: Acute (5) Aspiration pneumonia Current Visit: Yes Status: Acute Qualifiers: Aspiration pneumonia type: due to gastric secretions Laterality: left Lung location: lower lobe of lung Qualified Code(s): J69.0 - Pneumonitis due to inhalation of food and vomit (6) Diabetes insipidus Current Visit: Yes Status: Acute - Time Spent With Patient Total time spent is greater than 50% in coordination of care (as documented) at patient's floor/unit and/or counseling patient: 25 - 35 minutes - Subjective Interval history: Patient with fevers overnight, hypoxia and required increased oxygen per mask, as well as tachycardia. Renal function worse. Na+ WNL. He is lethargic and difficult to arouse this am. No visitors present. Sitter at bedside. - Constitutional Vitals: Abnormal lab results Nucleated RBCs/100 WBC 0.4 /100 WBC (0) H 01/04/18 03:13 PT 17.4 Seconds (9.4-12.1) H 01/06/18 10:46 ABG pO2 73 mmHg (85-104) L 12/30/17 04:49 Potassium 5.4 mEq/L (3.5-5.1) H 01/14/18 05:32 Chloride 113 mEq/L (98-107) H 01/14/18 05:32 Carbon Dioxide 22 mEq/L (23-29) L 01/14/18 05:32 BUN 89 mg/dL (8-23) H 01/14/18 05:32 Creatinine 2.98 mg/dL (0.70-1.30) H 01/14/18 05:32 Est GFR ( Amer) 26 (> 60) L 01/14/18 05:32 Est GFR (Non-Af Amer) 22 (> 60) L 01/14/18 05:32 BUN/Creatinine Ratio 30 (6-26) H 01/14/18 05:32 Glucose 161 mg/dL (70-105) H 01/14/18 05:32 POC Glucose 148 mg/dL (70-99) H 01/14/18 01:50 Serum Osmolality 330 mOsm/kg (280-300) H 12/28/17 10:26 Calculated Osmolality 329 (280-300) H 01/14/18 05:32 Magnesium 3.0 mg/dL (1.6-2.6) H 01/11/18 05:01 AST 57 Units/L (13-39) H 12/26/17 07:58 ALT 67 Units/L (7-52) H 12/26/17 07:58 Globulin 3.9 g/dL (2.4-3.5) H 12/26/17 07:58 Albumin/Globulin Ratio 0.9 (1.1-2.2) L 12/26/17 07:58 Urine Clarity Cloudy (Clear) A 12/26/17 07:39 Urine Protein 30 mg/dL (Neg-Trace) H 12/26/17 07:39 Urine Blood Moderate (Negative) H 12/26/17 07:39 Urine Nitrite Positive (Negative) A 12/26/17 07:39 Ur Leukocyte Esterase Large (Negative) H 12/26/17 07:39 Urine Microscopic RBC 30-50 per hpf (0-3) H 12/26/17 07:39 Urine Microscopic WBC TNTC per hpf (0-3) H 12/26/17 07:39 Urine Bacteria Many per hpf (None-Few) H 12/26/17 07:39 Urine Osmolality 164 mOsm/kg (300-1090) L 01/01/18 09:55 Nasal Screen MRSA (PCR) Positive (Negative) A 12/30/17 19:41 Salicylates < 2.5 mg/dL (15.0-30.0) L 12/26/17 07:58 Acetaminophen < 10 mcg/mL (10-20) L 12/26/17 07:58 General appearance: Present: no acute distress, thin - Respiratory Additional comments: Shallow inspiratory effort. Expiratory wheezes noted - Cardiovascular Cardiovascular exam: Present: +S1, +S2, tachycardia - GI/Abdominal GI/Abdominal exam: Present: diminished bowel sounds, soft Additional comments: PEG intact. Abd binder in place - Additional comments: [place]ff[place] with yellow urine - Extremities Exam Extremities exam: Present: normal capillary refill, normal inspection - Neurological Exam Additional comments: Lethargic this am, opens eyes with tactile stimuli - Skin Skin exam: Present: dry, warm Palliative Quality Palliative Quality: Screen for Code Status: Yes (Awaiting return call or guardian visit), Screen for Goals of Care: Yes, Screen for Pain: Yes, If Pain Regimen Started, Initiate Bowel Regimen: NA, Screen for Nausea/Vomitting: NA Code Status: 12/26/17 15:45 Resuscitation Status: Active [RES] Routine Comment: Resuscitation Status: Full Code Resuscitation Status: Active [RES] Routine Comment: Resuscitation Status: DNR-Comfort Care - Labs CBC & Chem 7: 01/13/18 05:35 01/14/18 05:32 Labs: Laboratory Results - last 24 hr 01/14/18 01/14/18 01:50 05:32 Sodium 144 Potassium 5.4 H Chloride 113 H Carbon Dioxide 22 L BUN 89 H Creatinine 2.98 H Est GFR ( Amer) 26 L Est GFR (Non-Af Amer) 22 L BUN/Creatinine Ratio 30 H Glucose 161 H POC Glucose 148 H Calculated Osmolality 329 H Calcium 9.9 - ABG Interpretation ABG results: ABG ABG pH 7.44 pH Units (7.32-7.45) 12/30/17 04:49 ABG pCO2 35 mmHg (35-45) 12/30/17 04:49 ABG pO2 73 mmHg (85-104) L 12/30/17 04:49 ABG O2 Saturation 95 % (95-98) 12/30/17 04:49 PT/INR, D-dimer PT 17.4 Seconds (9.4-12.1) H 01/06/18 10:46 Consult Discharge Plan - Plan Referrals: Yanet Armstrong MD [Primary Care Provider] -
[2018-01-14 09:31] LABS: Hematocrit 42.2 % (37.5-50.1); Hemoglobin 13.4 g/dL (12.9-16.9); Mean Corpuscular HGB Conc 31.8 g/dL (31.6-35.5); Mean Corpuscular Hemoglobin 31.5 pg (28.0-33.3); Mean Corpuscular Volume 99.3 fL (83.0-100.0); Mean Platelet Volume 11.2 fL (9.4-12.4); Platelet Count 316 K/mcL (140-400); Red Blood Count 4.25 M/mcL (4.19-5.50); Red Cell Distribution Width 14.3 % (11.5-14.5)
[2018-01-14 10:23] LABS: Monocytes # 0.5 K/mcL (0.0-1.3); Neutrophils # 25.5 K/mcL (1.6-8.9); Platelet Estimate Normal (Normal)
[2018-01-14 10:31] LABS: Dohle Bodies Present (Not Present); Toxic Granulation Present (Not Present)
[2018-01-14] MEDS: 0.9 % Sodium Chloride 1,000 ML IVC SCH (10:39)
[2018-01-14] MEDS ORDERED: Piperacillin/Tazobactam 3.375 GM in 0.9 % Sodium Chloride Mini Bag 100 ML IVPB SCH (12:00)
[2018-01-14] MEDS ORDERED: Vancomycin 1 EACH in 0.9 % Sodium Chloride 250 ML IVPB SCH (12:00)
--- NOTE | 2018-01-14 13:06 | Internal Med Progress Note ---
Date of Encounter: 01/14/18 Time of Encounter: 09:30 - Assessment and plan (1) Respiratory failure Current Visit: Yes Status: Resolved Assessment and plan: 5L via nasal canula, maintaining sats in the low 90s. Continue and titrate as needed to maintain sats > 93% (2) Acute kidney injury Current Visit: Yes Status: Acute Assessment and plan: Renal function worsening. Chlorthalidone and amiloride stopped. Continue free water replacement through the G-tube. Gentle IVF hydration initiated, will be stopped due to goals of care. Monitor labs and try to avoid nephrotoxins. (3) Urinary tract infection Current Visit: Yes Status: Resolved Assessment and plan: Antibiotic therapy completed. Qualifiers: Urinary tract infection type: site unspecified Hematuria presence: with hematuria Qualified Code(s): N39.0 - Urinary tract infection, site not specified; R31.9 - Hematuria, unspecified; R31.9 - Hematuria, unspecified (4) Encephalopathy acute Current Visit: Yes Status: Acute Assessment and plan: Pt was unresponsive to verbal or physical stimuli, pt had had IV ativan prior to my assessment, however. Pt with new, patchy RLL opacity, may reflect pna, also has tachycardia, fever overnight. Likely metabolic secondary to recurrent aspiration pna. Lactic acid ordered, blood cultures ordered Monitor labs and vitals Sitter at bedside for safety (5) Diabetes insipidus Current Visit: Yes Status: Acute Assessment and plan: Hypernatremia resolved. Continue DDAVP. Continue free water replacement. Pt with IVF hydration 0.9NS at 50ml/hour. (6) Constipation Current Visit: Yes Status: Acute Assessment and plan: Pt with small liquid stool yesterday, continue current medications. Qualifiers: Constipation type: chronic idiopathic constipation Qualified Code(s): K59.04 - Chronic idiopathic constipation (7) Developmental delay, moderate Current Visit: Yes Status: Chronic Assessment and plan: Chronic. STable. Sitter at bedside. (8) Aspiration pneumonia Current Visit: Yes Status: Acute Assessment and plan: Pt completed antibiotic course yesterday. Pt with new leukocytosis, tachycardia , fever overnight, and new AMS. Repeat chest shows new RLL opacity that may reflect pna. Tube feed has been stopped. Suspect new aspiration pna. Continue 02 as needed. Pt on 5L via simple mask Start IV Vanco and Zosyn, pharmacy to dose Vanco. Protonix increased to 40mg IV BID. Nebulizer treatments q4h scheduled Continue aspiration precautions Qualifiers: Aspiration pneumonia type: due to gastric secretions Laterality: left Lung location: lower lobe of lung Qualified Code(s): J69.0 - Pneumonitis due to inhalation of food and vomit (9) Counseling regarding advanced care planning and goals of care Current Visit: Yes Status: Acute Assessment and plan: Palliative care following. DNR-CC. Tube feeds and IVF will be stopped. Due to his recurrent pneumonia, palliative has initiated withdrawl of care paperwork and has sent it to court, guardian in agreement. Permission granted per [employer]iat[employer]. (10) Dysphagia Current Visit: Yes Status: Chronic Assessment and plan: NPO. Tube feeds have been stopped. Qualifiers: Dysphagia type: oropharyngeal phase Qualified Code(s): R13.12 - Dysphagia, oropharyngeal phase (11) Protein-calorie malnutrition, severe Current Visit: Yes Status: Acute Assessment and plan: Pt DNR, tube feeds and IVF have been stopped secondary to goals of care. - Time Spent With Patient Total time spent is greater than 50% in coordination of care (as documented) at patient's floor/unit and/or counseling patient: less than 15 minutes - Subjective Interval history: Pt was seen and assessed at bedside at 0930. He was sleeping and for the most part, unarouasable to verbal or sternal rub. Patient has a sitter at the bedside. Palliative evaluated patient this morning. Due to his recurrent aspiration pneumonia, palliative has spoken with guardian and paperwork has been sent to court to withdraw tube feeds, they have been held currently due to repeat pna. - Constitutional Vitals: Temp Pulse Resp BP Pulse Ox 97.9 F 100 24 108/72 95 01/14/18 12:12 01/14/18 12:12 01/14/18 12:12 01/14/18 12:12 01/14/18 12:12 General appearance: Present: cachectic, underweight. Absent: A&O X 1, A&O X 2, A&O X 3, answers questions appropriately Exam: Pt is unresponsive to verbal stimuli or sternal rub. - Head Head exam: Present: atraumatic, normal inspection, normocephalic - Eye Eye exam: Present: conjuntiva pink, sclera anicteric - Neck Neck exam general surgery: Present: supple, trachea midline. Absent: lymphadenopathy - Respiratory Respiratory exam: Present: decreased breath sounds, CTAB. Absent: accessory muscle use, rales, respiratory distress, rhonchi, wheezes - Cardiovascular Cardiovascular exam: Present: RRR, +S1, +S2. Absent: bradycardia, diastolic murmur, gallop, rubs, systolic murmur - GI/Abdominal GI/Abdominal exam: Present: normal bowel sounds, soft. Absent: distended, hepatomegaly, tenderness - Extremities Exam Extremities exam: Present: normal capillary refill, normal inspection, warm, radial pulses palpable and symmetrical. Absent: calf tenderness, cyanotic, pedal edema - Neurological Exam Neurological exam: Absent: alert, oriented X3 - Skin Skin exam: Present: dry, intact, normal color, warm. Absent: rash Internal Medicine: Result - Labs CBC & Chem 7: 01/14/18 09:21 01/14/18 05:32 Labs: Short CBC 01/14/18 Range/Units 09:21 WBC 26.0 H D (4.3-11.1) K/mcL Hgb 13.4 (12.9-16.9) g/dL Hct 42.2 (37.5-50.1) % Plt Count 316 (140-400) K/mcL Neutrophils # 25.5 H (1.6-8.9) K/mcL BMP 01/14/18 05:32 Sodium 144 Potassium 5.4 H Chloride 113 H Carbon Dioxide 22 L BUN 89 H Creatinine 2.98 H Glucose 161 H Calcium 9.9 - ABG Interpretation ABG results: ABG ABG pH 7.44 pH Units (7.32-7.45) 12/30/17 04:49 ABG pCO2 35 mmHg (35-45) 12/30/17 04:49 ABG pO2 73 mmHg (85-104) L 12/30/17 04:49 ABG O2 Saturation 95 % (95-98) 12/30/17 04:49 PT/INR, D-dimer PT 17.4 Seconds (9.4-12.1) H 01/06/18 10:46 - Impressions Impressions Chest X-Ray 01/14/18 08:55 IMPRESSION: New, patchy right lower lung airspace opacity may reflect pneumonia in the correct clinical setting. D/ /14/2018 10:53:37 Pramod Cronin MD / earpadmini Interpreting Provider: Pramod Cronin MD Consult Discharge Plan - Plan Referrals: Yanet Armstrong MD [Primary Care Provider] -
[2018-01-14] MEDS: *HR* LORazepam 2 MG/ML VIAL IVP PRN (15:05)
--- NOTE | 2018-01-14 15:25 | Event Note ---
Date of Encounter: 01/14/18 Time of Encounter: 15:00 Was notified by pt yvrose, that [facility] are both ill and one actually in the hospital. She stated he will need placed at [facility]. [facility] already refused pt. Yvrose's other choices are as follows: 1. [facility] 2. [facility] 3. [facility]. She is agreeable to hospice care. D/W cushion worker and he will be making referral. Updated Peg Beaver. Will continue to follow. He does have some low dose Morphine available for comfort if needed.
[2018-01-14] MEDS: Ipratropium/Albuterol Neb 3 ML IH SCH ×3 (16:11→23:37)
[2018-01-14] MEDS: *HR* Morphine 2 MG/ML SYRINGE IVP PRN (21:09)
[2018-01-15] MEDS: *HR* Morphine 2 MG/ML SYRINGE IVP PRN ×2 (03:40→08:05)
[2018-01-15] MEDS: Ipratropium/Albuterol Neb 3 ML IH SCH ×5 (04:18→21:23)
[2018-01-15] MEDS: *HR* LORazepam 2 MG/ML VIAL IVP PRN (05:09)
[2018-01-15 05:32] LABS: Hematocrit 42.2 % (37.5-50.1); Hemoglobin 12.9 g/dL (12.9-16.9); Lymphocytes # 1.9 K/mcL (0.6-4.6); Mean Corpuscular HGB Conc 30.6 g/dL (31.6-35.5); Mean Corpuscular Hemoglobin 30.9 pg (28.0-33.3); Mean Corpuscular Volume 101.2 fL (83.0-100.0); Platelet Count 275 K/mcL (140-400); Red Blood Count 4.17 M/mcL (4.19-5.50); Red Cell Distribution Width 14.3 % (11.5-14.5)
[2018-01-15 05:53] LABS: Calcium 9.6 mg/dL (8.6-10.3); Potassium 5.2 mEq/L (3.5-5.1)
[2018-01-15 06:03] LABS: Neutrophils # 22.2 K/mcL (1.6-8.9); Platelet Estimate Normal (Normal)
[2018-01-15] MEDS: CarBAMazepine 100 MG TABLET PO SCH ×2 (07:45→22:06)
[2018-01-15] MEDS: *HR* LORazepam 1 MG TABLET PO SCH (07:45)
[2018-01-15] MEDS: Docusate Oral Soln 100 MG/10 ML UDC GTUBE SCH ×2 (07:45→22:08)
[2018-01-15] MEDS: Fluticasone Propionate Nasal 50 MCG/SPRAY BOTTLE NS SCH (07:46)
[2018-01-15] MEDS: Desmopressin Acetate SPRAY 5 ML BOTTLE NS SCH ×2 (07:46→22:08)
[2018-01-15] MEDS: Pantoprazole 40 MG VIAL IVP SCH (07:46)
[2018-01-15] MEDS: OLANZapine 10 MG TAB.RAPDIS PO SCH (07:46)
[2018-01-15] MEDS ORDERED: Aminoglycoside Consult 1 EACH MC ONE (08:30)
[2018-01-15] MEDS ORDERED: Atropine Sulfate 1% 40 DROP/2 ML BOTTLE SL PRN (09:18)
[2018-01-15] MEDS ORDERED: MORPHINE SUL Oral CONC 10 MG/0.5 ML ORAL.SYG SL PRN (09:19)
--- NOTE | 2018-01-15 09:25 | Palliative Progress Note ---
Date of Encounter: 01/15/18 Time of Encounter: 09:00 - Assessment and plan (1) Dyspnea Current Visit: Yes Status: Acute Assessment and plan: Patient DNRCC, doing poorly with recurrent pneumonia. He is restless, will not leave oxygen on. Will begin scheduled Roxanol SL every 4 hours for comfort and every hour PRN. Monitor and titrate as needed. (2) Restlessness and agitation Current Visit: Yes Status: Acute Assessment and plan: Having increased restlessness. Will begin scheduled Haloperidol SL 2 mg every 6 hours in addition as comfort medication and d/c Zyprexa to decrease QT prolonging agents. (3) Cachexia Current Visit: Yes Status: Acute Assessment and plan: Patient aspirating with PEG feedings. These have been discontinued. Comfort care only. (4) Constipation Current Visit: Yes Status: Acute Assessment and plan: Continue Miralax per PEG daily. Qualifiers: Constipation type: chronic idiopathic constipation Qualified Code(s): K59.04 - Chronic idiopathic constipation (5) Counseling regarding advanced care planning and goals of care Current Visit: Yes Status: Acute (6) Acute kidney injury Current Visit: Yes Status: Acute (7) Aspiration pneumonia Current Visit: Yes Status: Acute Qualifiers: Aspiration pneumonia type: due to gastric secretions Laterality: left Lung location: lower lobe of lung Qualified Code(s): J69.0 - Pneumonitis due to inhalation of food and vomit (8) Diabetes insipidus Current Visit: Yes Status: Acute - Time Spent With Patient Total time spent is greater than 50% in coordination of care (as documented) at patient's floor/unit and/or counseling patient: 25 - 35 minutes - Subjective Interval history: Patient restless, agitated with assessment. Will not leave oxygen on. Resp shallow. - Constitutional Vitals: Abnormal lab results WBC 24.1 K/mcL (4.3-11.1) H 01/15/18 04:13 RBC 4.17 M/mcL (4.19-5.50) L 01/15/18 04:13 MCV 101.2 fL (83.0-100.0) H 01/15/18 04:13 MCHC 30.6 g/dL (31.6-35.5) L 01/15/18 04:13 Neutrophils # 22.2 K/mcL (1.6-8.9) H 01/15/18 04:13 Nucleated RBCs/100 WBC 0.4 /100 WBC (0) H 01/04/18 03:13 Toxic Granulation Present (Not Present) A 01/14/18 09:21 Dohle Bodies Present (Not Present) A 01/14/18 09:21 PT 17.4 Seconds (9.4-12.1) H 01/06/18 10:46 ABG pO2 73 mmHg (85-104) L 12/30/17 04:49 Sodium 149 mEq/L (136-145) H 01/15/18 04:13 Potassium 5.2 mEq/L (3.5-5.1) H 01/15/18 04:13 Chloride 117 mEq/L (98-107) H 01/15/18 04:13 Carbon Dioxide 22 mEq/L (23-29) L 01/15/18 04:13 BUN 100 mg/dL (8-23) H 01/15/18 04:13 Creatinine 3.01 mg/dL (0.70-1.30) H 01/15/18 04:13 Est GFR ( Amer) 26 (> 60) L 01/15/18 04:13 Est GFR (Non-Af Amer) 21 (> 60) L 01/15/18 04:13 BUN/Creatinine Ratio 33 (6-26) H 01/15/18 04:13 Glucose 126 mg/dL (70-105) H 01/15/18 04:13 POC Glucose 148 mg/dL (70-99) H 01/14/18 01:50 Serum Osmolality 330 mOsm/kg (280-300) H 12/28/17 10:26 Calculated Osmolality 341 (280-300) H 01/15/18 04:13 Magnesium 3.0 mg/dL (1.6-2.6) H 01/11/18 05:01 AST 57 Units/L (13-39) H 12/26/17 07:58 ALT 67 Units/L (7-52) H 12/26/17 07:58 Globulin 3.9 g/dL (2.4-3.5) H 12/26/17 07:58 Albumin/Globulin Ratio 0.9 (1.1-2.2) L 12/26/17 07:58 Urine Clarity Cloudy (Clear) A 12/26/17 07:39 Urine Protein 30 mg/dL (Neg-Trace) H 12/26/17 07:39 Urine Blood Moderate (Negative) H 12/26/17 07:39 Urine Nitrite Positive (Negative) A 12/26/17 07:39 Ur Leukocyte Esterase Large (Negative) H 12/26/17 07:39 Urine Microscopic RBC 30-50 per hpf (0-3) H 12/26/17 07:39 Urine Microscopic WBC TNTC per hpf (0-3) H 12/26/17 07:39 Urine Bacteria Many per hpf (None-Few) H 12/26/17 07:39 Urine Osmolality 164 mOsm/kg (300-1090) L 01/01/18 09:55 Nasal Screen MRSA (PCR) Positive (Negative) A 12/30/17 19:41 Salicylates < 2.5 mg/dL (15.0-30.0) L 12/26/17 07:58 Acetaminophen < 10 mcg/mL (10-20) L 12/26/17 07:58 General appearance: Present: mild distress - Respiratory Respiratory exam: Present: decreased breath sounds - Cardiovascular Cardiovascular exam: Present: tachycardia - GI/Abdominal GI/Abdominal exam: Present: diminished bowel sounds, soft Additional comments: PEG intact - small amount drainage on dressing - Additional comments: grove with clear yellow urine - Extremities Exam Extremities exam: Present: normal capillary refill, normal inspection - Neurological Exam Neurological exam: Present: alert Additional comments: restless, [facility]. - Skin Skin exam: Present: dry, pallor, warm Palliative Quality Palliative Quality: Screen for Code Status: Yes (Awaiting return call or guardian visit), Screen for Goals of Care: Yes, Screen for Pain: Yes, If Pain Regimen Started, Initiate Bowel Regimen: NA, Screen for Nausea/Vomitting: NA Code Status: 12/26/17 15:45 Resuscitation Status: Active [RES] Routine Comment: Resuscitation Status: Full Code Resuscitation Status: Active [RES] Routine Comment: Resuscitation Status: DNR-Comfort Care - Labs CBC & Chem 7: 01/15/18 04:13 01/15/18 04:13 Labs: Laboratory Results - last 24 hr 01/14/18 01/14/18 01/15/18 09:21 13:57 04:13 WBC 26.0 H D RBC 4.25 Hgb 13.4 Hct 42.2 MCV 99.3 MCH 31.5 MCHC 31.8 RDW 14.3 Plt Count 316 MPV 11.2 Seg Neutrophils % 78.0 Band Neutrophils % 20.0 H Lymphocytes % Monocytes % 2.0 Neutrophils # 25.5 H Lymphocytes # Monocytes # 0.5 Toxic Granulation Present A Dohle Bodies Present A Platelet Estimate Normal Clumped Platelets Sodium Potassium Chloride Carbon Dioxide BUN Creatinine Est GFR ( Amer) Est GFR (Non-Af Amer) BUN/Creatinine Ratio Glucose Calculated Osmolality Lactic Acid 1.3 Calcium Random Vancomycin 3 01/15/18 01/15/18 04:13 04:13 WBC 24.1 H RBC 4.17 L Hgb 12.9 Hct 42.2 MCV 101.2 H MCH 30.9 MCHC 30.6 L RDW 14.3 Plt Count 275 MPV 12.0 Seg Neutrophils % 88.0 Band Neutrophils % 4.0 Lymphocytes % 8.0 Monocytes % Neutrophils # 22.2 H Lymphocytes # 1.9 Monocytes # Toxic Granulation Dohle Bodies Platelet Estimate Normal Clumped Platelets Sodium 149 H Potassium 5.2 H Chloride 117 H Carbon Dioxide 22 L BUN 100 H Creatinine 3.01 H Est GFR ( Amer) 26 L Est GFR (Non-Af Amer) 21 L BUN/Creatinine Ratio 33 H Glucose 126 H Calculated Osmolality 341 H Lactic Acid Calcium 9.6 Random Vancomycin - Impressions Impressions Chest X-Ray 01/14/18 08:55 IMPRESSION: New, patchy right lower lung airspace opacity may reflect pneumonia in the correct clinical setting. D/ / 01/14/2018 10:53:37 Pramod Cronin MD / earnold Interpreting Provider: Pramod Cronin MD - ABG Interpretation ABG results: ABG ABG pH 7.44 pH Units (7.32-7.45) 12/30/17 04:49 ABG pCO2 35 mmHg (35-45) 12/30/17 04:49 ABG pO2 73 mmHg (85-104) L 12/30/17 04:49 ABG O2 Saturation 95 % (95-98) 12/30/17 04:49 PT/INR, D-dimer PT 17.4 Seconds (9.4-12.1) H 01/06/18 10:46 Consult Discharge Plan - Plan Referrals: Yanet Armstrong MD [Primary Care Provider] -
[2018-01-15] MEDS: Haloperidol Oral Conc 10 MG/5 ML UDC PO SCH ×3 (10:07→22:53)
[2018-01-15] MEDS: MORPHINE SUL Oral CONC 10 MG/0.5 ML ORAL.SYG SL SCH ×4 (10:08→22:32)
[2018-01-15] MEDS: *HR* LORazepam Oral Conc 2 MG/ML SL SCH ×3 (12:45→22:08)
--- NOTE | 2018-01-15 14:20 | Physician Discharge Referral ---
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 Institutional Level of Care: Intermediate - Diagnosis (1) Respiratory failure Priority: Secondary Status: Resolved (2) Acute kidney injury Priority: Secondary Status: Acute (3) Urinary tract infection Priority: Secondary Status: Resolved (4) Encephalopathy acute Priority: Primary Status: Acute (5) Diabetes insipidus Priority: Secondary Status: Acute (6) Constipation Priority: Secondary Status: Acute (7) Developmental delay, moderate Priority: Secondary Status: Chronic (8) Aspiration pneumonia Priority: Secondary Status: Acute (9) Counseling regarding advanced care planning and goals of care Priority: Secondary Status: Acute (10) Dysphagia Priority: Secondary Status: Chronic (11) Protein-calorie malnutrition, severe Priority: Secondary Status: Acute Prognosis: Poor - Transfer Medications Home Medications: Acetaminophen [Non-Aspirin] 650 mg PO Q4H PRN 12/26/17 [History] Albuterol Neb [Proventil Neb] 2.5 mg IH QID PRN 12/26/17 [History] Alendronate Sodium [Fosamax] 70 mg PO TH 12/26/17 [History] Benztropine Mesylate 2 mg PO HS 12/26/17 [History] Benztropine [Cogentin] 1 mg PO QAM 12/26/17 [History] Buspirone HCl [Buspar] 20 mg PO BID 12/26/17 [History] Calcium Carbonate/Vitamin D3 [[place] Calcium-Vit D Tab] 1 tab PO BID 12/26 [History] Cholecalciferol (Vitamin D3) [Vitamin D3] 1,000 unit PO DAILY 12/26/17 [History] Docusate Sodium [Dok] 100 mg PO BID 12/26/17 [History] Fluticasone Propionate Nasal [Flonase] 1 spr NS DAILY 12/26/17 [History] Fluvoxamine Maleate 50 mg PO BID 12/26/17 [History] Ibuprofen [Motrin Ib] 400 mg PO Q6H PRN 12/26/17 [History] LORazepam [Ativan] 1 mg PO BID 12/26/17 [History] Levothyroxine [Synthroid] 100 mcg PO DAILY 12/26/17 [History] [place] Carbonate 300 mg PO BID 12/26/17 [History] Loperamide [Imodium] 4 mg PO DAILY PRN 12/26/17 [History] Magnesium Hydroxide [Milk of Magnesia] 2,400 mg PO DAILY PRN 12/26/17 [History] OLANZapine [Zyprexa] 10 mg PO QAM 12/26/17 [History] OLANZapine [Zyprexa] 20 mg PO HS 12/26/17 [History] Polyethylene Glycol 3350 [Gavilax] 17 gm PO DAILY 12/26/17 [History] Sennosides/Docusate Sodium [Senna-S Tablet] 2 tab PO HS 12/26/17 [History] Tamsulosin [Flomax] 0.4 mg PO DAILY 12/26/17 [History] Xyzal 5 mg PO DAILY 12/26/17 [History] carBAMazepine [CarBAMazepine] 100 mg PO QAM 12/26/17 [History] carBAMazepine [CarBAMazepine] 200 mg PO HS 12/26/17 [History] fluvoxaMINE [Luvox] 100 mg PO BID 12/26/17 [History] Desmopressin Acetate [Ddavp] 3 spray NS BID bottle 01/15/18 [Rx] Haloperidol Oral Conc [Haldol] 2 mg PO Q6H udc 01/15/18 [Rx] Saliva Stimulant [Biotene Moisturizing Rinse] 1 spray PO Q2H PRN bottle [Rx] Allergies/Adverse Reactions: 3 Allergy/AdvReac Type Severity Reaction Status Date / Time No Known Allergies Allergy Verified 10/15/17 19:33 - Respiratory Orders Oxygen / L per min (2 liters/ nasal canula, titrate as needed.) Smoking Cessation: Smoking cessation has been advised. For more information, call the [place] Tobacco Quit Line at 6-101-FIAV-NOW. - Lab Orders Lab Orders: CBC, U/A - Ancillary Orders May use pressure relief devices daily prn - Advance Directives Code Status: DNR-Comfort Care - Mobility Orders Bedrest - Rehabiliation Orders Rehab Potential: Poor - Treatments Skin tear care topically daily PRN per policy - Diet Orders Regular CERTIFICATION: I certify that the transfer of the above named patient to an Extended Care Facility is necessary for the continuing treatment of the diagnosis listed. The above information is true and accurate reflection of patient's current condition. Confidential - Redisclosure prohibited without a patient's written consent.
--- NOTE | 2018-01-15 17:38 | Internal Med Progress Note ---
Date of Encounter: 01/15/18 Time of Encounter: 09:40 - Assessment and plan (1) Respiratory failure Current Visit: Yes Status: Resolved Assessment and plan: 5L via simple mask, maintaining sats in the low 90s. Continue and titrate as needed to maintain sats > 93% (2) Acute kidney injury Current Visit: Yes Status: Acute Assessment and plan: Renal function worsening. IVF has been stopped. (3) Urinary tract infection Current Visit: Yes Status: Resolved Qualifiers: Urinary tract infection type: site unspecified Hematuria presence: with hematuria Qualified Code(s): N39.0 - Urinary tract infection, site not specified; R31.9 - Hematuria, unspecified; R31.9 - Hematuria, unspecified (4) Encephalopathy acute Current Visit: Yes Status: Acute Assessment and plan: Pt remains unresponsive to verbal or physical stimuli. Pt with new, patchy RLL opacity, may reflect pna, also has tachycardia, fever overnight. Likely metabolic secondary to recurrent aspiration pna. Lactic WNL yesterday, blood cultures negative x 2. Sitter at bedside for safety (5) Diabetes insipidus Current Visit: Yes Status: Chronic (6) Constipation Current Visit: Yes Status: Chronic Assessment and plan: Continue Miralax through PEG. Qualifiers: Constipation type: chronic idiopathic constipation Qualified Code(s): K59.04 - Chronic idiopathic constipation (7) Developmental delay, moderate Current Visit: Yes Status: Chronic (8) Aspiration pneumonia Current Visit: Yes Status: Acute Assessment and plan: Recurrent, pt aspirated even with PEG tube. Repeat chest shows new RLL opacity that may reflect pna. Tube feed has been stopped. Suspect new aspiration pna. Continue 02 as needed. Pt on 5L via simple mask IV antibiotic has been stopped. Nebulizer treatments q4h scheduled Qualifiers: Aspiration pneumonia type: due to gastric secretions Laterality: left Lung location: lower lobe of lung Qualified Code(s): J69.0 - Pneumonitis due to inhalation of food and vomit (9) Counseling regarding advanced care planning and goals of care Current Visit: Yes Status: Acute Assessment and plan: Pt is DNR-CC. Pt is going to go to [facility]. GEAR DESIGN ENGINEER on board and working with ECF for placement. IV antibiotics, fluids, and tube feeds have been stopped. (10) Dysphagia Current Visit: Yes Status: Resolved Qualifiers: Dysphagia type: oropharyngeal phase Qualified Code(s): R13.12 - Dysphagia, oropharyngeal phase (11) Protein-calorie malnutrition, severe Current Visit: Yes Status: Acute Assessment and plan: Tube feeds have been stopped. - Time Spent With Patient Total time spent is greater than 50% in coordination of care (as documented) at patient's floor/unit and/or counseling patient: less than 15 minutes - Subjective Interval history: Pt was seen and assessed at bedside at 0940. He was resting quietly with his head on the siderail while I was in the room. Respirs tachy and shallow. Eyes open, mouth wide open, pt does not respond to speech. Nurse and palliative state that he has been restless and will not keep 02 on today. Palliative has started sl medications for comfort care. Patient has a sitter at the bedside. - Constitutional Vitals: Temp Pulse Resp BP Pulse Ox 98.1 F 129 20 96/65 91 01/15/18 16:00 01/15/18 16:00 01/15/18 16:00 01/15/18 16:00 01/15/18 16:00 General appearance: Present: cachectic, underweight. Absent: A&O X 1, A&O X 2, A&O X 3, answers questions appropriately - Head Head exam: Present: atraumatic, normocephalic - Eye Eye exam: Present: conjuntiva pink, sclera anicteric - Neck Neck exam general surgery: Present: trachea midline - Respiratory Respiratory exam: Present: CTAB, tachypnea. Absent: accessory muscle use, rales , rhonchi, wheezes - Expanded Respiratory Exam Location: decreased breath sounds: Left, Right, Upper, Lower - Cardiovascular Cardiovascular exam: Present: RRR, +S1, +S2. Absent: diastolic murmur, gallop, rubs, systolic murmur - GI/Abdominal GI/Abdominal exam: Present: normal bowel sounds, soft. Absent: distended - Extremities Exam Extremities exam: Present: warm. Absent: calf tenderness, cyanotic, normal capillary refill, normal inspection, pedal edema, tenderness - Neurological Exam Neurological exam: Present: alert, no focal deficits - Skin Skin exam: Present: dry, intact, warm Internal Medicine: Result - Labs CBC & Chem 7: 01/15/18 04:13 01/15/18 04:13 Labs: Short CBC 01/15/18 Range/Units 04:13 WBC 24.1 H (4.3-11.1) K/mcL Hgb 12.9 (12.9-16.9) g/dL Hct 42.2 (37.5-50.1) % Plt Count 275 (140-400) K/mcL Neutrophils # 22.2 H (1.6-8.9) K/mcL BMP 01/15/18 04:13 Sodium 149 H Potassium 5.2 H Chloride 117 H Carbon Dioxide 22 L BUN 100 H Creatinine 3.01 H Glucose 126 H Calcium 9.6 - ABG Interpretation ABG results: ABG ABG pH 7.44 pH Units (7.32-7.45) 12/30/17 04:49 ABG pCO2 35 mmHg (35-45) 12/30/17 04:49 ABG pO2 73 mmHg (85-104) L 12/30/17 04:49 ABG O2 Saturation 95 % (95-98) 12/30/17 04:49 PT/INR, D-dimer PT 17.4 Seconds (9.4-12.1) H 01/06/18 10:46 Consult Discharge Plan - Plan Referrals: Yanet Armstrong MD [Primary Care Provider] -
[2018-01-15] MEDS: 0.9 % Sodium Chloride 1,000 ML IVC SCH (23:05)
[2018-01-16] MEDS: Ipratropium/Albuterol Neb 3 ML IH SCH ×4 (00:27→11:23)
[2018-01-16] MEDS: MORPHINE SUL Oral CONC 10 MG/0.5 ML ORAL.SYG SL SCH ×4 (01:43→11:58)
[2018-01-16] MEDS: *HR* LORazepam Oral Conc 2 MG/ML SL SCH ×4 (01:43→11:59)
[2018-01-16] MEDS: Haloperidol Oral Conc 10 MG/5 ML UDC PO SCH ×2 (05:26→10:00)
[2018-01-16 05:59] LABS: Basophils % 0.2 %; Eosinophils # 0.5 K/mcL (0.0-0.6); Eosinophils % 2.7 %; Hematocrit 45.6 % (37.5-50.1); Hemoglobin 13.7 g/dL (12.9-16.9); Immature Granulocytes % 0.6 % (0-4); Lymphocytes # 1.5 K/mcL (0.6-4.6); Lymphocytes % 8.3 %; Mean Corpuscular Hemoglobin 31.1 pg (28.0-33.3); Mean Corpuscular Volume 103.4 fL (83.0-100.0); Mean Platelet Volume 11.9 fL (9.4-12.4); Monocytes # 0.6 K/mcL (0.0-1.3); Neutrophils # 15.4 K/mcL (1.6-8.9); Platelet Count 275 K/mcL (140-400); Red Blood Count 4.41 M/mcL (4.19-5.50); Red Cell Distribution Width 14.5 % (11.5-14.5); Segmented Neutrophils % 85.2 %
[2018-01-16 06:19] LABS: Calcium 10.3 mg/dL (8.6-10.3); Potassium 4.7 mEq/L (3.5-5.1)
[2018-01-16 07:31] VITALS: BP 116/79
[2018-01-16] MEDS: Docusate Oral Soln 100 MG/10 ML UDC GTUBE SCH (08:05)
[2018-01-16] MEDS: CarBAMazepine 100 MG TABLET PO SCH (08:06)
[2018-01-16] MEDS: Fluticasone Propionate Nasal 50 MCG/SPRAY BOTTLE NS SCH (08:15)
[2018-01-16] MEDS: Desmopressin Acetate SPRAY 5 ML BOTTLE NS SCH (08:15)
--- NOTE | 2018-01-16 09:34 | Palliative Progress Note ---
Date of Encounter: 01/16/18 Time of Encounter: 09:30 - Assessment and plan (1) Dyspnea Current Visit: Yes Status: Acute Assessment and plan: Continue scheduled Roxanol with breakthrough PRN. Has not required any breakthrough doses. Oxygen as needed for comfort. (2) Restlessness and agitation Current Visit: Yes Status: Acute Assessment and plan: Continue scheduled Haldol and Lorazepam. He appears much less agitated today. Monitor and adjust as needed. (3) Cachexia Current Visit: Yes Status: Acute (4) Constipation Current Visit: Yes Status: Chronic Qualifiers: Constipation type: chronic idiopathic constipation Qualified Code(s): K59.04 - Chronic idiopathic constipation (5) Counseling regarding advanced care planning and goals of care Current Visit: Yes Status: Acute Assessment and plan: Awaiting state approval for ECF placement with most [facility]. fish hatchery worker has been in contact with pt guardian, who has been completing required signatures via fax. D/W pt primary nurse Radha that we will contact her when he is approved for discharge. (6) Acute kidney injury Current Visit: Yes Status: Acute (7) Aspiration pneumonia Current Visit: Yes Status: Acute Qualifiers: Aspiration pneumonia type: due to gastric secretions Laterality: left Lung location: lower lobe of lung Qualified Code(s): J69.0 - Pneumonitis due to inhalation of food and vomit (8) Diabetes insipidus Current Visit: Yes Status: Acute - Time Spent With Patient Total time spent is greater than 50% in coordination of care (as documented) at patient's floor/unit and/or counseling patient: 25 - 35 minutes - Subjective Interval history: Patient still remains restless, but less agitated. Less responsive with assessment. Has left oxygen on. Na continues to elevate. - Constitutional Vitals: Abnormal lab results WBC 18.1 K/mcL (4.3-11.1) H 01/16/18 04:00 MCV 103.4 fL (83.0-100.0) H 01/16/18 04:00 MCHC 30.0 g/dL (31.6-35.5) L 01/16/18 04:00 Neutrophils # 15.4 K/mcL (1.6-8.9) H 01/16/18 04:00 Nucleated RBCs/100 WBC 0.4 /100 WBC (0) H 01/04/18 03:13 Toxic Granulation Present (Not Present) A 01/14/18 09:21 Dohle Bodies Present (Not Present) A 01/14/18 09:21 PT 17.4 Seconds (9.4-12.1) H 01/06/18 10:46 ABG pO2 73 mmHg (85-104) L 12/30/17 04:49 Sodium 157 mEq/L (136-145) H 01/16/18 04:00 Chloride 123 mEq/L (98-107) H 01/16/18 04:00 BUN 104 mg/dL (8-23) H 01/16/18 04:00 Creatinine 2.98 mg/dL (0.70-1.30) H 01/16/18 04:00 Est GFR ( Amer) 26 (> 60) L 01/16/18 04:00 Est GFR (Non-Af Amer) 22 (> 60) L 01/16/18 04:00 BUN/Creatinine Ratio 35 (6-26) H 01/16/18 04:00 Glucose 138 mg/dL (70-105) H 01/16/18 04:00 POC Glucose 148 mg/dL (70-99) H 01/14/18 01:50 Serum Osmolality 330 mOsm/kg (280-300) H 12/28/17 10:26 Calculated Osmolality 359 (280-300) H 01/16/18 04:00 Magnesium 3.0 mg/dL (1.6-2.6) H 01/11/18 05:01 AST 57 Units/L (13-39) H 12/26/17 07:58 ALT 67 Units/L (7-52) H 12/26/17 07:58 Globulin 3.9 g/dL (2.4-3.5) H 12/26/17 07:58 Albumin/Globulin Ratio 0.9 (1.1-2.2) L 12/26/17 07:58 Urine Clarity Cloudy (Clear) A 12/26/17 07:39 Urine Protein 30 mg/dL (Neg-Trace) H 12/26/17 07:39 Urine Blood Moderate (Negative) H 12/26/17 07:39 Urine Nitrite Positive (Negative) A 12/26/17 07:39 Ur Leukocyte Esterase Large (Negative) H 12/26/17 07:39 Urine Microscopic RBC 30-50 per hpf (0-3) H 12/26/17 07:39 Urine Microscopic WBC TNTC per hpf (0-3) H 12/26/17 07:39 Urine Bacteria Many per hpf (None-Few) H 12/26/17 07:39 Urine Osmolality 164 mOsm/kg (300-1090) L 01/01/18 09:55 Nasal Screen MRSA (PCR) Positive (Negative) A 12/30/17 19:41 Salicylates < 2.5 mg/dL (15.0-30.0) L 12/26/17 07:58 Acetaminophen < 10 mcg/mL (10-20) L 12/26/17 07:58 General appearance: Present: no acute distress - Respiratory Respiratory exam: Present: CTAB Additional comments: Breath sounds coarse throughout - Cardiovascular Cardiovascular exam: Present: +S1, +S2 - GI/Abdominal GI/Abdominal exam: Present: normal bowel sounds, soft Additional comments: PEG intact with abd binder in place - Additional comments: Kauffman patent with clear yellow urine - Extremities Exam Extremities exam: Present: normal capillary refill, normal inspection - Neurological Exam Additional comments: Eyes open - does not respond to verbal or tactile stimulation. Restless at times. - Skin Skin exam: Present: dry, warm Palliative Quality Palliative Quality: Screen for Code Status: Yes (Awaiting return call or guardian visit), Screen for Goals of Care: Yes, Screen for Pain: Yes, If Pain Regimen Started, Initiate Bowel Regimen: NA, Screen for Nausea/Vomitting: NA Code Status: 12/26/17 15:45 Resuscitation Status: Active [RES] Routine Comment: Resuscitation Status: Full Code Resuscitation Status: Active [RES] Routine Comment: Resuscitation Status: DNR-Comfort Care - Labs CBC & Chem 7: 01/16/18 04:00 01/16/18 04:00 Labs: Laboratory Results - last 24 hr 01/16/18 01/16/18 04:00 04:00 WBC 18.1 H RBC 4.41 Hgb 13.7 Hct 45.6 MCV 103.4 H MCH 31.1 MCHC 30.0 L RDW 14.5 Plt Count 275 MPV 11.9 Immature Gran % 0.6 Seg Neutrophils % 85.2 Lymphocytes % 8.3 Monocytes % 3.0 Eosinophils % 2.7 Basophils % 0.2 Neutrophils # 15.4 H Lymphocytes # 1.5 Monocytes # 0.6 Eosinophils # 0.5 Basophils # 0.0 Sodium 157 H Potassium 4.7 Chloride 123 H Carbon Dioxide 25 BUN 104 H Creatinine 2.98 H Est GFR ( Amer) 26 L Est GFR (Non-Af Amer) 22 L BUN/Creatinine Ratio 35 H Glucose 138 H Calculated Osmolality 359 H Calcium 10.3 - Impressions Impressions Chest X-Ray 01/14/18 08:55 IMPRESSION: New, patchy right lower lung airspace opacity may reflect pneumonia in the correct clinical setting. D/ / 01/14/2018 10:53:37 Pramod Cronin MD / earnold Interpreting Provider: Pramod Cronin MD - ABG Interpretation ABG results: ABG ABG pH 7.44 pH Units (7.32-7.45) 12/30/17 04:49 ABG pCO2 35 mmHg (35-45) 12/30/17 04:49 ABG pO2 73 mmHg (85-104) L 12/30/17 04:49 ABG O2 Saturation 95 % (95-98) 12/30/17 04:49 PT/INR, D-dimer PT 17.4 Seconds (9.4-12.1) H 01/06/18 10:46 Consult Discharge Plan - Plan Referrals: Yanet Armstrong MD [Primary Care Provider] -
--- NOTE | 2018-01-16 11:36 | Discharge Summary ---
Orders not resulted at time of discharge: Pending orders 01/14/18 13:57 Culture,Blood [BC] Stat Culture,Blood,Additional [BC] Stat Date of Encounter: 01/16/18 Time of Encounter: 10:05 - Discharge Diagnosis (1) Respiratory failure Priority: Secondary Status: Resolved Assessment and Plan: Continue 02 for comfort. Pt using simple mask at this time. (2) Acute kidney injury Priority: Secondary Status: Acute (3) Urinary tract infection Priority: Secondary Status: Resolved Qualifiers: Urinary tract infection type: site unspecified Hematuria presence: with hematuria Qualified Code(s): N39.0 - Urinary tract infection, site not specified; R31.9 - Hematuria, unspecified; R31.9 - Hematuria, unspecified (4) Encephalopathy acute Priority: Secondary Status: Acute Assessment and Plan: Pt remains unresponsive to verbal or physical stimuli. Sitter at bedside for safety Pt is being discharged to ECF with Hospice care. (5) Diabetes insipidus Priority: Secondary Status: Chronic (6) Constipation Priority: Secondary Status: Chronic Assessment and Plan: Continue Miralax through PEG. Qualifiers: Constipation type: chronic idiopathic constipation Qualified Code(s): K59.04 - Chronic idiopathic constipation (7) Developmental delay, moderate Priority: Secondary Status: Chronic (8) Aspiration pneumonia Priority: Secondary Status: Acute Assessment and Plan: Recurrent. Tube feeds and IVF, antibiotics have been stopped. Pt will be discharged with Hospice care to ECF. Pt is DNR-CC. Qualifiers: Aspiration pneumonia type: due to gastric secretions Laterality: left Lung location: lower lobe of lung Qualified Code(s): J69.0 - Pneumonitis due to inhalation of food and vomit (9) Counseling regarding advanced care planning and goals of care Priority: Secondary Status: Resolved (10) Dysphagia Priority: Secondary Status: Resolved Qualifiers: Dysphagia type: oropharyngeal phase Qualified Code(s): R13.12 - Dysphagia, oropharyngeal phase (11) Protein-calorie malnutrition, severe Priority: Secondary Status: Chronic Assessment and Plan: Tube feeds have been stopped. Plan as above. Hospital course: Mr. Varghese is a 62 year old male with PMH of diabetes insipidus, malnutrition, cachexia, developmental delay. Pt admitted from [facility] with acute encephalopathy, UTI, OSCAR, and respiratory failure to the ICU. Pt was intubated. He had leukocytosis , was afebrile, urine with positive nitrites and large amount of bacteria and leukocyte esterase. His initial chest xray showed bilbasilar consolidations, most likely due to aspiration pna. Pt had been taking Vicodin after a recent dental extraction and caregivers reported that he had been lethargic and not himself for several days. Pt also developed diabetes insipidus/hypernatremia while admitted and was being treated with DDAVP and D5. Pt's renal function continued to deteriorate througout visit. Pt had PEG placed and again aspirated and had fevers, tachycardia and altered mental status. Pt has a guardian, palliative care was consulted and have worked with the guardian and a probate judge in [place] to change his code status. Tube feedings and IV fluids and IV antibiotics were withdrawn on 01/14/18, comfort measures were implemented at that time. He has been less restless today than the past few days and he is not arouseable to verbal or physical stimuli. Pt is going to be discharged to [facility] with Hospice care. Discharge discussed with: family - Time Spent with Patient Total time spent providing and/or coordinating discharge services: Less than 30 minutes - Discharge Medications Prescriptions: LORazepam Oral Conc [Ativan Oral Conc] 1 mg PO Q6HR PRN 7 Days #30 mls PRN Reason: anxiety/restlessness Haloperidol Oral Conc [Haldol] 2 mg PO Q6H #30 mls MORPHINE SUL Oral CONC [Roxanol Oral Conc] 5 mg SL Q4H 7 Days #30 oral.syg Home Medications: Acetaminophen [Non-Aspirin] 650 mg PO Q4H PRN 12/26/17 [History] Albuterol Neb [Proventil Neb] 2.5 mg IH QID PRN 12/26/17 [History] Alendronate Sodium [Fosamax] 70 mg PO TH 12/26/17 [History] Benztropine Mesylate 2 mg PO HS 12/26/17 [History] Benztropine [Cogentin] 1 mg PO QAM 12/26/17 [History] Buspirone HCl [Buspar] 20 mg PO BID 12/26/17 [History] Calcium Carbonate/Vitamin D3 [Oyster Shell Calcium-Vit D Tab] 1 tab PO BID 12/26 [History] Cholecalciferol (Vitamin D3) [Vitamin D3] 1,000 unit PO DAILY 12/26/17 [History] Docusate Sodium [Dok] 100 mg PO BID 12/26/17 [History] Fluticasone Propionate Nasal [Flonase] 1 spr NS DAILY 12/26/17 [History] Fluvoxamine Maleate 50 mg PO BID 12/26/17 [History] Ibuprofen [Motrin Ib] 400 mg PO Q6H PRN 12/26/17 [History] LORazepam [Ativan] 1 mg PO BID 12/26/17 [History] Levothyroxine [Synthroid] 100 mcg PO DAILY 12/26/17 [History] [place] Carbonate 300 mg PO BID 12/26/17 [History] Loperamide [Imodium] 4 mg PO DAILY PRN 12/26/17 [History] Magnesium Hydroxide [Milk of Magnesia] 2,400 mg PO DAILY PRN 12/26/17 [History] OLANZapine [Zyprexa] 10 mg PO QAM 12/26/17 [History] OLANZapine [Zyprexa] 20 mg PO HS 12/26/17 [History] Polyethylene Glycol 3350 [Gavilax] 17 gm PO DAILY 12/26/17 [History] Sennosides/Docusate Sodium [Senna-S Tablet] 2 tab PO HS 12/26/17 [History] Tamsulosin [Flomax] 0.4 mg PO DAILY 12/26/17 [History] Xyzal 5 mg PO DAILY 12/26/17 [History] carBAMazepine [CarBAMazepine] 100 mg PO QAM 12/26/17 [History] carBAMazepine [CarBAMazepine] 200 mg PO HS 12/26/17 [History] fluvoxaMINE [Luvox] 100 mg PO BID 12/26/17 [History] Desmopressin Acetate [Ddavp] 3 spray NS BID bottle 01/15/18 [Rx] Haloperidol Oral Conc [Haldol] 2 mg PO Q6H udc 01/15/18 [Rx] Saliva Stimulant [Biotene Moisturizing Rinse] 1 spray PO Q2H PRN bottle [Rx] Haloperidol Oral Conc [Haldol] 2 mg PO Q6H #30 mls 01/16/18 [Rx] LORazepam Oral Conc [Ativan Oral Conc] 1 mg PO Q6HR PRN 7 Days #30 mls 01/16/18 [Rx] MORPHINE SUL Oral CONC [Roxanol Oral Conc] 5 mg SL Q4H 7 Days #30 oral.syg 01/16 [Rx] Allergies/Adverse Reactions: 3 Allergy/AdvReac Type Severity Reaction Status Date / Time No Known Allergies Allergy Verified 10/15/17 19:33 Date of admission: 12/26/17 08:05 Primary care physician: Yanet Armstrong Consults: 12/28/17 07:56 Consult to Nephrology [CONS] Routine Consulting Provider: Kidney Olivia/LEMUEL/JU/CAROLEE Reason for Consult: DI Time Notified: 07:58 Call Completed: Yes 12/28/17 09:51 Consult to Nutrition [CONS] Routine Comment: Consulting Provider: NUTRITION Reason for Dietary Consult: Tube Feed Start & Manage 01/03/18 08:04 Consult to Psychiatry [CONS] Routine Consulting Provider: Psychiatry Nemo Reason for Consult: Medication adjustment. Unable to take PO. Time Notified: 08:05 Call Completed: Yes 01/03/18 11:12 Consult to Gastroenterology [CONS] Routine Consulting Provider: Gastroenterology Olivia Reason for Consult: Consult for G tube placement. FTT in adult. Unable to tolerate PO Time Notified: 11:13 Call Completed: Yes 01/05/18 22:07 Consult to Respiratory Therapy [CONS] Routine Reason for Consult: Add flutter valve to pts. breathing tx Call Completed: Yes 01/06/18 10:47 Consult to Protection Analyst [CONS] Routine Reason for SW Consult: discharge planning 01/07/18 09:59 Consult to ENT [CONS] Routine Consulting Provider: ENT Olivia Reason for Consult: Oropharyngeal erythema and swelling Time Notified: 10:00 Call Completed: Yes 01/07/18 12:39 Consult to Palliative Care [CONS] Routine Comment: Consulting Provider: Palliative Care Nemo Reason for Consult: Goals of care Call Completed: Yes Discharging clinician: Peg Beaver Anticipated date of discharge: 01/16/18 - Constitutional Vitals: Temp Pulse Resp BP Pulse Ox 98.1 F 117 18 116/79 90 01/16/18 07:29 01/16/18 07:29 01/16/18 11:24 01/16/18 07:29 01/16/18 11:24 General appearance: Present: cachectic, underweight. Absent: A&O X 1, A&O X 2, A&O X 3, answers questions appropriately - Head Head exam: Present: atraumatic, normocephalic - Eye Eye exam: Present: normal appearance, conjuntiva pink, sclera anicteric - Neck Neck exam general surgery: Present: supple, trachea midline - Respiratory Respiratory exam: Present: decreased breath sounds, CTAB. Absent: accessory muscle use, prolonged expiratory phase, rales, rhonchi, wheezes - Cardiovascular Cardiovascular exam: Present: RRR, +S1, +S2. Absent: diastolic murmur, gallop, rubs, systolic murmur - GI/Abdominal GI/Abdominal exam: Present: normal bowel sounds, soft. Absent: hepatomegaly, tenderness - Extremities Exam Extremities exam: Present: warm, radial pulses palpable and symmetrical. Absent : calf tenderness, cyanotic, pedal edema - Neurological Exam Neurological exam: Absent: alert, oriented X3 - Skin Skin exam: Present: dry, intact, mottled, warm - Patient Status Disposition: Transfer SNF Condition: Serious Functional capacity at discharge: bed bound Overall status at discharge: patient is not back to baseline - Discharge Instructions Follow Up With: Yanet Armstrong MD [Primary Care Provider] -
== END 2018-01-16 12:36 | DRG 208 ==
LOC: EMEROO 06:30 → 2SOUTHHOLD 08:05 → SUATTDRO 08:05 → ICNU 14:04 → 3BNU 01-04 19:26
PROVIDERS: ADMIT Internal Medicine Hospice and Palliative Medicine; ATTEND Internal Medicine